=== PATIENT | female | born 1970 | race Caucasian/White ===

== ENCOUNTER → 2016-11-07 | Outpatient (CLI) | payer BC ==
--- NOTE | 2016-11-07 08:39 | US ---
EXAMINATION TYPE: US abdomen limited DATE OF EXAM: 11/07/2016 7:48 AM COMPARISON: Chest CT in PACS February 05, 2014 CLINICAL HISTORY: Abn LFT's, pt has history of Sarcoidosis EXAM MEASUREMENTS: Liver Length: 17.3 cm Gallbladder Wall: 0.2 cm CBD: 0.6 cm Right Kidney: 11.2 x 4.8 x 5.5 cm RUQ ABDOMINAL ULTRASOUND ANATOMY: Pancreas: Slightly heterogeneously hyperechoic, tail gassed out Liver: Heterogeneous hyperechoic, lobulated contour without abnormal intrahepatic ductal dilatation evaluation for focal masses is limited due to the heterogeneity. Gallbladder: wnl Evidence for sonographic Willis's sign: No CBD: Upper limits of normal Right Kidney: wnl TECHNOLOGIST IMPRESSION: As Above IMPRESSION: Heterogeneity of liver correlates with old CT where there is heterogeneous appearance to liver and spleen and scattered subcentimeter hypodense areas, sarcoid involvement is suspected in bot h. Imaging guided random biopsy for tissue analysis can be performed if desired.
[2016-11-07 08:49] LABS: Bilirubin, Delta 0.6 mg/dL (0.0-0.2); Total Bilirubin 0.8 mg/dL (0.2-1.3); Total Protein 8.1 g/dL (6.3-8.2)
== END | disposition home or self-care (01) ==
LOC: RADUSWWP 07:27
PROVIDERS: ATTEND Internal Medicine
DX: R79.89 Other specified abnormal findings of blood chemistry (principal)
CPT/HCPCS: 36415; 76705; 80076

== ENCOUNTER 2016-11-13 08:40 | Day surgery (SDC) | payer BC ==
[2016-11-13] MEDS ORDERED: HYDROmorphone 1 MG/ML 1 ML SYRINGE IVP PRN (09:17)
[2016-11-13] MEDS ORDERED: ALPRAZolam 0.5 MG TAB PO ONE (09:17)
[2016-11-13 09:38] LABS: INR 1.1 (<1.1); Prothrombin Time 10.7 sec (9.0-12.0)
[2016-11-13 09:43] VITALS: TEMP 97.4
[2016-11-13 09:44] LABS: Mean Platelet Volume 6.8
[2016-11-13] MEDS ORDERED: HYDROmorphone 1 MG/ML 1 ML SYRINGE IVP STA (10:20)
[2016-11-13 11:04] VITALS: RESP 16
--- NOTE | 2016-11-13 12:56 | US ---
EXAMINATION TYPE: US biopsy liver DATE OF EXAM: 11/13/2016 10:29 AM HISTORY: Sarcoidosis, D86.9 PROCEDURE: Maximal barrier technique was utilized. After informed consent, the skin overlying a suit able path to the left lobe of liver was localized using ultrasound, the skin was prepped and draped. Ultrasound was utilized with sterile technique. Lidocaine was used for local anesthesia. A skin ananth k made with a scalpel. Under direct ultrasound guidance, an 18-gauge needle was advanced into the le ft lobe of the liver and core biopsy obtained. Hemostasis was achieved. There was no immediate comp lication and patient remained in stable condition. Specimen submitted in formalin to Pathology. IMPRESSION: STATUS POST ULTRASOUND GUIDED CORE BIOPSY OF THE LEFT LOBE OF THE LIVER, PATHOLOGY CHASTITY Rainey PERFORMED BY THE UNDERSIGNED.
[2016-11-13 13:26] VITALS: BP 139/77; PULSE 68
== END 2016-11-13 14:35 | disposition home or self-care (01) ==
LOC: RADPROMAIN 08:40
PROVIDERS: ATTEND Internal Medicine
DX: K75.3 Granulomatous hepatitis, not elsewhere classified (principal)
CPT/HCPCS: 85049; 85610; 88312; 88313; 88307; 96374; 36415; 47000; 76942; J1170

== ENCOUNTER → 2017-02-08 | Outpatient (CLI) | payer OTHER ==
[2017-02-08 12:54] LABS: Anisocytosis Slight; Basophils % (A) 0 %; CH 28.5; CHCM 31.6; Eosinophils # (A) 0.1 k/uL (0-0.7); Eosinophils % (A) 1 %; HCT 42.6 % (34.0-46.0); HDW 2.27; HGB 13.7 gm/dL (11.4-16.0); Luc # (Auto) 0.29; Luc % (Auto) 3; Lymphocytes # (A) 0.9 k/uL (1.0-4.8); Lymphocytes % (A) 11 %; MCH 29.1 pg (25.0-35.0); MCHC 32.1 g/dL (31.0-37.0); MCV 90.7 fL (80.0-100.0); Mean Platelet Volume 6.7; Monocytes # (A) 0.6 k/uL (0-1.0); Monocytes % (A) 6 %; Neutrophils # (A) 6.7 k/uL (1.3-7.7); Neutrophils % (A) 78 %; RDW 16.7 % (11.5-15.5); WBC 8.6 k/uL (3.8-10.6); WBC (Perox) 9.04
[2017-02-08 13:02] LABS: ALT 49 U/L (9-52); AST 41 U/L (14-36); Alkaline Phosphatase 226 U/L (38-126); Anion Gap 11 mmol/L; Blood Urea Nitrogen 21 mg/dL (7-17); Carbon Dioxide 25 mmol/L (22-30); Chloride 104 mmol/L (98-107); Glucose 90 mg/dL (74-99); Non-African American GFR(MDRD) 53 (>60 ml/min/1.73 sqM); Potassium 4.5 mmol/L (3.5-5.1); Sodium 140 mmol/L (137-145); Total Bilirubin 0.6 mg/dL (0.2-1.3); Total Protein 7.3 g/dL (6.3-8.2)
== END | disposition home or self-care (01) ==
LOC: LABWHC1 12:01
PROVIDERS: ATTEND Internal Medicine
DX: D86.89 Sarcoidosis of other sites (principal)
CPT/HCPCS: 36415; 80053; 82164; 85025

== ENCOUNTER 2017-04-02 11:51 | Observation (INO) | payer OTHER ==
--- NOTE | 2017-04-02 12:31 | ED ---
General Adult HPI - General Chief complaint: Syncope Stated complaint: syncope Time Seen by Provider: 04/02/17 12:00 Source: patient, RN notes reviewed Mode of arrival: wheelchair Limitations: no limitations - History of Present Illness Initial comments: This is a 47-year-old female with past medical history significant for sarcoidosis and depression. Patient states today she was about to open a door at home and then she passed out onto the floor she did not hurt herself when she went down. Patient states she got up eventually with the help of some friends. Patient states she then took a shower while in the shower she lightheaded and passed out again. Patient states eventually woke up, the shower and began to get dressed. Patient states while dressing she was sitting on the edge of the bed she reached for her deodorant and again passed out. Patient states she passed out one more time while lying in the stretcher. [facility] but was not yet hooked to monitor. There was no post ictal state according to friends. Patient denies any headache patient denies numbness weakness. Patient denies any recent fever chills or cough. Patient denies any chest pain palpitations difficulty breathing or shortness of breath. Patient denies any abdominal pain patient denies nausea vomiting or diarrhea. - Related Data Home Medications Medication Instructions Recorded Confirmed Albuterol Nebulized (Conc) 2.5 mg INHALATION RT-TID 11/08/16 04/02/17 [Ventolin Nebulized (Conc)] Budesonide-Formot 160-4.5 Mcg 2 puff INHALATION RT-BID 11/08/16 04/02/17 [Symbicort 160-4.5 Mcg Inhaler] Levothyroxine Sodium [Synthroid] 175 mcg PO DAILY 11/08/16 04/02/17 Olmesartan Medoxomil [Benicar] 20 mg PO DAILY 11/08/16 04/02/17 busPIRone HCL 15 mg PO BID 11/08/16 04/02/17 DULoxetine HCL [Cymbalta] 120 mg PO DAILY 11/10/16 04/02/17 Cholecalciferol [Vitamin D3] 1,000 unit PO DAILY 04/02/17 04/02/17 predniSONE [Deltasone] 20 mg PO Q48H 04/02/17 04/02/17 Allergies Allergy/AdvReac Type Severity Reaction Status Date / Time No Known Allergies Allergy Verified 04/02/17 14:02 Review of Systems ROS Statement: Those systems with pertinent positive or pertinent negative responses have been documented in the HPI. ROS Other: All systems not noted in ROS Statement are negative. Past Medical History Past Medical History: Hypertension, Liver Disease, Sleep Apnea/CPAP/BIPAP, Thyroid Disorder Additional Past Medical History / Comment(s): sacoidosis, C-Pap History of Any Multi-Drug Resistant Organisms: None Reported Additional Past Surgical History / Comment(s): D&C Past Anesthesia/Blood Transfusion Reactions: No Reported Reaction Past Psychological History: Anxiety, Depression Smoking Status: Never smoker Past Alcohol Use History: None Reported Past Drug Use History: None Reported - Past Family History Brother(s) Family Medical History: Cancer Additional Family Medical History / Comment(s): oral cancer General Exam - General Exam Comments Initial Comments: GENERAL: Patient is well-developed and well-nourished. Patient is nontoxic and well- hydrated and is in mild distress. Patient is currently diaphoretic ENT: Neck is soft and supple. No significant lymphadenopathy is noted. Oropharynx is clear. Moist mucous membranes. Neck has full range of motion without eliciting any pain. EYES: The sclera were anicteric and conjunctiva were pink and moist. Extraocular movements were intact and pupils were equal round and reactive to light. Eyelids were unremarkable. PULMONARY: Unlabored respirations. Good breath sounds bilaterally. No audible rales rhonchi or wheezing was noted. CARDIOVASCULAR: There is a regular rate and rhythm without any murmurs gallops or rubs. ABDOMEN: Soft and nontender with normal bowel sounds. No palpable organomegaly was noted. There is no palpable pulsatile mass. SKIN: Skin is clear with no lesions or rashes and otherwise unremarkable. NEUROLOGIC: Patient is alert and oriented x3. Cranial nerves II through XII are grossly intact. Motor and sensory are also intact. Normal speech, volume and content. Symmetrical smile. MUSCULOSKELETAL: Normal extremities with adequate strength and full range of motion. No lower extremity swelling or edema. No calf tenderness. LYMPHATICS: No significant lymphadenopathy is noted PSYCHIATRIC: Normal psychiatric evaluation. Normal interpersonal interactions appears functionally intact in deals appropriately with others. No signs of depression. No signs of anxiety. Limitations: no limitations Course Vital Signs 04/02/17 04/02/17 04/02/17 12:00 12:34 13:19 Temperature 98.2 F Pulse Rate 78 70 Pulse Rate [ 76 Sitting] Pulse Rate [ 83 Standing] Pulse Rate [ 68 Supine] Respiratory 18 Rate Blood Pressure 159/87 164/94 Blood Pressure 155/96 [Sitting] Blood Pressure 161/101 [Standing] Blood Pressure 163/94 [Supine] O2 Sat by Pulse 98 97 Oximetry 04/02/17 04/02/17 14:19 15:19 Temperature Pulse Rate 76 76 Pulse Rate [ Sitting] Pulse Rate [ Standing] Pulse Rate [ Supine] Respiratory 18 Rate Blood Pressure 157/75 173/83 Blood Pressure [Sitting] Blood Pressure [Standing] Blood Pressure [Supine] O2 Sat by Pulse 98 98 Oximetry Medical Decision Making - Medical Decision Making EKG shows normal sinus rhythm at 64 bpm WI interval is 176 QRS is 126 QT interval 444 QTC is 458. Patient's EKG shows no ST segment elevation or depression or T wave abnormalities are noted. Patient has a right bundle branch block. No old EKG is unremarkable Chest x-ray shows no acute abnormality. Computed tomography scan of the chest shows no acute abnormality. Patient for syncopal episodes to standing was sitting and 1 lying down so admitted the patient. I spoke with Dr. Arellano and he agreed to admit the patient I wrote admitting orders and consult cardiology. - Lab Data Result diagrams: 04/02/17 12:20 04/02/17 12:20 Lab Results 04/02/17 04/02/17 04/02/17 Range/Units 12:20 12:20 12:20 WBC 11.9 H (3.8-10.6) k/uL RBC 4.95 (3.80-5.40) m/uL Hgb 14.8 (11.4-16.0) gm/dL Hct 45.1 (34.0-46.0) % MCV 91.0 (80.0-100.0) fL MCH 29.9 (25.0-35.0) pg MCHC 32.8 (31.0-37.0) g/dL RDW 14.6 (11.5-15.5) % Plt Count 280 (150-450) k/uL Neutrophils % 80 % Lymphocytes % 10 % Monocytes % 6 % Eosinophils % 2 % Basophils % 0 % Neutrophils # 9.6 H (1.3-7.7) k/uL Lymphocytes # 1.1 (1.0-4.8) k/uL Monocytes # 0.7 (0-1.0) k/uL Eosinophils # 0.2 (0-0.7) k/uL Basophils # 0.0 (0-0.2) k/uL PT (9.0-12.0) sec INR (<1.1) APTT (22.0-30.0) sec D-Dimer (<0.60) mg/L FEU Sodium 138 (137-145) mmol/L Potassium 4.5 (3.5-5.1) mmol/L Chloride 105 (98-107) mmol/L Carbon Dioxide 24 (22-30) mmol/L Anion Gap 9 mmol/L BUN 19 H (7-17) mg/dL Creatinine 0.90 (0.52-1.04) mg/dL Est GFR (MDRD) Af Amer >60 (>60 ml/min/1.73 sqM) Est GFR (MDRD) Non-Af >60 (>60 ml/min/1.73 sqM) Glucose 126 H (74-99) mg/dL POC Glucose (mg/dL) (75-99) mg/dL POC Glu Animal Assistant ID Calcium 9.4 (8.4-10.2) mg/dL Magnesium 2.0 (1.6-2.3) mg/dL Total Bilirubin 0.8 (0.2-1.3) mg/dL AST 56 H (14-36) U/L ALT 83 H (9-52) U/L Alkaline Phosphatase 236 H (38-126) U/L Total Creatine Kinase 27 L (30-135) U/L CK-MB (CK-2) 1.3 (0.0-2.4) ng/mL CK-MB (CK-2) Rel Index 4.8 Troponin I <0.012 (0.000-0.034) ng/mL Total Protein 7.6 (6.3-8.2) g/dL Albumin 3.9 (3.5-5.0) g/dL 04/02/17 04/02/17 Range/Units 12:20 12:30 WBC (3.8-10.6) k/uL RBC (3.80-5.40) m/uL Hgb (11.4-16.0) gm/dL Hct (34.0-46.0) % MCV (80.0-100.0) fL MCH (25.0-35.0) pg MCHC (31.0-37.0) g/dL RDW (11.5-15.5) % Plt Count (150-450) k/uL Neutrophils % % Lymphocytes % % Monocytes % % Eosinophils % % Basophils % % Neutrophils # (1.3-7.7) k/uL Lymphocytes # (1.0-4.8) k/uL Monocytes # (0-1.0) k/uL Eosinophils # (0-0.7) k/uL Basophils # (0-0.2) k/uL PT 9.6 (9.0-12.0) sec INR 0.9 (<1.1) APTT 20.7 L (22.0-30.0) sec D-Dimer 1.87 H (<0.60) mg/L FEU Sodium (137-145) mmol/L Potassium (3.5-5.1) mmol/L Chloride (98-107) mmol/L Carbon Dioxide (22-30) mmol/L Anion Gap mmol/L BUN (7-17) mg/dL Creatinine (0.52-1.04) mg/dL Est GFR (MDRD) Af Amer (>60 ml/min/1.73 sqM) Est GFR (MDRD) Non-Af (>60 ml/min/1.73 sqM) Glucose (74-99) mg/dL POC Glucose (mg/dL) 119 H (75-99) mg/dL POC Glu Animal Assistant ID Justus Rowe Calcium (8.4-10.2) mg/dL Magnesium (1.6-2.3) mg/dL Total Bilirubin (0.2-1.3) mg/dL AST (14-36) U/L ALT (9-52) U/L Alkaline Phosphatase (38-126) U/L Total Creatine Kinase (30-135) U/L CK-MB (CK-2) (0.0-2.4) ng/mL CK-MB (CK-2) Rel Index Troponin I (0.000-0.034) ng/mL Total Protein (6.3-8.2) g/dL Albumin (3.5-5.0) g/dL Disposition Clinical Impression: Syncope and collapse Disposition: ADMITTED IP TO THIS HOSP Referrals: Juice Pappas MD [Primary Care Provider] - 1-2 days Time of Disposition: 16:02
[2017-04-02 12:40] LABS: Glucose,Whole Blood 119 mg/dL (75-99)
[2017-04-02 12:44] LABS: Basophils % (A) 0 %; CHCM 33.1; Eosinophils # (A) 0.2 k/uL (0-0.7); Eosinophils % (A) 2 %; HCT 45.1 % (34.0-46.0); HDW 2.31; HGB 14.8 gm/dL (11.4-16.0); Luc # (Auto) 0.31; Luc % (Auto) 3; Lymphocytes # (A) 1.1 k/uL (1.0-4.8); Lymphocytes % (A) 10 %; MCH 29.9 pg (25.0-35.0); MCHC 32.8 g/dL (31.0-37.0); Mean Platelet Volume 6.7; Monocytes # (A) 0.7 k/uL (0-1.0); Monocytes % (A) 6 %; Neutrophils # (A) 9.6 k/uL (1.3-7.7); Neutrophils % (A) 80 %; RBC 4.95 m/uL (3.80-5.40); RDW 14.6 % (11.5-15.5); WBC 11.9 k/uL (3.8-10.6); WBC (Perox) 12.36
[2017-04-02 12:50] LABS: ALT 83 U/L (9-52); AST 56 U/L (14-36); Alkaline Phosphatase 236 U/L (38-126); Anion Gap 9 mmol/L; Blood Urea Nitrogen 19 mg/dL (7-17); Calcium 9.4 mg/dL (8.4-10.2); Carbon Dioxide 24 mmol/L (22-30); Chloride 105 mmol/L (98-107); Glucose 126 mg/dL (74-99); Non-African American GFR(MDRD) >60 (>60 ml/min/1.73 sqM); Potassium 4.5 mmol/L (3.5-5.1); Sodium 138 mmol/L (137-145); Total Bilirubin 0.8 mg/dL (0.2-1.3); Total Protein 7.6 g/dL (6.3-8.2)
[2017-04-02 13:00] LABS: Creatine Kinase 27 U/L (30-135)
[2017-04-02 13:10] LABS: INR 0.9 (<1.1); Partial Thromboplastin Time 20.7 sec (22.0-30.0); Prothrombin Time 9.6 sec (9.0-12.0)
--- NOTE | 2017-04-02 13:10 | XR ---
EXAMINATION TYPE: XR chest 2V DATE OF EXAM: 04/02/2017 HISTORY: Chest Pain. REFERENCE: Previous study dated 02/13/2014. FINDINGS: Heart size is upper limits of normal. There is mild vascular congestion and interstitial ch laura. Pleural spaces are clear. IMPRESSION: FINDINGS MOST CONSISTENT WITH MILD HEART FAILURE.
[2017-04-02 13:13] LABS: Creatine Kinase MB 1.3 ng/mL (0.0-2.4); Troponin I <0.012 ng/mL (0.000-0.034)
[2017-04-02] MEDS ORDERED: HEPARIN SODIUM,PORCINE 10,000 UNIT/ML 1 ML VIAL IV ONE (13:44)
[2017-04-02] MEDS ORDERED: RX INFO: IV CONTRAST WAS GIVEN 1 EACH MISC MISCELLANE PRN (13:44)
--- NOTE | 2017-04-02 15:53 | CT ---
EXAMINATION TYPE: CT chest angio for PE DATE OF EXAM: 04/02/2017 COMPARISON: NONE HISTORY: Syncopal episodes today. Right rib pain after fall. CT DLP: 861.50 mGycm Automated exposure control for dose reduction was used. CONTRAST: CT Chest for pulmonary embolism performed with with IV Contrast, patient injected with 81 mL of Omnip aque 350. FINDINGS: LUNGS: Nodular densities are present bilaterally within the lungs. MEDIASTINUM: There is satisfactory enhancement of the pulmonary artery and its branches, there is no CT evidence for pulmonary embolism. Borderline enlarged node in the aorticopulmonary window level and superior mediastinum. There are some small and borderline enlarged prevascular nodes, shotty nodes w ithin the mediastinum. Calcified mediastinal, hilar nodes also present. No pericardial effusion is se en. AORTA: No additional significant abnormality is seen. OTHER: Liver shows intranodular contour which may be due to underlying cirrhosis. Spleen is borderli ne enlarged, liver may be enlarged. IMPRESSION: No evident pulmonary embolism. Correlate for cirrhosis. Suspect hepatosplenomegaly. Granulomatous dis ease compatible with patient's history of sarcoid.
[2017-04-02] MEDS ORDERED: NITROGLYCERIN SL TABS 0.4 MG TAB SUBLINGUAL PRN (16:03)
[2017-04-02 17:16] VITALS: BMI 49.9
[2017-04-02] MEDS ORDERED: traMADol 50 MG TAB PO PRN (18:14)
[2017-04-02] MEDS: ALBUTEROL NEBULIZED 2.5 MG/3 ML INHALATION SCH (19:47)
[2017-04-02] MEDS: SYMBICORT 160-4.5 MCG INHALER INHALATION SCH (19:47)
[2017-04-02 20:05] LABS: Creatine Kinase 22 U/L (30-135)
[2017-04-02 20:16] LABS: Creatine Kinase MB 1.2 ng/mL (0.0-2.4); Troponin I <0.012 ng/mL (0.000-0.034)
[2017-04-02] MEDS: busPIRone HCl 5 MG TAB PO SCH (21:32)
[2017-04-03 00:19] LABS: Creatine Kinase 20 U/L (30-135)
[2017-04-03 00:32] LABS: Troponin I <0.012 ng/mL (0.000-0.034)
[2017-04-03] MEDS: HYDROcodone/APAP 5-325MG 1 EACH TAB PO PRN (04:04)
[2017-04-03] MEDS: LEVOTHYROXINE 100 MCG TAB PO SCH (06:28)
[2017-04-03] MEDS: LEVOTHYROXINE 75 MCG TAB PO SCH (06:29)
[2017-04-03 07:01] LABS: Basophils # (A) 0.1 k/uL (0-0.2); Basophils % (A) 1 %; CH 29.9; CHCM 32.4; Eosinophils # (A) 0.2 k/uL (0-0.7); Eosinophils % (A) 2 %; HCT 44.8 % (34.0-46.0); HDW 2.27; HGB 14.4 gm/dL (11.4-16.0); Luc # (Auto) 0.23; Luc % (Auto) 3; Lymphocytes # (A) 0.9 k/uL (1.0-4.8); Lymphocytes % (A) 10 %; MCH 29.9 pg (25.0-35.0); MCHC 32.1 g/dL (31.0-37.0); Mean Platelet Volume 6.5; Monocytes # (A) 0.4 k/uL (0-1.0); Monocytes % (A) 5 %; Neutrophils # (A) 6.7 k/uL (1.3-7.7); Neutrophils % (A) 80 %; RBC 4.82 m/uL (3.80-5.40); RDW 14.8 % (11.5-15.5); WBC 8.5 k/uL (3.8-10.6); WBC (Perox) 8.85
[2017-04-03 07:10] LABS: Anion Gap 10 mmol/L; Blood Urea Nitrogen 19 mg/dL (7-17); Calcium 9.4 mg/dL (8.4-10.2); Carbon Dioxide 23 mmol/L (22-30); Chloride 105 mmol/L (98-107); Cholesterol 235 mg/dL (<200); Glucose 129 mg/dL (74-99); HDL Cholesterol 74 mg/dL (40-60); Non-African American GFR(MDRD) 59 (>60 ml/min/1.73 sqM); Potassium 4.7 mmol/L (3.5-5.1); Sodium 138 mmol/L (137-145); Triglycerides 185 mg/dL (<150)
[2017-04-03] MEDS: SYMBICORT 160-4.5 MCG INHALER INHALATION SCH ×2 (07:59→20:23)
[2017-04-03] MEDS: ALBUTEROL NEBULIZED 2.5 MG/3 ML INHALATION SCH ×3 (07:59→20:23)
[2017-04-03 08:00] LABS: ALT 72 U/L (9-52); AST 47 U/L (14-36)
[2017-04-03] MEDS ORDERED: predniSONE 20 MG TAB PO SCH (09:00)
[2017-04-03] MEDS: CHOLECALCIFEROL 1,000 UNIT TAB PO SCH (09:30)
[2017-04-03] MEDS: DULoxetine HCL 60 MG CAPSULE.DR PO SCH (09:30)
[2017-04-03] MEDS: LOSARTAN 50 MG TAB PO SCH (09:30)
[2017-04-03] MEDS: busPIRone HCl 5 MG TAB PO SCH ×2 (09:30→21:05)
[2017-04-03] MEDS: ASPIRIN 325 MG TAB PO SCH (09:30)
--- NOTE | 2017-04-03 09:46 | CONS ---
DATE OF CONSULTATION: CHIEF COMPLAINT: Syncope. Quyen is a 47-year-old lady with history of COPD, hypothyroidism, and hypertension who presented to hospital having had an episode of syncope. Patient states that she was taking shower, was standing and then suddenly passed out. She fell down and hit her right rib. She woke up on her own. She thinks that she probably passed out for about 10 minutes of so, did not have any focal neurological deficits. Did not have bladder or bowel incontinence and there is no prior history of syncope or TIA. She had a CTA that is negative for pulmonary embolism. At the time of my evaluation this morning, she is comfortable at rest. Hemodynamically stable and in no apparent distress. Three sets of cardiac enzymes are negative. An EKG shows sinus rhythm with right bundle branch block. Past medical history is significant for COPD and hypertension. Medications include Symbicort, albuterol, Benicar, Synthroid and Cymbalta. Allergic to TRAMADOL. Family history is negative for premature coronary artery disease. Social history is negative for current smoking, EtOH abuse, or drug abuse. REVIEW OF SYSTEMS: HEENT is unremarkable. CARDIAC: As described above. RESPIRATORY: Negative. GI: Negative. GENITOURINARY: Negative. ALLERGY/IMMUNOLOGY: Negative. SKIN: Negative. MUSCULOSKELETAL: Negative. DERMATOLOGY: Negative. CONSTITUTIONAL: negative. ONCOLOGICAL: Negative. The rest of the system review is not relevant. On exam, comfortable at rest. Vital signs are stable. There is no jugular venous distention. Carotid upstroke is normal. There is no bruit. Chest is clear to auscultation and percussion. Heart exam reveals first and second heart sounds. No gallop. No murmur, no rub. Abdomen is soft, nontender. Exam of the extremities did not reveal edema. Peripheral pulses are felt. Labs show a hemoglobin of 14.4, platelet count is 243. D-dimer is elevated, but the CT chest is negative. Potassium is 4.7. Creatinine is 1. Liver enzymes are slightly elevated, 3 sets of tropes are negative. Cholesterol is 235 with an HDL of 74, LDL of 134. ASSESSMENT: 1. Syncope; rule out cardiac causes. 2. Hypertension. 3. Chronic obstructive pulmonary disease. PLAN: So far the cardiac work-up is negative. There is no documented tachy- or bradyarrhythmia. Patient did not have myocardial infarction. CT chest is negative. I will obtain a carotid duplex study and an echocardiogram. If these are negative and patient is feeling well, we can ambulate and discharge her home and consider an outpatient stress test. Thank you for allowing us to participate in the care of this pleasant.
--- NOTE | 2017-04-03 10:44 | US ---
EXAMINATION TYPE: US carotid duplex BILAT DATE OF EXAM: 04/03/2017 COMPARISON: NONE CLINICAL HISTORY: syncope, exam extremely difficult due to large thick neck, pulsatile vessels, study somewhat limited. EXAM MEASUREMENTS: RIGHT: Peak Systolic Velocity (PSV) cm/sec ----- Right CCA: 95.3 ----- Right ICA: 73.7 ----- Right ECA: 128.6 ICA/CCA ratio: 0.8 RIGHT: End Diastole cm/sec ----- Right CCA: 18.9 ----- Right ICA: 18.0 ----- Right ECA: 16.5 LEFT: Peak Systolic Velocity (PSV) cm/sec ----- Left CCA: 87.5 ----- Left ICA: 115.6 ----- Left ECA: 108.2 ICA/CCA ratio: 1.3 LEFT: End Diastole cm/sec ----- Left CCA: 15.8 ----- Left ICA: 23.2 ----- Left ECA: 14.3 VERTEBRALS (direction of flow): Right Vertebral: Antegrade Left Vertebral: Antegrade Unable to visualize distal ICA on left due to depth of vessels. No significant velocity elevations. Grayscale, color Doppler, spectral Doppler imaging performed of the carotid arteries IMPRESSION: No hemodynamic significant stenosis of the proximal internal carotid arteries bilaterall y by Doppler criteria, and indirect measurement of carotid stenosis, there are some limitations to ev aluation of the distal internal carotid artery on the left.
--- NOTE | 2017-04-03 12:27 | P.CNPUL ---
History of Present Illness Consult date: 04/03/17 Chief complaint: sarcoidosis, syncope History of present illness: A 46-year-old female patient with history of pulmonary and liver sarcoidosis who was hospitalized yesterday because of recurrent episodes of syncope. The patient was at her friend's house where she unexpectedly passed out and she lost consciousness and these episodes were very brief and the patient would wake within seconds without having any altered mentation or any residual neurologic deficits. These episodes were not associated with any chest pain, palpitations, seizures, or any focal neurological deficits. She denies having any headache. No dizziness. No orthostasis. No head trauma. The patient came into the hospital for this reason. An echocardiogram was done and the results are still pending for now. Meanwhile, the patient has normal blood work and normal electrolytes and no significant abnormalities have been noted. 3 sets of cardiac enzymes have been obtained including a troponin and all of them were within normal limits. The EKG showed a right bundle branch block pattern and a left axis deviation. The cardiac rhythm was sinus. The CT angios the chest showed no evidence of any pulmonary embolism. There is hepatosplenomegaly and granulomatous disease consistent with pulmonary and hepatic sarcoidosis. Note that the patient was confirmed to have hepatic sarcoidosis with a fine-needle aspirate of the liver. The patient has been on systemic steroids and she is being regularly followed up by Dr. Pickens. She remains on a 30 mg of prednisone every other day for her pulmonary and hepatic disease. She is on no Plaquenil for the time being. No cough. No sputum production. No shortness of breath. No vision changes. There is some mild baseline abnormalities in her liver function tests. No altered mentation at this point. No no seizure activity. No history of any neurosarcoidosis or cardiac sarcoidosis. She is obese and she has obstructive sleep apnea pH is compliant to her CPAP therapy and the patient denies having any sleep attacks. Review of Systems All systems: negative Constitutional: Denies chills, Denies fever Eyes: denies blurred vision, denies pain Ears, nose, mouth and throat: Denies headache, Denies sore throat Cardiovascular: Denies chest pain, Denies shortness of breath Respiratory: Denies cough Gastrointestinal: Denies abdominal pain, Denies diarrhea, Denies nausea, Denies vomiting Genitourinary: Denies dysuria, Denies hematuria Musculoskeletal: Denies myalgias Integumentary: Denies pruritus, Denies rash Neurological: Reports syncope, Reports weakness Psychiatric: Denies anxiety, Denies depression Endocrine: Denies fatigue, Denies weight change Past Medical History Past Medical History: Hypertension, Liver Disease, Sleep Apnea/CPAP/BIPAP, Thyroid Disorder Additional Past Medical History / Comment(s): Sarcoidosis with pulmonary and liver involvement, 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, obstructive sleep apnea maintained on CPAP therapy, morbid obesity, GE reflux, hypertension History of Any Multi-Drug Resistant Organisms: None Reported Additional Past Surgical History / Comment(s): D&C, liver biopsy Past Anesthesia/Blood Transfusion Reactions: No Reported Reaction Past Psychological History: Anxiety, Depression Smoking Status: Never smoker Past Alcohol Use History: None Reported Past Drug Use History: None Reported - Past Family History Brother(s) Family Medical History: Cancer Additional Family Medical History / Comment(s): oral cancer Medications and Allergies Home Medications Medication Instructions Recorded Confirmed Type Albuterol Nebulized (Conc) 2.5 mg INHALATION RT-TID 11/08/16 04/02/17 History [Ventolin Nebulized (Conc)] Budesonide-Formot 160-4.5 Mcg 2 puff INHALATION RT-BID 11/08/16 04/02/17 History [Symbicort 160-4.5 Mcg Inhaler] Levothyroxine Sodium [Synthroid] 175 mcg PO DAILY 11/08/16 04/02/17 History Olmesartan Medoxomil [Benicar] 20 mg PO DAILY 11/08/16 04/02/17 History busPIRone HCL 15 mg PO BID 11/08/16 04/02/17 History DULoxetine HCL [Cymbalta] 120 mg PO DAILY 11/10/16 04/02/17 History Cholecalciferol [Vitamin D3] 1,000 unit PO DAILY 04/02/17 04/02/17 History predniSONE [Deltasone] 20 mg PO Q48H 04/02/17 04/02/17 History Allergies Allergy/AdvReac Type Severity Reaction Status Date / Time tramadol [From Ultram] AdvReac Unknown Verified 04/03/17 07:38 Physical Exam Vitals: Vital Signs Temp Pulse Pulse Pulse Pulse Resp BP 04/03/17 11:30 80 16 04/03/17 09:25 97 F L 93 104 H 93 16 04/03/17 08:14 82 04/03/17 08:02 78 04/03/17 04:00 97.2 F L 86 16 04/03/17 00:00 97.4 F L 82 17 04/02/17 20:00 97.3 F L 86 18 04/02/17 19:51 80 04/02/17 19:41 80 04/02/17 17:33 16 04/02/17 17:05 97.1 F L 72 89 77 16 04/02/17 16:25 98.1 F 74 18 166/65 04/02/17 15:19 76 18 173/83 04/02/17 14:19 76 157/75 04/02/17 13:19 70 164/94 04/02/17 12:34 76 83 68 BP BP BP Pulse Ox 04/03/17 11:30 147/87 95 04/03/17 09:25 141/76 140/94 144/90 94 L 04/03/17 08:14 04/03/17 08:02 95 04/03/17 04:00 131/68 97 04/03/17 00:00 04/02/17 20:00 115/77 94 L 04/02/17 19:51 04/02/17 19:41 04/02/17 17:33 04/02/17 17:05 160/87 164/92 142/83 97 04/02/17 16:25 100 04/02/17 15:19 98 04/02/17 14:19 98 04/02/17 13:19 97 04/02/17 12:34 155/96 161/101 163/94 Intake and Output 04/02/17 04/03/17 04/03/17 22:59 06:59 14:59 Intake Total 180 300 Balance 180 300 Intake: Oral 180 300 Other: # Voids 1 Weight 136.078 kg 133.5 kg Obese, comfortable, no acute distress.Head exam was generally normal. There was no scleral icterus or corneal arcus. Mucous membranes were moist. Neck is short and supple and the patient has significant crowding of the posterior oropharynx. There is no goiter or neck masses. Lungs sounds are diminished bilaterally otherwise clear. No wheezes or rhonchi any crackles.Cardiac exam revealed the PMI to be normally situated and sized. The rhythm was regular and no extrasystoles were noted during several minutes of auscultation. The first and second heart sounds were normal and physiologic splitting of the second heart sound was noted. There were no murmurs, rubs, clicks, or gallops.Abdominal exam revealed normal bowel sounds. The abdomen was soft, non- tender, and without masses, organomegaly, or appreciable enlargement of the abdominal aorta. Organs cannot be accurately palpated as the patient is morbidly obese.Examination of the extremities revealed easily palpable radial, femoral and pedal pulses. There was no cyanosis, clubbing or edema. Neurologically the patient is intact and the exam is nonfocal. Results - Laboratory Findings CBC and BMP: 04/03/17 06:12 04/03/17 06:12 PT/INR, D-dimer PT 9.6 sec (9.0-12.0) 04/02/17 12:20 INR 0.9 (<1.1) 04/02/17 12:20 D-Dimer 1.87 mg/L FEU (<0.60) H 04/02/17 12:20 Abnormal lab findings: Abnormal Labs 04/02/17 04/02/17 04/02/17 12:20 12:20 12:20 WBC 11.9 H Neutrophils # 9.6 H Lymphocytes # APTT D-Dimer BUN 19 H Glucose 126 H POC Glucose (mg/dL) AST 56 H ALT 83 H Alkaline Phosphatase 236 H Total Creatine Kinase 27 L Triglycerides Cholesterol LDL Cholesterol, Calc HDL Cholesterol 04/02/17 04/02/17 04/02/17 12:20 12:30 18:50 WBC Neutrophils # Lymphocytes # APTT 20.7 L D-Dimer 1.87 H BUN Glucose POC Glucose (mg/dL) 119 H AST ALT Alkaline Phosphatase Total Creatine Kinase 22 L Triglycerides Cholesterol LDL Cholesterol, Calc HDL Cholesterol 04/02/17 04/03/17 04/03/17 23:41 06:12 06:12 WBC Neutrophils # Lymphocytes # 0.9 L APTT D-Dimer BUN 19 H Glucose 129 H POC Glucose (mg/dL) AST ALT Alkaline Phosphatase Total Creatine Kinase 20 L Triglycerides 185 H Cholesterol 235 H LDL Cholesterol, Calc 124 H HDL Cholesterol 74 H 04/03/17 06:12 WBC Neutrophils # Lymphocytes # APTT D-Dimer BUN Glucose POC Glucose (mg/dL) AST 47 H ALT 72 H Alkaline Phosphatase Total Creatine Kinase Triglycerides Cholesterol LDL Cholesterol, Calc HDL Cholesterol - Diagnostic Findings CT scan - chest: image reviewed Assessment and Plan Plan: Assessment 1 syncope, unexplained. Rule out cardiac arrhythmia contributing to these episodes of syncope. Rule out cardiac sarcoidosis. Neurologically the patient is intact however she would need a further evaluation. Neurosarcoidosis is felt to be less likely. Carotid Dopplers are negative. 2 sarcoidosis with pulmonary and hepatic involvement maintenance prednisone 3 morbid obesity 4 obstructive sleep apnea maintained on CPAP 5 hypertension 6 abnormal LFTs secondary to above. Plan Keep the patient a residential monitor. Echocardiogram. Look for any significant cardiac arrhythmia. Obtain MRI of the brain to see if there is any evidence of neurosarcoidosis contributing to his syncope. Continue prednisone 20 mg every other day. Outpatient medication been ordered resume. Blood work was noted. We'll continue to follow.
--- NOTE | 2017-04-03 23:29 | MR ---
EXAMINATION TYPE: MR brain wo/w con DATE OF EXAM: 04/03/2017 COMPARISON: NONE HISTORY: Dizziness, fall CONTRAST: Standard multiplanar, multisequence MRI departmental protocol utilizing 20 mL intravenous MultiHance gadolinium contrast. FINDINGS: The ventricles appear normal. There is no mass effect nor midline shift. There is no sign o f intracranial hemorrhage. There is an 8 mm focus of increased signal at the packer-white matter juncti on left parietal lobe. There are other scattered foci of less than 5 mm increased signal at the packer- white matter junction of both anterior parietal lobes. Total number is 5. There is no midline shift. There is no sign of intracranial hemorrhage. Brainstem appears normal. Cor pus callosum appears normal. There is no pathologic enhancement. IMPRESSION: There are scattered white matter high signal foci of uncertain significance. I would consider minimal chronic small vessel ischemia and minimal demyelinating disease.
[2017-04-04] MEDS: HYDROcodone/APAP 5-325MG 1 EACH TAB PO PRN (05:16)
[2017-04-04 05:25] VITALS: RESP 16
[2017-04-04] MEDS: LEVOTHYROXINE 100 MCG TAB PO SCH (06:28)
[2017-04-04] MEDS: LEVOTHYROXINE 75 MCG TAB PO SCH (06:28)
[2017-04-04 06:38] LABS: Basophils % (A) 0 %; CH 29.9; CHCM 31.9; Eosinophils # (A) 0.1 k/uL (0-0.7); Eosinophils % (A) 1 %; HDW 2.21; HGB 14.9 gm/dL (11.4-16.0); Luc # (Auto) 0.32; Luc % (Auto) 3; Lymphocytes # (A) 1.1 k/uL (1.0-4.8); Lymphocytes % (A) 10 %; MCH 29.9 pg (25.0-35.0); MCHC 31.7 g/dL (31.0-37.0); MCV 94.3 fL (80.0-100.0); Mean Platelet Volume 6.2; Monocytes # (A) 0.7 k/uL (0-1.0); Monocytes % (A) 6 %; Neutrophils # (A) 8.8 k/uL (1.3-7.7); Neutrophils % (A) 80 %; RBC 4.99 m/uL (3.80-5.40); RDW 14.6 % (11.5-15.5); WBC 11.1 k/uL (3.8-10.6)
[2017-04-04 06:47] LABS: ALT 71 U/L (9-52); AST 44 U/L (14-36); Alkaline Phosphatase 218 U/L (38-126); Anion Gap 10 mmol/L; Blood Urea Nitrogen 21 mg/dL (7-17); Calcium 9.6 mg/dL (8.4-10.2); Carbon Dioxide 24 mmol/L (22-30); Chloride 106 mmol/L (98-107); Glucose 124 mg/dL (74-99); Non-African American GFR(MDRD) 59 (>60 ml/min/1.73 sqM); Potassium 4.7 mmol/L (3.5-5.1); Sodium 140 mmol/L (137-145); Total Bilirubin 0.7 mg/dL (0.2-1.3); Total Protein 7.3 g/dL (6.3-8.2)
--- NOTE | 2017-04-04 08:15 | HP ---
DATE OF ADMISSION: REASON FOR ADMISSION: Syncope. 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 Patient states that she lost consciousness during the 3 episodes. Denies having any alarm symptoms prior, lasted about 30 seconds. Did not lose her control of her bowel or bladder. Patient stated that; however, thereafter she came into the emergency room. An EKG was done and did not reveal any abnormalities. Orthostatics were negative. No seizure-like activity was described. However, patient stated that her friend described that she watched the patient where she tensed up in the emergency room and had her eyes rolling back. Denies having any focal motor or sensory deficits at this time. A CT angiogram was done, did not reveal any pulmonary embolism. There is diffuse granulomatosis disease. Denies having any headaches, blurry vision, nausea, vomiting, diarrhea. Does not state to have any reproducibility of the symptoms with change in position. Past medical history includes sarcoidosis, sleep apnea, obesity, thyroid disorder, hypertension. Surgical history includes liver biopsy, D&C. SOCIAL HISTORY: Lifelong nonsmoker. No alcohol or drug use reported. FAMILY HISTORY: Oral cancer in brother. Medications include: 1. Albuterol. 2. Symbicort. 3. Synthroid. 4. Benicar. 5. BuSpar. 6. Duloxetine. 7. Vitamin D3. 8. Prednisone. ALLERGIES: Allergic to TRAMADOL. Those were reviewed and appropriately reconciled. PHYSICAL EXAM: VITALS: Temperature is 97 Fahrenheit, heart rate 80 beats per minute, respiratory rate 16, saturating 98% on room air. Blood pressure 140/94. GENERALLY: Patient appears to be alert, oriented x3. HEENT: The pupils are equal and reactive to light and accommodation. HEART: S1, S2 present. No murmur appreciated. LUNGS: Good air entry. No wheezing or rhonchi noted. ABDOMINAL EXAM: Soft, nontender, no organomegaly appreciated. GENITOURINARY: No Nation in place. EXTREMITIES: Pulses can be palpated distally. Denies any tenderness on gross palpation. SKIN: On a gross skin exam does not appear to have any purpura or any skin rashes that were noted. NEUROLOGICALLY: Grossly cranial nerves 2-12 intact. No motor or sensory deficits noted. LABORATORY DATA: Hemoglobin 14.4, hematocrit 44.8, white count 8.5, platelets of 244. Sodium 138, potassium 4.7, chloride 105, bicarb 20. BUN 19, creatinine 1. ASSESSMENT AND PLAN: 1. Syncope, rule out cardiogenic causes. Continue with telemetry monitoring. One needs to consider a neurosarcoidosis as well. 2. Morbid obesity. 3. Obstructive sleep apnea. 4. Hypertension. 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 PLAN: Echocardiogram of the heart will be obtained. Continue with telemetry monitoring. A carotid study was ordered by Cardiology. Patient is to continue prednisone. MRI of the brain will be done if there is any granulomatous lesion without the current focal deficits seen on the physical exam we would need to consider seizure activity as well. DVT prophylaxis. Will follow.
[2017-04-04 08:27] VITALS: TEMP 97.6
[2017-04-04] MEDS: ALBUTEROL NEBULIZED 2.5 MG/3 ML INHALATION SCH ×2 (08:27→12:53)
[2017-04-04] MEDS: DULoxetine HCL 60 MG CAPSULE.DR PO SCH (08:27)
[2017-04-04] MEDS: SYMBICORT 160-4.5 MCG INHALER INHALATION SCH (08:27)
[2017-04-04] MEDS: ASPIRIN 325 MG TAB PO SCH (08:27)
[2017-04-04] MEDS: busPIRone HCl 5 MG TAB PO SCH (08:28)
[2017-04-04] MEDS: LOSARTAN 50 MG TAB PO SCH (08:28)
[2017-04-04] MEDS: CHOLECALCIFEROL 1,000 UNIT TAB PO SCH (08:28)
--- NOTE | 2017-04-04 10:29 | P.PN ---
Subjective Principal diagnosis: Syncope This is a 47-year-old female with history of COPD, hypothyroidism, hypertension , who presented to the hospital following an episode of syncope. She has had no arrhythmias noted on the monitor here, blood pressure has been stable. She did have a CTA negative for pulmonary embolism. Echocardiogram with Doppler study was performed and remains pending. Objective - Vital Signs Vital signs: Vital Signs Temp 97.6 F 04/04/17 08:00 Pulse 88 04/04/17 08:44 Resp 16 04/04/17 08:00 BP 141/100 04/04/17 08:00 Pulse Ox 95 04/04/17 08:00 Intake & Output 04/03/17 04/04/17 04/04/17 18:59 06:59 18:59 Intake Total 716 480 Output Total 550 Balance 716 -70 Weight 133.2 kg Intake: Oral 716 480 Output: Urine 550 Other: Voiding Method Toilet Toilet # Voids 1 1 # Bowel Movements 1 - Exam PHYSICAL EXAMINATION: HEENT: Head is atraumatic, normocephalic. Pupils equal, round. Neck is supple. There is no elevated jugular venous pressure. HEART EXAMINATION: Heart S1, S2 normal. No murmur or gallop heard. CHEST EXAMINATION: Lungs are clear to auscultation and precussion. No chest wall tenderness is noted on palpation or with deep breathing. ABDOMEN: Soft, obese, nontender. Bowel sounds are heard. No organomegaly noted. EXTREMITIES: 2+ peripheral pulses with no evidence of peripheral edema and no calf tenderness noted. NEUROLOGIC patient is awake, alert and oriented -3. . - Labs CBC & Chem 7: 04/04/17 06:19 04/04/17 06:19 Labs: Abnormal Lab Results - Last 24 Hours (Table) 04/04/17 04/04/17 Range/Units 06:19 06:19 WBC 11.1 H (3.8-10.6) k/uL Hct 47.0 H (34.0-46.0) % Neutrophils # 8.8 H (1.3-7.7) k/uL BUN 21 H (7-17) mg/dL Glucose 124 H (74-99) mg/dL AST 44 H (14-36) U/L ALT 71 H (9-52) U/L Alkaline Phosphatase 218 H (38-126) U/L Assessment and Plan (1) Morbid obesity Status: Acute (2) Sleep apnea Status: Acute (3) HTN (hypertension) Status: Acute (4) Sarcoid Status: Acute (5) Syncope and collapse Status: Acute Plan: From cardiology's perspective, we will review the patient's echocardiogram with Doppler study, if normal she may be able to be discharged home once cleared by primary. We will make her a follow-up appointment with Dr. Calvin in the office. An outpatient stress test will also be ordered. DNP note has been reviewed, I agree with a documented findings and plan of care. Patient was seen and examined.
--- NOTE | 2017-04-04 11:16 | ECHOF ---
Referral Reason:syncope MEASUREMENTS -------- HEIGHT: 165.1 cm WEIGHT: 133.4 kg BP: IVSd: 1.4 cm (0.6 - 1.1) LVIDd: 4.1 cm (3.9 - 5.3) LVPWd: 1.6 cm (0.6 - 1.1) IVSs: 1.7 cm LVIDs: 3.7 cm LVPWs: 1.2 cm Ao Diam: 3.4 cm (2.0 - 3.7) AV Cusp: 2.4 cm (1.5 - 2.6) LA Diam: 3.6 cm (2.7 - 3.8) MV E Adalberto: 0.46 m/s MV DecT: 254 ms MV A Adalberto: 0.72 m/s MV E/A Ratio: 0.63 FINDINGS -------- Sinus rhythm. Morbid Obesity This was a techncally difficult study with suboptimal views, , Definity utilized for enhancement of images. There is moderate concentric left ventricular hypertrophy. Overall left ventricular systolic function is low-normal with, an EF between 50 - 55 %. The right ventricle is normal in size. The left atrial size is normal. The right atrial size is normal. 1.5MG OF DEFINITY UTLIZED: 2 OR MORE WALL SEGMENTS NOT VISUALIZED. The aortic valve was not well visualized. Mild mitral regurgitation is present. Mild tricuspid regurgitation present. Right ventricular systolic pressure is normal at < 35 mmHg. There is no evidence of pulmonary hypertension. The pulmonic valve was not well visualized. The aortic root size is normal. Echo free space may represent effusion or a pericardial fat pad. CONCLUSIONS -------- 1. Morbid Obesity 2. There is no evidence of pulmonary hypertension. 3. The pulmonic valve was not well visualized. 4. The aortic root size is normal. 5. Echo free space may represent effusion or a pericardial fat pad. 6. This was a techncally difficult study with suboptimal views, , Definity utilized for enhancement of images. 7. There is moderate concentric left ventricular hypertrophy. 8. Overall left ventricular systolic function is low-normal with, an EF between 50 - 55 %. 9. 1.5MG OF DEFINITY UTLIZED: 2 OR MORE WALL SEGMENTS NOT VISUALIZED. 10. The aortic valve was not well visualized. 11. Mild mitral regurgitation is present. 12. Mild tricuspid regurgitation present. 13. Right ventricular systolic pressure is normal at < 35 mmHg. MANAGER DRUG: Chloé Mccarthy RDCS
[2017-04-04 11:20] VITALS: BP 123/66
[2017-04-04 12:56] VITALS: PULSE 84
--- NOTE | 2017-04-04 13:24 | P.PN ---
Subjective A 46-year-old female patient with history of pulmonary and liver sarcoidosis who was hospitalized yesterday because of recurrent episodes of syncope. The patient was at her friend's house where she unexpectedly passed out and she lost consciousness and these episodes were very brief and the patient would wake within seconds without having any altered mentation or any residual neurologic deficits. These episodes were not associated with any chest pain, palpitations, seizures, or any focal neurological deficits. She denies having any headache. No dizziness. No orthostasis. No head trauma. The patient came into the hospital for this reason. An echocardiogram was done and the results are still pending for now. Meanwhile, the patient has normal blood work and normal electrolytes and no significant abnormalities have been noted. 3 sets of cardiac enzymes have been obtained including a troponin and all of them were within normal limits. The EKG showed a right bundle branch block pattern and a left axis deviation. The cardiac rhythm was sinus. The CT angios the chest showed no evidence of any pulmonary embolism. There is hepatosplenomegaly and granulomatous disease consistent with pulmonary and hepatic sarcoidosis. Note that the patient was confirmed to have hepatic sarcoidosis with a fine-needle aspirate of the liver. The patient has been on systemic steroids and she is being regularly followed up by Dr. Pickens. She remains on a 30 mg of prednisone every other day for her pulmonary and hepatic disease. She is on no Plaquenil for the time being. No cough. No sputum production. No shortness of breath. No vision changes. There is some mild baseline abnormalities in her liver function tests. No altered mentation at this point. No no seizure activity. No history of any neurosarcoidosis or cardiac sarcoidosis. She is obese and she has obstructive sleep apnea and is compliant to her CPAP therapy and the patient denies having any sleep attacks. On 04/04/2017 the patient is being seen in follow-up. The patient is doing well. No further episodes of syncope. No cardiac arrhythmias have been noted on the monitor. MRI of the brain was done and showed some scattered white matter high signal foci of unknown significance. There was no meningeal enhancement. There is no lesions to suggest [employer] sarcoidosis. The possibilities were raised by the radiologist was chronic small vessel ischemia versus minimal demyelinating disease. Meanwhile, the patient had an echocardiogram and the patient had no evidence of any pulmonary hypertension, there was moderate concentric Hypertrophy with an Ejection Fraction of 50-55%, No Segmental Wall Motion Abnormalities, No Valvular Insufficiency. Objective - Vital Signs Vital signs: Vital Signs Temp 97.6 F 04/04/17 08:00 Pulse 84 04/04/17 13:07 Resp 16 04/04/17 11:19 BP 123/66 04/04/17 11:19 Pulse Ox 96 04/04/17 11:19 Intake & Output 04/03/17 04/04/17 04/04/17 18:59 06:59 18:59 Intake Total 716 480 540 Output Total 550 Balance 716 -70 540 Weight 133.2 kg Intake: Oral 716 480 540 Output: Urine 550 Other: Voiding Method Toilet Toilet # Voids 1 1 1 # Bowel Movements 1 0 - Exam Obese, comfortable, no acute distress.Head exam was generally normal. There was no scleral icterus or corneal arcus. Mucous membranes were moist. Neck is short and supple and the patient has significant crowding of the posterior oropharynx. There is no goiter or neck masses. Lungs sounds are diminished bilaterally otherwise clear. No wheezes or rhonchi any crackles.Cardiac exam revealed the PMI to be normally situated and sized. The rhythm was regular and no extrasystoles were noted during several minutes of auscultation. The first and second heart sounds were normal and physiologic splitting of the second heart sound was noted. There were no murmurs, rubs, clicks, or gallops.Abdominal exam revealed normal bowel sounds. The abdomen was soft, non- tender, and without masses, organomegaly, or appreciable enlargement of the abdominal aorta. Organs cannot be accurately palpated as the patient is morbidly obese.Examination of the extremities revealed easily palpable radial, femoral and pedal pulses. There was no cyanosis, clubbing or edema. Neurologically the patient is intact and the exam is nonfocal. - Labs CBC & Chem 7: 04/04/17 06:19 04/04/17 06:19 Labs: Abnormal Lab Results - Last 24 Hours (Table) 04/04/17 04/04/17 Range/Units 06:19 06:19 WBC 11.1 H (3.8-10.6) k/uL Hct 47.0 H (34.0-46.0) % Neutrophils # 8.8 H (1.3-7.7) k/uL BUN 21 H (7-17) mg/dL Glucose 124 H (74-99) mg/dL AST 44 H (14-36) U/L ALT 71 H (9-52) U/L Alkaline Phosphatase 218 H (38-126) U/L Assessment and Plan Plan: Assessment 1 syncope, unexplained. Rule out cardiac arrhythmia contributing to these episodes of syncope. Rule out cardiac sarcoidosis. Neurologically the patient is intact however she would need a further evaluation. Neurosarcoidosis is felt to be less likely. The MRI of the brain was noted and there is no evidence of any neurosarcoidosis. There may be some chronic white matter ischemic changes versus some early demyelination. The patient's had Carotid Dopplers are negative. Echocardiac Mack was also negative. There was some hypertensive heart disease with concentric left ventricular hypertrophy. No pulmonary hypertension. No valvular changes. No segmental wall motion abnormalities. 2 sarcoidosis with pulmonary and hepatic involvement maintenance prednisone 3 morbid obesity 4 obstructive sleep apnea maintained on CPAP 5 hypertension 6 abnormal LFTs secondary to above. Plan Pulmonary status is stable. Sarcoidosis improving on 20 mg of prednisone every other day. The patient has pulmonary and hepatic involvement. There is no evidence of any cardiac or urinary involvement with sarcoidosis. MRI of the brain was reviewed. Echocardiac Mack was reviewed. Cardiac rhythm is stable. Follow-up with cardiology on outpatient basis. May consider a prolonged Holter monitor and a stress test at the later stage. Follow-up with Dr. Pappas.
--- NOTE | 2017-04-04 19:09 | P.DS ---
Providers Date of admission: 04/02/17 16:03 Attending physician: Thee Arellano MD Consults: 04/02/17 16:03 Consult Physician Urgent Consulting Provider: Lizeth Franco Consult Reason/Comments: Syncope Do you want consulting provider notified?: Yes Consult Physician Urgent Consulting Provider: [facility] Consult Reason/Comments: Syncopal episodes Do you want consulting provider notified?: Yes Primary care physician: [facility] Course: DATE OF ADMISSION: REASON FOR ADMISSION: Syncope. 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 Patient states that she lost consciousness during the 3 episodes. Denies having any alarm symptoms prior, lasted about 30 seconds. Did not lose her control of her bowel or bladder. Patient stated that; however, thereafter she came into the emergency room. An EKG was done and did not reveal any abnormalities. Orthostatics were negative. No seizure-like activity was described. However, patient stated that her friend described that she watched the patient where she tensed up in the emergency room and had her eyes rolling back. Denies having any focal motor or sensory deficits at this time. A CT angiogram was done, did not reveal any pulmonary embolism. There is diffuse granulomatosis disease. day of discharge Denies having any headaches, blurry vision, nausea, vomiting, diarrhea. Does not state to have any reproducibility of the symptoms with change in position. PHYSICAL EXAM: VITALS: Temperature is 97 Fahrenheit, heart rate 80 beats per minute, respiratory rate 16, saturating 98% on room air. Blood pressure 140/94. GENERALLY: Patient appears to be alert, oriented x3. HEENT: The pupils are equal and reactive to light and accommodation. HEART: S1, S2 present. No murmur appreciated. LUNGS: Good air entry. No wheezing or rhonchi noted. ABDOMINAL EXAM: Soft, nontender, no organomegaly appreciated. GENITOURINARY: No Nation in place. EXTREMITIES: Pulses can be palpated distally. Denies any tenderness on gross palpation. SKIN: On a gross skin exam does not appear to have any purpura or any skin rashes that were noted. NEUROLOGICALLY: Grossly cranial nerves 2-12 intact. No motor or sensory deficits noted. ASSESSMENT AND PLAN: 1. Syncope, rule out cardiogenic causes. Continue with telemetry monitoring. One needs to consider a neurosarcoidosis as well. 2. Morbid obesity. 3. Obstructive sleep apnea. 4. Hypertension. 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 MRi shows small vessel disease recommend to be off work for 10 days No driving if pt has recurrent symptoms then pt needs HOlter eval echo was done, wnl, no carotid abnormalities Plan - Discharge Summary New Discharge Prescriptions: Continue RX: Budesonide-Formot 160-4.5 Mcg [Symbicort 160-4.5 Mcg Inhaler] 2 puff INHALATION RT-BID RX: busPIRone HCL 15 mg PO BID RX: Albuterol Nebulized (Conc) [Ventolin Nebulized (Conc)] 2.5 mg INHALATION RT-TID RX: Olmesartan Medoxomil [Benicar] 20 mg PO DAILY RX: Levothyroxine Sodium [Synthroid] 175 mcg PO DAILY RX: DULoxetine HCL [Cymbalta] 120 mg PO DAILY RX: Cholecalciferol [Vitamin D3] 1,000 unit PO DAILY RX: predniSONE [Deltasone] 20 mg PO Q48H Discharge Medication List RX: Albuterol Nebulized (Conc) [Ventolin Nebulized (Conc)] 2.5 mg INHALATION RT- TID 11/08/16 [History] RX: Budesonide-Formot 160-4.5 Mcg [Symbicort 160-4.5 Mcg Inhaler] 2 puff INHALATION RT-BID 11/08/16 [History] RX: Levothyroxine Sodium [Synthroid] 175 mcg PO DAILY 11/08/16 [History] RX: Olmesartan Medoxomil [Benicar] 20 mg PO DAILY 11/08/16 [History] RX: busPIRone HCL 15 mg PO BID 11/08/16 [History] RX: DULoxetine HCL [Cymbalta] 120 mg PO DAILY 11/10/16 [History] RX: Cholecalciferol [Vitamin D3] 1,000 unit PO DAILY 04/02/17 [History] RX: predniSONE [Deltasone] 20 mg PO Q48H 04/02/17 [History] Follow up Appointment(s)/Referral(s): Juice Pappas MD [Primary Care Provider] - 04/06/17 2:00 pm Niranjan Calvin MD [STAFF PHYSICIAN] - 04/20/17 1:00 pm Patient Instructions/Handouts: Syncope (DC) Activity/Diet/Wound Care/Special Instructions: Return to work on 04/14/17 without any restrictions Discharge Disposition: HOME SELF-CARE
== END 2017-04-04 17:10 | disposition home or self-care (01) ==
LOC: EC 11:51 → 6SEL 16:03 → INTOOBSV 16:03
PROVIDERS: ADMIT Internal Medicine; ATTEND Internal Medicine
DX: R55 Syncope and collapse (principal); E66.01 Morbid (severe) obesity due to excess calories; G47.33 Obstructive sleep apnea (adult) (pediatric); I11.9 Hypertensive heart disease without heart failure; K73.8 Other chronic hepatitis, not elsewhere classified; D86.0 Sarcoidosis of lung; D86.89 Sarcoidosis of other sites; F32.9 Major depressive disorder, single episode, unspecified; Z68.42 Body mass index [BMI] 45.0-49.9, adult; F41.9 Anxiety disorder, unspecified; I45.10 Unspecified right bundle-branch block; J44.9 Chronic obstructive pulmonary disease, unspecified; E03.9 Hypothyroidism, unspecified; K21.9 Gastro-esophageal reflux disease without esophagitis; I73.9 Peripheral vascular disease, unspecified; Z88.8 Allergy status to other drugs, medicaments and biological substances; Z79.51 Long term (current) use of inhaled steroids; Z79.899 Other long term (current) drug therapy
CPT/HCPCS: 96374; 99285; 36415; 94640 ×6; 94760; 93005; 93306; 85379; 80061; 80053 ×2; 80048; 82550; 82553; 83735; 84450; 84460; 84484; 85025 ×3; 85610; 85730; 71020; 93880; 71275; 70553; G0378 ×3; J1644; Q9967; Q9957; A9577; J7512

== ENCOUNTER 2017-04-11 12:27 | Inpatient (IN) | payer OTHER ==
--- NOTE | 2017-04-11 14:23 | ED ---
Syncope HPI - General Chief Complaint: Syncope Stated Complaint: Passing Out Time Seen by Provider: 04/11/17 13:13 Source: patient, RN notes reviewed Mode of arrival: wheelchair Limitations: no limitations - History of Present Illness Initial Comments: This is a 47-year-old female who was just recently admitted and worked up for syncope which included echocardiogram carotid Doppler studies and MRI of the brain who had 2 episodes today of syncope. She states the first was at home she was reaching for some dog food in an overhead covered and passed out for about a minute. His second episode at her director of digital technology's office where she was being evaluated. She was sent over here for further evaluation right now she feels asymptomatic she states she has no idea at all that this is going to occur except for at the doctor's office today she felt somewhat diaphoretic and lightheaded prior to the episode. She denies any chest pain fevers chills nausea vomiting sweats focal weakness or upper or lower extremities no headaches or vision loss. Patient did state that she has been recently having some exertional dyspnea which seems to be new. MD Complaint: loss of consciousness, collapsed - Related Data Home Medications Medication Instructions Recorded Confirmed Albuterol Nebulized (Conc) 2.5 mg INHALATION RT-TID 11/08/16 04/11/17 [Ventolin Nebulized (Conc)] Budesonide-Formot 160-4.5 Mcg 2 puff INHALATION RT-BID 11/08/16 04/11/17 [Symbicort 160-4.5 Mcg Inhaler] Levothyroxine Sodium [Synthroid] 175 mcg PO DAILY 11/08/16 04/11/17 Olmesartan Medoxomil [Benicar] 20 mg PO DAILY 11/08/16 04/11/17 busPIRone HCL 15 mg PO BID 11/08/16 04/11/17 DULoxetine HCL [Cymbalta] 120 mg PO DAILY 11/10/16 04/11/17 Cholecalciferol [Vitamin D3] 1,000 unit PO DAILY 04/02/17 04/11/17 predniSONE [Deltasone] 20 mg PO Q48H 04/02/17 04/11/17 Ping Back And Body 1 tab PO QID PRN 04/11/17 04/11/17 Allergies Allergy/AdvReac Type Severity Reaction Status Date / Time tramadol [From Ultram] AdvReac Rash/Hives Verified 04/11/17 14:27 Review of Systems ROS Statement: Those systems with pertinent positive or pertinent negative responses have been documented in the HPI. ROS Other: All systems not noted in ROS Statement are negative. Past Medical History Past Medical History: Hypertension, Liver Disease, Sleep Apnea/CPAP/BIPAP, Thyroid Disorder Additional Past Medical History / Comment(s): Sarcoidosis with pulmonary and liver involvement, 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, obstructive sleep apnea maintained on CPAP therapy, morbid obesity, GE reflux, hypertension History of Any Multi-Drug Resistant Organisms: None Reported Additional Past Surgical History / Comment(s): D&C, liver biopsy Past Anesthesia/Blood Transfusion Reactions: No Reported Reaction Past Psychological History: Anxiety, Depression Smoking Status: Never smoker Past Alcohol Use History: None Reported Past Drug Use History: None Reported - Past Family History Brother(s) Family Medical History: Cancer Additional Family Medical History / Comment(s): oral cancer General Exam - General Exam Comments Initial Comments: Is a well-developed well-nourished awake alert female Limitations: no limitations General appearance: alert, in no apparent distress Head exam: Present: atraumatic, normocephalic, normal inspection Eye exam: Present: normal appearance, PERRL, EOMI. Absent: scleral icterus, conjunctival injection, periorbital swelling ENT exam: Present: normal exam, mucous membranes moist Neck exam: Present: normal inspection. Absent: tenderness, meningismus, lymphadenopathy Respiratory exam: Present: normal lung sounds bilaterally. Absent: respiratory distress, wheezes, rales, rhonchi, stridor Cardiovascular Exam: Present: regular rate, normal rhythm, normal heart sounds. Absent: systolic murmur, diastolic murmur, rubs, gallop, clicks GI/Abdominal exam: Present: soft, normal bowel sounds. Absent: distended, tenderness, guarding, rebound, rigid Extremities exam: Present: normal inspection, full ROM, normal capillary refill. Absent: tenderness, pedal edema, joint swelling, calf tenderness Back exam: Present: normal inspection Neurological exam: Present: alert, oriented X3, CN II-XII intact Psychiatric exam: Present: normal affect, normal mood Skin exam: Present: warm, dry, intact, normal color. Absent: rash Course Vital Signs 04/11/17 04/11/17 04/11/17 12:59 13:56 15:03 Temperature 97.1 F L Pulse Rate 67 61 61 Respiratory 18 22 14 Rate Blood Pressure 182/94 157/80 173/84 O2 Sat by Pulse 94 L 99 97 Oximetry 04/11/17 16:00 Temperature Pulse Rate 66 Respiratory 18 Rate Blood Pressure 157/83 O2 Sat by Pulse 96 Oximetry EKG Findings - EKG Results: EKG: interpreted by ERMD (Sinus rhythm with exodeviation right bundle-branch block rate was 70 [place] interval 146 QRS duration 134 daily since QTC of 460/505. ST-T wave changes) Medical Decision Making - Medical Decision Making I did discuss findings with patient family members as well as with the hospitalist patient will be readmitted for evaluation for recurrent syncopal episodes - Lab Data Result diagrams: 04/11/17 13:45 04/11/17 13:45 Lab Results 04/11/17 04/11/17 04/11/17 Range/Units 13:45 13:45 13:45 WBC 9.4 (3.8-10.6) k/uL RBC 4.54 (3.80-5.40) m/uL Hgb 13.8 (11.4-16.0) gm/dL Hct 43.6 (34.0-46.0) % MCV 96.0 (80.0-100.0) fL MCH 30.4 (25.0-35.0) pg MCHC 31.6 (31.0-37.0) g/dL RDW 14.6 (11.5-15.5) % Plt Count 276 (150-450) k/uL Neutrophils % 82 % Lymphocytes % 9 % Monocytes % 5 % Eosinophils % 1 % Basophils % 1 % Neutrophils # 7.7 (1.3-7.7) k/uL Lymphocytes # 0.9 L (1.0-4.8) k/uL Monocytes # 0.5 (0-1.0) k/uL Eosinophils # 0.1 (0-0.7) k/uL Basophils # 0.1 (0-0.2) k/uL PT (9.0-12.0) sec INR (<1.1) APTT (22.0-30.0) sec D-Dimer (<0.60) mg/L FEU Sodium 140 (137-145) mmol/L Potassium 4.6 (3.5-5.1) mmol/L Chloride 105 (98-107) mmol/L Carbon Dioxide 24 (22-30) mmol/L Anion Gap 11 mmol/L BUN 21 H (7-17) mg/dL Creatinine 0.99 (0.52-1.04) mg/dL Est GFR (MDRD) Af Amer >60 (>60 ml/min/1.73 sqM) Est GFR (MDRD) Non-Af 60 (>60 ml/min/1.73 sqM) Glucose 102 H (74-99) mg/dL Calcium 9.4 (8.4-10.2) mg/dL Magnesium 2.0 (1.6-2.3) mg/dL Total Bilirubin 0.8 (0.2-1.3) mg/dL AST 58 H (14-36) U/L ALT 68 H (9-52) U/L Alkaline Phosphatase 230 H (38-126) U/L Total Creatine Kinase 41 (30-135) U/L CK-MB (CK-2) 1.4 (0.0-2.4) ng/mL CK-MB (CK-2) Rel Index 3.4 Troponin I <0.012 (0.000-0.034) ng/mL Total Protein 7.5 (6.3-8.2) g/dL Albumin 4.0 (3.5-5.0) g/dL Urine Color Urine Appearance (Clear) Urine pH (5.0-8.0) Ur Specific [place] (1.001-1.035) Urine Protein (Negative) Urine Glucose (UA) (Negative) Urine Ketones (Negative) Urine Blood (Negative) Urine Nitrite (Negative) Urine Bilirubin (Negative) Urine Urobilinogen (<2.0) mg/dL Ur Leukocyte Esterase (Negative) Urine RBC (0-5) /hpf Urine WBC (0-5) /hpf Ur Squamous Epith Cells (0-4) /hpf Urine Bacteria (None) /hpf Urine Mucus (None) /hpf 04/11/17 04/11/17 Range/Units 13:45 16:00 WBC (3.8-10.6) k/uL RBC (3.80-5.40) m/uL Hgb (11.4-16.0) gm/dL Hct (34.0-46.0) % MCV (80.0-100.0) fL MCH (25.0-35.0) pg MCHC (31.0-37.0) g/dL RDW (11.5-15.5) % Plt Count (150-450) k/uL Neutrophils % % Lymphocytes % % Monocytes % % Eosinophils % % Basophils % % Neutrophils # (1.3-7.7) k/uL Lymphocytes # (1.0-4.8) k/uL Monocytes # (0-1.0) k/uL Eosinophils # (0-0.7) k/uL Basophils # (0-0.2) k/uL PT 9.8 (9.0-12.0) sec INR 1.0 (<1.1) APTT 18.1 L (22.0-30.0) sec D-Dimer 0.81 H (<0.60) mg/L FEU Sodium (137-145) mmol/L Potassium (3.5-5.1) mmol/L Chloride (98-107) mmol/L Carbon Dioxide (22-30) mmol/L Anion Gap mmol/L BUN (7-17) mg/dL Creatinine (0.52-1.04) mg/dL Est GFR (MDRD) Af Amer (>60 ml/min/1.73 sqM) Est GFR (MDRD) Non-Af (>60 ml/min/1.73 sqM) Glucose (74-99) mg/dL Calcium (8.4-10.2) mg/dL Magnesium (1.6-2.3) mg/dL Total Bilirubin (0.2-1.3) mg/dL AST (14-36) U/L ALT (9-52) U/L Alkaline Phosphatase (38-126) U/L Total Creatine Kinase (30-135) U/L CK-MB (CK-2) (0.0-2.4) ng/mL CK-MB (CK-2) Rel Index Troponin I (0.000-0.034) ng/mL Total Protein (6.3-8.2) g/dL Albumin (3.5-5.0) g/dL Urine Color Yellow Urine Appearance Cloudy H (Clear) Urine pH 5.5 (5.0-8.0) Ur Specific [place] 1.012 (1.001-1.035) Urine Protein Negative (Negative) Urine Glucose (UA) Negative (Negative) Urine Ketones Negative (Negative) Urine Blood Negative (Negative) Urine Nitrite Negative (Negative) Urine Bilirubin Negative (Negative) Urine Urobilinogen <2.0 (<2.0) mg/dL Ur Leukocyte Esterase Trace H (Negative) Urine RBC <1 (0-5) /hpf Urine WBC 1 (0-5) /hpf Ur Squamous Epith Cells 1 (0-4) /hpf Urine Bacteria Few H (None) /hpf Urine Mucus Rare H (None) /hpf - Radiology Data Radiology results: report reviewed (Review the imaging shows no acute findings.) , image reviewed Disposition Clinical Impression: Syncope Disposition: ADMITTED IP TO THIS [facility] Condition: Stable Referrals: Juice Pappas MD [Primary Care Provider] - 1-2 days
[2017-04-11] MEDS ORDERED: SODIUM CHLORIDE 0.9% 1,000 ML IV STA (14:49)
[2017-04-11 14:59] LABS: Basophils # (A) 0.1 k/uL (0-0.2); Basophils % (A) 1 %; CH 30.1; CHCM 31.6; Eosinophils # (A) 0.1 k/uL (0-0.7); Eosinophils % (A) 1 %; HCT 43.6 % (34.0-46.0); HDW 2.23; HGB 13.8 gm/dL (11.4-16.0); Luc # (Auto) 0.13; Luc % (Auto) 1; Lymphocytes # (A) 0.9 k/uL (1.0-4.8); Lymphocytes % (A) 9 %; MCH 30.4 pg (25.0-35.0); MCHC 31.6 g/dL (31.0-37.0); Mean Platelet Volume 7.3; Monocytes # (A) 0.5 k/uL (0-1.0); Monocytes % (A) 5 %; Neutrophils # (A) 7.7 k/uL (1.3-7.7); Neutrophils % (A) 82 %; RBC 4.54 m/uL (3.80-5.40); RDW 14.6 % (11.5-15.5); WBC 9.4 k/uL (3.8-10.6); WBC (Perox) 8.85
[2017-04-11 15:09] LABS: ALT 68 U/L (9-52); AST 58 U/L (14-36); Alkaline Phosphatase 230 U/L (38-126); Anion Gap 11 mmol/L; Blood Urea Nitrogen 21 mg/dL (7-17); Calcium 9.4 mg/dL (8.4-10.2); Carbon Dioxide 24 mmol/L (22-30); Chloride 105 mmol/L (98-107); Glucose 102 mg/dL (74-99); Non-African American GFR(MDRD) 60 (>60 ml/min/1.73 sqM); Potassium 4.6 mmol/L (3.5-5.1); Sodium 140 mmol/L (137-145); Total Bilirubin 0.8 mg/dL (0.2-1.3); Total Protein 7.5 g/dL (6.3-8.2)
--- NOTE | 2017-04-11 15:09 | XR ---
EXAMINATION TYPE: XR chest 2V DATE OF EXAM: 04/11/2017 COMPARISON: Chest x-ray April 02, 2017. HISTORY: Hypertension and syncope TECHNIQUE: Frontal and lateral views of the chest are obtained. FINDINGS: Exam is suboptimal secondary to patient's large body habitus. Low lung volumes are present. The cardiac silhouette size is mildly enlarged with mild central vascular congestion felt present. F inding slightly more prominent than prior study. No large pleural effusion or pneumothorax is seen bi laterally. The osseous structures are intact. IMPRESSION: Consider CHF exacerbation as there is cardiomegaly with central vascular congestion felt present.
[2017-04-11 15:12] LABS: Prothrombin Time 9.8 sec (9.0-12.0)
[2017-04-11 15:21] LABS: Creatine Kinase 41 U/L (30-135)
[2017-04-11 15:34] LABS: Creatine Kinase MB 1.4 ng/mL (0.0-2.4); Partial Thromboplastin Time 18.1 sec (22.0-30.0); Troponin I <0.012 ng/mL (0.000-0.034)
[2017-04-11 16:13] LABS: Appearance,Urine Cloudy (Clear); Bacteria,Urine Few /hpf; Bilirubin,Urine Negative (Negative); Glucose,Urine (UA) Negative (Negative); Ketones,Urine Negative (Negative); Leukocyte Esterase,Urine Trace (Negative); Mucus,Urine Rare /hpf; Nitrite,Urine Negative (Negative); PH, Urine 5.5 (5.0-8.0); Particle Count 4139; Protein,Urine Negative (Negative); RBC,Urine <1 /hpf (0-5); Specific Gravity,Urine 1.012 (1.001-1.035); Squamous Epithelial Cell,Urine 1 /hpf (0-4); UA Billing (MACRO vs. MICRO) MICRO; Urobilinogen,Urine <2.0 mg/dL (<2.0); WBC,Urine 1 /hpf (0-5)
[2017-04-11] MEDS ORDERED: NALOXONE 0.4 MG/ML 1 ML VIAL IV PRN (16:30)
[2017-04-11] MEDS: SYMBICORT 160-4.5 MCG INHALER INHALATION SCH (20:39)
[2017-04-11] MEDS: ALBUTEROL NEBULIZED 2.5 MG/3 ML INHALATION SCH (20:39)
[2017-04-11] MEDS: busPIRone HCl 5 MG TAB PO SCH (22:03)
[2017-04-11] MEDS: SODIUM CHLORIDE 0.9% 1,000 ML IV SCH (22:03)
[2017-04-12] MEDS: SODIUM CHLORIDE 0.9% 1,000 ML IV SCH ×2 (06:28→15:31)
[2017-04-12] MEDS: LEVOTHYROXINE 88 MCG TAB PO SCH (06:28)
[2017-04-12 06:39] LABS: Glucose,Whole Blood 112 mg/dL (75-99)
[2017-04-12] MEDS: SYMBICORT 160-4.5 MCG INHALER INHALATION SCH ×2 (08:18→21:42)
[2017-04-12] MEDS: ALBUTEROL NEBULIZED 2.5 MG/3 ML INHALATION SCH ×4 (08:18→21:45)
[2017-04-12] MEDS: DULoxetine HCL 60 MG CAPSULE.DR PO SCH (08:43)
[2017-04-12] MEDS: predniSONE 20 MG TAB PO SCH (08:44)
[2017-04-12] MEDS: busPIRone HCl 5 MG TAB PO SCH ×2 (08:44→20:58)
[2017-04-12] MEDS ORDERED: predniSONE 20 MG TAB PO SCH (09:00)
--- NOTE | 2017-04-12 09:50 | P.CRDCN ---
History of Present Illness Consult date: 04/12/17 Requesting physician: Thee Arellano Consult reason: sycope Chief complaint: Syncope History of present illness: This is a pleasant 47-year-old female with history of sarcoidosis, hypothyroidism, hypertension, COPD, who was recently in the hospital approximately one week ago following a syncopal episode. A CTA of the chest was performed at that time which was negative for pulmonary embolism. She was seen in consultation by Dr. Calvin at that time and recommended to have a follow- up appointment with him in the office as well as an outpatient stress test. Yesterday, patient states she was reaching up into one of her cubbards and again had another syncopal episode. She called the heart doctors office to see if she could come in earlier, apparently while in the waiting room at the office , patient was filling out a form, she states she became very warm and again passed out. She was seen by Dr. Calvin in the office and recommended to come to the hospital for admission. Patient was told she would likely have a stress test. EKG performed on admission here showed a normal sinus rhythm with a right bundle branch block pattern subsequent EKG showed a normal sinus rhythm with a right bundle branch block pattern. Patient states she was up in the bathroom earlier this morning, very webbing seamer pound net the next thing she recalls is waking up with 2 nurses at her side. She had another syncopal episode. On the monitor patient was in a normal sinus rhythm, 4 second pause was noted as well as episodes of what appear to be complete heart block. At the time of my examination this morning she is in a sinus bradycardia . Chest x-ray shows possible heart failure and cardiomegaly with central vascular congestion. CBC normal, d-dimer 0.81. Potassium 4.6, BUN 21, creatinine 0.9. Magnesium level 2.0, AST 58, ALT 68, alk phos 230, patient has chronically elevated liver enzymes secondary to sarcoid. Troponin less than 0.012. Blood pressure 140/90 heart rate in the 40s this morning. 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 LIVES WITH A FRIEND. PETS: 2 DOGS. NO HOMECARE SERVICES RECEIVED. HAS A CPAP AND NEBULIZER. Smoking Status: Never smoker Past Alcohol Use History: None Reported Past Drug Use History: None Reported - Past Family History Brother(s) Family Medical History: Cancer, Myocardial Infarction ([place]) Additional Family Medical History / Comment(s): oral cancer, CADIAC STENTS Father Family Medical History: No Reported History Mother Family Medical History: Coronary Artery Disease (CAD) Additional Family Medical History / Comment(s): CARDAIC STENTS Medications and Allergies Home Medications Medication Instructions Recorded Confirmed Type Albuterol Nebulized (Conc) 2.5 mg INHALATION RT-TID 11/08/16 04/11/17 History [Ventolin Nebulized (Conc)] Budesonide-Formot 160-4.5 Mcg 2 puff INHALATION RT-BID 11/08/16 04/11/17 History [Symbicort 160-4.5 Mcg Inhaler] Levothyroxine Sodium [Synthroid] 175 mcg PO DAILY 11/08/16 04/11/17 History Olmesartan Medoxomil [Benicar] 20 mg PO DAILY 11/08/16 04/11/17 History busPIRone HCL 15 mg PO BID 11/08/16 04/11/17 History DULoxetine HCL [Cymbalta] 120 mg PO DAILY 11/10/16 04/11/17 History Cholecalciferol [Vitamin D3] 1,000 unit PO DAILY 04/02/17 04/11/17 History predniSONE [Deltasone] 20 mg PO Q48H 04/02/17 04/11/17 History Ping Back And Body 1 tab PO QID PRN 04/11/17 04/11/17 History Allergies Allergy/AdvReac Type Severity Reaction Status Date / Time tramadol [From Ultram] AdvReac Rash/Hives Verified 04/11/17 14:27 Physical Exam Vitals: Vital Signs Temp Pulse Pulse Resp BP BP Pulse Ox 04/12/17 08:34 45 L 06/15/17 08:18 45 L 04/12/17 04:00 97.2 F L 67 14 142/93 94 L 04/12/17 00:00 72 04/11/17 23:33 72 16 151/85 96 04/11/17 20:54 66 04/11/17 20:39 64 04/11/17 19:55 61 16 04/11/17 19:42 96.3 F L 61 16 136/65 98 04/11/17 18:55 98.0 F 68 20 169/87 95 04/11/17 17:56 98.8 F 72 18 176/80 97 04/11/17 16:00 66 18 157/83 96 04/11/17 15:03 61 14 173/84 97 04/11/17 13:56 61 22 157/80 99 04/11/17 12:59 97.1 F L 67 18 182/94 94 L Intake and Output 04/11/17 04/12/17 04/12/17 22:59 06:59 14:59 Intake Total 800 Balance 800 Intake: Intake, IV Titration 800 Amount Sodium Chloride 0.9% 1, 800 000 ml @ 80 mls/hr IV . [id number] [facility] Rx#:[id number] Other: # Voids 1 Weight 136.5 kg PHYSICAL EXAMINATION: HEENT: Head is atraumatic, normocephalic. Pupils equal, round. Neck is supple. There is no elevated jugular venous pressure. HEART EXAMINATION: Heart S1, S2 normal. No murmur or gallop heard. CHEST EXAMINATION: Lungs are clear to auscultation and precussion. No chest wall tenderness is noted on palpation or with deep breathing. ABDOMEN: Soft, nontender. Bowel sounds are heard. No organomegaly noted. EXTREMITIES: 2+ peripheral pulses with no evidence of peripheral edema and no calf tenderness noted. NEUROLOGIC patient is awake, alert and oriented -3. . Results 04/11/17 13:45 04/11/17 13:45 Cardiac Enzymes 04/11/17 04/11/17 Range/Units 13:45 13:45 AST 58 H (14-36) U/L CK-MB (CK-2) 1.4 (0.0-2.4) ng/mL Troponin I <0.012 (0.000-0.034) ng/mL Coagulation 04/11/17 Range/Units 13:45 PT 9.8 (9.0-12.0) sec APTT 18.1 L (22.0-30.0) sec CBC 04/11/17 Range/Units 13:45 WBC 9.4 (3.8-10.6) k/uL RBC 4.54 (3.80-5.40) m/uL Hgb 13.8 (11.4-16.0) gm/dL Hct 43.6 (34.0-46.0) % Plt Count 276 (150-450) k/uL Comprehensive Metabolic Panel 04/11/17 Range/Units 13:45 Sodium 140 (137-145) mmol/L Potassium 4.6 (3.5-5.1) mmol/L Chloride 105 (98-107) mmol/L Carbon Dioxide 24 (22-30) mmol/L BUN 21 H (7-17) mg/dL Creatinine 0.99 (0.52-1.04) mg/dL Glucose 102 H (74-99) mg/dL Calcium 9.4 (8.4-10.2) mg/dL AST 58 H (14-36) U/L ALT 68 H (9-52) U/L Alkaline Phosphatase 230 H (38-126) U/L Total Protein 7.5 (6.3-8.2) g/dL Albumin 4.0 (3.5-5.0) g/dL Current Medications Generic Name Dose Route Start Last Admin Trade Name Freq PRN Reason Stop Dose Admin Albuterol Sulfate 2.5 mg 04/11/17 20:00 04/12/17 08:18 Ventolin Nebulized INHALATION 2.5 mg RT-TID NI Administration Budesonide/Formoterol Fumarate 2 puff 04/11/17 20:00 04/12/17 08:18 Symbicort 160-4.5 Mcg Inhaler INHALATION 2 puff RT-BID NI Administration Buspirone HCl 15 mg 04/11/17 21:00 04/12/17 08:44 Buspar PO 15 mg BID NI Administration Cholecalciferol 1,000 unit 04/12/17 12:00 Vitamin D3 PO 1200 NI Duloxetine HCl 120 mg 04/12/17 09:00 04/12/17 08:43 Cymbalta PO 120 mg DAILY NI Administration Sodium Chloride 1,000 mls @ 80 mls/hr 04/11/17 16:30 04/12/17 06:28 Saline 0.9% IV Not Given .[id number] NI Levothyroxine Sodium 176 mcg 04/12/17 06:30 04/12/17 06:28 Synthroid PO 176 mcg 0630 NI Administration Losartan Potassium 100 mg 04/12/17 09:00 Cozaar PO DAILY NI Naloxone HCl 0.2 mg 04/11/17 16:30 Narcan IV Q2M PRN Opioid Reversal Prednisone 20 mg 04/12/17 09:00 04/12/17 08:44 PO 20 mg DAILY NI Administration Intake and Output 04/11/17 04/12/17 04/12/17 22:59 06:59 14:59 Intake Total 800 Balance 800 Intake: Intake, IV Titration 800 Amount Sodium Chloride 0.9% 1, 800 000 ml @ 80 mls/hr IV . [id number] [facility] Rx#:[id number] Other: # Voids 1 Weight 136.5 kg 04/11/17 13:45 04/11/17 13:45 EKG Interpretations (text) EKG shows a normal sinus rhythm with a right bundle branch block pattern Assessment and Plan Plan: Assessment and plan #1 syncope, evidence of blocked APCs and a possible complete heart block. #2 recent hospitalization with syncope #3 sarcoidosis affecting the lung and liver #4 hypertension #5 hypothyroidism #6 COPD Plan We have put the external pacemaker at the bedside. We will check a free T4 and TSH level. Patient may require implantation of a permanent pacemaker. Further recommendations to follow. DNP note has been reviewed, I agree with a documented findings and plan of care. Patient was seen and examined.
[2017-04-12] MEDS ORDERED: ceFAZolin 2 GM in SODIUM CHLORIDE 0.9% 100 ML IVPB ONE ×2 (10:20→14:45)
[2017-04-12] MEDS ORDERED: ceFAZolin 1,000 MG in SODIUM CHLORIDE 0.9% IRRIGATIO 250 ML IRRIGATION ONE (10:20)
[2017-04-12] MEDS ORDERED: SODIUM CHLORIDE 0.9% 1,000 ML IV SCH (10:30)
--- NOTE | 2017-04-12 11:05 | P.PN ---
Progress Note - Text This is an addendum to the dictated cardiology consultation. The patient presents with recurrent episodes of pauses and on her telemetry she was found to have complete heart block associated with her symptoms. She had a preserved systolic function by echocardiography recently. She has a history of sarcoidosis with liver involvement. She has been feeling episodes of hot feeling all over her body and at times has full syncope as well. Based on those findings I have recommended to proceed with a permanent pacemaker implantation, the risks and the complication were discussed with her and her family. The procedure will be done today by Dr. Vickers. Thank you for this consult we will follow with you.
--- NOTE | 2017-04-12 11:50 | P.CNPUL ---
History of Present Illness Consult date: 04/12/17 Requesting physician: Thee Arellano Reason for consult: dyspnea, abnormal CXR/CT Chief complaint: Syncope History of present illness: This is a very pleasant 47-year-old female patient who follows with Dr. Pappas as her primary care physician. 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 Also a history of morbid obesity, obstructive sleep apnea utilizing CPAP in the outpatient setting, hypertension, hypothyroidism. She also had a recent episode of syncope 3 and was hospitalized on April 02 for the same. Echocardiogram was within normal limits ejection fraction 50-55%, carotid Doppler showed no significant stenosis. MRI of the brain revealed small vessel ischemia with minimal demyelinating disease. There is some scattered white matter high signal foci of uncertain significance. There is no clear evidence of sarcoidosis. She was to be worked up further by cardiology in the outpatient setting. Yesterday however she had recurrence of syncopal episode at home and went with her family member to their appointment with Dr. Calvin. She was hoping to see him as well. She had another syncopal episode while waiting in the waiting area and was seen by Dr. Calvin. She was referred here for admission and further workup. She is seen today in consultation on the selective care unit. Presently she is awake and alert in no acute distress. She denies any shortness of breath, cough or congestion. No dizziness or lightheadedness. She did have a brief syncopal episode while in the restroom and nearly fell to the floor but was caught by staff. She did have bradycardia into the 30s. She was not having a bowel movement at that time. There was documented complete heart block. Based on these findings a permanent pacemaker has been recommended and may be inserted today. Review of Systems 14 point review of system was conducted. All negative other than as mentioned in the HPI. 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 LIVES WITH A FRIEND. PETS: 2 DOGS. NO HOMECARE SERVICES RECEIVED. HAS A CPAP AND NEBULIZER. Smoking Status: Never smoker Past Alcohol Use History: None Reported Past Drug Use History: None Reported - Past Family History Brother(s) Family Medical History: Cancer, Myocardial Infarction ([place]) Additional Family Medical History / Comment(s): oral cancer, CADIAC STENTS Father Family Medical History: No Reported History Mother Family Medical History: Coronary Artery Disease (CAD) Additional Family Medical History / Comment(s): CARDAIC STENTS Medications and Allergies Home Medications Medication Instructions Recorded Confirmed Type Albuterol Nebulized (Conc) 2.5 mg INHALATION RT-TID 11/08/16 04/11/17 History [Ventolin Nebulized (Conc)] Budesonide-Formot 160-4.5 Mcg 2 puff INHALATION RT-BID 11/08/16 04/11/17 History [Symbicort 160-4.5 Mcg Inhaler] Levothyroxine Sodium [Synthroid] 175 mcg PO DAILY 11/08/16 04/11/17 History Olmesartan Medoxomil [Benicar] 20 mg PO DAILY 11/08/16 04/11/17 History busPIRone HCL 15 mg PO BID 11/08/16 04/11/17 History DULoxetine HCL [Cymbalta] 120 mg PO DAILY 11/10/16 04/11/17 History Cholecalciferol [Vitamin D3] 1,000 unit PO DAILY 04/02/17 04/11/17 History predniSONE [Deltasone] 20 mg PO Q48H 04/02/17 04/11/17 History Ping Back And Body 1 tab PO QID PRN 04/11/17 04/11/17 History Allergies Allergy/AdvReac Type Severity Reaction Status Date / Time tramadol [From Ultram] AdvReac Rash/Hives Verified 04/11/17 14:27 Physical Exam Vitals: Vital Signs Temp Pulse Pulse Resp BP BP Pulse Ox 04/12/17 08:34 45 L 04/12/17 08:18 45 L 04/12/17 08:00 97.5 F L 43 L 18 142/64 95 04/12/17 04:00 97.2 F L 67 14 142/93 94 L 04/12/17 00:00 72 04/11/17 23:33 72 16 151/85 96 04/11/17 20:54 66 04/11/17 20:39 64 04/11/17 19:55 61 16 04/11/17 19:42 96.3 F L 61 16 136/65 98 04/11/17 18:55 98.0 F 68 20 169/87 95 04/11/17 17:56 98.8 F 72 18 176/80 97 04/11/17 16:00 66 18 157/83 96 04/11/17 15:03 61 14 173/84 97 04/11/17 13:56 61 22 157/80 99 04/11/17 12:59 97.1 F L 67 18 182/94 94 L Intake and Output 04/11/17 04/12/17 04/12/17 22:59 06:59 14:59 Intake Total 800 Balance 800 Intake: Intake, IV Titration 800 Amount Sodium Chloride 0.9% 1, 800 000 ml @ 80 mls/hr IV . [id number] [facility] Rx#:[id number] Other: # Voids 1 Weight 136.5 kg GENERAL EXAM: Morbidly obese. Alert, comfortable in no apparent distress. HEAD: Normocephalic. EYES: Normal reaction of pupils, equal size. NOSE: Clear with pink turbinates. THROAT: Crowding of the posterior pharynx. No erythema or exudates. NECK: Short. No masses, no JVD. CHEST: No chest wall deformity. LUNGS: Equal air entry with no crackles, wheeze, rhonchi or dullness. CVS: S1 and S2 normal with no audible murmurs, regular rhythm. ABDOMEN: Obese, normal bowel sounds, no guarding or rigidity. SPINE: No scoliosis or deformity SKIN: No rashes CENTRAL NERVOUS SYSTEM: No focal deficits, tone is normal in all 4 extremities. Extremities: There is trace peripheral edema. No clubbing, no cyanosis. Peripheral pulses are intact. Results - Laboratory Findings CBC and BMP: 04/11/17 13:45 04/11/17 13:45 PT/INR, D-dimer PT 9.8 sec (9.0-12.0) 04/11/17 13:45 INR 1.0 (<1.1) 04/11/17 13:45 D-Dimer 0.81 mg/L FEU (<0.60) H 04/11/17 13:45 Abnormal lab findings: Abnormal Labs 04/11/17 04/11/17 04/11/17 13:45 13:45 13:45 Lymphocytes # 0.9 L APTT 18.1 L D-Dimer 0.81 H BUN 21 H Glucose 102 H POC Glucose (mg/dL) AST 58 H ALT 68 H Alkaline Phosphatase 230 H Urine Appearance Ur Leukocyte Esterase Urine Bacteria Urine Mucus 04/11/17 04/12/17 16:00 06:37 Lymphocytes # APTT D-Dimer BUN Glucose POC Glucose (mg/dL) 112 H AST ALT Alkaline Phosphatase Urine Appearance Cloudy H Ur Leukocyte Esterase Trace H Urine Bacteria Few H Urine Mucus Rare H - Diagnostic Findings Chest x-ray: image reviewed Assessment and Plan Plan: Impression: #1 Syncope secondary to complete heart block and bradycardia. 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 #3 Morbid obesity. #4 Obstructive sleep apnea, maintained on CPAP in the outpatient setting. #5 Hypertension. #6 Hypothyroidism. #7 Gastroesophageal reflux disease. Plan: The patient was seen and evaluated by Dr. Pappas. Her chest x-ray was reviewed. Her sarcoidosis is currently inactive and stable. She remains on prednisone 20 mg daily. We'll continue with her pulmonary medications including Symbicort and albuterol. The plan is for permanent pacemaker implantation today by Dr. Vickers. We will continue to follow and make further recommendations based on her clinical status. Time with Patient: Greater than 30
[2017-04-12] MEDS ORDERED: ceFAZolin 1,000 MG in DEXTROSE/WATER 1 50ML.BAG IVPB STA (12:49)
[2017-04-12] MEDS ORDERED: SODIUM CHLORIDE 0.9% 1,000 ML IV ONE (12:58)
[2017-04-12] MEDS ORDERED: MIDAZOLAM 2 MG/2 ML VIAL IVP ONE (12:58)
[2017-04-12] MEDS ORDERED: LIDOCAINE 2% INJ 20 MG/ML SQ ONE (13:00)
[2017-04-12] MEDS ORDERED: fentaNYL (PF) 50 MCG/ML 2 ML AMP IVP ONE (13:03)
[2017-04-12] MEDS ORDERED: ceFAZolin 1,000 MG/50 ML BAG (PMX) IVPB ONE (13:08)
[2017-04-12 14:37] LABS: Glucose,Whole Blood 148 mg/dL (75-99)
[2017-04-12] MEDS: LOSARTAN 50 MG TAB PO SCH (16:44)
[2017-04-12] MEDS: CHOLECALCIFEROL 1,000 UNIT TAB PO SCH (16:44)
--- NOTE | 2017-04-12 18:00 | HP ---
DATE OF ADMISSION: This patient is a 47-year-old who came in after a syncopal episode. Patient had another syncopal episode in the hospital and at that time patient is found to be in third-degree heart block. Patient was recently admitted to the hospital, was evaluated by Cardiology, and patient was asked to follow up as an outpatient with possible stress test and Holter monitor placement, but in the meantime patient was found to be in third-degree heart block when she had a syncopal episode in the bathroom. Patient is going for transvenous pacemaker placement with monitoring overnight, and depending on the rhythm, patient may end receiving permanent pacemaker or an AICD with a pacemaker. Patient denied any fever or chills. Patient denied any nausea, vomiting, abdominal pain. Patient does have history of sarcoidosis involving the lung and liver. Patient denied any chest pain. REVIEW OF SYSTEMS: CONSTITUTIONAL: No fever, no malaise, no fatigue. HEENT: No recent visual problems or hearing problems. Denied any sore throat. CARDIOVASCULAR: As described in HPI. PULMONARY: No shortness of breath, no cough, no hemoptysis. GASTROINTESTINAL: No diarrhea, no nausea, no vomiting, no abdominal pain. Normoactive bowel sounds. NEUROLOGICAL: No headaches, no weakness, no numbness. HEMATOLOGICAL: Denies any bleeding or petechiae. GENITOURINARY: Denies any burning micturition, frequency, or urgency. MUSCULOSKELETAL/RHEUMATOLOGICAL: Denies any joint pain, swelling, or any muscle pain. ENDOCRINE: Denies any polyuria or polydipsia. The rest of the 14 point review of systems is negative. PAST MEDICAL HISTORY: 1. Hypertension. 2. Liver disease secondary to sarcoidosis. 3. Sleep apnea. Patient does use CPAP machine at home. 4. Hypothyroidism. 5. Tonsillectomy. SOCIAL HISTORY: Denied any smoking, alcohol abuse or any drug abuse. FAMILY HISTORY: Brother had myocardial infarction and cancer. Father with no reported history. Mother had coronary artery disease. Home medications include: 1. Albuterol. 2. Budesonide/formoterol. 3. Levothyroxine. 4. Olmesartan. 5. Buspirone. 6. Duloxetine. 7. Cholecalciferol. 8. Prednisone. 9. Aspirin. ALLERGIES: TRAMADOL. PHYSICAL EXAMINATION: VITAL SIGNS: Temperature 98.3, pulse of 45, respiratory rate of 18. Blood pressure is 140/79. Saturating at 94% on room air. GENERAL: Morbidly obese. Alert and oriented x3. HEENT: Pupils are round and equally reacting to light. EOMI. No scleral icterus. No conjunctival pallor. Normocephalic, atraumatic. No pharyngeal erythema. No thyromegaly. CARDIOVASCULAR: S1 and S2 present. No murmurs, rubs, or gallops. PULMONARY: Chest is clear to auscultation, no wheezing or crackles. ABDOMEN: Soft, nontender, nondistended, normoactive bowel sounds. No palpable organomegaly. MUSCULOSKELETAL: No joint swelling or deformity. EXTREMITIES: No cyanosis, clubbing, or pedal edema. NEUROLOGICAL: Gross neurological examination did not reveal any focal deficits. SKIN: No rashes. LABORATORY DATA: CBC, CMP: No significant abnormality was appreciated except for mildly elevated D-dimer, which is insignificant elevation. No further intervention is necessary. Mildly elevated AST and ALT. ASSESSMENT AND PLAN: 1. Syncopal episode secondary to complete heart block. Patient has temporary transvenous pacemaker, as mentioned above. 2. Sarcoidosis, chronic. 3. Hypertension. 4. Hypothyroidism. 5. Chronic obstructive pulmonary disease. For above-mentioned chronic medical problems, we will go ahead and continue her home medications. Patient does not have any COPD exacerbation. 6. Morbid obesity. Counseling was provided regarding that. We will also obtain PT and TSH and free T4 levels. Patient does have hypothyroidism. Continue with levothyroxine.
[2017-04-13] MEDS: ACETAMINOPHEN TAB 325 MG TAB PO PRN ×2 (01:26→19:37)
[2017-04-13] MEDS: LACTATED RINGERS 1,000 ML IV SCH ×2 (01:27→11:03)
[2017-04-13 04:54] LABS: Basophils % (A) 1 %; CHCM 31.4; Eosinophils # (A) 0.1 k/uL (0-0.7); Eosinophils % (A) 1 %; HCT 41.8 % (34.0-46.0); HDW 2.17; HGB 13.5 gm/dL (11.4-16.0); Luc # (Auto) 0.11; Luc % (Auto) 1; Lymphocytes # (A) 0.7 k/uL (1.0-4.8); Lymphocytes % (A) 8 %; MCHC 32.3 g/dL (31.0-37.0); MCV 96.1 fL (80.0-100.0); Monocytes # (A) 0.6 k/uL (0-1.0); Monocytes % (A) 6 %; Neutrophils # (A) 7.2 k/uL (1.3-7.7); Neutrophils % (A) 82 %; RBC 4.35 m/uL (3.80-5.40); RDW 14.8 % (11.5-15.5); WBC 8.7 k/uL (3.8-10.6); WBC (Perox) 8.95
[2017-04-13 05:09] LABS: Prothrombin Time 10.1 sec (9.0-12.0)
[2017-04-13 05:14] LABS: ALT 60 U/L (9-52); AST 39 U/L (14-36); Alkaline Phosphatase 208 U/L (38-126); Anion Gap 9 mmol/L; Blood Urea Nitrogen 17 mg/dL (7-17); Calcium 9.2 mg/dL (8.4-10.2); Carbon Dioxide 23 mmol/L (22-30); Chloride 108 mmol/L (98-107); Glucose 125 mg/dL (74-99); Magnesium 2.2 mg/dL (1.6-2.3); Non-African American GFR(MDRD) 59 (>60 ml/min/1.73 sqM); Phosphorous 3.4 mg/dL (2.5-4.5); Potassium 4.5 mmol/L (3.5-5.1); Sodium 140 mmol/L (137-145); Total Bilirubin 0.5 mg/dL (0.2-1.3); Total Protein 6.5 g/dL (6.3-8.2)
[2017-04-13 05:39] LABS: Partial Thromboplastin Time 21.7 sec (22.0-30.0)
[2017-04-13] MEDS: LEVOTHYROXINE 88 MCG TAB PO SCH (06:30)
[2017-04-13] MEDS: ALBUTEROL NEBULIZED 2.5 MG/3 ML INHALATION SCH ×3 (08:49→20:55)
[2017-04-13] MEDS: SYMBICORT 160-4.5 MCG INHALER INHALATION SCH ×2 (08:50→20:55)
[2017-04-13] MEDS ORDERED: IODIXANOL 270 MG/ML 50 ML ML IV ONE (09:25)
[2017-04-13] MEDS ORDERED: MIDAZOLAM 2 MG/2 ML VIAL ONE (09:29)
[2017-04-13] MEDS ORDERED: fentaNYL (PF) 50 MCG/ML 2 ML AMP ONE (09:29)
[2017-04-13] MEDS ORDERED: MIDAZOLAM 2 MG/2 ML VIAL IVP ONE (09:32)
[2017-04-13] MEDS ORDERED: fentaNYL (PF) 50 MCG/ML 2 ML AMP IVP ONE (09:32)
[2017-04-13] MEDS: ceFAZolin 2 GM in SODIUM CHLORIDE 0.9% 100 ML IVPB ONE ×2 (09:33→09:55)
[2017-04-13] MEDS ORDERED: LIDOCAINE 2% INJ 20 MG/ML SQ ONE (09:40)
[2017-04-13] MEDS ORDERED: ceFAZolin 1,000 MG in SODIUM CHLORIDE 0.9% IRRIGATIO 250 ML IRRIGATION ONE ×2 (10:00→10:55)
[2017-04-13] MEDS: SODIUM CHLORIDE 0.9% 1,000 ML IV SCH (11:56)
[2017-04-13] MEDS: busPIRone HCl 5 MG TAB PO SCH ×2 (12:36→20:17)
[2017-04-13] MEDS: DULoxetine HCL 60 MG CAPSULE.DR PO SCH (12:36)
[2017-04-13] MEDS: CHOLECALCIFEROL 1,000 UNIT TAB PO SCH (12:36)
[2017-04-13] MEDS: predniSONE 20 MG TAB PO SCH (12:37)
--- NOTE | 2017-04-13 12:57 | P.PN ---
Subjective Principal diagnosis: Third-degree AV block and syncope. This is a very pleasant 47-year-old female patient who follows with Dr. Pappas as her primary care physician. 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 Also a history of morbid obesity, obstructive sleep apnea utilizing CPAP in the outpatient setting, hypertension, hypothyroidism. She also had a recent episode of syncope 3 and was hospitalized on April 02 for the same. Echocardiogram was within normal limits ejection fraction 50-55%, carotid Doppler showed no significant stenosis. MRI of the brain revealed small vessel ischemia with minimal demyelinating disease. There is some scattered white matter high signal foci of uncertain significance. There is no clear evidence of sarcoidosis. She was to be worked up further by cardiology in the outpatient setting. Yesterday however she had recurrence of syncopal episode at home and went with her family member to their appointment with Dr. Calvin. She was hoping to see him as well. She had another syncopal episode while waiting in the waiting area and was seen by Dr. Calvin. She was referred here for admission and further workup. She is seen today in consultation on the selective care unit. Presently she is awake and alert in no acute distress. She denies any shortness of breath, cough or congestion. No dizziness or lightheadedness. She did have a brief syncopal episode while in the restroom and nearly fell to the floor but was caught by staff. She did have bradycardia into the 30s. She was not having a bowel movement at that time. There was documented complete heart block. Based on these findings a permanent pacemaker has been recommended and may be inserted today. Patient was reevaluated today on 04/13/2017, she underwent permanent pacemaker implantation by cardiology today. Patient is doing well postoperatively, relatively asymptomatic, no headaches no blurred vision no dizziness no cough no wheezing no shortness of breath no chest pain. Labs were reviewed and they seem to be unremarkable. Electrolytes are normal renal profile is normal CBC is normal. Objective - Vital Signs Vital signs: Vital Signs Temp 98.4 F 04/13/17 12:10 Pulse 66 04/13/17 12:10 Resp 18 04/13/17 12:10 BP 136/88 04/13/17 12:10 Pulse Ox 92 L 04/13/17 12:10 Intake & Output 04/12/17 04/13/17 04/13/17 18:59 06:59 18:59 Intake Total 620 1020 800 Output Total 1270 1510 309 Balance -676 -504 471 Weight 136.5 kg 139 kg 139 kg Intake: IV 420 680 700 Sodium Chloride 0.9% 1, 600 000 ml @ 100 mls/hr IV . Q10H [facility] Rx#:[id number] Sodium Chloride 0.9% 1, 320 80 000 ml @ 80 mls/hr IV . [id number] [facility] Rx#:[id number] Intake, IV Titration 80 220 100 Amount Lactated Ringers 1,000 ml 100 60 @ 20 mls/hr IV .Q24H [facility] Rx#:[id number] Sodium Chloride 0.9% 1, 80 120 40 000 ml @ 20 mls/hr IV . Q24H [facility] Rx#:[id number] Oral 120 120 Output: Urine 1270 1510 309 Other: Voiding Method Indwelling Catheter Indwelling Catheter # Voids 1 - Exam GENERAL EXAM: Morbidly obese. Alert, comfortable in no apparent distress. HEAD: Normocephalic. EYES: Normal reaction of pupils, equal size. NOSE: Clear with pink turbinates. THROAT: Crowding of the posterior pharynx. No erythema or exudates. NECK: Short. No masses, no JVD. CHEST: No chest wall deformity. LUNGS: Equal air entry with no crackles, wheeze, rhonchi or dullness. CVS: S1 and S2 normal with no audible murmurs, regular rhythm. ABDOMEN: Obese, normal bowel sounds, no guarding or rigidity. SPINE: No scoliosis or deformity SKIN: No rashes CENTRAL NERVOUS SYSTEM: No focal deficits, tone is normal in all 4 extremities. Extremities: There is trace peripheral edema. No clubbing, no cyanosis. Peripheral pulses are intact. - Labs CBC & Chem 7: 04/13/17 04:19 04/13/17 04:19 Labs: Abnormal Lab Results - Last 24 Hours (Table) 04/12/17 04/13/17 04/13/17 Range/Units 14:35 04:19 04:19 Lymphocytes # 0.7 L (1.0-4.8) k/uL APTT 21.7 L (22.0-30.0) sec Chloride (98-107) mmol/L Glucose (74-99) mg/dL POC Glucose (mg/dL) 148 H (75-99) mg/dL AST (14-36) U/L ALT (9-52) U/L Alkaline Phosphatase (38-126) U/L 04/13/17 Range/Units 04:19 Lymphocytes # (1.0-4.8) k/uL APTT (22.0-30.0) sec Chloride 108 H (98-107) mmol/L Glucose 125 H (74-99) mg/dL POC Glucose (mg/dL) (75-99) mg/dL AST 39 H (14-36) U/L ALT 60 H (9-52) U/L Alkaline Phosphatase 208 H (38-126) U/L Assessment and Plan Plan: #1 Syncope secondary to complete heart block and bradycardia. 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 #3 Morbid obesity. #4 Obstructive sleep apnea, maintained on CPAP in the outpatient setting. #5 Hypertension. #6 Hypothyroidism. #7 Gastroesophageal reflux disease. #8 status post permanent pacemaker implantation postoperative day #0 Recommendation: Continue present treatment plan continue prednisone at 20 mg daily, continue bronchodilators, consider discharge planning in the next 24 hours. Time with Patient: Less than 30
[2017-04-13] MEDS: ceFAZolin 2 GM in SODIUM CHLORIDE 0.9% 100 ML IVPB SCH ×2 (17:35→21:40)
[2017-04-13] MEDS: LOSARTAN 50 MG TAB PO SCH (17:35)
--- NOTE | 2017-04-13 18:19 | PN ---
Mrs. Gomez is a 47-year-old female with a history of sarcoidosis involving her liver and her lungs who presented with symptoms of syncope. She had evidence of recurrent complete AV block with no escape rhythm. She underwent temporary pacemaker placement yesterday and permanent pacemaker implantation today by Dr. Vickers. She is doing well. She denies any chest pain. Her breathing is stable. She denies any further syncopal episode. She continues to be on losartan 100 mg daily in addition to the prednisone. PHYSICAL EXAMINATION: Blood pressure 136/80 with a heart rate in the 70s. LUNGS: Clear. HEART: Regular rate, rhythm. S1, S2. No S3. No rub. ABDOMEN: Soft, nontender, obese. EXTREMITIES: No significant edema. Lab data revealed BUN and creatinine of 17 and 1.0, potassium 4.5. ALT is 60. AST is 39. IMPRESSION: 1. Syncope following complete heart block and no escape rhythm, status post permanent pacemaker implantation. 2. History of sarcoidosis. 3. Hypertension. 4. Abnormal liver function tests related to the sarcoidosis involvement. RECOMMENDATIONS: From the cardiac standpoint, will continue present therapy, increase her level of activity. If she remains stable, I would expect she should be able to be discharged over the next 24 to 48 hours.
--- NOTE | 2017-04-13 20:16 | PN ---
47-year-old admitted secondary to syncopal episode, which is again secondary to third degree heart block. The patient received a permanent pacemaker. Patient probably will be discharged tomorrow. REVIEW OF SYSTEMS: CARDIOVASCULAR: No chest pain, no orthopnea, no PND, no palpitations. PULMONARY: Denied any shortness of breath. No cough or hemoptysis. GASTROINTESTINAL: No diarrhea, nausea or vomiting. No abdominal pain. Normoactive bowel sounds. NEUROLOGIC: No headaches, no weakness, no numbness. PHYSICAL EXAMINATION: VITAL SIGNS: Temperature 98.4, pulse of 71, respiratory rate of 18, blood pressure is 185/73, saturating at 93% on liters of O2 by nasal cannula. GENERAL: Morbidly obese. Alert and oriented times three. HEENT: Pupils are round and equally reacting to light. EOMI. No scleral icterus. No conjunctival pallor. Normocephalic, atraumatic. No pharyngeal erythema. No thyromegaly. CARDIOVASCULAR: S1 and S2 present. No murmurs, rubs, or gallops. PULMONARY: Chest is clear to auscultation, no wheezing or crackles. ABDOMEN: Soft, nontender, nondistended, normoactive bowel sounds. No palpable organomegaly. MUSCULOSKELETAL: No joint swelling or deformity. EXTREMITIES: No cyanosis, clubbing, or pedal edema. NEUROLOGICAL: Gross neurological examination did not reveal any focal deficits. SKIN: No rashes. LABORATORY DATA: No significant abnormality was appreciated and CBC and comprehensive metabolic profile. ASSESSMENT AND PLAN: 1. A syncopal episode secondary to complete heart block. Patient received a permanent pacemaker. 2. Sarcoidosis, chronic without any sarcoid flare. 3. Hypertension. 4. Hypothyroidism. 5. Chronic obstructive pulmonary disease. 6. Morbid obesity with sleep apnea, uses CPAP machine at home. PLAN: Continue monitoring overnight and patient probably can be discharged home tomorrow.
[2017-04-14] MEDS: ceFAZolin 2 GM in SODIUM CHLORIDE 0.9% 100 ML IVPB SCH ×2 (05:15→09:58)
[2017-04-14] MEDS: LEVOTHYROXINE 88 MCG TAB PO SCH (06:21)
[2017-04-14] MEDS: LOSARTAN 50 MG TAB PO SCH (07:53)
[2017-04-14] MEDS: busPIRone HCl 5 MG TAB PO SCH (07:53)
[2017-04-14] MEDS: predniSONE 20 MG TAB PO SCH (07:53)
[2017-04-14] MEDS: DULoxetine HCL 60 MG CAPSULE.DR PO SCH (07:53)
[2017-04-14 08:01] VITALS: BP 138/81; RESP 18; TEMP 98.7
--- NOTE | 2017-04-14 08:18 | XR ---
EXAMINATION TYPE: XR chest 2V DATE OF EXAM: 04/14/2017 COMPARISON: 04/11/2017 TECHNIQUE: PA and lateral views submitted. HISTORY: Post pacemaker FINDINGS: The lungs are clear and there is no pneumothorax, pleural effusion, or focal pneumonia. Double lead left-sided pacemaker seen with no sizable pneumothorax. Hypertrophic change of the spine. IMPRESSION: 1. No pneumothorax post pacemaker placement..
[2017-04-14] MEDS: ALBUTEROL NEBULIZED 2.5 MG/3 ML INHALATION SCH (08:26)
[2017-04-14] MEDS: SYMBICORT 160-4.5 MCG INHALER INHALATION SCH (08:26)
[2017-04-14 08:40] VITALS: PULSE 80
--- NOTE | 2017-04-14 10:23 | P.PN ---
Subjective Principal diagnosis: Third-degree AV block and syncope. This is a very pleasant 47-year-old female patient who follows with Dr. Pappas as her primary care physician. 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 Also a history of morbid obesity, obstructive sleep apnea utilizing CPAP in the outpatient setting, hypertension, hypothyroidism. She also had a recent episode of syncope 3 and was hospitalized on April 02 for the same. Echocardiogram was within normal limits ejection fraction 50-55%, carotid Doppler showed no significant stenosis. MRI of the brain revealed small vessel ischemia with minimal demyelinating disease. There is some scattered white matter high signal foci of uncertain significance. There is no clear evidence of sarcoidosis. She was to be worked up further by cardiology in the outpatient setting. Yesterday however she had recurrence of syncopal episode at home and went with her family member to their appointment with Dr. Calvin. She was hoping to see him as well. She had another syncopal episode while waiting in the waiting area and was seen by Dr. Calvin. She was referred here for admission and further workup. She is seen today in consultation on the selective care unit. Presently she is awake and alert in no acute distress. She denies any shortness of breath, cough or congestion. No dizziness or lightheadedness. She did have a brief syncopal episode while in the restroom and nearly fell to the floor but was caught by staff. She did have bradycardia into the 30s. She was not having a bowel movement at that time. There was documented complete heart block. Based on these findings a permanent pacemaker has been recommended and may be inserted today. Patient was reevaluated today on 04/13/2017, she underwent permanent pacemaker implantation by cardiology today. Patient is doing well postoperatively, relatively asymptomatic, no headaches no blurred vision no dizziness no cough no wheezing no shortness of breath no chest pain. Labs were reviewed and they seem to be unremarkable. Electrolytes are normal renal profile is normal CBC is normal. Patient is doing well today on 04/14/2017, asymptomatic, no further episodes of syncope, no palpitations, no lightheadedness. Patient will likely be discharged home today if cleared by cardiology for discharge today. Objective - Vital Signs Vital signs: Vital Signs Temp 98.7 F 04/14/17 08:00 Pulse 80 04/14/17 08:39 Resp 18 04/14/17 08:00 BP 138/81 04/14/17 08:00 Pulse Ox 93 L 04/14/17 08:29 Intake & Output 04/13/17 04/14/17 04/14/17 18:59 06:59 18:59 Intake Total 960 260 120 Output Total 619 1100 Balance 341 -840 120 Weight 139 kg 135.3 kg Intake: IV 700 140 Sodium Chloride 0.9% 1, 40 000 ml @ 20 mls/hr IV . Q24H NI Rx#:[id number] ceFAZolin 2 gm In Sodium 100 Chloride 0.9% 100 ml @ 100 mls/hr IVPB Q6H NI Rx#:[id number] Intake, IV Titration 260 Amount Lactated Ringers 1,000 ml 120 @ 20 mls/hr IV .Q24H NI Rx#:[id number] Sodium Chloride 0.9% 1, 40 000 ml @ 20 mls/hr IV . Q24H NI Rx#:[id number] ceFAZolin 2 gm In Sodium 100 Chloride 0.9% 100 ml @ 100 mls/hr IVPB Q6H NI Rx#:[id number] Oral 120 120 Output: Urine 619 1100 Other: Voiding Method Indwelling Catheter Toilet Toilet # Voids 1 0 - Exam GENERAL EXAM: Morbidly obese. Alert, comfortable in no apparent distress. HEAD: Normocephalic. EYES: Normal reaction of pupils, equal size. NOSE: Clear with pink turbinates. THROAT: Crowding of the posterior pharynx. No erythema or exudates. NECK: Short. No masses, no JVD. CHEST: No chest wall deformity. LUNGS: Equal air entry with no crackles, wheeze, rhonchi or dullness. CVS: S1 and S2 normal with no audible murmurs, regular rhythm. ABDOMEN: Obese, normal bowel sounds, no guarding or rigidity. SPINE: No scoliosis or deformity SKIN: No rashes CENTRAL NERVOUS SYSTEM: No focal deficits, tone is normal in all 4 extremities. Extremities: There is trace peripheral edema. No clubbing, no cyanosis. Peripheral pulses are intact. - Labs CBC & Chem 7: 04/13/17 04:19 04/13/17 04:19 Assessment and Plan Plan: #1 Syncope secondary to complete heart block and bradycardia. 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 #3 Morbid obesity. #4 Obstructive sleep apnea, maintained on CPAP in the outpatient setting. #5 Hypertension. #6 Hypothyroidism. #7 Gastroesophageal reflux disease. #8 status post permanent pacemaker implantation postoperative day #0 Recommendation: Continue present treatment plan continue prednisone at 20 mg daily, continue bronchodilators, discharge planning today. Follow-up with me on outpatient basis in the next few days. Time with Patient: Less than 30
[2017-04-14] MEDS: LACTATED RINGERS 1,000 ML IV SCH (11:01)
[2017-04-14] MEDS: SODIUM CHLORIDE 0.9% 1,000 ML IV SCH (11:01)
[2017-04-14] MEDS: CHOLECALCIFEROL 1,000 UNIT TAB PO SCH (11:51)
--- NOTE | 2017-04-15 13:06 | DS ---
DATE OF ADMISSION: 04/12/2017 DATE OF DISCHARGE: 04/14/2017 47-year-old came in with recurrent syncopal episode and patient was found to be in third-degree heart block. Patient received a permanent pacemaker and patient is being discharged today in stable medical condition to home. Patient was seen and examined on the day of discharge. Vitals are stable. PHYSICAL EXAMINATION: GENERAL: The patient is alert and oriented x3, not in any acute distress. Well developed, well nourished. HEENT: Pupils are round and equally reacting to light. EOMI. No scleral icterus. No conjunctival pallor. Normocephalic, atraumatic. No pharyngeal erythema. No thyromegaly. CARDIOVASCULAR: S1 and S2 present. No murmurs, rubs, or gallops. PULMONARY: Chest is clear to auscultation, no wheezing or crackles. ABDOMEN: Soft, nontender, nondistended, normoactive bowel sounds. No palpable organomegaly. MUSCULOSKELETAL: No joint swelling or deformity. EXTREMITIES: No cyanosis, clubbing, or pedal edema. NEUROLOGICAL: Gross neurological examination did not reveal any focal deficits. SKIN: No rashes. FINAL DIAGNOSES: 1. Syncopal episode secondary to third degree heart block. 2. Sarcoidosis chronic without any sarcoid flare at this point of time. 3. Hypertension. 4. Hypothyroidism. 5. Chronic obstructive pulmonary disease. 6. Morbid obesity. 7. Sleep apnea. Please refer to my depart summary for details of discharge medication. Patient will follow with Dr. Juice Pappas in [address] Niranjan Calvin in one week. Activity as tolerated. Cardiac diet. Low-calorie diet. I spent greater than 35 minutes in total discharge process.
--- NOTE | 2017-04-16 07:51 | P.PCN ---
Date of Procedure: 04/16/17 Preoperative Diagnosis: Recurrent syncope and high degree AV block. Patient also has a history of sarcoidosis Postoperative Diagnosis: This same Procedure(s) Performed: ( Permanent pacemaker implantation with AICD lead in the ventricle. " Implants: Indications for Procedure: Operative Findings: Description of Procedure: HISTORY: This 47-year-old female with history of sarcoidosis is admitted to the hospital with recurrent syncopes and evidence of intermittent high degree AV block with occasional complete AV dissociation. Her LV function is preserved. However because of her history of sarcoidosis with possible cardiac involvement , it was decided to proceed with permanent pacemaker implantation with a AICD lead in the ventricle. The decision to insert AICD lead in the ventricle is based on the possibility that patient may develop cardiomyopathy based on sarcoidosis. Patient and family were explained the rationale, risks and benefits of the procedure. CONSENT:I have discussed the risks, benefits and alternative therapies for the above-mentioned procedure and for both sedation/analgesia as well as necessary blood product administration, if indicated, as they pertain to this patient. The patient has indicated understanding and acceptance of the risks and procedures discussed. PROCEDURE: Patient was brought to the lab in a fasting state. Patient was prepped and draped in the usual fashion. Patient was given IV sedation with fentanyl and Versed. The skin below the left clavicle was infiltrated with lidocaine. An incision was made parallel to deltopectoral groove was deepened until the pectoral fascia was exposed. A pocket was created by blunt dissection and cautery. Axillary venography was performed to delineate the course of the axillary vein. 2 sticks were performed into extrathoracic portion of the axillary vein and 2 sheaths were advanced over the guidewires and left in subclavian vein. LEADS: ATRIAL: This is manufactured by [employer]. Model number is 7741 and the serial number is [id number] VENTRICULAR: This is manufactured by [employer] Model number is 0181 and the serial number is [id number] THE DEVICE: This is manufactured by [employer]. Model number is L101 and the serial number is [id number] The ventricular lead is maneuvered l with help of a straight and curved stylets into the left ventricle apical region. Satisfactory position was obtained and threshold measurements were made. The atrial lead was then maneuvered into the right atrial appendage. And thresholds were obtained. THRESHOLDS: ATRIUM: The minimum patient threshold is 0.5 at pulse width of 0.5 ms. Impedance is 6 and 67 ohms . P-wave:3.1 mV VENTRICLE Paolo minimal patient threshold was 0.6 V at pulse width of 0.5 ms. Impedance is 583 ohms. R-wave: Mostly paced. Seems to be about 11 mV The leads and pulse generator remained in the pocket after it was washed with antibiotics. Pocket was closed in the usual fashion. The fascia was closed with 2-0 Prolene ,the subcutaneous tissue was closed with 3-0 Prolene and the skin was closed with 4-0 Prolene. PROGRAMMING: MODE: DDD RATE: 60-120 OUTPUT: [facility] : The 3.5 at 0.5 ms ventricle: 3.5 V at 0.5 ms FINAL IMPRESSION: #1. Axillary venography #2. Dual-chamber permanent pacemaker implantation #3. Implantation of AICD lead in the ventricle for possible future upgrade to AICD. COMPLICATIONS: Nil PLAN: Continue prophylactic antibiotics. Possible discharge within next 24 hours.
--- NOTE | 2017-04-16 07:58 | P.PN ---
Progress Note - Text This 47 female was admitted to the hospital with recurrent syncopes. Patient has history of sarcoidosis. In view of sarcoidosis and possible cardiac involvement. Patient is advised to have AICD lead implantation in case she needs upgrading in the future. Patient had a dual-chamber permanent pacemaker implantation yesterday. Patient has remained stable. Her pacemaker is functioning normally. The site looked intact. From cardiac standpoint, patient could be discharged home. Follow-up in the doctor's [place] in one week. Physical examination revealed 47-year-old female who is alert. Doesn't appear to be in acute distress. Vital signs are stable. Lungs are clear. Heart is regular. Pacemaker site did not show any hematoma. Final impression #1. Status post permanent pacemaker implantation #2. Sarcoidosis #3. COPD Plan. Patient will follow usual post pacemaker insertion protocol. She will keep the area dry. She will not use the left upper any lifting, pushing or pulling. Follow-up with Dr. Calvin.
== END 2017-04-14 12:13 | disposition home or self-care (01) | DRG 244 ==
LOC: EC 12:27 → 6SEL 16:33 → OBSVTOIN 04-12 11:46 → 6ICU 04-12 13:51 → 6SEL 04-13 18:18
PROVIDERS: ADMIT Internal Medicine; ATTEND Internal Medicine
PROC: 5A1223Z Performance of Cardiac Pacing, Continuous (ICD-10-PCS; 2017-04-12)
PROC: 02H73JZ Insertion of Pacemaker Lead into Left Atrium, Percutaneous Approach (ICD-10-PCS; 2017-04-13)
PROC: 02HL3KZ Insertion of Defibrillator Lead into Left Ventricle, Percutaneous Approach (ICD-10-PCS; 2017-04-13)
PROC: 0JH606Z Insertion of Pacemaker, Dual Chamber into Chest Subcutaneous Tissue and Fascia, Open Approach (ICD-10-PCS; principal; 2017-04-13 09:30)
DX: I44.2 Atrioventricular block, complete (principal); E66.01 Morbid (severe) obesity due to excess calories; I10 Essential (primary) hypertension; D86.0 Sarcoidosis of lung; E03.9 Hypothyroidism, unspecified; G47.33 Obstructive sleep apnea (adult) (pediatric); J44.9 Chronic obstructive pulmonary disease, unspecified; K21.9 Gastro-esophageal reflux disease without esophagitis; F32.9 Major depressive disorder, single episode, unspecified; F41.9 Anxiety disorder, unspecified; R00.1 Bradycardia, unspecified; D86.89 Sarcoidosis of other sites; Z79.52 Long term (current) use of systemic steroids; Z79.899 Other long term (current) drug therapy; Z79.82 Long term (current) use of aspirin; Z88.5 Allergy status to narcotic agent; Z82.49 Family history of ischemic heart disease and other diseases of the circulatory system
CPT/HCPCS: 33208; 33210; 36415; 71020; 80053; 81001; 81025; 82550; 82553; 83735; 84100; 84484; 85025; 85379; 85610; 85730; 93005; 94640; 94760; 96360; 96361; 99285

== ENCOUNTER → 2017-06-21 | Outpatient (CLI) | payer OTHER ==
[2017-06-21 13:22] LABS: Basophils # (A) 0.1 k/uL (0-0.2); Basophils % (A) 1 %; CH 29.9; CHCM 31.8; Eosinophils # (A) 0.2 k/uL (0-0.7); Eosinophils % (A) 3 %; HCT 47.6 % (34.0-46.0); HDW 2.43; HGB 14.5 gm/dL (11.4-16.0); Luc # (Auto) 0.22; Luc % (Auto) 3; Lymphocytes # (A) 0.8 k/uL (1.0-4.8); Lymphocytes % (A) 12 %; MCH 28.7 pg (25.0-35.0); MCHC 30.4 g/dL (31.0-37.0); MCV 94.4 fL (80.0-100.0); Mean Platelet Volume 7.2; Monocytes # (A) 0.5 k/uL (0-1.0); Monocytes % (A) 7 %; Neutrophils % (A) 74 %; RBC 5.04 m/uL (3.80-5.40); RDW 14.9 % (11.5-15.5); WBC 6.7 k/uL (3.8-10.6); WBC (Perox) 6.75
[2017-06-21 13:24] LABS: ALT 61 U/L (9-52); AST 56 U/L (14-36); Alkaline Phosphatase 235 U/L (38-126); Anion Gap 10 mmol/L; Blood Urea Nitrogen 15 mg/dL (7-17); Calcium 9.3 mg/dL (8.4-10.2); Carbon Dioxide 23 mmol/L (22-30); Chloride 105 mmol/L (98-107); Glucose 110 mg/dL (74-99); Non-African American GFR(MDRD) >60 (>60 ml/min/1.73 sqM); Potassium 4.4 mmol/L (3.5-5.1); Sodium 138 mmol/L (137-145); Total Bilirubin 0.9 mg/dL (0.2-1.3); Total Protein 7.6 g/dL (6.3-8.2)
== END | disposition home or self-care (01) ==
LOC: LABWHC1 12:27
PROVIDERS: ATTEND Internal Medicine
DX: D86.0 Sarcoidosis of lung (principal); D86.89 Sarcoidosis of other sites
CPT/HCPCS: 36415; 80053; 82164; 85025

== ENCOUNTER → 2017-08-01 | Outpatient (CLI) | payer OTHER ==
[2017-08-01 13:16] LABS: ALT 100 U/L (9-52); AST 69 U/L (14-36); Alkaline Phosphatase 225 U/L (38-126); Anion Gap 10 mmol/L; Blood Urea Nitrogen 20 mg/dL (7-17); Calcium 9.5 mg/dL (8.4-10.2); Carbon Dioxide 24 mmol/L (22-30); Chloride 103 mmol/L (98-107); Glucose 112 mg/dL (74-99); Non-African American GFR(MDRD) >60 (>60 ml/min/1.73 sqM); Sodium 137 mmol/L (137-145); Total Bilirubin 0.8 mg/dL (0.2-1.3); Total Protein 7.4 g/dL (6.3-8.2)
[2017-08-01 13:29] LABS: Potassium 4.5 mmol/L (3.5-5.1)
== END | disposition home or self-care (01) ==
LOC: LABWHC1 12:05
PROVIDERS: ATTEND Internal Medicine
DX: D86.9 Sarcoidosis, unspecified (principal)
CPT/HCPCS: 36415; 80053; 82164

== ENCOUNTER → 2017-09-27 | Outpatient (CLI) | payer OTHER ==
[2017-09-27 12:35] LABS: ALT 83 U/L (9-52); AST 59 U/L (14-36); Alkaline Phosphatase 227 U/L (38-126); Anion Gap 6 mmol/L; Blood Urea Nitrogen 20 mg/dL (7-17); Calcium 9.3 mg/dL (8.4-10.2); Carbon Dioxide 27 mmol/L (22-30); Chloride 107 mmol/L (98-107); Glucose 143 mg/dL (74-99); Non-African American GFR(MDRD) >60 (>60 ml/min/1.73 sqM); Potassium 4.6 mmol/L (3.5-5.1); Sodium 140 mmol/L (137-145); Total Bilirubin 0.3 mg/dL (0.2-1.3); Total Protein 6.7 g/dL (6.3-8.2)
== END | disposition home or self-care (01) ==
LOC: LABWHC1 11:58
PROVIDERS: ATTEND Internal Medicine
DX: D86.9 Sarcoidosis, unspecified (principal)
CPT/HCPCS: 36415; 80053

== ENCOUNTER 2017-11-06 11:27 | Inpatient (IN) | payer OTHER ==
[2017-11-06] MEDS ORDERED: ALBUTEROL NEBULIZED 2.5 MG/3 ML INHALATION STA (12:54)
[2017-11-06] MEDS ORDERED: methylPREDNISolone SOD SUCCI 125 MG/2 ML VIAL IV STA (12:54)
--- NOTE | 2017-11-06 13:01 | ED ---
General Adult HPI - General Chief complaint: Upper Respiratory Infection Stated complaint: Congestion Time Seen by Provider: 11/06/17 11:30 Source: patient, RN notes reviewed Mode of arrival: ambulatory Limitations: no limitations - History of Present Illness Initial comments: This is a 47-year-old female with past medical history significant for surgery doses. Patient states on Sunday she started having difficulty breathing so she went to her primary medical care doctor but since then her breathing is gotten worse. Patient states it did not improve so on Sunday she went back and saw the primary medical care doctor he thought was a viral syndrome and he put her on steroids at that time and she states today she is not getting any better in fact feels worse. Patient states she's also vomited 4 times since Sunday and had one episode of diarrhea. Patient denies any palpitations or chest pain. Patient denies any abdominal pain. Patient denies any back pain. Patient denies any fever or chills. Patient denies headache patient denies numbness weakness. - Related Data Home Medications Medication Instructions Recorded Confirmed Budesonide-Formot 160-4.5 Mcg 2 puff INHALATION RT-BID 11/08/16 11/06/17 [Symbicort 160-4.5 Mcg Inhaler] Levothyroxine Sodium [Synthroid] 175 mcg PO DAILY 11/08/16 11/06/17 Olmesartan Medoxomil [Benicar] 40 mg PO DAILY 11/08/16 11/06/17 busPIRone HCL 15 mg PO BID 11/08/16 11/06/17 DULoxetine HCL [Cymbalta] 120 mg PO DAILY 11/10/16 11/06/17 Cholecalciferol [Vitamin D3] 1,000 unit PO DAILY 04/02/17 11/06/17 predniSONE [Deltasone] 20 mg PO Q48H 04/02/17 11/06/17 Albuterol Nebulized [Ventolin 2.5 mg INHALATION RT-BID 11/06/17 11/06/17 Nebulized] Albuterol Sulfate [Proair Hfa] 1 - 2 puff INHALATION RT-QID PRN 11/06/17 Umeclidinium Brm/Vilanterol Tr 1 puff INHALATION RT-DAILY 11/06/17 11/06/17 [Anoro Ellipta 62.5-25 Mcg INH] Allergies Allergy/AdvReac Type Severity Reaction Status Date / Time tramadol [From Ultram] AdvReac Rash/Hives Verified 11/06/17 13:09 Review of Systems ROS Statement: Those systems with pertinent positive or pertinent negative responses have been documented in the HPI. ROS Other: All systems not noted in ROS Statement are negative. 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, obstructive sleep apnea maintained on CPAP therapy, morbid obesity, hypertension History of Any Multi-Drug Resistant Organisms: None Reported Past Surgical History: Tonsillectomy Additional Past Surgical History / Comment(s): D&C, liver biopsy, LASER EYE SX Past Anesthesia/Blood Transfusion Reactions: No Reported Reaction Past Psychological History: Anxiety, Depression Smoking Status: Never smoker Past Alcohol Use History: None Reported Past Drug Use History: None Reported - Past Family History Brother(s) Family Medical History: Cancer, Myocardial Infarction (NH) Additional Family Medical History / Comment(s): oral cancer, CADIAC STENTS Father Family Medical History: No Reported History Mother Family Medical History: Coronary Artery Disease (CAD) Additional Family Medical History / Comment(s): CARDAIC STENTS General Exam - General Exam Comments Initial Comments: GENERAL: Patient is well-developed and well-nourished. Patient is nontoxic and well- hydrated and is in mild distress. ENT: Neck is soft and supple. No significant lymphadenopathy is noted. Oropharynx is clear. Moist mucous membranes. Neck has full range of motion without eliciting any pain. EYES: The sclera were anicteric and conjunctiva were pink and moist. Extraocular movements were intact and pupils were equal round and reactive to light. Eyelids were unremarkable. PULMONARY: Unlabored respirations. Good breath sounds bilaterally. No audible rales rhonchi or wheezing was noted. CARDIOVASCULAR: There is a regular rate and rhythm without any murmurs gallops or rubs. ABDOMEN: Soft and nontender with normal bowel sounds. No palpable organomegaly was noted. There is no palpable pulsatile mass. SKIN: Skin is clear with no lesions or rashes and otherwise unremarkable. NEUROLOGIC: Patient is alert and oriented x3. Cranial nerves II through XII are grossly intact. Motor and sensory are also intact. Normal speech, volume and content. Symmetrical smile. MUSCULOSKELETAL: Normal extremities with adequate strength and full range of motion. LYMPHATICS: No significant lymphadenopathy is noted PSYCHIATRIC: Normal psychiatric evaluation. Normal interpersonal interactions appears functionally intact in deals appropriately with others. No signs of depression. No signs of anxiety. Limitations: no limitations Course Vital Signs 11/06/17 11/06/17 11/06/17 11:31 13:41 14:07 Temperature 97.0 F L Pulse Rate 89 88 92 Respiratory 18 Rate Blood Pressure 164/84 O2 Sat by Pulse 97 Oximetry 11/06/17 15:19 Temperature 99.7 F H Pulse Rate 82 Respiratory 16 Rate Blood Pressure 134/68 O2 Sat by Pulse 96 Oximetry Medical Decision Making - Medical Decision Making Patient did not do well at home with steroids and breathing treatments. I gave the patient 3 breathing treatments here and steroids she is feeling better but she continues to have a very wheezing. Patient's EKG showed paced rhythm at 84 bpm DC interval is 162 QRS is 148 QT interval 444 QTC is 524. Patient didn't feel comfortable home because she's already seen her doctor twice and it has not helped and she continues to get worse. Patient does states she is coughing up some sputum Ongoing to admit the patient and write admitting orders. I will consult pulmonary - Lab Data Result diagrams: 11/06/17 13:12 11/06/17 13:12 Lab Results 11/06/17 11/06/17 11/06/17 Range/Units 13:12 13:12 13:12 WBC 6.3 (3.8-10.6) k/uL RBC 4.99 (3.80-5.40) m/uL Hgb 14.3 (11.4-16.0) gm/dL Hct 46.7 H (34.0-46.0) % MCV 93.7 (80.0-100.0) fL MCH 28.7 (25.0-35.0) pg MCHC 30.6 L (31.0-37.0) g/dL RDW 15.0 (11.5-15.5) % Plt Count 234 (150-450) k/uL Neutrophils % 80 % Lymphocytes % 8 % Monocytes % 7 % Eosinophils % 1 % Basophils % 1 % Neutrophils # 5.0 (1.3-7.7) k/uL Lymphocytes # 0.5 L (1.0-4.8) k/uL Monocytes # 0.5 (0-1.0) k/uL Eosinophils # 0.1 (0-0.7) k/uL Basophils # 0.1 (0-0.2) k/uL PT (9.0-12.0) sec INR (<1.2) APTT (22.0-30.0) sec Sodium 140 (137-145) mmol/L Potassium 4.3 (3.5-5.1) mmol/L Chloride 103 (98-107) mmol/L Carbon Dioxide 26 (22-30) mmol/L Anion Gap 11 mmol/L BUN 10 (7-17) mg/dL Creatinine 0.88 (0.52-1.04) mg/dL Est GFR (MDRD) Af Amer >60 (>60 ml/min/1.73 sqM) Est GFR (MDRD) Non-Af >60 (>60 ml/min/1.73 sqM) Glucose 130 H (74-99) mg/dL Calcium 9.1 (8.4-10.2) mg/dL Magnesium 1.8 (1.6-2.3) mg/dL Total Bilirubin 0.5 (0.2-1.3) mg/dL AST 44 H (14-36) U/L ALT 71 H (9-52) U/L Alkaline Phosphatase 231 H (38-126) U/L Total Creatine Kinase 40 (30-135) U/L CK-MB (CK-2) 1.8 (0.0-2.4) ng/mL CK-MB (CK-2) Rel Index 4.5 Troponin I <0.012 (0.000-0.034) ng/mL Total Protein 6.4 (6.3-8.2) g/dL Albumin 3.5 (3.5-5.0) g/dL 11/06/17 Range/Units 13:12 WBC (3.8-10.6) k/uL RBC (3.80-5.40) m/uL Hgb (11.4-16.0) gm/dL Hct (34.0-46.0) % MCV (80.0-100.0) fL MCH (25.0-35.0) pg MCHC (31.0-37.0) g/dL RDW (11.5-15.5) % Plt Count (150-450) k/uL Neutrophils % % Lymphocytes % % Monocytes % % Eosinophils % % Basophils % % Neutrophils # (1.3-7.7) k/uL Lymphocytes # (1.0-4.8) k/uL Monocytes # (0-1.0) k/uL Eosinophils # (0-0.7) k/uL Basophils # (0-0.2) k/uL PT 9.8 (9.0-12.0) sec INR 1.0 (<1.2) APTT 21.3 L (22.0-30.0) sec Sodium (137-145) mmol/L Potassium (3.5-5.1) mmol/L Chloride (98-107) mmol/L Carbon Dioxide (22-30) mmol/L Anion Gap mmol/L BUN (7-17) mg/dL Creatinine (0.52-1.04) mg/dL Est GFR (MDRD) Af Amer (>60 ml/min/1.73 sqM) Est GFR (MDRD) Non-Af (>60 ml/min/1.73 sqM) Glucose (74-99) mg/dL Calcium (8.4-10.2) mg/dL Magnesium (1.6-2.3) mg/dL Total Bilirubin (0.2-1.3) mg/dL AST (14-36) U/L ALT (9-52) U/L Alkaline Phosphatase (38-126) U/L Total Creatine Kinase (30-135) U/L CK-MB (CK-2) (0.0-2.4) ng/mL CK-MB (CK-2) Rel Index Troponin I (0.000-0.034) ng/mL Total Protein (6.3-8.2) g/dL Albumin (3.5-5.0) g/dL Disposition Clinical Impression: Sarcoidosis of lung, Acute bronchospasm Disposition: ADMITTED IP TO THIS [facility] Time of Disposition: 14:43
[2017-11-06 13:36] LABS: Basophils # (A) 0.1 k/uL (0-0.2); Basophils % (A) 1 %; Eosinophils # (A) 0.1 k/uL (0-0.7); Eosinophils % (A) 1 %; HCT 46.7 % (34.0-46.0); HGB 14.3 gm/dL (11.4-16.0); Lymphocytes # (A) 0.5 k/uL (1.0-4.8); Lymphocytes % (A) 8 %; MCH 28.7 pg (25.0-35.0); MCHC 30.6 g/dL (31.0-37.0); MCV 93.7 fL (80.0-100.0); Mean Platelet Volume 7.3; Monocytes # (A) 0.5 k/uL (0-1.0); Monocytes % (A) 7 %; Neutrophils % (A) 80 %; Platelet Count 234 k/uL (150-450); RBC 4.99 m/uL (3.80-5.40); WBC 6.3 k/uL (3.8-10.6)
[2017-11-06 13:46] LABS: ALT 71 U/L (9-52); AST 44 U/L (14-36); Albumin 3.5 g/dL (3.5-5.0); Alkaline Phosphatase 231 U/L (38-126); Anion Gap 11 mmol/L; Blood Urea Nitrogen 10 mg/dL (7-17); Calcium 9.1 mg/dL (8.4-10.2); Carbon Dioxide 26 mmol/L (22-30); Chloride 103 mmol/L (98-107); Glucose 130 mg/dL (74-99); Magnesium 1.8 mg/dL (1.6-2.3); Potassium 4.3 mmol/L (3.5-5.1); Sodium 140 mmol/L (137-145); Total Bilirubin 0.5 mg/dL (0.2-1.3); Total Protein 6.4 g/dL (6.3-8.2)
--- NOTE | 2017-11-06 13:50 | XR ---
EXAMINATION TYPE: XR chest 2V DATE OF EXAM: 11/06/2017 COMPARISON: 06/19/2017 TECHNIQUE: PA and lateral views submitted. HISTORY: Shortness of breath FINDINGS: The lungs are clear and there is no pneumothorax, pleural effusion, or focal pneumonia. Cardiac dev ice noted. Central prominent interstitial pattern. Motion artifact noted on the lateral view with deg enerative changes. IMPRESSION: 1. Central interstitial pattern may be chronic correlate for bronchitis. Interstitial pneumonitis als o the differential diagnosis.
[2017-11-06 13:53] LABS: Creatine Kinase 40 U/L (30-135)
[2017-11-06 14:06] LABS: Creatine Kinase MB 1.8 ng/mL (0.0-2.4); Troponin I <0.012 ng/mL (0.000-0.034)
[2017-11-06 14:09] LABS: Prothrombin Time 9.8 sec (9.0-12.0)
[2017-11-06 14:12] LABS: Partial Thromboplastin Time 21.3 sec (22.0-30.0)
[2017-11-06] MEDS ORDERED: IPRATROPIUM-ALBUTEROL 3 ML NEB INHALATION PRN (14:44)
[2017-11-06] MEDS ORDERED: cefTRIAXone IN SWFI 1,000 MG/10 ML SYRINGE IVP STA (14:50)
--- NOTE | 2017-11-06 16:57 | P.HPIM ---
History of Present Illness This is a 47-year-old female with past medical history significant for surgery doses. Patient states on Sunday she started having difficulty breathing so she went to her primary medical care doctor but since then her breathing is gotten worse. Patient states it did not improve so on Sunday she went back and saw the primary medical care doctor he thought was a viral syndrome and he put her on steroids at that time and she states today she is not getting any better in fact feels worse. Patient states she's also vomited 4 times since Sunday and had one episode of diarrhea. Patient denies any palpitations or chest pain. Patient denies any abdominal pain. Patient denies any back pain. Patient denies any fever or chills. Patient denies headache patient denies numbness weakness. Patient is found to have significant interstitial prominence does have history of sarcoidosis. Patient was started on systemic steroids and is being admitted patient follows up with Dr. Pappas as an outpatient. Patient was also complaining of cough with white to yellowish sputum production Review of Systems REVIEW OF SYSTEMS: CONSTITUTIONAL: No fever, no malaise, no fatigue. HEENT: No recent visual problems or hearing problems. Denied any sore throat. CARDIOVASCULAR: No chest pain, orthopnea, PND, no palpitations, no syncope. PULMONARY: As mentioned in HPI GASTROINTESTINAL: No diarrhea, no nausea, no vomiting, no abdominal pain. Normoactive bowel sounds. NEUROLOGICAL: No headaches, no weakness, no numbness. HEMATOLOGICAL: Denies any bleeding or petechiae. GENITOURINARY: Denies any burning micturition, frequency, or urgency. MUSCULOSKELETAL/RHEUMATOLOGICAL: Denies any joint pain, swelling, or any muscle pain. ENDOCRINE: Denies any polyuria or polydipsia. The rest of the 14-point review of systems is negative. 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, obstructive sleep apnea maintained on CPAP therapy, morbid obesity, hypertension History of Any Multi-Drug Resistant Organisms: None Reported Past Surgical History: Tonsillectomy Additional Past Surgical History / Comment(s): D&C, liver biopsy, LASER EYE SX Past Anesthesia/Blood Transfusion Reactions: No Reported Reaction Additional Past Anesthesia/Blood Transfusion Reaction / Comment(s): no past blood transfusion Type of Cardiac Device: Permanent Pacemaker Device Placement Date:: 04-16-17 Past Psychological History: Anxiety, Depression Smoking Status: Never smoker Past Alcohol Use History: None Reported Past Drug Use History: None Reported - Past Family History Brother(s) Family Medical History: Cancer, Myocardial Infarction ([place]) Additional Family Medical History / Comment(s): oral cancer, CADIAC STENTS Father Family Medical History: No Reported History Mother Family Medical History: Coronary Artery Disease (CAD) Additional Family Medical History / Comment(s): CARDAIC STENTS Medications and Allergies Home Medications Medication Instructions Recorded Confirmed Type Budesonide-Formot 160-4.5 Mcg 2 puff INHALATION RT-BID 11/08/16 11/06/17 History [Symbicort 160-4.5 Mcg Inhaler] Levothyroxine Sodium [Synthroid] 175 mcg PO DAILY 11/08/16 11/06/17 History Olmesartan Medoxomil [Benicar] 40 mg PO DAILY 11/08/16 11/06/17 History busPIRone HCL 15 mg PO BID 11/08/16 11/06/17 History DULoxetine HCL [Cymbalta] 120 mg PO DAILY 11/10/16 11/06/17 History Cholecalciferol [Vitamin D3] 1,000 unit PO DAILY 04/02/17 11/06/17 History predniSONE [Deltasone] 20 mg PO Q48H 04/02/17 11/06/17 History Albuterol Nebulized [Ventolin 2.5 mg INHALATION RT-BID 11/06/17 11/06/17 History Nebulized] Albuterol Sulfate [Proair Hfa] 1 - 2 puff INHALATION RT-QID PRN 11/06/17 History Umeclidinium Brm/Vilanterol Tr 1 puff INHALATION RT-DAILY 11/06/17 11/06/17 History [Anoro Ellipta 62.5-25 Mcg INH] Allergies Allergy/AdvReac Type Severity Reaction Status Date / Time tramadol [From Ultram] AdvReac Rash/Hives Verified 11/06/17 13:09 Physical Exam Vitals: Vital Signs Temp Pulse Resp BP Pulse Ox 11/06/17 15:19 99.7 F H 82 16 134/68 96 11/06/17 14:07 92 11/06/17 13:41 88 11/06/17 11:31 97.0 F L 89 18 164/84 97 Intake and Output 11/06/17 11/06/17 11/06/17 06:59 14:59 22:59 Other: Weight 142.882 kg Patient Weight 11/07/17 06:59 Weight 142.882 kg PHYSICAL EXAMINATION: GENERAL: The patient is alert and oriented x3, not in any acute distress. Well developed, well nourished. Morbidly Obese HEENT: Pupils are round and equally reacting to light. EOMI. No scleral icterus. No conjunctival pallor. Normocephalic, atraumatic. No pharyngeal erythema. No thyromegaly. CARDIOVASCULAR: S1 and S2 present. No murmurs, rubs, or gallops. PULMONARY: Chest is clear to auscultation, minimal expiratory wheezing was appreciated ABDOMEN: Soft, nontender, nondistended, normoactive bowel sounds. No palpable organomegaly. MUSCULOSKELETAL: No joint swelling or deformity. EXTREMITIES: No cyanosis, clubbing, or pedal edema. NEUROLOGICAL: Gross neurological examination did not reveal any focal deficits. SKIN: No rashes. Results CBC & Chem 7: 11/06/17 13:12 11/06/17 13:12 Labs: Abnormal Lab Results - Last 24 Hours (Table) 11/06/17 11/06/17 11/06/17 Range/Units 13:12 13:12 13:12 Hct 46.7 H (34.0-46.0) % MCHC 30.6 L (31.0-37.0) g/dL Lymphocytes # 0.5 L (1.0-4.8) k/uL APTT 21.3 L (22.0-30.0) sec Glucose 130 H (74-99) mg/dL AST 44 H (14-36) U/L ALT 71 H (9-52) U/L Alkaline Phosphatase 231 H (38-126) U/L Assessment and Plan Plan: -Shortness of breath: Secondary to his sarcoid flare up for COPD exacerbation patient was started on systemic steroids inhalational treatments with neurology was consulted. -COPD history with acute exacerbation -Morbid obesity -Sleep apnea -History of third-degree heart block for which patient is a pacemaker -History of sarcoidosis with possible acute flareup
[2017-11-06] MEDS: methylPREDNISolone SOD SUCCI 125 MG/2 ML VIAL IV SCH (18:54)
[2017-11-06] MEDS: DULoxetine HCL 60 MG CAPSULE.DR PO SCH (19:44)
[2017-11-06] MEDS: LOSARTAN 50 MG TAB PO SCH (19:44)
[2017-11-06] MEDS: BUDESONIDE 1 MG/2 ML NEBU INHALATION SCH (19:51)
[2017-11-07] MEDS: busPIRone HCl 5 MG TAB PO SCH ×3 (00:59→21:18)
[2017-11-07] MEDS: methylPREDNISolone SOD SUCCI 125 MG/2 ML VIAL IV SCH ×4 (00:59→17:24)
[2017-11-07] MEDS: LEVOTHYROXINE 100 MCG TAB PO SCH (06:03)
[2017-11-07] MEDS: LEVOTHYROXINE 75 MCG TAB PO SCH (06:03)
[2017-11-07 07:19] LABS: Glucose,Whole Blood 219 mg/dL (75-99)
[2017-11-07] MEDS: LOSARTAN 50 MG TAB PO SCH (08:29)
[2017-11-07] MEDS: DULoxetine HCL 60 MG CAPSULE.DR PO SCH (08:29)
[2017-11-07] MEDS: INSULIN ASPART 100 UNIT/ML 1 ML 10 ML VIAL SQ SCH ×4 (08:30→21:19)
[2017-11-07] MEDS: cefTRIAXone IN SWFI 1,000 MG/10 ML SYRINGE IVP SCH (09:11)
[2017-11-07] MEDS: IPRATROPIUM-ALBUTEROL 3 ML NEB INHALATION SCH ×4 (09:40→19:42)
[2017-11-07] MEDS: BUDESONIDE 1 MG/2 ML NEBU INHALATION SCH ×2 (09:41→19:42)
[2017-11-07] MEDS: ANORO ELLIPTA INHALATION SCH (10:02)
[2017-11-07] MEDS: guaiFENesin 600 MG TABLET.ER PO SCH ×2 (11:37→21:19)
[2017-11-07 12:37] LABS: Glucose,Whole Blood 256 mg/dL (75-99)
[2017-11-07 15:24] VITALS: BMI 52.4
--- NOTE | 2017-11-07 16:11 | P.CNPUL ---
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 Her symptoms started on Sunday, and Sunday she went to see her PCP , Dr. Mills, was told it could be of viral syndrome, and was given Anoro inhaler , patient was already on oral steroids for her history of sarcoidosis. However she did not improve, and started feeling increasingly worse, developed vomiting , diarrhea. At that time patient decided to present to the emergency room for further evaluation and treatment. She denies any chest pain, no back pain, palpitations. She denies any hemoptysis, her cough was productive of white sputum. At home she is on nebulized albuterol treatments, Symbicort, Pro-Air, and maintenance dose of prednisone of 20 mg every 48 hours. Her lab work was negative for any evidence of leukocytosis, no electrolyte abnormality, AST of 44 , LT of 71, alkaline phosphatase of 231 could be consistent with her liver disease, cardiac enzymes and troponins were negative 1. Influenza screen was negative. Patient was started on IV Solu-Medrol, DuoNeb nebulized treatments, empiric antibiotics in the form of Rocephin, Pulmicort and was admitted for further treatment. Review of Systems All systems: negative Constitutional: Denies chills, Denies fever Eyes: denies blurred vision, denies pain Ears, nose, mouth and throat: Denies headache, Denies sore throat Cardiovascular: Denies chest pain, Denies shortness of breath Respiratory: Denies cough Gastrointestinal: Denies abdominal pain, Denies diarrhea, Denies nausea, Denies vomiting Genitourinary: Denies dysuria, Denies hematuria Musculoskeletal: Denies myalgias Integumentary: Denies pruritus, Denies rash Neurological: Denies numbness, Denies weakness Psychiatric: Denies anxiety, Denies depression Endocrine: Denies fatigue, Denies weight change 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, obstructive sleep apnea maintained on CPAP therapy, morbid obesity, hypertension History of Any Multi-Drug Resistant Organisms: None Reported Past Surgical History: Tonsillectomy Additional Past Surgical History / Comment(s): D&C, liver biopsy, LASER EYE SX Past Anesthesia/Blood Transfusion Reactions: No Reported Reaction Additional Past Anesthesia/Blood Transfusion Reaction / Comment(s): no past blood transfusion Type of Cardiac Device: Permanent Pacemaker Device Placement Date:: 04-16-17 Past Psychological History: Anxiety, Depression Smoking Status: Never smoker Past Alcohol Use History: None Reported Past Drug Use History: None Reported - Past Family History Brother(s) Family Medical History: Cancer, Myocardial Infarction ([place]) Additional Family Medical History / Comment(s): oral cancer, CADIAC STENTS Father Family Medical History: No Reported History Mother Family Medical History: Coronary Artery Disease (CAD) Additional Family Medical History / Comment(s): CARDAIC STENTS Medications and Allergies Home Medications Medication Instructions Recorded Confirmed Type Budesonide-Formot 160-4.5 Mcg 2 puff INHALATION RT-BID 11/08/16 11/06/17 History [Symbicort 160-4.5 Mcg Inhaler] Levothyroxine Sodium [Synthroid] 175 mcg PO DAILY 11/08/16 11/06/17 History Olmesartan Medoxomil [Benicar] 40 mg PO DAILY 11/08/16 11/06/17 History busPIRone HCL 15 mg PO BID 11/08/16 11/06/17 History DULoxetine HCL [Cymbalta] 120 mg PO DAILY 11/10/16 11/06/17 History Cholecalciferol [Vitamin D3] 1,000 unit PO DAILY 04/02/17 11/06/17 History predniSONE [Deltasone] 20 mg PO Q48H 04/02/17 11/06/17 History Albuterol Nebulized [Ventolin 2.5 mg INHALATION RT-BID 11/06/17 11/06/17 History Nebulized] Albuterol Sulfate [Proair Hfa] 1 - 2 puff INHALATION RT-QID PRN 11/06/17 History Umeclidinium Brm/Vilanterol Tr 1 puff INHALATION RT-DAILY 11/06/17 11/06/17 History [Anoro Ellipta 62.5-25 Mcg INH] Allergies Allergy/AdvReac Type Severity Reaction Status Date / Time tramadol [From Ultram] AdvReac Rash/Hives Verified 11/06/17 13:09 Physical Exam Vitals: Vital Signs Temp Pulse Pulse Resp BP BP Pulse Ox 11/07/17 15:00 96.9 F L 87 16 147/94 92 L 11/07/17 13:01 96 11/07/17 12:50 92 11/07/17 10:04 92 11/07/17 09:48 88 11/07/17 08:00 18 11/07/17 07:00 97.7 F 66 18 144/67 94 L 11/06/17 23:00 97.8 F 68 16 154/74 94 L 11/06/17 20:00 92 11/06/17 19:52 90 11/06/17 19:25 98.2 F 80 16 134/81 94 L 11/06/17 19:12 96.9 F L 72 16 161/72 98 11/06/17 18:57 98.5 F 86 16 172/103 92 L 11/06/17 17:19 81 16 172/78 94 L Intake and Output 11/07/17 11/07/17 11/07/17 06:59 14:59 22:59 Intake Total 500 Balance 500 Intake: Oral 500 Other: Voiding Method Toilet # Voids 2 2 Weight 142.882 kg Patient Weight 11/08/17 06:59 Weight 142.882 kg GENERAL EXAM: Alert, pleasant, 47-year-old white female patient, obese, comfortable in no apparent distress. HEAD: Normocephalic/atraumatic. EYES: Normal reaction of pupils, equal size. Conjunctiva pink, sclera white. NOSE: Clear with pink turbinates. THROAT: No erythema or exudates. NECK: No masses, no JVD, no thyroid enlargement, no adenopathy. CHEST: No chest wall deformity. Symmetrical expansion. LUNGS: Equal air entry, lung sounds are generally diminished with a few faint wheezes bilaterally CVS: Regular rate and rhythm, normal S1 and S2, no gallops, no murmurs, no rubs ABDOMEN: Soft, nontender. No hepatosplenomegaly, normal bowel sounds, no guarding or rigidity. EXTREMITIES: No clubbing, no edema, no cyanosis, 2+ pulses and upper and lower extremities. MUSCULOSKELETAL: Muscle strength and tone normal. SPINE: No scoliosis or deformity SKIN: No rashes CENTRAL NERVOUS SYSTEM: Alert and oriented -3. No focal deficits, tone is normal in all 4 extremities. PSYCHIATRIC: Alert and oriented -3. Appropriate affect. Intact judgment and insight. Results - Laboratory Findings CBC and BMP: 11/06/17 13:12 11/06/17 13:12 PT/INR, D-dimer PT 9.8 sec (9.0-12.0) 11/06/17 13:12 INR 1.0 (<1.2) 11/06/17 13:12 Abnormal lab findings: Abnormal Labs 11/06/17 11/06/17 11/06/17 13:12 13:12 13:12 Hct 46.7 H MCHC 30.6 L Lymphocytes # 0.5 L APTT 21.3 L Glucose 130 H POC Glucose (mg/dL) AST 44 H ALT 71 H Alkaline Phosphatase 231 H 11/07/17 11/07/17 07:16 12:32 Hct MCHC Lymphocytes # APTT Glucose POC Glucose (mg/dL) 219 H 256 H AST ALT Alkaline Phosphatase - Diagnostic Findings Chest x-ray: report reviewed Assessment and Plan Plan: Assessment: #1. Acute dyspnea due to acute COPD exacerbation #2. Severe sarcoidosis involving lungs and liver, hepatic granulomas #3. Obstructive sleep apnea syndrome, on CPAP therapy #4. Hypertension #5. Morbid obesity #6. Permanent cardiac pacemaker, for history of complete atrioventricular block #7. History of COPD #8. Gastroesophageal reflux disease #9. Hypothyroidism #10. Anxiety/depression Plan: Continue patient on IV Solu-Medrol, agree with empiric antibiotics in the form of Rocephin. Continue DuoNeb continue Pulmicort nebulized treatments. Chest x- ray was reviewed, shows interstitial central pattern, which is consistent with her underlying history of sarcoidosis. Patient is reporting improvement in her level of dyspnea. If she continues to improve, she may be discharged home tomorrow I performed a history & physical examination of the patient and discussed their management with my nurse practitioner, Ibis Giron. I reviewed the nurse practitioner's note and agree with the documented findings and plan of care. Lung sounds are diminished, with a few wheezes. The findings and the impression was discussed with the patient. I attest to the documentation by the nurse practitioner. Time with Patient: Greater than 30
[2017-11-07 17:15] LABS: Glucose,Whole Blood 238 mg/dL (75-99)
--- NOTE | 2017-11-07 17:33 | P.PN ---
Subjective Patient was admitted for presumed exacerbation and sarcoidosis with acute flareup. Patient has significant improvement competitors today and pulmonology is according 1 more day of hospital physician monitoring. Constitutional: Denied any fatigue denied any fever. Cardio vascular: denied any chest pain, palpitations Gastrointestinal denied any nausea vomiting Pulmonary: Denied any shortness of breath cough Neurologic denied any new focal deficits Objective - Vital Signs Vital signs: Vital Signs Temp 96.9 F L 11/07/17 15:00 Pulse 88 11/07/17 16:30 Resp 16 11/07/17 16:00 BP 147/94 11/07/17 15:00 Pulse Ox 97 11/07/17 16:17 Intake & Output 11/06/17 11/07/17 11/07/17 18:59 06:59 18:59 Intake Total 500 Balance 500 Weight 142.882 kg 142.882 kg Intake: Oral 500 Other: Voiding Method Toilet # Voids 2 2 - Exam PHYSICAL EXAMINATION: GENERAL: The patient is alert and oriented x3, not in any acute distress. Well developed, well nourished. HEENT: Pupils are round and equally reacting to light. EOMI. No scleral icterus. No conjunctival pallor. Normocephalic, atraumatic. No pharyngeal erythema. No thyromegaly. CARDIOVASCULAR: S1 and S2 present. No murmurs, rubs, or gallops. PULMONARY: Chest is clear to auscultation, no wheezing or crackles. ABDOMEN: Soft, nontender, nondistended, normoactive bowel sounds. No palpable organomegaly. MUSCULOSKELETAL: No joint swelling or deformity. EXTREMITIES: No cyanosis, clubbing, or pedal edema. NEUROLOGICAL: Gross neurological examination did not reveal any focal deficits. SKIN: No rashes. - Labs CBC & Chem 7: 11/06/17 13:12 11/06/17 13:12 Labs: Abnormal Lab Results - Last 24 Hours (Table) 11/07/17 11/07/17 11/07/17 Range/Units 07:16 12:32 17:04 POC Glucose (mg/dL) 219 H 256 H 238 H (75-99) mg/dL Microbiology - Last 24 Hours (Table) 11/06/17 13:12 Blood Culture - Preliminary Blood No Growth after 24 hours Assessment and Plan Plan: -Shortness of breath: Secondary to his sarcoid flare up for COPD exacerbation patient was started on systemic steroids inhalational treatments with pulmonology was consulted. -COPD history with acute exacerbation -Morbid obesity -Sleep apnea -History of third-degree heart block for which patient is a pacemaker -History of sarcoidosis with possible acute flareup Plans to continue present medication possibly of discharge tomorrow on oral steroids
[2017-11-07 20:49] LABS: Glucose,Whole Blood 494 mg/dL (75-99)
[2017-11-07 20:49] LABS: Glucose,Whole Blood 406 mg/dL (75-99)
[2017-11-07 20:53] LABS: Glucose,Whole Blood 408 mg/dL (75-99)
[2017-11-08] MEDS: methylPREDNISolone SOD SUCCI 125 MG/2 ML VIAL IV SCH ×3 (00:06→12:27)
[2017-11-08] MEDS: LEVOTHYROXINE 100 MCG TAB PO SCH (06:00)
[2017-11-08] MEDS: LEVOTHYROXINE 75 MCG TAB PO SCH (06:00)
[2017-11-08 07:38] LABS: Glucose,Whole Blood 203 mg/dL (75-99)
[2017-11-08 08:12] VITALS: BP 143/96; RESP 18; TEMP 97.1
[2017-11-08] MEDS: cefTRIAXone IN SWFI 1,000 MG/10 ML SYRINGE IVP SCH (08:25)
[2017-11-08] MEDS: guaiFENesin 600 MG TABLET.ER PO SCH (08:26)
[2017-11-08] MEDS: LOSARTAN 50 MG TAB PO SCH (08:27)
[2017-11-08] MEDS: busPIRone HCl 5 MG TAB PO SCH (08:27)
[2017-11-08] MEDS: DULoxetine HCL 60 MG CAPSULE.DR PO SCH (08:27)
[2017-11-08] MEDS: INSULIN ASPART 100 UNIT/ML 1 ML 10 ML VIAL SQ SCH ×2 (08:28→12:27)
[2017-11-08] MEDS: BUDESONIDE 1 MG/2 ML NEBU INHALATION SCH (08:43)
[2017-11-08] MEDS: IPRATROPIUM-ALBUTEROL 3 ML NEB INHALATION SCH ×2 (08:45→13:54)
[2017-11-08 09:01] VITALS: PULSE 94
[2017-11-08] MEDS: ANORO ELLIPTA INHALATION SCH (09:04)
--- NOTE | 2017-11-08 10:15 | P.PN ---
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 Her symptoms started on Sunday, and Sunday she went to see her PCP , Dr. Mills, was told it could be of viral syndrome, and was given Anoro inhaler , patient was already on oral steroids for her history of sarcoidosis. However she did not improve, and started feeling increasingly worse, developed vomiting , diarrhea. At that time patient decided to present to the emergency room for further evaluation and treatment. She denies any chest pain, no back pain, palpitations. She denies any hemoptysis, her cough was productive of white sputum. At home she is on nebulized albuterol treatments, Symbicort, Pro-Air, and maintenance dose of prednisone of 20 mg every 48 hours. Her lab work was negative for any evidence of leukocytosis, no electrolyte abnormality, AST of 44 , LT of 71, alkaline phosphatase of 231 could be consistent with her liver disease, cardiac enzymes and troponins were negative 1. Influenza screen was negative. Patient was started on IV Solu-Medrol, DuoNeb nebulized treatments, empiric antibiotics in the form of Rocephin, Pulmicort and was admitted for further treatment. On 11/08/2017 patient seen in follow-up. Reports feeling much better, lung sounds are generally diminished, with a few faint wheezes over anterior upper lobes. He is on room air with O2 sat at 96%. He febrile, hemodynamically stable. No significant chest congestion or sputum production. Blood cultures show no growth. Influenza screen was negative. Her primary standpoint patient is stable for discharge home today on outpatient course of Ceftin and prednisone taper and her maintenance inhalers and nebulizers. Objective - Vital Signs Vital signs: Vital Signs Temp 97.1 F L 11/08/17 07:00 Pulse 94 11/08/17 09:00 Resp 18 11/08/17 08:33 BP 143/96 11/08/17 07:00 Pulse Ox 96 01/11/18 08:45 Intake & Output 11/07/17 11/08/17 11/08/17 18:59 06:59 18:59 Intake Total 500 250 Balance 500 250 Weight 142.882 kg 142.882 kg Intake: Oral 500 250 Other: Voiding Method Toilet Toilet Toilet # Voids 2 2 - Exam GENERAL EXAM: Alert, pleasant, 47-year-old white female patient, obese, comfortable in no apparent distress. HEAD: Normocephalic/atraumatic. EYES: Normal reaction of pupils, equal size. Conjunctiva pink, sclera white. NOSE: Clear with pink turbinates. THROAT: No erythema or exudates. NECK: No masses, no JVD, no thyroid enlargement, no adenopathy. CHEST: No chest wall deformity. Symmetrical expansion. LUNGS: Equal air entry, lung sounds are generally diminished with a few faint wheezes bilaterally CVS: Regular rate and rhythm, normal S1 and S2, no gallops, no murmurs, no rubs ABDOMEN: Soft, nontender. No hepatosplenomegaly, normal bowel sounds, no guarding or rigidity. EXTREMITIES: No clubbing, no edema, no cyanosis, 2+ pulses and upper and lower extremities. MUSCULOSKELETAL: Muscle strength and tone normal. SPINE: No scoliosis or deformity SKIN: No rashes CENTRAL NERVOUS SYSTEM: Alert and oriented -3. No focal deficits, tone is normal in all 4 extremities. PSYCHIATRIC: Alert and oriented -3. Appropriate affect. Intact judgment and insight. - Labs CBC & Chem 7: 11/06/17 13:12 11/06/17 13:12 Labs: Abnormal Lab Results - Last 24 Hours (Table) 11/07/17 11/07/17 11/07/17 Range/Units 12:32 17:04 20:46 POC Glucose (mg/dL) 256 H 238 H 494 H (75-99) mg/dL 11/07/17 11/07/17 11/08/17 Range/Units 20:47 20:51 07:34 POC Glucose (mg/dL) 406 H 408 H 203 H (75-99) mg/dL Microbiology - Last 24 Hours (Table) 11/06/17 13:12 Blood Culture - Preliminary Blood No Growth after 24 hours Assessment and Plan Plan: Assessment: #1. Acute dyspnea due to acute COPD exacerbation #2. Severe sarcoidosis involving lungs and liver, hepatic granulomas #3. Obstructive sleep apnea syndrome, on CPAP therapy #4. Hypertension #5. Morbid obesity #6. Permanent cardiac pacemaker, for history of complete atrioventricular block #7. History of COPD #8. Gastroesophageal reflux disease #9. Hypothyroidism #10. Anxiety/depression Plan: Patient is doing well, reports improvement in terms of dyspnea and coughing. Has been ambulating in the room, tolerating activity well. On room air, vital signs are stable. Lung sounds are diminished with a few faint wheezes over anterior upper lobes. But no signs of respiratory distress. Patient is clear for discharge home today from pulmonary standpoint, and outpatient course of Ceftin, prednisone taper, her maintenance nebulizers and inhalers. Follow up with Dr. Pappas in the office in one week. I performed a history & physical examination of the patient and discussed their management with my nurse practitioner, Ibis Giron. I reviewed the nurse practitioner's note and agree with the documented findings and plan of care. Lung sounds are diminished, with a few wheezes. The findings and the impression was discussed with the patient. I attest to the documentation by the nurse practitioner. Time with Patient: Less than 30
[2017-11-08 12:22] LABS: Glucose,Whole Blood 341 mg/dL (75-99)
--- NOTE | 2017-11-09 17:24 | P.DS ---
Providers Date of admission: 11/06/17 14:45 Expected date of discharge: 11/08/17 Attending physician: Debra Herrera Consults: 11/06/17 14:44 Consult Physician Routine Consulting Provider: Juice Pappas Consult Reason/Comments: Bronchospasms Do you want consulting provider notified?: Yes Primary care physician: Juice Pappas Hospital Course: Final Diagnoses: Shortness of breath: Secondary to his sarcoid flare up for COPD exacerbation -COPD history with acute exacerbation -Morbid obesity -Sleep apnea -History of third-degree heart block for which patient is a pacemaker -History of sarcoidosis with possible acute flareup Hospital course: This a 47-year-old female Admitted with acute COPD exacerbation. Evaluated by pulmonary. Treated with nebulized bronchodilators, IV steroids, empiric antibiotics of Rocephin. Blood cultures reporting no growth. Influenza screen negative. Significant clinical improvement. Patient has been cleared by pulmonary for discharge. Patient is being discharged home in a stable condition with guarded prognosis. Physical exam:VSS, cardiovascular regular S1-S2, no edema, pulmonary, diminished throughout with occasional fine expiratory wheeze scattered, abdomen soft nontender positive bowel sounds, psychiatric alert and oriented 3 and affect normal, no focal deficits. The impression and plan of care has been dictated as directed. : I performed a history and examination of this patient, discussed the same with the dictator. I agree with the dictator's note ,documented as a scribe. Any additional findings or plans will be noted. Patient Condition at Discharge: Stable Plan - Discharge Summary Discharge Rx Participant: No New Discharge Prescriptions: New Cefuroxime Axetil [Ceftin] 500 mg PO BID 7 Days #14 tab predniSONE 10 mg PO DAILY 12 Days #36 tab Continue Budesonide-Formot 160-4.5 Mcg [Symbicort 160-4.5 Mcg Inhaler] 2 puff INHALATION RT-BID busPIRone HCL 15 mg PO BID Olmesartan Medoxomil [Benicar] 40 mg PO DAILY Levothyroxine Sodium [Synthroid] 175 mcg PO DAILY DULoxetine HCL [Cymbalta] 120 mg PO DAILY Cholecalciferol [Vitamin D3] 1,000 unit PO DAILY predniSONE [Deltasone] 20 mg PO Q48H Umeclidinium Brm/Vilanterol Tr [Anoro Ellipta 62.5-25 Mcg INH] 1 puff INHALATION RT-DAILY Albuterol Nebulized [Ventolin Nebulized] 2.5 mg INHALATION RT-BID Albuterol Sulfate [Proair Hfa] 1 - 2 puff INHALATION RT-QID PRN PRN Reason: Shortness Of Breath Discharge Medication List Budesonide-Formot 160-4.5 Mcg [Symbicort 160-4.5 Mcg Inhaler] 2 puff INHALATION RT-BID 11/08/16 [History] Levothyroxine Sodium [Synthroid] 175 mcg PO DAILY 11/08/16 [History] Olmesartan Medoxomil [Benicar] 40 mg PO DAILY 11/08/16 [History] busPIRone HCL 15 mg PO BID 11/08/16 [History] DULoxetine HCL [Cymbalta] 120 mg PO DAILY 11/10/16 [History] Cholecalciferol [Vitamin D3] 1,000 unit PO DAILY 04/02/17 [History] predniSONE [Deltasone] 20 mg PO Q48H 04/02/17 [History] Albuterol Nebulized [Ventolin Nebulized] 2.5 mg INHALATION RT-BID 11/06/17 [ History] Albuterol Sulfate [Proair Hfa] 1 - 2 puff INHALATION RT-QID PRN 11/06/17 [ History] Umeclidinium Brm/Vilanterol Tr [Anoro Ellipta 62.5-25 Mcg INH] 1 puff INHALATION RT-DAILY 11/06/17 [History] Cefuroxime Axetil [Ceftin] 500 mg PO BID 7 Days #14 tab 11/08/17 [Rx] predniSONE 10 mg PO DAILY 12 Days #36 tab 11/08/17 [Rx] Follow up Appointment(s)/Referral(s): Juice Pappas MD [Primary Care Provider] - 1 Week Avinash Alex MD [STAFF PHYSICIAN] - 3 Days Patient Instructions/Handouts: Acute Bronchitis (GEN) Activity/Diet/Wound Care/Special Instructions: Regular cardiac diet. Activity as tolerated.
== END 2017-11-08 15:21 | disposition home or self-care (01) | DRG 191 ==
LOC: EC 11:27 → 4MS4W 14:45
PROVIDERS: ADMIT Internal Medicine; ATTEND Internal Medicine
DX: J44.1 Chronic obstructive pulmonary disease with (acute) exacerbation (principal); I44.2 Atrioventricular block, complete; Z68.43 Body mass index [BMI] 50.0-59.9, adult; E66.01 Morbid (severe) obesity due to excess calories; D86.0 Sarcoidosis of lung; F41.9 Anxiety disorder, unspecified; F32.9 Major depressive disorder, single episode, unspecified; I10 Essential (primary) hypertension; G47.33 Obstructive sleep apnea (adult) (pediatric); D86.89 Sarcoidosis of other sites; K21.9 Gastro-esophageal reflux disease without esophagitis; E03.9 Hypothyroidism, unspecified; Z95.0 Presence of cardiac pacemaker; Z82.49 Family history of ischemic heart disease and other diseases of the circulatory system; Z88.6 Allergy status to analgesic agent; Z79.51 Long term (current) use of inhaled steroids; Z79.899 Other long term (current) drug therapy; Z80.8 Family history of malignant neoplasm of other organs or systems; Z90.89 Acquired absence of other organs
CPT/HCPCS: 36415; 71046; 80053; 82550; 82553; 83735; 84484; 85025; 85610; 85730; 87040; 87502; 93005; 94640; 94760; 96374; 96375; 96376; 99284

== ENCOUNTER → 2017-11-14 | Outpatient (CLI) | payer OTHER ==
[2017-11-14 13:26] LABS: ALT 182 U/L (9-52); AST 91 U/L (14-36); Albumin 3.9 g/dL (3.5-5.0); Alkaline Phosphatase 287 U/L (38-126); Anion Gap 10 mmol/L; Blood Urea Nitrogen 20 mg/dL (7-17); Calcium 9.8 mg/dL (8.4-10.2); Carbon Dioxide 33 mmol/L (22-30); Chloride 98 mmol/L (98-107); Glucose 151 mg/dL (74-99); Potassium 4.1 mmol/L (3.5-5.1); Sodium 141 mmol/L (137-145); Total Bilirubin 0.8 mg/dL (0.2-1.3)
== END | disposition home or self-care (01) ==
LOC: LABWHC1 12:47
PROVIDERS: ATTEND Internal Medicine
DX: D86.0 Sarcoidosis of lung (principal); D86.89 Sarcoidosis of other sites
CPT/HCPCS: 36415; 80053

== ENCOUNTER 2017-12-07 14:35 | Inpatient (IN) | payer OTHER ==
[2017-12-07] MEDS ORDERED: ACETAMINOPHEN TAB 500 MG TAB PO STA (14:57)
[2017-12-07] MEDS ORDERED: SODIUM CHLORIDE 0.9% 1,000 ML IV STA ×2 (14:57)
[2017-12-07] MEDS ORDERED: IPRATROPIUM-ALBUTEROL 3 ML NEB INHALATION STA (15:12)
--- NOTE | 2017-12-07 15:13 | ED ---
General Adult HPI - General Chief complaint: Shortness of Breath Stated complaint: Cough Time Seen by Provider: 12/07/17 14:52 Source: patient, RN notes reviewed Mode of arrival: ambulatory Limitations: no limitations - History of Present Illness Initial comments: Patient's a 47-year-old female with a significant past history for sarcoidosis, who presents emergency room today with a chief complaint of increased cough congestion and body aches. She does admit that symptoms seemed to increase the past 2 days. She does admit that she was recently admitted and diagnosed with pneumonia approximately 1 month ago. She states she has felt the family doctor recently this past week. States she had a chest x-ray that was clear. Patient does admit that symptoms include increased the last few days and she feeling more shortness breath. Patient does not that she is breathing treatments at home she's had some relief this. She denies any other complaints or symptoms currently. Patient denies any recent chest pain, back pain, abdominal pain, nausea or vomiting, numbness or tingling, dysuria or hematuria, constipation or diarrhea, headaches or visual changes, or any other complaints. - Related Data Home Medications Medication Instructions Recorded Confirmed Budesonide-Formot 160-4.5 Mcg 2 puff INHALATION RT-BID 11/08/16 12/07/17 [Symbicort 160-4.5 Mcg Inhaler] Levothyroxine Sodium [Synthroid] 175 mcg PO DAILY 11/08/16 12/07/17 busPIRone HCL 15 mg PO BID 11/08/16 12/07/17 DULoxetine HCL [Cymbalta] 120 mg PO DAILY 11/10/16 12/07/17 Cholecalciferol [Vitamin D3] 2,000 unit PO DAILY 04/02/17 12/07/17 Albuterol Sulfate [Proair Hfa] 1 - 2 puff INHALATION RT-QID PRN 11/06/17 Furosemide [Lasix] 20 mg PO DAILY 12/07/17 12/07/17 Olmesartan/Hydrochlorothiazide 0.5 tab PO DAILY 12/07/17 12/07/17 [Olmesartan-Hctz 40-25 mg Tab] predniSONE 30 mg PO DAILY 12/07/17 12/07/17 Allergies Allergy/AdvReac Type Severity Reaction Status Date / Time tramadol [From Ultram] AdvReac Rash/Hives Verified 12/07/17 15:39 Review of Systems ROS Statement: Those systems with pertinent positive or pertinent negative responses have been documented in the HPI. ROS Other: All systems not noted in ROS Statement are negative. 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, obstructive sleep apnea maintained on CPAP therapy, morbid obesity, hypertension History of Any Multi-Drug Resistant Organisms: None Reported Past Surgical History: Tonsillectomy Additional Past Surgical History / Comment(s): D&C, liver biopsy, LASER EYE SX Past Anesthesia/Blood Transfusion Reactions: No Reported Reaction Additional Past Anesthesia/Blood Transfusion Reaction / Comment(s): no past blood transfusion Type of Cardiac Device: Permanent Pacemaker Device Placement Date:: 04-16-17 Past Psychological History: Anxiety, Depression Smoking Status: Never smoker Past Alcohol Use History: None Reported Past Drug Use History: None Reported - Past Family History Brother(s) Family Medical History: Cancer, Myocardial Infarction ([place]) Additional Family Medical History / Comment(s): oral cancer, CADIAC STENTS Father Family Medical History: No Reported History Mother Family Medical History: Coronary Artery Disease (CAD) Additional Family Medical History / Comment(s): CARDAIC STENTS General Exam - General Exam Comments Initial Comments: General: The patient is awake and alert, in no distress, and does not appear acutely ill. Eye: Pupils are equal, round and reactive to light, extra-ocular movements are intact. No nystagmus. There is normal conjunctiva bilaterally. No signs of icterus. Ears, nose, mouth and throat: There are moist mucous membranes and no oral lesions. Neck: The neck is supple, there is no tenderness or JVD. Cardiovascular: There is a regular rate and rhythm. No murmur, rub or gallop is appreciated. Respiratory: Decreased lung sounds bilaterally with mild wheeze. respirations are non-labored, breath sounds are equal. No stridor, rales, or rhonchi. Musculoskeletal: Normal ROM, no tenderness. Strength 5/5. Sensation intact. Pulses equal bilaterally 2+. Neurological: A&O x 3. CN II-XII intact, There are no obvious motor or sensory deficits. Coordination appears grossly intact. Speech is normal. Skin: Skin is warm and dry and no rashes or lesions are noted. Psychiatric: Cooperative, appropriate mood & affect, normal judgment. Limitations: no limitations Course Vital Signs 12/07/17 12/07/17 12/07/17 14:43 15:14 15:15 Temperature 101.2 F H Pulse Rate 112 H Pulse Rate [ 108 H Loan Administrator ] Respiratory 28 H 25 H 24 Rate Blood Pressure 121/55 Blood Pressure 114/74 [Sitting] O2 Sat by Pulse 95 93 L Oximetry 12/07/17 12/07/17 12/07/17 15:34 15:44 15:45 Temperature Pulse Rate 103 H 104 H Pulse Rate [ 105 H Loan Administrator ] Respiratory 24 Rate Blood Pressure Blood Pressure 123/54 [Sitting] O2 Sat by Pulse 96 Oximetry 12/07/17 16:11 Temperature 99.0 F Pulse Rate Pulse Rate [ 100 Loan Administrator ] Respiratory 26 H Rate Blood Pressure Blood Pressure 108/55 [Sitting] O2 Sat by Pulse 91 L Oximetry EKG Findings - EKG Comments: EKG Findings:: EKG performed at 1458: Shows an electronically paced rhythm at 60 beats per minute. QRS 148. QT/QTc is 454/[address] changes. Compared to previous EKG on 11/06/2017. Medical Decision Making - Medical Decision Making Patient's chest x-rays negative. She is reexamined at this time shows no signs of distress. She is influenza A positive. Patient's labs been reviewed and negative cardiac enzyme at this time. Patient does show hypoxemia 91% on room air. Patient has been on 2 L. Feels more comfortable. Patient be admitted to the hospital for breathing treatments, started on Tamiflu - Lab Data Result diagrams: 12/07/17 15:13 12/07/17 15:13 Lab Results 12/07/17 12/07/17 12/07/17 Range/Units 15:13 15:13 15:13 WBC 7.8 (3.8-10.6) k/uL RBC 4.92 (3.80-5.40) m/uL Hgb 14.4 (11.4-16.0) gm/dL Hct 45.7 (34.0-46.0) % MCV 92.9 (80.0-100.0) fL MCH 29.3 (25.0-35.0) pg MCHC 31.6 (31.0-37.0) g/dL RDW 14.4 (11.5-15.5) % Plt Count 184 (150-450) k/uL Neutrophils % 83 % Lymphocytes % 7 % Monocytes % 6 % Eosinophils % 1 % Basophils % 1 % Neutrophils # 6.5 (1.3-7.7) k/uL Lymphocytes # 0.6 L (1.0-4.8) k/uL Monocytes # 0.5 (0-1.0) k/uL Eosinophils # 0.0 (0-0.7) k/uL Basophils # 0.1 (0-0.2) k/uL PT (9.0-12.0) sec INR (<1.2) APTT (22.0-30.0) sec Sodium 137 (137-145) mmol/L Potassium 4.4 (3.5-5.1) mmol/L Chloride 100 (98-107) mmol/L Carbon Dioxide 28 (22-30) mmol/L Anion Gap 9 mmol/L BUN 20 H (7-17) mg/dL Creatinine 1.00 (0.52-1.04) mg/dL Est GFR (MDRD) Af Amer >60 (>60 ml/min/1.73 sqM) Est GFR (MDRD) Non-Af 59 (>60 ml/min/1.73 sqM) Glucose 180 H (74-99) mg/dL Plasma Lactic Acid Alejandro 2.8 H* (0.7-2.0) mmol/L Calcium 9.4 (8.4-10.2) mg/dL Total Bilirubin 0.6 (0.2-1.3) mg/dL AST 94 H (14-36) U/L ALT 125 H (9-52) U/L Alkaline Phosphatase 245 H (38-126) U/L Total Creatine Kinase (30-135) U/L CK-MB (CK-2) (0.0-2.4) ng/mL CK-MB (CK-2) Rel Index Troponin I (0.000-0.034) ng/mL Total Protein 6.3 (6.3-8.2) g/dL Albumin 3.5 (3.5-5.0) g/dL Influenza Type A RNA (Not Detectd) Influenza Type B (PCR) (Not Detectd) 12/07/17 12/07/17 12/07/17 Range/Units 15:13 15:13 15:15 WBC (3.8-10.6) k/uL RBC (3.80-5.40) m/uL Hgb (11.4-16.0) gm/dL Hct (34.0-46.0) % MCV (80.0-100.0) fL MCH (25.0-35.0) pg MCHC (31.0-37.0) g/dL RDW (11.5-15.5) % Plt Count (150-450) k/uL Neutrophils % % Lymphocytes % % Monocytes % % Eosinophils % % Basophils % % Neutrophils # (1.3-7.7) k/uL Lymphocytes # (1.0-4.8) k/uL Monocytes # (0-1.0) k/uL Eosinophils # (0-0.7) k/uL Basophils # (0-0.2) k/uL PT 9.4 (9.0-12.0) sec INR 0.9 (<1.2) APTT 19.6 L (22.0-30.0) sec Sodium (137-145) mmol/L Potassium (3.5-5.1) mmol/L Chloride (98-107) mmol/L Carbon Dioxide (22-30) mmol/L Anion Gap mmol/L BUN (7-17) mg/dL Creatinine (0.52-1.04) mg/dL Est GFR (MDRD) Af Amer (>60 ml/min/1.73 sqM) Est GFR (MDRD) Non-Af (>60 ml/min/1.73 sqM) Glucose (74-99) mg/dL Plasma Lactic Acid Alejandro (0.7-2.0) mmol/L Calcium (8.4-10.2) mg/dL Total Bilirubin (0.2-1.3) mg/dL AST (14-36) U/L ALT (9-52) U/L Alkaline Phosphatase (38-126) U/L Total Creatine Kinase 69 (30-135) U/L CK-MB (CK-2) 1.3 (0.0-2.4) ng/mL CK-MB (CK-2) Rel Index 1.9 Troponin I 0.031 (0.000-0.034) ng/mL Total Protein (6.3-8.2) g/dL Albumin (3.5-5.0) g/dL Influenza Type A RNA Detected H (Not Detectd) Influenza Type B (PCR) Not Detected (Not Detectd) Disposition Clinical Impression: Influenza A, Sarcoidosis of lung, Hypoxia Disposition: ADMITTED IP TO THIS HOSP Condition: Stable Referrals: Juice Pappas MD [Primary Care Provider] - 1-2 days Time of Disposition: 16:15
[2017-12-07 15:37] LABS: ALT 125 U/L (9-52); AST 94 U/L (14-36); Albumin 3.5 g/dL (3.5-5.0); Alkaline Phosphatase 245 U/L (38-126); Anion Gap 9 mmol/L; Blood Urea Nitrogen 20 mg/dL (7-17); Calcium 9.4 mg/dL (8.4-10.2); Carbon Dioxide 28 mmol/L (22-30); Chloride 100 mmol/L (98-107); Glucose 180 mg/dL (74-99); Potassium 4.4 mmol/L (3.5-5.1); Sodium 137 mmol/L (137-145); Total Bilirubin 0.6 mg/dL (0.2-1.3); Total Protein 6.3 g/dL (6.3-8.2)
[2017-12-07 15:39] LABS: INR 0.9 (<1.2); Prothrombin Time 9.4 sec (9.0-12.0)
[2017-12-07 15:42] LABS: Basophils # (A) 0.1 k/uL (0-0.2); Basophils % (A) 1 %; Eosinophils % (A) 1 %; HCT 45.7 % (34.0-46.0); HGB 14.4 gm/dL (11.4-16.0); Lymphocytes # (A) 0.6 k/uL (1.0-4.8); Lymphocytes % (A) 7 %; MCH 29.3 pg (25.0-35.0); MCHC 31.6 g/dL (31.0-37.0); MCV 92.9 fL (80.0-100.0); Mean Platelet Volume 6.8; Monocytes # (A) 0.5 k/uL (0-1.0); Monocytes % (A) 6 %; Neutrophils # (A) 6.5 k/uL (1.3-7.7); Neutrophils % (A) 83 %; Platelet Count 184 k/uL (150-450); RBC 4.92 m/uL (3.80-5.40); RDW 14.4 % (11.5-15.5); WBC 7.8 k/uL (3.8-10.6)
--- NOTE | 2017-12-07 16:00 | XR ---
EXAMINATION TYPE: XR chest 2V DATE OF EXAM: 12/07/2017 COMPARISON: 11/06/2017, 12/03/2017 INDICATION: Cough, positive flu type a, history of sarcoidosis TECHNIQUE: Frontal and lateral views of the chest are obtained. FINDINGS: The heart size is normal. The pulmonary vasculature is normal. The lungs are clear. Pacemaker overlies left chest. IMPRESSION: 1. No acute pulmonary process.
[2017-12-07 16:02] LABS: Creatine Kinase MB 1.3 ng/mL (0.0-2.4); Troponin I 0.031 ng/mL (0.000-0.034)
[2017-12-07 16:12] LABS: Partial Thromboplastin Time 19.6 sec (22.0-30.0)
[2017-12-07] MEDS ORDERED: IBUPROFEN 400 MG TAB PO PRN (16:23)
[2017-12-07] MEDS ORDERED: ACETAMINOPHEN TAB 325 MG TAB PO PRN (16:23)
[2017-12-07] MEDS ORDERED: NALOXONE 0.4 MG/ML 1 ML VIAL IV PRN (16:23)
[2017-12-07] MEDS ORDERED: ONDANSETRON 4 MG/2 ML VIAL IVP PRN (16:23)
[2017-12-07] MEDS ORDERED: SODIUM CHLORIDE 0.9% 1,000 ML IV ONE (16:23)
[2017-12-07] MEDS ORDERED: ALBUTEROL NEBULIZED 2.5 MG/3 ML INHALATION PRN (16:28)
[2017-12-07] MEDS ORDERED: OSELTAMIVIR 75 MG CAP PO STA (16:29)
[2017-12-07 17:34] LABS: Amorphous Sediment,Urine Rare /hpf; Appearance,Urine Cloudy (Clear); Bacteria,Urine Occasional /hpf; Bilirubin,Urine Negative (Negative); Blood,Urine Negative (Negative); Calcium Oxalate Crystals,Urine Many /hpf; Color,Urine Yellow; Glucose,Urine (UA) 2+ (Negative); Hyaline Casts,Urine 8 /lpf (0-2); Ketones,Urine Trace (Negative); Leukocyte Esterase,Urine Small (Negative); Mucus,Urine Moderate /hpf; Nitrite,Urine Negative (Negative); PH, Urine 5.5 (5.0-8.0); Protein,Urine 1+ (Negative); RBC,Urine 2 /hpf (0-5); Specific Gravity,Urine 1.027 (1.001-1.035); Squamous Epithelial Cell,Urine 10 /hpf (0-4); WBC,Urine 7 /hpf (0-5)
[2017-12-07] MEDS: methylPREDNISolone SOD SUCCI 125 MG/2 ML VIAL IV SCH ×2 (17:57→23:45)
[2017-12-07 18:13] VITALS: BMI 52.9
[2017-12-07] MEDS: OSELTAMIVIR 75 MG CAP PO SCH (20:35)
[2017-12-07] MEDS: busPIRone HCl 5 MG TAB PO SCH (20:35)
[2017-12-07] MEDS: SYMBICORT 160-4.5 MCG INHALER INHALATION SCH (20:41)
[2017-12-07] MEDS: IPRATROPIUM-ALBUTEROL 3 ML NEB INHALATION PRN (20:42)
[2017-12-07 20:48] LABS: Glucose,Whole Blood 292 mg/dL (75-99)
[2017-12-07] MEDS: INSULIN ASPART 100 UNIT/ML 1 ML 10 ML VIAL SQ SCH (21:05)
[2017-12-07] MEDS: SODIUM CHLORIDE 0.9% 1,000 ML IV SCH (23:45)
[2017-12-08] MEDS: LEVOTHYROXINE 100 MCG TAB PO SCH (06:22)
[2017-12-08] MEDS: LEVOTHYROXINE 75 MCG TAB PO SCH (06:22)
[2017-12-08] MEDS: methylPREDNISolone SOD SUCCI 125 MG/2 ML VIAL IV SCH ×4 (06:22→23:12)
[2017-12-08] MEDS: OSELTAMIVIR 75 MG CAP PO SCH ×2 (07:35→20:14)
[2017-12-08] MEDS: DULoxetine HCL 60 MG CAPSULE.DR PO SCH (07:35)
[2017-12-08] MEDS: busPIRone HCl 5 MG TAB PO SCH ×2 (07:35→20:14)
[2017-12-08] MEDS: CHOLECALCIFEROL 1,000 UNIT TAB PO SCH (07:35)
[2017-12-08] MEDS: FUROSEMIDE 20 MG TAB PO SCH (07:35)
[2017-12-08 08:00] LABS: Glucose,Whole Blood 241 mg/dL (75-99)
[2017-12-08] MEDS: INSULIN ASPART 100 UNIT/ML 1 ML 10 ML VIAL SQ SCH ×5 (08:04→21:30)
[2017-12-08] MEDS: SYMBICORT 160-4.5 MCG INHALER INHALATION SCH ×2 (08:49→20:40)
[2017-12-08] MEDS: IPRATROPIUM-ALBUTEROL 3 ML NEB INHALATION PRN ×2 (08:49→13:55)
[2017-12-08 08:51] LABS: Basophils % (A) 0 %; Eosinophils % (A) 0 %; HCT 44.6 % (34.0-46.0); HGB 13.9 gm/dL (11.4-16.0); Lymphocytes # (A) 0.5 k/uL (1.0-4.8); Lymphocytes % (A) 6 %; MCH 29.4 pg (25.0-35.0); MCHC 31.1 g/dL (31.0-37.0); MCV 94.4 fL (80.0-100.0); Monocytes # (A) 0.2 k/uL (0-1.0); Monocytes % (A) 2 %; Neutrophils # (A) 8.3 k/uL (1.3-7.7); Neutrophils % (A) 91 %; Platelet Count 174 k/uL (150-450); RBC 4.72 m/uL (3.80-5.40); WBC 9.1 k/uL (3.8-10.6)
[2017-12-08 09:03] LABS: ALT 130 U/L (9-52); AST 78 U/L (14-36); Albumin 3.6 g/dL (3.5-5.0); Alkaline Phosphatase 266 U/L (38-126); Anion Gap 13 mmol/L; Blood Urea Nitrogen 16 mg/dL (7-17); Calcium 9.2 mg/dL (8.4-10.2); Carbon Dioxide 24 mmol/L (22-30); Chloride 102 mmol/L (98-107); Glucose 330 mg/dL (74-99); Potassium 4.6 mmol/L (3.5-5.1); Sodium 139 mmol/L (137-145); Total Bilirubin 0.5 mg/dL (0.2-1.3); Total Protein 6.3 g/dL (6.3-8.2)
[2017-12-08] MEDS ORDERED: LEVOFLOXACIN 500MG-D5W PMX 500 MG in DEXTROSE/WATER 1 100ML.BAG IVPB SCH (11:00)
[2017-12-08 12:25] LABS: Glucose,Whole Blood 326 mg/dL (75-99)
[2017-12-08] MEDS: SODIUM CHLORIDE 0.9% 1,000 ML IV SCH ×3 (12:53→20:14)
--- NOTE | 2017-12-08 14:40 | P.CNPUL ---
History of Present Illness Consult date: 12/08/17 Reason for consult: dyspnea, cough, other Chief complaint: Influenza, shortness of breath History of present illness: Consult dated 12/08/2017 This is a 47-year-old female sees my partner as her primary doctor as well as her lung doctor. The patient apparently has a history of hypothyroidism vitamin D deficiency and also has a history of sarcoidosis which is apparently active at this time. The patient's on prednisone 30 mg a day. She apparently presented to the emergency department with complaints of increasing cough congestion and body aches. She apparently called the office and was told to come to the emergency room. Her symptoms have been present for 2 or 3 days prior to admission. She was started on Tamiflu for the influenza. She denies any chest pain or chest pressure. Denies any nausea vomiting or diarrhea. Feels a little winded and short of breath. A bit wheezy. Coughing. Not producing any phlegm. No urinary complaints. No GI complaints. Apparently also has a history of hypertension for which she takes a angiotensin receptor charis/diuretic combination. The patient looks rather well. Probably could be discharged home on home Tamiflu. We'll allow the primary doctor to make that determination. She sitting at the bed. Not requiring any supplemental oxygen. Has no respiratory distress or difficulty. Review of Systems A 12 point review of system is positive for shortness of breath cough mild chest congestion and body aches and joint aches. 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, obstructive sleep apnea maintained on CPAP therapy, morbid obesity, hypertension History of Any Multi-Drug Resistant Organisms: None Reported Past Surgical History: Tonsillectomy Additional Past Surgical History / Comment(s): D&C, liver biopsy, LASER EYE SX Past Anesthesia/Blood Transfusion Reactions: No Reported Reaction Additional Past Anesthesia/Blood Transfusion Reaction / Comment(s): no past blood transfusion Type of Cardiac Device: Permanent Pacemaker Device Placement Date:: 04-16-17 Past Psychological History: Anxiety, Depression Additional Psychological History / Comment(s): PT LIVES IN A SINGLE LEVEL HOME THAT HAS 4 FRONT STEPS. LIVES WITH A FRIEND. PETS: 2 DOGS. NO HOMECARE SERVICES RECEIVED. HAS A CPAP AND NEBULIZER. Smoking Status: Never smoker Past Alcohol Use History: None Reported Past Drug Use History: None Reported - Past Family History Brother(s) Family Medical History: Cancer, Myocardial Infarction ([place]) Additional Family Medical History / Comment(s): oral cancer, CADIAC STENTS Father Family Medical History: No Reported History Mother Family Medical History: Coronary Artery Disease (CAD) Additional Family Medical History / Comment(s): CARDAIC STENTS Medications and Allergies Home Medications Medication Instructions Recorded Confirmed Type Budesonide-Formot 160-4.5 Mcg 2 puff INHALATION RT-BID 11/08/16 12/07/17 History [Symbicort 160-4.5 Mcg Inhaler] Levothyroxine Sodium [Synthroid] 175 mcg PO DAILY 11/08/16 12/07/17 History busPIRone HCL 15 mg PO BID 11/08/16 12/07/17 History DULoxetine HCL [Cymbalta] 120 mg PO DAILY 11/10/16 12/07/17 History Cholecalciferol [Vitamin D3] 2,000 unit PO DAILY 04/02/17 12/07/17 History Albuterol Sulfate [Proair Hfa] 1 - 2 puff INHALATION RT-QID PRN 11/06/17 History Furosemide [Lasix] 20 mg PO DAILY 12/07/17 12/07/17 History Olmesartan/Hydrochlorothiazide 0.5 tab PO DAILY 12/07/17 12/07/17 History [Olmesartan-Hctz 40-25 mg Tab] predniSONE 30 mg PO DAILY 12/07/17 12/07/17 History Allergies Allergy/AdvReac Type Severity Reaction Status Date / Time tramadol [From Ultram] AdvReac Rash/Hives Verified 12/07/17 15:39 Physical Exam Osteopathic Statement: *. No significant issues noted on an osteopathic structural exam other than those noted in the History and Physical/Consult. Vitals: Vital Signs Temp Pulse Pulse Pulse Resp BP BP 12/08/17 14:07 72 12/08/17 13:57 72 12/08/17 09:00 78 12/08/17 08:51 78 12/08/17 07:00 98.1 F 73 16 148/99 12/07/17 23:00 99.1 F 89 20 160/92 12/07/17 20:56 100 12/07/17 20:47 12/07/17 20:46 100 12/07/17 16:45 99.0 F 100 24 12/07/17 16:40 98.8 F 93 18 12/07/17 16:11 99.0 F 100 26 H 12/07/17 15:45 105 H 24 12/07/17 15:44 104 H 12/07/17 15:34 103 H 12/07/17 15:15 108 H 24 12/07/17 15:14 25 H 12/07/17 14:43 101.2 F H 112 H 28 H 121/55 BP Pulse Ox 12/08/17 14:07 12/08/17 13:57 12/08/17 09:00 12/08/17 08:51 12/08/17 07:00 92 L 12/07/17 23:00 93 L 12/07/17 20:56 12/07/17 20:47 97 12/07/17 20:46 12/07/17 16:45 114/72 95 12/07/17 16:40 130/87 93 L 12/07/17 16:11 108/55 91 L 12/07/17 15:45 123/54 96 12/07/17 15:44 12/07/17 15:34 12/07/17 15:15 114/74 93 L 12/07/17 15:14 12/07/17 14:43 95 Intake and Output 12/07/17 12/08/17 12/08/17 22:59 06:59 14:59 Intake Total 700 100 Balance 700 100 Intake: Oral 700 100 Other: Voiding Method Toilet # Voids 3 2 3 Weight 144.4 kg No acute distress, oriented 3. The patient does not require any supplemental oxygen. HEENT examination is grossly unremarkable. Mucous membranes are moist. No oral lesions. Neck supple. Full range of motion. No adenopathy thyromegaly or neck vein distention. Cardiovascular examination reveals regular rhythm rate. S1-S2 normal. No S3 or S4. No discernible murmur noted. Lungs reveal mild expiratory wheezes. A few scattered rhonchi. Breath sounds are diminished. There are equal bilaterally. Abdomen soft bowel sounds are heard. No masses or tenderness. Extremities are intact. No cyanosis clubbing or edema. Skin is without rash or lesion. Neurologic examination is brief but nonfocal. Results - Laboratory Findings CBC and BMP: 12/08/17 08:23 12/08/17 08:23 PT/INR, D-dimer PT 9.4 sec (9.0-12.0) 12/07/17 15:13 INR 0.9 (<1.2) 12/07/17 15:13 Abnormal lab findings: Abnormal Labs 12/07/17 12/07/17 12/07/17 15:13 15:13 15:13 Neutrophils # Lymphocytes # 0.6 L APTT BUN 20 H Glucose 180 H POC Glucose (mg/dL) Plasma Lactic Acid Alejandro 2.8 H* AST 94 H ALT 125 H Alkaline Phosphatase 245 H Urine Appearance Urine Protein Urine Glucose (UA) Urine Ketones Ur Leukocyte Esterase Urine WBC Ur Squamous Epith Cells Calcium Oxalate Crystal Amorphous Sediment Urine Bacteria Hyaline Casts Urine Mucus Influenza Type A RNA 12/07/17 12/07/17 12/07/17 15:13 15:15 17:16 Neutrophils # Lymphocytes # APTT 19.6 L BUN Glucose POC Glucose (mg/dL) Plasma Lactic Acid Alejandro AST ALT Alkaline Phosphatase Urine Appearance Cloudy H Urine Protein 1+ H Urine Glucose (UA) 2+ H Urine Ketones Trace H Ur Leukocyte Esterase Small H Urine WBC 7 H Ur Squamous Epith Cells 10 H Calcium Oxalate Crystal Many H Amorphous Sediment Rare H Urine Bacteria Occasional H Hyaline Casts 8 H Urine Mucus Moderate H Influenza Type A RNA Detected H 12/07/17 12/07/17 12/08/17 19:15 20:39 07:57 Neutrophils # Lymphocytes # APTT BUN Glucose POC Glucose (mg/dL) 292 H 241 H Plasma Lactic Acid Alejandro 2.7 H* AST ALT Alkaline Phosphatase Urine Appearance Urine Protein Urine Glucose (UA) Urine Ketones Ur Leukocyte Esterase Urine WBC Ur Squamous Epith Cells Calcium Oxalate Crystal Amorphous Sediment Urine Bacteria Hyaline Casts Urine Mucus Influenza Type A RNA 12/08/17 12/08/17 12/08/17 08:23 08:23 09:59 Neutrophils # 8.3 H Lymphocytes # 0.5 L APTT BUN Glucose 330 H POC Glucose (mg/dL) Plasma Lactic Acid Alejandro 4.9 H* AST 78 H ALT 130 H Alkaline Phosphatase 266 H Urine Appearance Urine Protein Urine Glucose (UA) Urine Ketones Ur Leukocyte Esterase Urine WBC Ur Squamous Epith Cells Calcium Oxalate Crystal Amorphous Sediment Urine Bacteria Hyaline Casts Urine Mucus Influenza Type A RNA 12/08/17 12:23 Neutrophils # Lymphocytes # APTT BUN Glucose POC Glucose (mg/dL) 326 H Plasma Lactic Acid Alejandro AST ALT Alkaline Phosphatase Urine Appearance Urine Protein Urine Glucose (UA) Urine Ketones Ur Leukocyte Esterase Urine WBC Ur Squamous Epith Cells Calcium Oxalate Crystal Amorphous Sediment Urine Bacteria Hyaline Casts Urine Mucus Influenza Type A RNA - Diagnostic Findings Chest x-ray: image reviewed (The patient's interviewed and examined. Labs x- rays a medications are reviewed.) Assessment and Plan Assessment: Assessment Influenza A Reactive bronchospasm and bronchial inflammation Active sarcoidosis, currently on prednisone 30 mg a day. Hypertension History of pneumonia Obesity Sleep apnea syndrome Hypothyroidism Vitamin D deficiency Plan: Plan dated 10/07/2018 The patient is doing reasonably well. The patient's currently on prednisone. I will continue the Tamiflu, 75 mg twice a day for 5 days. The patient could be discharged home. We'll pass along to the primary service. Alternatively, they may wish to keep her one more day. Personally I do not think the patient needs to be in the hospital this time. Time with Patient: Greater than 30
[2017-12-08] MEDS ORDERED: SODIUM CHLORIDE 0.9% 1,000 ML IV ONE (15:00)
[2017-12-08 16:59] LABS: Glucose,Whole Blood 252 mg/dL (75-99)
[2017-12-08] MEDS ORDERED: INSULIN ASPART 100 UNIT/ML 1 ML 10 ML VIAL SQ SCH (17:30)
[2017-12-08 21:58] LABS: Glucose,Whole Blood 290 mg/dL (75-99)
--- NOTE | 2017-12-08 23:16 | P.HPIM ---
History of Present Illness H&P Date: 12/08/17 Chief Complaint: Shortness of breath with cough and congestion Patient is a 47-year-old female with a known history of hypertension, sarcoidosis with pulmonary and liver involvement, obstructive sleep apnea on CPAP at home, hypothyroidism and vitamin D deficiency came to ER with complaints of cough congestion and generalized body aches for the past 2 days. Otherwise patient denied any chest pain. No nausea vomiting no diarrhea. Patient does have cough with nonproductive sputum. Patient was found to have influenza A positive. Currently was started on Tamiflu. Patient was tachycardic, tachypneic and febrile on admission. Lactic acidosis with level 4.9.. Chest x-ray showed no acute cardiopulmonary process EKG sinus tachycardia Review of Systems Constitutional: Patient does have fever and chills along with generalized weakness and aches. Abdomen: Patient denied nausea vomiting and diarrhea and abdominal pain. Cardiovascular: Patient denies any chest pain or short of breath no palpitations. Respiratory: Does have cough and congestion. No sputum production. Does have shortness of breath Neurologic: Patient denied any numbness or tingling headache. Musculoskeletal: Patient denies any complaints of joint swelling or deformity. Skin: Negative Psychiatric: Negative Endocrine: No heat or cold intolerance. No recent weight gain. Genitourinary: No dysuria or hematuria. 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, obstructive sleep apnea maintained on CPAP therapy, morbid obesity, hypertension History of Any Multi-Drug Resistant Organisms: None Reported Past Surgical History: Tonsillectomy Additional Past Surgical History / Comment(s): D&C, liver biopsy, LASER EYE SX Past Anesthesia/Blood Transfusion Reactions: No Reported Reaction Additional Past Anesthesia/Blood Transfusion Reaction / Comment(s): no past blood transfusion Type of Cardiac Device: Permanent Pacemaker Device Placement Date:: 04-16-17 Past Psychological History: Anxiety, Depression Additional Psychological History / Comment(s): PT LIVES IN A SINGLE LEVEL HOME THAT HAS 4 FRONT STEPS. LIVES WITH A FRIEND. PETS: 2 DOGS. NO HOMECARE SERVICES RECEIVED. HAS A CPAP AND NEBULIZER. Smoking Status: Never smoker Past Alcohol Use History: None Reported Past Drug Use History: None Reported - Past Family History Brother(s) Family Medical History: Cancer, Myocardial Infarction (NM) Additional Family Medical History / Comment(s): oral cancer, CADIAC STENTS Father Family Medical History: No Reported History Mother Family Medical History: Coronary Artery Disease (CAD) Additional Family Medical History / Comment(s): CARDAIC STENTS Medications and Allergies Home Medications Medication Instructions Recorded Confirmed Type Budesonide-Formot 160-4.5 Mcg 2 puff INHALATION RT-BID 11/08/16 12/07/17 History [Symbicort 160-4.5 Mcg Inhaler] Levothyroxine Sodium [Synthroid] 175 mcg PO DAILY 11/08/16 12/07/17 History busPIRone HCL 15 mg PO BID 11/08/16 12/07/17 History DULoxetine HCL [Cymbalta] 120 mg PO DAILY 11/10/16 12/07/17 History Cholecalciferol [Vitamin D3] 2,000 unit PO DAILY 04/02/17 12/07/17 History Albuterol Sulfate [Proair Hfa] 1 - 2 puff INHALATION RT-QID PRN 11/06/17 History Furosemide [Lasix] 20 mg PO DAILY 12/07/17 12/07/17 History Olmesartan/Hydrochlorothiazide 0.5 tab PO DAILY 12/07/17 12/07/17 History [Olmesartan-Hctz 40-25 mg Tab] predniSONE 30 mg PO DAILY 12/07/17 12/07/17 History Allergies Allergy/AdvReac Type Severity Reaction Status Date / Time tramadol [From Ultram] AdvReac Rash/Hives Verified 12/07/17 15:39 Physical Exam Vitals: Vital Signs Temp Pulse Pulse Pulse Resp BP BP 12/08/17 14:07 72 12/08/17 13:57 72 12/08/17 09:00 78 12/08/17 08:51 78 12/08/17 07:00 98.1 F 73 16 148/99 12/07/17 23:00 99.1 F 89 20 160/92 12/07/17 20:56 100 12/07/17 20:47 12/07/17 20:46 100 12/07/17 16:45 99.0 F 100 24 114/72 12/07/17 16:40 98.8 F 93 18 130/87 12/07/17 16:11 99.0 F 100 26 H 108/55 12/07/17 15:45 105 H 24 123/54 12/07/17 15:44 104 H 12/07/17 15:34 103 H 12/07/17 15:15 108 H 24 114/74 12/07/17 15:14 25 H Pulse Ox 12/08/17 14:07 12/08/17 13:57 12/08/17 09:00 12/08/17 08:51 12/08/17 07:00 92 L 12/07/17 23:00 93 L 12/07/17 20:56 12/07/17 20:47 97 12/07/17 20:46 12/07/17 16:45 95 12/07/17 16:40 93 L 12/07/17 16:11 91 L 12/07/17 15:45 96 12/07/17 15:44 12/07/17 15:34 12/07/17 15:15 93 L 12/07/17 15:14 Intake and Output 12/07/17 12/08/17 12/08/17 22:59 06:59 14:59 Intake Total 700 100 Balance 700 100 Intake: Oral 700 100 Other: Voiding Method Toilet # Voids 3 2 3 Weight 144.4 kg PHYSICAL EXAMINATION: Patient is lying in the bed comfortably, mild distress, awake alert and oriented.. HEENT: Normocephalic. Neck is supple. Pupils reactive. Nostrils clear. Oral cavity is moist. Ears reveal no drainage. Neck reveals no JVD, carotid bruits, or thyromegaly. CHEST EXAMINATION: Trachea is central. Symmetrical expansion. Bilateral expiratory wheezing. No crackles CARDIAC: Normal S1, S2 with no gallops. No murmurs ABDOMEN: Soft. Bowel sounds normal. No organomegaly. No abdominal bruits. Extremities: reveal no edema. No clubbing or cyanosis Neurologically awake, alert, oriented x3 with well-coordinated movements. No focal deficits noted Skin: No rash or skin lesions. Psychiatric: [id number]. Nonsuicidal Musculoskeletal: No joint swelling or deformity. Normal range of motion. Results CBC & Chem 7: 12/08/17 08:23 02/10/18 08:23 Labs: Abnormal Lab Results - Last 24 Hours (Table) 12/07/17 12/07/17 12/07/17 Range/Units 15:13 15:13 15:13 Neutrophils # (1.3-7.7) k/uL Lymphocytes # 0.6 L (1.0-4.8) k/uL APTT (22.0-30.0) sec BUN 20 H (7-17) mg/dL Glucose 180 H (74-99) mg/dL POC Glucose (mg/dL) (75-99) mg/dL Plasma Lactic Acid Alejandro 2.8 H* (0.7-2.0) mmol/L AST 94 H (14-36) U/L ALT 125 H (9-52) U/L Alkaline Phosphatase 245 H (38-126) U/L Urine Appearance (Clear) Urine Protein (Negative) Urine Glucose (UA) (Negative) Urine Ketones (Negative) Ur Leukocyte Esterase (Negative) Urine WBC (0-5) /hpf Ur Squamous Epith Cells (0-4) /hpf Calcium Oxalate Crystal (None) /hpf Amorphous Sediment (None) /hpf Urine Bacteria (None) /hpf Hyaline Casts (0-2) /lpf Urine Mucus (None) /hpf Influenza Type A RNA (Not Detectd) 12/07/17 12/07/17 12/07/17 Range/Units 15:13 15:15 17:16 Neutrophils # (1.3-7.7) k/uL Lymphocytes # (1.0-4.8) k/uL APTT 19.6 L (22.0-30.0) sec BUN (7-17) mg/dL Glucose (74-99) mg/dL POC Glucose (mg/dL) (75-99) mg/dL Plasma Lactic Acid Alejandro (0.7-2.0) mmol/L AST (14-36) U/L ALT (9-52) U/L Alkaline Phosphatase (38-126) U/L Urine Appearance Cloudy H (Clear) Urine Protein 1+ H (Negative) Urine Glucose (UA) 2+ H (Negative) Urine Ketones Trace H (Negative) Ur Leukocyte Esterase Small H (Negative) Urine WBC 7 H (0-5) /hpf Ur Squamous Epith Cells 10 H (0-4) /hpf Calcium Oxalate Crystal Many H (None) /hpf Amorphous Sediment Rare H (None) /hpf Urine Bacteria Occasional H (None) /hpf Hyaline Casts 8 H (0-2) /lpf Urine Mucus Moderate H (None) /hpf Influenza Type A RNA Detected H (Not Detectd) 12/07/17 12/07/17 12/08/17 Range/Units 19:15 20:39 07:57 Neutrophils # (1.3-7.7) k/uL Lymphocytes # (1.0-4.8) k/uL APTT (22.0-30.0) sec BUN (7-17) mg/dL Glucose (74-99) mg/dL POC Glucose (mg/dL) 292 H 241 H (75-99) mg/dL Plasma Lactic Acid Alejandro 2.7 H* (0.7-2.0) mmol/L AST (14-36) U/L ALT (9-52) U/L Alkaline Phosphatase (38-126) U/L Urine Appearance (Clear) Urine Protein (Negative) Urine Glucose (UA) (Negative) Urine Ketones (Negative) Ur Leukocyte Esterase (Negative) Urine WBC (0-5) /hpf Ur Squamous Epith Cells (0-4) /hpf Calcium Oxalate Crystal (None) /hpf Amorphous Sediment (None) /hpf Urine Bacteria (None) /hpf Hyaline Casts (0-2) /lpf Urine Mucus (None) /hpf Influenza Type A RNA (Not Detectd) 12/08/17 12/08/17 12/08/17 Range/Units 08:23 08:23 09:59 Neutrophils # 8.3 H (1.3-7.7) k/uL Lymphocytes # 0.5 L (1.0-4.8) k/uL APTT (22.0-30.0) sec BUN (7-17) mg/dL Glucose 330 H (74-99) mg/dL POC Glucose (mg/dL) (75-99) mg/dL Plasma Lactic Acid Alejandro 4.9 H* (0.7-2.0) mmol/L AST 78 H (14-36) U/L ALT 130 H (9-52) U/L Alkaline Phosphatase 266 H (38-126) U/L Urine Appearance (Clear) Urine Protein (Negative) Urine Glucose (UA) (Negative) Urine Ketones (Negative) Ur Leukocyte Esterase (Negative) Urine WBC (0-5) /hpf Ur Squamous Epith Cells (0-4) /hpf Calcium Oxalate Crystal (None) /hpf Amorphous Sediment (None) /hpf Urine Bacteria (None) /hpf Hyaline Casts (0-2) /lpf Urine Mucus (None) /hpf Influenza Type A RNA (Not Detectd) 12/08/17 Range/Units 12:23 Neutrophils # (1.3-7.7) k/uL Lymphocytes # (1.0-4.8) k/uL APTT (22.0-30.0) sec BUN (7-17) mg/dL Glucose (74-99) mg/dL POC Glucose (mg/dL) 326 H (75-99) mg/dL Plasma Lactic Acid Alejandro (0.7-2.0) mmol/L AST (14-36) U/L ALT (9-52) U/L Alkaline Phosphatase (38-126) U/L Urine Appearance (Clear) Urine Protein (Negative) Urine Glucose (UA) (Negative) Urine Ketones (Negative) Ur Leukocyte Esterase (Negative) Urine WBC (0-5) /hpf Ur Squamous Epith Cells (0-4) /hpf Calcium Oxalate Crystal (None) /hpf Amorphous Sediment (None) /hpf Urine Bacteria (None) /hpf Hyaline Casts (0-2) /lpf Urine Mucus (None) /hpf Influenza Type A RNA (Not Detectd) Microbiology - Last 24 Hours (Table) 12/07/17 17:16 Urine Culture - Preliminary Urine,Voided Thrombosis Risk Factor Assmnt - DVT/VTE Prophylaxis DVT/VTE Prophylaxis: Pharmacologic Prophylaxis ordered - Choose All That Apply Any of the Below Risk Factors Present?: Yes Each Factor Represents 1 point: Age 41-60 years, Obesity (BMI >25) Thrombosis Risk Factor Assessment Total Risk Factor Score: 2 Thrombosis Risk Factor Assessment Level: Low Risk Assessment and Plan Assessment: Acute Influenza A infection Sepsis/sepsis due to acute influenza infection Severe lactic acidosis 4.9 Elevated liver injections. Hepatitis A IgM antibody ordered Reactive bronchospasm due to infection Active sarcoidosis, currently on prednisone 30 mg a day. Hypertension Morbid Obesity with BMI 53.0 obstructive sleep apnea on CPAP at home Hypothyroidism Vitamin D deficiency DVT prophylaxis Plan: Patient will be continued on aggressive hydration. Continue with Tamiflu. Patient will be continued on Solu-Medrol and follow closely. We'll repeat lactic acid level. Follow up liver enzymes. Continue to follow culture reports. Further recommendations based on the clinical course. Pulmonary is on board. Time with Patient: Greater than 30
[2017-12-09 01:56] LABS: Basophils % (A) 0 %; Eosinophils # (A) 0.1 k/uL (0-0.7); Eosinophils % (A) 1 %; HCT 44.4 % (34.0-46.0); HGB 13.1 gm/dL (11.4-16.0); Hypochromasia Slight; Lymphocytes # (A) 0.4 k/uL (1.0-4.8); Lymphocytes % (A) 4 %; MCH 28.6 pg (25.0-35.0); MCHC 29.5 g/dL (31.0-37.0); MCV 97.1 fL (80.0-100.0); Mean Platelet Volume 6.8; Monocytes # (A) 0.4 k/uL (0-1.0); Monocytes % (A) 4 %; Neutrophils # (A) 9.7 k/uL (1.3-7.7); Neutrophils % (A) 91 %; Platelet Count 190 k/uL (150-450); RBC 4.57 m/uL (3.80-5.40); RDW 14.1 % (11.5-15.5); WBC 10.8 k/uL (3.8-10.6)
[2017-12-09 02:00] LABS: ALT 115 U/L (9-52); AST 66 U/L (14-36); Albumin 3.5 g/dL (3.5-5.0); Alkaline Phosphatase 239 U/L (38-126); Anion Gap 11 mmol/L; Blood Urea Nitrogen 16 mg/dL (7-17); Calcium 9.5 mg/dL (8.4-10.2); Carbon Dioxide 24 mmol/L (22-30); Chloride 106 mmol/L (98-107); Glucose 236 mg/dL (74-99); Potassium 4.3 mmol/L (3.5-5.1); Sodium 141 mmol/L (137-145); Total Bilirubin 0.2 mg/dL (0.2-1.3); Total Protein 6.2 g/dL (6.3-8.2)
[2017-12-09] MEDS ORDERED: SODIUM CHLORIDE 0.9% 1,000 ML IV ONE (03:00)
[2017-12-09] MEDS: SODIUM CHLORIDE 0.9% 1,000 ML IV SCH ×2 (03:12→08:13)
[2017-12-09] MEDS: LEVOTHYROXINE 100 MCG TAB PO SCH (06:25)
[2017-12-09] MEDS: methylPREDNISolone SOD SUCCI 125 MG/2 ML VIAL IV SCH (06:25)
[2017-12-09] MEDS: LEVOTHYROXINE 75 MCG TAB PO SCH (06:25)
[2017-12-09 07:01] LABS: Glucose,Whole Blood 209 mg/dL (75-99)
[2017-12-09 07:21] VITALS: BP 153/90; RESP 18; TEMP 97
[2017-12-09] MEDS: IPRATROPIUM-ALBUTEROL 3 ML NEB INHALATION PRN ×2 (07:42→13:54)
[2017-12-09] MEDS: SYMBICORT 160-4.5 MCG INHALER INHALATION SCH (07:42)
[2017-12-09 07:54] VITALS: PULSE 88
[2017-12-09] MEDS: FUROSEMIDE 20 MG TAB PO SCH (08:09)
[2017-12-09] MEDS: INSULIN ASPART 100 UNIT/ML 1 ML 10 ML VIAL SQ SCH ×2 (08:09→12:46)
[2017-12-09] MEDS: busPIRone HCl 5 MG TAB PO SCH (08:09)
[2017-12-09] MEDS: CHOLECALCIFEROL 1,000 UNIT TAB PO SCH (08:09)
[2017-12-09] MEDS: DULoxetine HCL 60 MG CAPSULE.DR PO SCH (08:09)
[2017-12-09] MEDS: OSELTAMIVIR 75 MG CAP PO SCH (08:10)
--- NOTE | 2017-12-09 10:53 | P.PN ---
Subjective Progress Note Date: 12/09/17 Principal diagnosis: Influenza, sarcoid Progress note dated 12/09/2017 This is a patient that's 47 years of age. She sees my partner for her sarcoidosis. She was active sarcoid currently being treated with prednisone, 30 mg a day. She was admitted with a diagnosis of influenza A infection complicated by reactive bronchospasm and bronchial inflammation. The patient's chest x-ray was normal. She's feeling better. Would like to be discharged home. I told her that she would have to take the Tamiflu 75 mg twice a day for total of 5 days. In addition, she has a history of hypertension history of pneumonia obesity sleep apnea syndrome hypothyroidism and vitamin D deficiency. Overall, the patient is improved. Again but like to possibly be discharged home. That will be left up to the primary service. Objective - Vital Signs Vital signs: Vital Signs Temp 97.0 F L 12/09/17 07:00 Pulse 88 12/09/17 07:54 Resp 18 12/09/17 07:00 BP 153/90 12/09/17 07:00 Pulse Ox 96 12/09/17 07:00 Intake & Output 12/08/17 12/09/17 12/09/17 18:59 06:59 18:59 Intake Total 600 Balance 600 Intake: Oral 600 Other: Voiding Method Toilet # Voids 3 1 # Bowel Movements 1 - Exam No acute distress, oriented 3. HEENT examination is grossly unremarkable. Mucous membranes are moist. No oral lesions. Neck supple. Full range of motion. No adenopathy thyromegaly or neck vein distention. Cardiovascular examination reveals regular rhythm rate. S1-S2 normal. No S3 or S4. No discernible murmur noted. Lungs reveal scattered bilateral expiratory wheezes. Breath sounds are improved. Slight prolongation on forced maneuver. No crackles. Breath sounds are better today than they were yesterday.. Abdomen soft bowel sounds are heard. No masses or tenderness. Extremities are intact. No cyanosis clubbing or edema. Skin is without rash or lesion. Neurologic examination is brief but nonfocal. - Labs CBC & Chem 7: 12/09/17 01:35 12/09/17 01:35 Labs: Abnormal Lab Results - Last 24 Hours (Table) 12/08/17 12/08/17 12/08/17 Range/Units 12:23 14:54 16:45 WBC (3.8-10.6) k/uL MCHC (31.0-37.0) g/dL Neutrophils # (1.3-7.7) k/uL Lymphocytes # (1.0-4.8) k/uL Glucose (74-99) mg/dL POC Glucose (mg/dL) 326 H 252 H (75-99) mg/dL Plasma Lactic Acid Alejandro 4.0 H* (0.7-2.0) mmol/L AST (14-36) U/L ALT (9-52) U/L Alkaline Phosphatase (38-126) U/L Total Protein (6.3-8.2) g/dL 12/08/17 12/08/17 12/09/17 Range/Units 21:21 21:25 01:35 WBC 10.8 H (3.8-10.6) k/uL MCHC 29.5 L (31.0-37.0) g/dL Neutrophils # 9.7 H (1.3-7.7) k/uL Lymphocytes # 0.4 L (1.0-4.8) k/uL Glucose (74-99) mg/dL POC Glucose (mg/dL) 290 H (75-99) mg/dL Plasma Lactic Acid Alejandro 2.9 H* (0.7-2.0) mmol/L AST (14-36) U/L ALT (9-52) U/L Alkaline Phosphatase (38-126) U/L Total Protein (6.3-8.2) g/dL 12/09/17 12/09/17 12/09/17 Range/Units 01:35 01:37 06:51 WBC (3.8-10.6) k/uL MCHC (31.0-37.0) g/dL Neutrophils # (1.3-7.7) k/uL Lymphocytes # (1.0-4.8) k/uL Glucose 236 H (74-99) mg/dL POC Glucose (mg/dL) 209 H (75-99) mg/dL Plasma Lactic Acid Alejandro 3.2 H* (0.7-2.0) mmol/L AST 66 H (14-36) U/L ALT 115 H (9-52) U/L Alkaline Phosphatase 239 H (38-126) U/L Total Protein 6.2 L (6.3-8.2) g/dL 12/09/17 Range/Units 08:05 WBC (3.8-10.6) k/uL MCHC (31.0-37.0) g/dL Neutrophils # (1.3-7.7) k/uL Lymphocytes # (1.0-4.8) k/uL Glucose (74-99) mg/dL POC Glucose (mg/dL) (75-99) mg/dL Plasma Lactic Acid Alejandro 2.4 H* (0.7-2.0) mmol/L AST (14-36) U/L ALT (9-52) U/L Alkaline Phosphatase (38-126) U/L Total Protein (6.3-8.2) g/dL Microbiology - Last 24 Hours (Table) 12/07/17 17:16 Urine Culture - Final Urine,Voided 12/07/17 15:13 Blood Culture - Preliminary Blood No Growth after 24 hours Assessment and Plan Assessment: Assessment Influenza A Reactive bronchospasm and bronchial inflammation Active sarcoidosis, currently on prednisone 30 mg a day. Hypertension History of pneumonia Obesity Sleep apnea syndrome Hypothyroidism Vitamin D deficiency Plan: Plan dated 12/08/2017 The patient is doing reasonably well. The patient's currently on prednisone. I will continue the Tamiflu, 75 mg twice a day for 5 days. The patient could be discharged home. We'll pass along to the primary service. Alternatively, they may wish to keep her one more day. Personally I do not think the patient needs to be in the hospital this time. Plan dated 12/09/2017 The patient is doing reasonably well. She is maintained on Tamiflu and her usual dose of prednisone. I told her to take to Tamiflu 75 mg twice a day for a total of 5 days. She should follow-up with Dr. Pappas and a few days or week or so. She otherwise is doing well. She has all the appropriate medications including updrafts albuterol Symbicort and so forth at home. We'll continue to follow. Time with Patient: Less than 30
[2017-12-09 12:40] LABS: Glucose,Whole Blood 337 mg/dL (75-99)
[2017-12-09] MEDS ORDERED: LEVOFLOXACIN 500 MG TAB PO SCH (13:00)
[2017-12-09 23:52] LABS: Hemoglobin A1C 10.1 % (4.0-6.0)
[2017-12-10] MEDS ORDERED: predniSONE 10 MG TAB PO SCH (09:00)
--- NOTE | 2017-12-28 21:34 | P.DS ---
Providers Date of admission: 12/07/17 16:15 Expected date of discharge: 12/09/17 Attending physician: Davin Frye Consults: 12/07/17 16:23 Consult Physician Stat Consulting Provider: Juice Pappas Consult Reason/Comments: Hypoxia, sarcoidosis Do you want consulting provider notified?: Yes Primary care physician: Juice Pappas Hospital Course: Discharge diagnosis Acute Influenza A infection Sepsis/sepsis due to acute influenza infection Severe lactic acidosis 4.9. Improved Elevated liver injections. Hepatitis A IgM antibody ordered Reactive bronchospasm due to infection Active sarcoidosis, currently on prednisone 30 mg a day. Hypertension Diabetes type 2 his B A1c 10.4. Recommended outpatient follow-up. Morbid Obesity with BMI 53.0 obstructive sleep apnea on CPAP at home Hypothyroidism Vitamin D deficiency DVT prophylaxis Hospital course Patient is a 47-year-old female with a known history of hypertension, sarcoidosis with pulmonary and liver involvement, obstructive sleep apnea on CPAP at home, hypothyroidism and vitamin D deficiency came to ER with complaints of cough congestion and generalized body aches for the past 2 days. Otherwise patient denied any chest pain. No nausea vomiting no diarrhea. Patient does have cough with nonproductive sputum. Patient was found to have influenza A positive. Currently was started on Tamiflu. Patient was tachycardic, tachypneic and febrile on admission. Lactic acidosis with level 4.9.. Chest x-ray showed no acute cardiopulmonary process EKG sinus tachycardia Patient was continued on aggressive hydration. Continue with Tamiflu. Patient was also continued on Solu-Medrol and followed closely. Improved lactic acid level. Follow up liver enzymes trending down.. Cultures are negative so far. Pulmonary has seen the patient. Otherwise patient did improve clinically with above management and is stable to be discharged.. PHYSICAL EXAMINATION: Patient is lying in the bed comfortably, no acute distress, awake alert and oriented.. HEENT: Normocephalic. Neck is supple. Pupils reactive. Nostrils clear. Oral cavity is moist. Ears reveal no drainage. Neck reveals no JVD, carotid bruits, or thyromegaly. CHEST EXAMINATION: Trachea is central. Symmetrical expansion. Lung vergara clear to auscultation and percussion. CARDIAC: Normal S1, S2 with no gallops. No murmurs ABDOMEN: Soft. Bowel sounds normal. No organomegaly. No abdominal bruits. Extremities: reveal no edema. No clubbing or cyanosis Neurologically awake, alert, oriented x3 with well-coordinated movements. No focal deficits noted Skin: No rash or skin lesions. Psychiatric: Coperative. Nonsuicidal Musculoskeletal: No joint swelling or deformity. Normal range of motion. Patient Condition at Discharge: Stable Plan - Discharge Summary New Discharge Prescriptions: New metFORMIN HCL [Glucophage] 500 mg PO BID #60 tab Oseltamivir [Tamiflu] 75 mg PO Q12HR 3 Days #6 cap Continue Budesonide-Formot 160-4.5 Mcg [Symbicort 160-4.5 Mcg Inhaler] 2 puff INHALATION RT-BID busPIRone HCL 15 mg PO BID Levothyroxine Sodium [Synthroid] 175 mcg PO DAILY DULoxetine HCL [Cymbalta] 120 mg PO DAILY Cholecalciferol [Vitamin D3] 2,000 unit PO DAILY Albuterol Sulfate [Proair Hfa] 1 - 2 puff INHALATION RT-QID PRN PRN Reason: Shortness Of Breath predniSONE 30 mg PO DAILY Olmesartan/Hydrochlorothiazide [Olmesartan-Hctz 40-25 mg Tab] 0.5 tab PO DAILY Discontinued Furosemide [Lasix] 20 mg PO DAILY Discharge Medication List Budesonide-Formot 160-4.5 Mcg [Symbicort 160-4.5 Mcg Inhaler] 2 puff INHALATION RT-BID 11/08/16 [History] Levothyroxine Sodium [Synthroid] 175 mcg PO DAILY 11/08/16 [History] busPIRone HCL 15 mg PO BID 11/08/16 [History] DULoxetine HCL [Cymbalta] 120 mg PO DAILY 11/10/16 [History] Cholecalciferol [Vitamin D3] 2,000 unit PO DAILY 04/02/17 [History] Albuterol Sulfate [Proair Hfa] 1 - 2 puff INHALATION RT-QID PRN 11/06/17 [ History] Olmesartan/Hydrochlorothiazide [Olmesartan-Hctz 40-25 mg Tab] 0.5 tab PO DAILY 12/07/17 [History] predniSONE 30 mg PO DAILY 12/07/17 [History] Oseltamivir [Tamiflu] 75 mg PO Q12HR 3 Days #6 cap 12/09/17 [Rx] metFORMIN HCL [Glucophage] 500 mg PO BID #60 tab 02/11/18 [Rx] Follow up Appointment(s)/Referral(s): Juice Pappas MD [Primary Care Provider] - 1-2 days Patient Instructions/Handouts: Influenza (DC) Discharge Disposition: HOME SELF-CARE
== END 2017-12-09 15:47 | disposition home or self-care (01) | DRG 872 ==
LOC: EC 14:35 → 4MS4W 16:15
PROVIDERS: ADMIT Internal Medicine; ATTEND Internal Medicine
DX: A41.89 Other specified sepsis (principal); E66.01 Morbid (severe) obesity due to excess calories; Z68.43 Body mass index [BMI] 50.0-59.9, adult; J10.1 Influenza due to other identified influenza virus with other respiratory manifestations; D86.0 Sarcoidosis of lung; E03.9 Hypothyroidism, unspecified; E55.9 Vitamin D deficiency, unspecified; E11.9 Type 2 diabetes mellitus without complications; F32.9 Major depressive disorder, single episode, unspecified; F41.9 Anxiety disorder, unspecified; G47.33 Obstructive sleep apnea (adult) (pediatric); I10 Essential (primary) hypertension; J98.01 Acute bronchospasm; R09.02 Hypoxemia; Z79.51 Long term (current) use of inhaled steroids; Z79.52 Long term (current) use of systemic steroids; Z79.899 Other long term (current) drug therapy; Z88.5 Allergy status to narcotic agent; Z82.49 Family history of ischemic heart disease and other diseases of the circulatory system; Z87.01 Personal history of pneumonia (recurrent)
CPT/HCPCS: 36415; 71046; 80053; 81001; 82550; 82553; 83036; 83605; 84484; 85025; 85610; 85730; 86709; 87040; 87086; 87502; 93005; 94640; 94760; 96360; 96361; 99285

== ENCOUNTER → 2018-01-21 | Outpatient (CLI) | payer OTHER ==
[2018-01-21 12:43] LABS: Basophils # (A) 0.1 k/uL (0-0.2); Basophils % (A) 0 %; Eosinophils # (A) 0.1 k/uL (0-0.7); Eosinophils % (A) 1 %; HCT 47.5 % (34.0-46.0); HGB 14.9 gm/dL (11.4-16.0); Lymphocytes # (A) 1.7 k/uL (1.0-4.8); Lymphocytes % (A) 12 %; MCH 28.6 pg (25.0-35.0); MCHC 31.3 g/dL (31.0-37.0); Mean Platelet Volume 7.1; Monocytes # (A) 0.7 k/uL (0-1.0); Monocytes % (A) 5 %; Neutrophils # (A) 10.9 k/uL (1.3-7.7); Neutrophils % (A) 80 %; Platelet Count 281 k/uL (150-450); RDW 14.7 % (11.5-15.5); WBC 13.7 k/uL (3.8-10.6)
[2018-01-21 12:47] LABS: Calcium 9.8 mg/dL (8.4-10.2); Potassium 4.2 mmol/L (3.5-5.1); Total Bilirubin 0.7 mg/dL (0.2-1.3); Total Protein 6.8 g/dL (6.3-8.2)
[2018-01-21 12:48] LABS: MCV 91.4 fL (80.0-100.0)
[2018-01-21 12:59] LABS: T4, Free (Free Thyroxine) 0.93 ng/dL (0.78-2.19)
== END | disposition home or self-care (01) ==
LOC: LABWHC1 12:04
PROVIDERS: ATTEND Internal Medicine
DX: D86.89 Sarcoidosis of other sites (principal); E11.9 Type 2 diabetes mellitus without complications
CPT/HCPCS: 36415; 80053; 80061; 82164; 83036; 84439; 84443; 85025

== ENCOUNTER → 2018-02-13 | Outpatient (CLI) | payer OTHER ==
[2018-02-13 19:26] LABS: ACTH 10.5 pg/mL (0.00-45.99)
== END | disposition home or self-care (01) ==
LOC: LABWHC1 09:49
PROVIDERS: ATTEND Internal Medicine Endocrinology, Diabetes & Metabolism
DX: D86.9 Sarcoidosis, unspecified (principal)
CPT/HCPCS: 36415; 82024; 82533; 83001; 83002; 84146

== ENCOUNTER → 2018-04-08 | Outpatient (CLI) | payer OTHER ==
[2018-04-08 11:38] LABS: Basophils # (A) 0.1 k/uL (0-0.2); Basophils % (A) 1 %; Eosinophils # (A) 0.1 k/uL (0-0.7); Eosinophils % (A) 1 %; HCT 45.3 % (34.0-46.0); HGB 14.8 gm/dL (11.4-16.0); Lymphocytes # (A) 0.9 k/uL (1.0-4.8); Lymphocytes % (A) 10 %; MCH 31.2 pg (25.0-35.0); MCHC 32.6 g/dL (31.0-37.0); MCV 95.8 fL (80.0-100.0); Mean Platelet Volume 6.6; Monocytes # (A) 0.5 k/uL (0-1.0); Monocytes % (A) 6 %; Neutrophils # (A) 6.6 k/uL (1.3-7.7); Neutrophils % (A) 80 %; Platelet Count 209 k/uL (150-450); RBC 4.73 m/uL (3.80-5.40); RDW 14.2 % (11.5-15.5); WBC 8.2 k/uL (3.8-10.6)
[2018-04-08 11:46] LABS: Albumin 3.8 g/dL (3.5-5.0); Calcium 9.3 mg/dL (8.4-10.2); Potassium 4.2 mmol/L (3.5-5.1); Total Bilirubin 0.6 mg/dL (0.2-1.3); Total Protein 6.1 g/dL (6.3-8.2)
[2018-04-08 20:01] LABS: Hemoglobin A1C 7.5 % (4.0-6.0)
== END | disposition home or self-care (01) ==
LOC: LABWHC1 10:52
PROVIDERS: ATTEND Internal Medicine Endocrinology, Diabetes & Metabolism
DX: E11.65 Type 2 diabetes mellitus with hyperglycemia (principal); D86.9 Sarcoidosis, unspecified
CPT/HCPCS: 36415; 80053; 80061; 82043; 82164; 82570; 83036; 85025

== ENCOUNTER → 2018-11-13 | Outpatient (CLI) | payer OTHER ==
[2018-11-13 13:25] LABS: Basophils # (A) 0.1 k/uL (0-0.2); Basophils % (A) 1 %; Eosinophils # (A) 0.2 k/uL (0-0.7); Eosinophils % (A) 3 %; HCT 47.8 % (34.0-46.0); HGB 15.1 gm/dL (11.4-16.0); Lymphocytes # (A) 0.9 k/uL (1.0-4.8); Lymphocytes % (A) 11 %; MCH 29.7 pg (25.0-35.0); MCHC 31.5 g/dL (31.0-37.0); MCV 94.1 fL (80.0-100.0); Mean Platelet Volume 6.6; Monocytes # (A) 0.5 k/uL (0-1.0); Monocytes % (A) 6 %; Neutrophils # (A) 6.3 k/uL (1.3-7.7); Neutrophils % (A) 76 %; Platelet Count 234 k/uL (150-450); RBC 5.08 m/uL (3.80-5.40); WBC 8.2 k/uL (3.8-10.6)
[2018-11-13 20:40] LABS: T4, Free (Free Thyroxine) 1.2 ng/dL (0.80-1.80)
[2018-11-13 21:41] LABS: Albumin 4.3 g/dL (3.80-4.90); Albumin/Globulin Ratio 2.15 (1.20-2.10); Anion Gap 11.7 mmol/L (4.00-12.00); Calcium 9.8 mg/dL (8.7-10.3); Carbon Dioxide 24.3 mmol/L (21.6-31.8); Potassium 4.3 mmol/L (3.5-5.5); Total Bilirubin 0.4 mg/dL (0.3-1.2); Total Protein 6.3 g/dL (6.2-8.2)
[2018-11-14 01:30] LABS: Hemoglobin A1C 7.9 % (4.0-6.0)
== END | disposition home or self-care (01) ==
LOC: LABWHC1 12:21
PROVIDERS: ATTEND Internal Medicine
DX: D86.9 Sarcoidosis, unspecified (principal)
CPT/HCPCS: 36415; 80053; 82164; 83036; 84439; 84443; 85025

== ENCOUNTER → 2019-01-27 | Outpatient (CLI) | payer OTHER ==
[2019-01-27 19:53] LABS: Albumin 4.1 g/dL (3.80-4.90); Albumin/Globulin Ratio 1.95 (1.60-3.17); Anion Gap 10.9 mmol/L (4.00-12.00); Calcium 9.1 mg/dL (8.7-10.3); Carbon Dioxide 26.1 mmol/L (21.6-31.8); Globulin 2.1 g/dL (1.6-3.3); Potassium 4.1 mmol/L (3.5-5.5); Total Bilirubin 0.5 mg/dL (0.2-1.2); Total Protein 6.2 g/dL (6.2-8.2)
== END | disposition home or self-care (01) ==
LOC: LABWHC1 11:51
PROVIDERS: ATTEND Internal Medicine
DX: I10 Essential (primary) hypertension (principal); E78.5 Hyperlipidemia, unspecified; D86.9 Sarcoidosis, unspecified
CPT/HCPCS: 36415; 80053; 82164; 84443

== ENCOUNTER → 2019-04-16 | Outpatient (CLI) | payer OTHER ==
--- NOTE | 2019-04-21 14:21 | MM ---
Reason for exam: screening (asymptomatic). Last mammogram was performed 9 years and 8 months ago. History: Patient is postmenopausal and is nulliparous. Physical Findings: A clinical breast exam by your physician is recommended on an annual basis and results should be correlated with mammographic findings. MG Screening Mammo w CAD Bilateral CC and MLO view(s) were taken. Prior study comparison: August 03, 2009, bilateral digital screening mammogram. There are scattered fibroglandular densities. Pacemaker generator on the left. No significant changes when compared with prior studies. ASSESSMENT: Negative, BI-RAD 1 RECOMMENDATION: Routine screening mammogram of both breasts in 1 year.
== END | disposition home or self-care (01) ==
LOC: RADMAMWWP 15:00
PROVIDERS: ATTEND Internal Medicine
DX: Z12.31 Encounter for screening mammogram for malignant neoplasm of breast (principal)
CPT/HCPCS: 77067

== ENCOUNTER → 2019-11-21 | Outpatient (CLI) | payer OTHER ==
--- NOTE | 2019-11-21 14:41 | US ---
EXAMINATION TYPE: US venous doppler duplex LE RT DATE OF EXAM: 11/21/2019 2:34 PM COMPARISON: NONE CLINICAL HISTORY: RLE pain in right lower limb M79.661. SIDE PERFORMED: Right TECHNIQUE: The lower extremity deep venous system is examined utilizing real time linear array sonog emi with graded compression, doppler sonography and color-flow sonography. VESSELS IMAGED: External Iliac Vein (EIV) Common Femoral Vein Deep Femoral Vein Greater Saphenous Vein * Femoral Vein Popliteal Vein Small Saphenous Vein * Proximal Calf Veins (* superficial vessels) Right Leg: Negative for DVT Preliminary results given to Dr. Alex. Grayscale, color doppler, spectral doppler imaging performed of the deep veins of the right lower ext remity. There is normal flow, compressibility, vascular waveforms. IMPRESSION: No ultrasound evidence for acute DVT in the right lower extremity.
== END | disposition home or self-care (01) ==
LOC: RADUSWWP 13:56
PROVIDERS: ATTEND Internal Medicine
DX: M79.661 Pain in right lower leg (principal)

== ENCOUNTER → 2019-11-24 | Outpatient (CLI) | payer OTHER ==
--- NOTE | 2019-11-24 13:22 | XR ---
Right knee HISTORY: Pain 3 views the right knee Soft tissue calcifications are somewhat diffuse, correlate for venous stasis disease. Joint space los s present tricompartmentally. There is marginal spurring tricompartmentally. There may be small joint effusion. Alignment and bone mineralization are maintained. IMPRESSION: Osteoarthritis. Correlate for venous insufficiency.
== END | disposition home or self-care (01) ==
LOC: RADXRMAIN 11:04
PROVIDERS: ATTEND Internal Medicine
DX: M17.11 Unilateral primary osteoarthritis, right knee (principal)

== ENCOUNTER 2020-01-02 06:42 | Day surgery (SDC) | payer OTHER ==
[2020-01-01 09:28] VITALS: BMI 51.0
[~2020-01-02 06:42] MED LIST: LACTATED RINGERS 1,000 ML IV SCH; LIDOCAINE 1% (10MG/ML) FOR IV START INTRADERMA PRN
[2020-01-02 07:25] VITALS: TEMP 96.6
[2020-01-02] MEDS ORDERED: MIDAZOLAM 2 MG/2 ML VIAL ONE (07:30)
[2020-01-02] MEDS ORDERED: KETAMINE 10 MG/ML 20 ML VIAL ONE (07:30)
[2020-01-02] MEDS ORDERED: PROPOFOL 10 MG/ML 20 ML VIAL IV ONE (07:30)
[2020-01-02] MEDS ORDERED: LIDOCAINE 1% INJ 10MG/ML (20 ML MDV) ONE (07:30)
[2020-01-02] MEDS ORDERED: fentaNYL (PF) 50 MCG/ML 2 ML AMP ONE (07:30)
--- NOTE | 2020-01-02 07:41 | P.GSHP ---
History of Present Illness H&P Date: 01/02/20 Chief Complaint: Colon cancer screening Patient here today for colonoscopy. She has not had one previously. No bowel related complaints. No family history of colon cancer. 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, obstructive sleep apnea maintained on CPAP therapy, History of Any Multi-Drug Resistant Organisms: None Reported Past Surgical History: Pacemaker, Tonsillectomy Additional Past Surgical History / Comment(s): D&C, liver biopsy, LASER EYE SX Past Anesthesia/Blood Transfusion Reactions: No Reported Reaction Additional Past Anesthesia/Blood Transfusion Reaction / Comment(s): no past blood transfusion Type of Cardiac Device: Permanent Pacemaker Device Placement Date:: 03/2017 Smoking Status: Never smoker - Past Family History Brother(s) Family Medical History: Cancer, Myocardial Infarction ([place]) Additional Family Medical History / Comment(s): oral cancer, CADIAC STENTS Father Family Medical History: No Reported History Mother Family Medical History: Coronary Artery Disease (CAD) Additional Family Medical History / Comment(s): CARDAIC STENTS Medications and Allergies Home Medications Medication Instructions Recorded Confirmed Type Budesonide-Formot 160-4.5 Mcg 2 puff INHALATION RT-BID 11/08/16 01/02/20 History [Symbicort 160-4.5 Mcg Inhaler] Levothyroxine Sodium [Synthroid] 175 mcg PO DAILY 11/08/16 01/02/20 History busPIRone HCL 15 mg PO BID 11/08/16 01/02/20 History DULoxetine HCL [Cymbalta] 60 mg PO BID 11/10/16 01/02/20 History Cholecalciferol [Vitamin D3 (25 2,000 unit PO DAILY 04/02/17 01/02/20 History Mcg = 1000 Iu)] Albuterol Sulfate [Proair Hfa] 1 - 2 puff INHALATION RT-QID PRN 11/06/17 01/01/20 History Albuterol Nebulized [Ventolin 2.5 mg INHALATION BID 01/01/20 01/02/20 History Nebulized] Allopurinol [Zyloprim] 100 mg PO DAILY 01/01/20 01/02/20 History Furosemide [Lasix] 40 mg PO DAILY 01/01/20 01/02/20 History Hydroxychloroquine Sulfate 200 mg PO DAILY 01/01/20 01/02/20 History [Plaquenil] Potassium Citrate [Potassium 10 meq PO DAILY 01/01/20 01/02/20 History Citrate ER] glipiZIDE [Glucotrol] 5 mg PO DAILY 01/01/20 01/02/20 History metFORMIN HCL 1,000 mg PO BID 01/01/20 01/02/20 History predniSONE 5 mg PO MOWEFR 01/01/20 01/02/20 History Allergies Allergy/AdvReac Type Severity Reaction Status Date / Time tramadol [From Ultram] Allergy Rash/Hives Verified 01/01/20 09:20 Surgical - Exam Vital Signs Temp Pulse Resp BP Pulse Ox 96.6 F L 79 18 163/101 93 L 01/02/20 07:24 01/02/20 07:24 01/02/20 07:24 01/02/20 07:24 01/02/20 07:24 Physical exam: General: Well-developed, well-nourished HEENT: Normocephalic, sclerae nonicteric Abdomen: Nontender, nondistended Extremities: No edema Neuro: Alert and oriented Assessment and Plan (1) Colon cancer screening Narrative/Plan: Will proceed with colonoscopy at this time. Current Visit: Yes Status: Acute Code(s): Z12.11 - ENCOUNTER FOR SCREENING FOR MALIGNANT NEOPLASM OF COLON SNOMED Code(s): 078207296
[2020-01-02 07:56] LABS: Glucose,Whole Blood 131 mg/dL (75-99)
--- NOTE | 2020-01-02 08:04 | P.PCN ---
Date of Procedure: 01/02/20 Procedure(s) Performed: PREOPERATIVE DIAGNOSIS: Colon cancer screening POSTOPERATIVE DIAGNOSIS: Transverse and descending colon polyps PROCEDURE: Colonoscopy with snare polypectomy ANESTHESIA: MAC SURGEON: Preston Lopez M.D. SPECIMENS: Polyps ENDOSCOPIC PROCEDURE: The patient was placed on the endoscopy table in the left decubitus position. The Olympus colonoscope was inserted into the anus and passed under direct visualization to the base of the cecum. The appendiceal orifice was visualized. From that point the scope was slowly withdrawn inspecting all surfaces carefully. There were no neoplastic inflammatory or polypoid lesions throughout the cecum or ascending colon. In the transverse col on there was a small polyp that was removed using the snare with cautery technique. The remainder of the transverse colon appeared normal. In the distal descending colon another small polyp was identified and removed in a similar fashion. The sigmoid and rectum appeared normal. There was no visible diverticulosis. Digital rectal examination was normal. The patient was taken to the recovery room in stable condition per anesthesia guidelines. RECOMMENDATIONS: Await biopsy results
[2020-01-02 08:07] VITALS: RESP 16
[2020-01-02 08:20] VITALS: BP 185/83; PULSE 75
== END 2020-01-02 08:32 | disposition home or self-care (01) ==
LOC: ORWHC2ENDO 06:42
PROVIDERS: ATTEND Surgery
DX: Z12.11 Encounter for screening for malignant neoplasm of colon (principal); D12.3 Benign neoplasm of transverse colon; D12.4 Benign neoplasm of descending colon; K57.30 Diverticulosis of large intestine without perforation or abscess without bleeding; E11.9 Type 2 diabetes mellitus without complications; I10 Essential (primary) hypertension; E07.9 Disorder of thyroid, unspecified; K76.9 Liver disease, unspecified; D86.89 Sarcoidosis of other sites; R31.9 Hematuria, unspecified; Z87.01 Personal history of pneumonia (recurrent); G47.33 Obstructive sleep apnea (adult) (pediatric); Z99.89 Dependence on other enabling machines and devices; Z95.0 Presence of cardiac pacemaker; Z98.890 Other specified postprocedural states; Z82.49 Family history of ischemic heart disease and other diseases of the circulatory system; Z80.8 Family history of malignant neoplasm of other organs or systems; Z79.84 Long term (current) use of oral hypoglycemic drugs; Z79.890 Hormone replacement therapy; Z79.51 Long term (current) use of inhaled steroids; Z79.52 Long term (current) use of systemic steroids; Z79.899 Other long term (current) drug therapy; Z88.5 Allergy status to narcotic agent
CPT/HCPCS: 81025; 88305; 45385; J2250; J2001; J3010; J2704

== ENCOUNTER → 2020-01-06 | Outpatient (CLI) | payer OTHER ==
--- NOTE | 2020-01-07 10:44 | CT ---
EXAMINATION TYPE: CT urogram wo/w con DATE OF EXAM: 01/06/2020 HISTORY: Gross hematuria. Pt says it lasted for several days, but has no current issues CT DLP: 3583mGycm Automated Exposure Control for Dose Reduction was Utilized. CONTRAST: CT scan of the abdomen and pelvis is performed with IV Contrast, patient injected with 100 mL of Isov ue 300. COMPARISON: None FINDINGS: LUNG BASES: Subsegmental changes most typical of atelectasis.. Cardiac leads are noted. Calcified lym ph nodes are seen in the hilum. Calcified lymph nodes in the mediastinum. Coronary artery calcificati on noted. Small hiatal hernia. LIVER/GB: Slight lobulation of the hepatic contour. PANCREAS: No significant abnormality is seen. SPLEEN: No significant abnormality is seen. ADRENALS: No significant abnormality is seen. KIDNEYS: No hydronephrosis or nephrolithiasis. No solid or cystic renal mass. No filling defects with in the renal pelvis. Ureters are segmentally demonstrated to be of normal course and caliber. Tiny 2 mm density on axial image 39 involving the anterior lateral renal cortex is too small to characterize . BOWEL: No significant abnormality is seen. UTERUS/ADNEXA: No gross abnormality seen. LYMPH NODES: No greater than 1cm abdominal or pelvic lymph nodes are appreciated. OSSEOUS STRUCTURES: Hypertrophic and degenerative changes of the spine.. OTHER: Aorta of normal caliber. No free fluid. There are soft tissue nodules the bilateral adnexa cassy suring 2.3 cm likely related to normal ovaries. Small fat-containing periumbilical hernia noted. IMPRESSION: 1. No hydronephrosis or nephrolithiasis. No sizable mass. There is a tiny 2 mm density along the ante rior lateral margin of the right kidney on axial image 39. Difficult to determine if this is an exoph ytic tiny renal lesion or extrinsic to the kidney. Measures only 2 mm. Too small to characterize. Six -month follow-up CT scan could be obtained for further assessment. 2 lobulated hepatic contour can sometimes be associated with hepatocellular disease correlate with li moo function studies.
== END | disposition home or self-care (01) ==
LOC: RADCTMAIN 15:38
PROVIDERS: ATTEND Urology
DX: R31.0 Gross hematuria (principal)
CPT/HCPCS: 82565; 84520; 74178; 36415; 74400; Q9967

== ENCOUNTER → 2020-04-21 | Outpatient (CLI) | payer OTHER ==
[2020-04-21 12:35] LABS: Basophils # (A) 0.1 k/uL (0-0.2); Basophils % (A) 1 %; Eosinophils # (A) 0.4 k/uL (0-0.7); Eosinophils % (A) 7 %; HCT 46.1 % (34.0-46.0); HGB 14.2 gm/dL (11.4-16.0); Lymphocytes # (A) 0.7 k/uL (1.0-4.8); Lymphocytes % (A) 12 %; MCH 28.1 pg (25.0-35.0); MCHC 30.8 g/dL (31.0-37.0); MCV 91.2 fL (80.0-100.0); Mean Platelet Volume 7.2; Monocytes # (A) 0.5 k/uL (0-1.0); Monocytes % (A) 8 %; Neutrophils # (A) 3.8 k/uL (1.3-7.7); Neutrophils % (A) 69 %; Platelet Count 280 k/uL (150-450); RBC 5.05 m/uL (3.80-5.40); RDW 13.3 % (11.5-15.5); WBC 5.6 k/uL (3.8-10.6)
[2020-04-21 21:03] LABS: African American GFR (CKD) 85.8 (60.0-200.0); Albumin/Globulin Ratio 1.67 (1.60-3.17); BUN/Creat Ratio 12.22 Ratio (12.00-20.00); Calcium 9.7 mg/dL (8.7-10.3); Chol/HDL Ratio 3.94; Globulin 2.4 g/dL (1.6-3.3); LDL Cholesterol,Calculated 102.2 mg/dL (0.0-131.0); Potassium 4.1 mmol/L (3.5-5.5); Total Bilirubin 0.7 mg/dL (0.2-1.2); Total Protein 6.4 g/dL (6.2-8.2); VLDL Calculation 38.8 mg/dL (5.00-40.00)
[2020-04-21 21:53] LABS: Hemoglobin A1C 7.3 % (4.0-6.0)
== END | disposition home or self-care (01) ==
LOC: LABWHC1 11:08
PROVIDERS: ATTEND Internal Medicine
DX: E78.5 Hyperlipidemia, unspecified (principal); E11.9 Type 2 diabetes mellitus without complications; M10.9 Gout, unspecified; D86.89 Sarcoidosis of other sites
CPT/HCPCS: 36415; 80053; 80061; 82164; 83036; 84443; 84550; 85025

== ENCOUNTER → 2020-06-22 | Outpatient (CLI) | payer OTHER ==
--- NOTE | 2020-06-24 09:26 | MM ---
Reason for exam: screening (asymptomatic). Last mammogram was performed 1 year and 2 months ago. History: Patient is postmenopausal and is nulliparous. Physical Findings: A clinical breast exam by your physician is recommended on an annual basis and results should be correlated with mammographic findings. MG Screening Mammo w CAD Bilateral CC, MLO, and XCCL view(s) were taken. Prior study comparison: April 16, 2019, bilateral MG screening mammo w CAD. August 03, 2009, bilateral digital screening mammogram. There are scattered fibroglandular densities. No significant changes when compared with prior studies. ASSESSMENT: Benign, BI-RAD 2 RECOMMENDATION: Routine screening mammogram of both breasts in 1 year.
== END | disposition home or self-care (01) ==
LOC: RADMAMWWP 14:49
PROVIDERS: ATTEND Internal Medicine
DX: Z12.31 Encounter for screening mammogram for malignant neoplasm of breast (principal)
CPT/HCPCS: 77067

== ENCOUNTER → 2021-03-09 | Outpatient (CLI) | payer OTHER ==
--- NOTE | 2021-03-09 13:18 | XR ---
EXAMINATION TYPE: XR chest 2V DATE OF EXAM: 03/09/2021 COMPARISON: 12/07/2017 TECHNIQUE: PA and lateral views submitted. HISTORY: Shortness of breath FINDINGS: Diffuse interstitial pattern. Heart size normal. Cardiac device seen. No pleural effusion or pneumoth orax. Hypertrophic and degenerative change of the spine. IMPRESSION: 1. Correlate for interstitial pneumonia. Otherwise consider venous congestion.
== END | disposition home or self-care (01) ==
LOC: RADXRMAIN 12:33
PROVIDERS: ATTEND Internal Medicine
DX: R06.02 Shortness of breath (principal)
CPT/HCPCS: 71046

== ENCOUNTER → 2021-03-16 | Outpatient (CLI) | payer OTHER ==
--- NOTE | 2021-03-17 12:39 | BD ---
EXAMINATION TYPE: Axial Bone Density DATE OF EXAM: 03/16/2021 COMPARISON: NONE CLINICAL HISTORY: Height: 63 IN Weight: 319 LBS FRAX RISK QUESTIONS: Glucocorticoids (More than 3mos): 5 MG MON WEDS SUN FOR 7 YEARS (Ex: prednisone, prednisolone, methylprednisolone, dexamethasone, and hydrocortisone). RISK FACTORS HISTORY OF: Family History of Osteoporosis: YES AUNT Active: LIMITED Diet low in dairy products/other sources of calcium: YES MEDICATIONS: Prednisone or other steroids: 5 MG MON WEDS FRI FOR 7 YEARS Thyroid Medications: YES Which medication: Levothyroxine How Lon+ YEARS Additional Medications: VIT D, LEVOTHYROXINE, 5 MG PREDNISONE MON WEDS SUN,METFORMIN, DULOXETINE, BUS PIRONE, FUROSEMIDE, PIOGLITAZONE, POTASSIUM, HYDROXYCHLOROQUINE, ALLOPURINOL, ALBUTEROL, SYMBICORT, M UPIROCIN, PRAVASTATIN EXAM MEASUREMENTS: Bone mineral densitometry was performed using the [employer] System. Bone mineral density as measured about the Lumbar spine is: ----- L1-L4(G/cm2): 1.178 T Score Values are as follows: ----- L2: -0.4 ----- L3: 0.7 ----- L4: -0.2 ----- L1-L4: 0.0 Bone mineral density BASELINE Bone mineral density about the R hip (g/cm2): 0.924 Bone mineral density about the L hip (g/cm2): 0.808 T Score values are as follows: -----R Neck: -0.8 -----L Neck: -1.7 -----R Total: -0.2 -----L Total: -0.7 Bone mineral density BASELINE IMPRESSION: Osteopenia (T Score between -2.5 and -1) at femoral neck level in the left hip. There is slightly increased risk of fracture and the patient may be considered for treatment. Re-Screen 2-5 years. NOTE: T-SCORE=SD OF THE YOUNG ADULT MEAN.
== END | disposition home or self-care (01) ==
LOC: RADBDWWP 11:09
PROVIDERS: ATTEND Internal Medicine
DX: Z13.820 Encounter for screening for osteoporosis (principal); M85.852 Other specified disorders of bone density and structure, left thigh
CPT/HCPCS: 77080

== ENCOUNTER 2021-04-02 18:05 | Emergency (ER) | payer OTHER ==
[2021-04-02] MEDS ORDERED: SODIUM CHLORIDE 0.9% 1,000 ML IV STA (18:41)
[2021-04-02] MEDS ORDERED: ACETAMINOPHEN TAB 325 MG TAB PO STA (19:04)
[2021-04-02] MEDS ORDERED: SODIUM CHLORIDE 0.9% 500 ML 500 ML IV ONE (19:04)
--- NOTE | 2021-04-02 19:07 | ED ---
General Adult HPI - General Chief complaint: Abdominal Pain Stated complaint: Chest pain/abd pain/vomiting/dizzy Time Seen by Provider: 04/02/21 18:39 Source: patient, EMS, RN notes reviewed Mode of arrival: EMS Limitations: no limitations - History of Present Illness Initial comments: 51-year-old white female presents to the emergency room with complaints of dizziness, nausea and weakness after being outside today for couple hours in the sun. Patient states that she did not eat anything since early this morning and was starting to feel sick to her stomach. She decided to leave walked over to her car, she felt overheated so she sat in the car for a little while with the air conditioning on and felt a little better. Patient states that she got home and started to have some nausea and dry heaves, along with a left-sided headache. EMS started an IV. Patient states that IV fluid bolus improved her headache and the nausea is resolving. Patient denies any chest pain or shortness of breath. Dizziness has resolved. Patient does have a history of hypertension, liver disease and sarcoidosis. Temperature is 101.6 blood pressures 163/109, heart rate of 79 and saturation 98%. Patient is currently alert and oriented 4, denies any chest pain or shortness of breath. Reports mild nausea at this time and headache is resolving. -: hour(s) (1630) Radiation: non-radiation Severity scale (1-10): 0 Improves with: rest Associated Symptoms: headaches, nausea/vomiting, weakness Treatments Prior to Arrival: other (IV fluids) - Related Data Home Medications Medication Instructions Recorded Confirmed Budesonide-Formot 160-4.5 Mcg 2 puff INHALATION RT-BID 11/08/16 01/02/20 [Symbicort 160-4.5 Mcg Inhaler] Levothyroxine Sodium [Synthroid] 175 mcg PO DAILY 11/08/16 01/02/20 busPIRone HCL 15 mg PO BID 11/08/16 01/02/20 DULoxetine HCL [Cymbalta] 60 mg PO BID 11/10/16 01/02/20 Cholecalciferol [Vitamin D3 (25 2,000 unit PO DAILY 04/02/17 01/02/20 Mcg = 1000 Iu)] Albuterol Sulfate [Proair Hfa] 1 - 2 puff INHALATION RT-QID PRN 11/06/17 01/01/20 Albuterol Nebulized [Ventolin 2.5 mg INHALATION BID 01/01/20 01/02/20 Nebulized] Furosemide [Lasix] 40 mg PO DAILY 01/01/20 01/02/20 Hydroxychloroquine Sulfate 200 mg PO DAILY 01/01/20 01/02/20 [Plaquenil] Potassium Citrate [Potassium 10 meq PO DAILY 01/01/20 01/02/20 Citrate ER] allopurinoL [Zyloprim] 100 mg PO DAILY 01/01/20 01/02/20 glipiZIDE [Glucotrol] 5 mg PO DAILY 01/01/20 01/02/20 metFORMIN HCL 1,000 mg PO BID 01/01/20 01/02/20 predniSONE 5 mg PO MOWEFR 01/01/20 01/02/20 Allergies Allergy/AdvReac Type Severity Reaction Status Date / Time tramadol [From Ultram] Allergy Rash/Hives Verified 04/02/21 18:37 Review of Systems ROS Statement: Those systems with pertinent positive or pertinent negative responses have been documented in the HPI. ROS Other: All systems not noted in ROS Statement are negative. 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, obstructive sleep apnea maintained on CPAP therapy, morbid obesity, hypertension History of Any Multi-Drug Resistant Organisms: None Reported Past Surgical History: Tonsillectomy Additional Past Surgical History / Comment(s): D&C, liver biopsy, LASER EYE SX Past Anesthesia/Blood Transfusion Reactions: No Reported Reaction Additional Past Anesthesia/Blood Transfusion Reaction / Comment(s): no past blood transfusion Type of Cardiac Device: Permanent Pacemaker Device Placement Date:: 04-16-17 Past Psychological History: Anxiety, Depression Smoking Status: Never smoker Past Alcohol Use History: None Reported - Past Family History Brother(s) Family Medical History: Cancer, Myocardial Infarction ([place]) Additional Family Medical History / Comment(s): oral cancer, CADIAC STENTS Father Family Medical History: No Reported History Mother Family Medical History: Coronary Artery Disease (CAD) Additional Family Medical History / Comment(s): CARDAIC STENTS General Exam General appearance: alert, in no apparent distress Head exam: Present: atraumatic, normocephalic, normal inspection Eye exam: Present: PERRL, EOMI, other (Right eye subconjunctival hemorrhage). Absent: scleral icterus, conjunctival injection, periorbital swelling Pupils: Present: normal accommodation ENT exam: Present: normal exam, normal oropharynx, mucous membranes moist, TM's normal bilaterally Neck exam: Present: normal inspection, full ROM. Absent: tenderness, meningismus, lymphadenopathy, thyromegaly Respiratory exam: Present: normal lung sounds bilaterally, chest wall tenderness (Pain with palpation to the left anterior chest over pacemaker site), decreased breath sounds. Absent: respiratory distress, wheezes, rales, rhonchi, stridor, accessory muscle use Cardiovascular Exam: Present: regular rate, normal rhythm, normal heart sounds. Absent: systolic murmur, diastolic murmur, rubs, gallop, clicks GI/Abdominal exam: Present: soft, normal bowel sounds. Absent: distended, tenderness, guarding, rebound, rigid, bruit, pulsatile mass Rectal exam: Present: deferred Extremities exam: Present: normal inspection, full ROM, normal capillary refill, pedal edema (Trace). Absent: tenderness, joint swelling, calf tenderness Back exam: Present: normal inspection, full ROM. Absent: tenderness, CVA tenderness (R), CVA tenderness (L), muscle spasm, paraspinal tenderness, vertebral tenderness Neurological exam: Present: alert, oriented X3, CN II-XII intact Psychiatric exam: Present: normal affect, normal mood Skin exam: Present: warm, dry, intact, normal color. Absent: rash Course Vital Signs 04/02/21 04/02/21 04/02/21 18:32 20:24 21:57 Temperature 101.6 F H 98.9 F Pulse Rate 79 74 93 Respiratory 20 18 Rate Blood Pressure 163/109 147/73 O2 Sat by Pulse 98 99 Oximetry 04/02/21 22:03 Temperature Pulse Rate 80 Respiratory Rate Blood Pressure O2 Sat by Pulse Oximetry - Reevaluation(s) Reevaluation #1: 04/02/21 21:46 Patient continues to have nausea states has had [employer] which worked in the past. will try Tigan and reassess. Time: 21:46 EKG Findings - [place], Pacemaker, Normal: Pacemaker: ventricular pacing w/capture (except when refractory) (Ventricular rate of 77, MT interval .146, QRS of 0.158, QTc of 0.520), atrial pacing w/capture (except when refractory) Medical Decision Making - Medical Decision Making Chest x-ray shows no heart failure heart within normal limits, troponin negative at 0.012, glucose of 142, magnesium is 1.7, there is no evidence of anemia or leukocytosis. Alk phos 175 which is chronic for patient. Patient denies hematochezia or hematemesis. No vomiting in the emergency room. Patient feeling better after the Tigan injection tolerating Jell-O and crackers will discharge home and follow-up with primary care doctor. - Lab Data Result diagrams: 04/02/21 20:11 04/02/21 20:11 Lab Results 04/02/21 04/02/21 04/02/21 Range/Units 20:11 20:11 20:11 WBC 7.8 (3.8-10.6) k/uL RBC 4.64 (3.80-5.40) m/uL Hgb 13.9 (11.4-16.0) gm/dL Hct 42.0 (34.0-46.0) % MCV 90.4 (80.0-100.0) fL MCH 29.9 (25.0-35.0) pg MCHC 33.1 (31.0-37.0) g/dL RDW 14.1 (11.5-15.5) % Plt Count 245 (150-450) k/uL MPV 6.8 Neutrophils % 91 % Lymphocytes % 3 % Monocytes % 3 % Eosinophils % 2 % Basophils % 0 % Neutrophils # 7.1 (1.3-7.7) k/uL Lymphocytes # 0.2 L (1.0-4.8) k/uL Monocytes # 0.2 (0-1.0) k/uL Eosinophils # 0.1 (0-0.7) k/uL Basophils # 0.0 (0-0.2) k/uL PT 9.9 (9.0-12.0) sec INR 0.9 (<1.2) APTT 21.5 L (22.0-30.0) sec Sodium 136 L (137-145) mmol/L Potassium 4.6 (3.5-5.1) mmol/L Chloride 104 (98-107) mmol/L Carbon Dioxide 25 (22-30) mmol/L Anion Gap 7 mmol/L BUN 17 (7-17) mg/dL Creatinine 0.79 (0.52-1.04) mg/dL Est GFR (CKD-EPI)AfAm >90 (>60 ml/min/1.73 sqM) Est GFR (CKD-EPI)NonAf 87 (>60 ml/min/1.73 sqM) Glucose 142 H (74-99) mg/dL Calcium 9.1 (8.4-10.2) mg/dL Magnesium 1.7 (1.6-2.3) mg/dL Total Bilirubin 0.6 (0.2-1.3) mg/dL AST 44 H (14-36) U/L ALT 34 (4-34) U/L Alkaline Phosphatase 175 H (38-126) U/L Troponin I (0.000-0.034) ng/mL Total Protein 6.6 (6.3-8.2) g/dL Albumin 3.8 (3.5-5.0) g/dL Amylase 41 (30-110) U/L Lipase 101 (23-300) U/L Urine Color Urine Appearance (Clear) Urine pH (5.0-8.0) Ur Specific [place] (1.001-1.035) Urine Protein (Negative) Urine Glucose (UA) (Negative) Urine Ketones (Negative) Urine Blood (Negative) Urine Nitrite (Negative) Urine Bilirubin (Negative) Urine Urobilinogen (<2.0) mg/dL Ur Leukocyte Esterase (Negative) 04/02/21 04/02/21 Range/Units 20:11 20:21 WBC (3.8-10.6) k/uL RBC (3.80-5.40) m/uL Hgb (11.4-16.0) gm/dL Hct (34.0-46.0) % MCV (80.0-100.0) fL MCH (25.0-35.0) pg MCHC (31.0-37.0) g/dL RDW (11.5-15.5) % Plt Count (150-450) k/uL MPV Neutrophils % % Lymphocytes % % Monocytes % % Eosinophils % % Basophils % % Neutrophils # (1.3-7.7) k/uL Lymphocytes # (1.0-4.8) k/uL Monocytes # (0-1.0) k/uL Eosinophils # (0-0.7) k/uL Basophils # (0-0.2) k/uL PT (9.0-12.0) sec INR (<1.2) APTT (22.0-30.0) sec Sodium (137-145) mmol/L Potassium (3.5-5.1) mmol/L Chloride (98-107) mmol/L Carbon Dioxide (22-30) mmol/L Anion Gap mmol/L BUN (7-17) mg/dL Creatinine (0.52-1.04) mg/dL Est GFR (CKD-EPI)AfAm (>60 ml/min/1.73 sqM) Est GFR (CKD-EPI)NonAf (>60 ml/min/1.73 sqM) Glucose (74-99) mg/dL Calcium (8.4-10.2) mg/dL Magnesium (1.6-2.3) mg/dL Total Bilirubin (0.2-1.3) mg/dL AST (14-36) U/L ALT (4-34) U/L Alkaline Phosphatase (38-126) U/L Troponin I <0.012 (0.000-0.034) ng/mL Total Protein (6.3-8.2) g/dL Albumin (3.5-5.0) g/dL Amylase (30-110) U/L Lipase (23-300) U/L Urine Color Yellow Urine Appearance Clear (Clear) Urine pH 6.5 (5.0-8.0) Ur Specific [place] 1.023 (1.001-1.035) Urine Protein Negative (Negative) Urine Glucose (UA) Negative (Negative) Urine Ketones Negative (Negative) Urine Blood Negative (Negative) Urine Nitrite Negative (Negative) Urine Bilirubin Negative (Negative) Urine Urobilinogen <2.0 (<2.0) mg/dL Ur Leukocyte Esterase Negative (Negative) Disposition Clinical Impression: Abdominal pain, Nausea & vomiting Disposition: HOME SELF-CARE Condition: Good Instructions (If sedation given, give patient instructions): Abdominal Pain (ED) Additional Instructions: Follow-up with the primary care doctor in 1 week Is patient prescribed a controlled substance at d/c from ED?: No Referrals: Avinash Alex MD [Primary Care Provider] - 1-2 days Time of Disposition: 23:23
[2021-04-02] MEDS ORDERED: METOCLOPRAMIDE 5 MG/ML 2 ML VIAL IVP STA (19:56)
[2021-04-02 20:21] LABS: Basophils % (A) 0 %; Eosinophils # (A) 0.1 k/uL (0-0.7); Eosinophils % (A) 2 %; HGB 13.9 gm/dL (11.4-16.0); Lymphocytes # (A) 0.2 k/uL (1.0-4.8); Lymphocytes % (A) 3 %; MCH 29.9 pg (25.0-35.0); MCHC 33.1 g/dL (31.0-37.0); MCV 90.4 fL (80.0-100.0); Mean Platelet Volume 6.8; Monocytes # (A) 0.2 k/uL (0-1.0); Monocytes % (A) 3 %; Neutrophils # (A) 7.1 k/uL (1.3-7.7); Neutrophils % (A) 91 %; Platelet Count 245 k/uL (150-450); RBC 4.64 m/uL (3.80-5.40); RDW 14.1 % (11.5-15.5); WBC 7.8 k/uL (3.8-10.6)
[2021-04-02 20:28] LABS: ALT 34 U/L (4-34); AST 44 U/L (14-36); African American GFR (CKD) >90 (>60 ml/min/1.73 sqM); Albumin 3.8 g/dL (3.5-5.0); Alkaline Phosphatase 175 U/L (38-126); Amylase 41 U/L (30-110); Anion Gap 7 mmol/L; Blood Urea Nitrogen 17 mg/dL (7-17); Calcium 9.1 mg/dL (8.4-10.2); Carbon Dioxide 25 mmol/L (22-30); Chloride 104 mmol/L (98-107); Glucose 142 mg/dL (74-99); Lipase 101 U/L (23-300); Magnesium 1.7 mg/dL (1.6-2.3); Non-African American GFR(CKD) 87 (>60 ml/min/1.73 sqM); Potassium 4.6 mmol/L (3.5-5.1); Sodium 136 mmol/L (137-145); Total Bilirubin 0.6 mg/dL (0.2-1.3); Total Protein 6.6 g/dL (6.3-8.2)
--- NOTE | 2021-04-02 20:28 | XR ---
EXAMINATION TYPE: XR chest 2V DATE OF EXAM: 04/02/2021 COMPARISON: 03/21/2021 HISTORY: Short of breath TECHNIQUE: 2 views FINDINGS: Heart and mediastinum are within normal limits. Exam limited by the patient's size. There i s no pleural effusion. There is no obvious heart failure. There is left axillary pacemaker. IMPRESSION: Inspiration decreased compared to old exam. No obvious heart failure. Limited exam.
[2021-04-02 20:35] LABS: INR 0.9 (<1.2); Prothrombin Time 9.9 sec (9.0-12.0)
[2021-04-02 20:36] LABS: Appearance,Urine Clear (Clear); Bilirubin,Urine Negative (Negative); Blood,Urine Negative (Negative); Color,Urine Yellow; Glucose,Urine (UA) Negative (Negative); Ketones,Urine Negative (Negative); Leukocyte Esterase,Urine Negative (Negative); Nitrite,Urine Negative (Negative); PH, Urine 6.5 (5.0-8.0); Protein,Urine Negative (Negative); Specific Gravity,Urine 1.023 (1.001-1.035); Urobilinogen,Urine <2.0 mg/dL (<2.0)
[2021-04-02 20:40] LABS: Partial Thromboplastin Time 21.5 sec (22.0-30.0)
[2021-04-02] MEDS ORDERED: ALBUTEROL NEBULIZED 2.5 MG/3 ML INHALATION STA (20:54)
[2021-04-02] MEDS ORDERED: TRIMETHOBENZAMIDE 100 MG/ML 2 ML VIAL IM STA (21:44)
[2021-04-02 22:04] VITALS: PULSE 80
[2021-04-03 00:34] VITALS: BP 155/84; RESP 20; TEMP 98.8
== END 2021-04-03 00:34 | disposition home or self-care (01) ==
LOC: EC 18:05
DX: R10.9 Unspecified abdominal pain (principal); R11.2 Nausea with vomiting, unspecified; R42 Dizziness and giddiness; R53.1 Weakness; R51.9 Headache, unspecified; H11.31 Conjunctival hemorrhage, right eye; I10 Essential (primary) hypertension; E66.01 Morbid (severe) obesity due to excess calories; G47.33 Obstructive sleep apnea (adult) (pediatric); F32.9 Major depressive disorder, single episode, unspecified; F41.9 Anxiety disorder, unspecified; Z79.51 Long term (current) use of inhaled steroids; Z79.52 Long term (current) use of systemic steroids; Z79.84 Long term (current) use of oral hypoglycemic drugs; Z79.899 Other long term (current) drug therapy; Z68.43 Body mass index [BMI] 50.0-59.9, adult
CPT/HCPCS: 36415; 94640; 93005; 80053; 82150; 83690; 83735; 84484; 85025; 85610; 85730; 81003; 71046; 99285; 96374; 96361 ×3; 96372; J2765; J3250

== ENCOUNTER → 2022-01-04 | Outpatient (CLI) | payer OTHER ==
--- NOTE | 2022-01-04 14:42 | US ---
EXAMINATION TYPE: US venous doppler duplex LE DATE OF EXAM: 01/04/2022 2:29 PM COMPARISON: NONE CLINICAL HISTORY: M79.662 Pain in left lower limb,. edema bilateral legs, worse on the left SIDE PERFORMED: bilateral TECHNIQUE: The lower extremity deep venous system is examined utilizing real time linear array sonog emi with graded compression, doppler sonography and color-flow sonography. VESSELS IMAGED: Common Femoral Vein Deep Femoral Vein Greater Saphenous Vein * Femoral Vein Popliteal Vein Small Saphenous Vein * Proximal Calf Veins (* superficial vessels) Right Leg: no evidence of DVT Left Leg: no evidence of DVT IMPRESSION: No evidence for DVT at this time.
== END | disposition home or self-care (01) ==
LOC: RADUSWWP 13:59
PROVIDERS: ATTEND Internal Medicine
DX: M79.662 Pain in left lower leg (principal); R60.0 Localized edema
CPT/HCPCS: 93970

== ENCOUNTER 2022-10-07 04:34 | Inpatient (IN) | payer MEDICARE, OTHER ==
--- NOTE | 2022-10-07 05:05 | ED ---
SOB HPI - General Stated Complaint: Difficulty Breathing Time Seen by Provider: 10/07/22 05:04 - History of Present Illness Initial Comments: 52-year-old female with past history of sarcoid presents to the emergency department with shortness of breath. He states that yesterday she began having some shortness of breath in the evening. She had body aches, fevers, nonproductive cough. She has been using her inhaler without any improvement in her symptoms. Did not take any Motrin and Tylenol before coming into the emergency department. She takes prednisone 5 mg daily. Follow[address] with Dr. Pappas. She denies any chest pain. Does have a pacemaker. Denies coronary disease. Has mild lower extremity swelling. No sick contacts with similar symptoms. No other alleviating, Perceptin or modifying factors - Related Data Home Medications Medication Instructions Recorded Confirmed DULoxetine HCL [Cymbalta] 60 mg PO BID 11/10/16 10/13/22 Albuterol Sulfate [Proair Hfa] 2 puff INHALATION RT-QID PRN 11/06/17 10/13/22 Albuterol Nebulized [Ventolin 2.5 mg INHALATION RT-BID 01/01/20 10/13/22 Nebulized] Furosemide [Lasix] 40 mg PO DAILY 01/01/20 10/13/22 Hydroxychloroquine Sulfate 200 mg PO DAILY 01/01/20 10/13/22 [Plaquenil] Potassium Citrate [Potassium 10 meq PO DAILY 01/01/20 10/13/22 Citrate ER] allopurinoL [Zyloprim] 100 mg PO DAILY 01/01/20 10/13/22 metFORMIN HCL [Glucophage] 1,000 mg PO BID 01/01/20 10/13/22 Albuterol Inhaler [Ventolin Hfa 1 puff INHALATION RT-DAILY 10/07/22 10/13/22 Inhaler] Cholecalciferol [Vitamin D3 (125 125 mcg PO DAILY 10/07/22 10/13/22 Mcg = 5000 Iu)] Empagliflozin [Jardiance] 25 mg PO DAILY 10/07/22 10/13/22 Levothyroxine Sodium 200 mcg PO DAILY 10/07/22 10/13/22 Pravastatin Sodium [Pravachol] 20 mg PO DAILY 10/07/22 10/13/22 busPIRone HCl [Buspar] 10 mg PO BID 10/07/22 10/13/22 Cefdinir 300 mg PO Q12H 10/13/22 10/13/22 predniSONE See Taper PO DAILY 10/13/22 10/13/22 Previous Rx's Medication Instructions Recorded Budesonide-Formot 160-4.5 Mcg 2 puff INHALATION RT-BID each 10/10/22 [Symbicort 160-4.5 Mcg Inhaler] Losartan [Cozaar] 25 mg PO DAILY tab 10/10/22 Allergies Allergy/AdvReac Type Severity Reaction Status Date / Time tramadol [From Ultram] Allergy Rash/Hives Verified 10/13/22 12:02 Review of Systems ROS Statement: Those systems with pertinent positive or pertinent negative responses have been documented in the HPI. ROS Other: All systems not noted in ROS Statement are negative. 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, obstructive sleep apnea maintained on CPAP therapy, morbid obesity, hypertension History of Any Multi-Drug Resistant Organisms: None Reported Past Surgical History: Tonsillectomy Additional Past Surgical History / Comment(s): D&C, liver biopsy, LASER EYE SX Past Anesthesia/Blood Transfusion Reactions: No Reported Reaction Additional Past Anesthesia/Blood Transfusion Reaction / Comment(s): no past b lood transfusion Type of Cardiac Device: Permanent Pacemaker Device Placement Date:: 04-16-17 Past Psychological History: Anxiety, Depression Smoking Status: Never smoker Past Alcohol Use History: None Reported - Past Family History Brother(s) Family Medical History: Cancer, Myocardial Infarction ([place]) Additional Family Medical History / Comment(s): oral cancer, CADIAC STENTS Father Family Medical History: No Reported History Mother Family Medical History: Coronary Artery Disease (CAD) Additional Family Medical History / Comment(s): CARDAIC STENTS General Exam General appearance: alert, in no apparent distress Head exam: Present: atraumatic, normocephalic, normal inspection Eye exam: Present: normal appearance, PERRL, EOMI. Absent: scleral icterus, conjunctival injection, periorbital swelling ENT exam: Present: normal exam, mucous membranes moist Neck exam: Present: normal inspection. Absent: tenderness, meningismus, lymphadenopathy Respiratory exam: Present: wheezes, decreased breath sounds, other (tachypnia). Absent: respiratory distress, rales, rhonchi, stridor Cardiovascular Exam: Present: normal rhythm, tachycardia, normal heart sounds. Absent: systolic murmur, diastolic murmur, rubs, gallop, clicks GI/Abdominal exam: Present: soft, normal bowel sounds. Absent: distended, tenderness, guarding, rebound, rigid Extremities exam: Present: normal inspection, full ROM, normal capillary refill. Absent: tenderness, pedal edema, joint swelling, calf tenderness Back exam: Present: normal inspection Neurological exam: Present: alert, oriented X3, CN II-XII intact Psychiatric exam: Present: normal affect, normal mood Skin exam: Present: warm, dry, intact, normal color. Absent: rash Course Vital Signs 10/07/22 10/07/22 10/07/22 05:03 06:00 07:01 Temperature 101 F H 99 F Pulse Rate 80 78 Respiratory 18 18 Rate Blood Pressure 180/90 168/91 O2 Sat by Pulse 94 L 87 L 90 L Oximetry 10/07/22 10/07/22 10/07/22 08:27 08:37 09:23 Temperature Pulse Rate 100 104 H 95 Respiratory 18 Rate Blood Pressure 154/86 O2 Sat by Pulse 97 Oximetry 10/07/22 10/07/22 10/07/22 11:45 11:58 13:24 Temperature Pulse Rate 96 100 81 Respiratory 17 Rate Blood Pressure 123/73 O2 Sat by Pulse 95 Oximetry Medical Decision Making - Medical Decision Making Upon arrival patient was placed into room 2. Thorough history and physical exam was performed. Patient does have oxygen saturation of 87% on room air. She normally does not oxygen. Patient placed on 2 L. IV access established. Laboratory studies were conducted and reviewed. White blood cell count 9.3. Covid and influenza are not protected. Chest x-ray demonstrates mild cardiomegaly with mild pulmonary congestion. As the patient is only saturating 87% I did order breathing treatments, steroids, antibiotics. Recommended admission for pulmonology consult. Spoke with Dr. Alex who was agreeable to admit the patient - Lab Data Result diagrams: 10/10/22 07:45 10/10/22 07:45 Lab Results 10/07/22 10/07/22 10/07/22 Range/Units 05:02 05:02 05:02 WBC 9.3 (3.8-10.6) k/uL RBC 5.04 (3.80-5.40) m/uL Hgb 15.0 (11.4-16.0) gm/dL Hct 46.0 (34.0-46.0) % MCV 91.4 (80.0-100.0) fL MCH 29.7 (25.0-35.0) pg MCHC 32.5 (31.0-37.0) g/dL RDW 14.2 (11.5-15.5) % Plt Count 207 (150-450) k/uL MPV 8.0 Neutrophils % 88 % Lymphocytes % 4 % Monocytes % 5 % Eosinophils % 2 % Basophils % 0 % Neutrophils # 8.2 H (1.3-7.7) k/uL Lymphocytes # 0.4 L (1.0-4.8) k/uL Monocytes # 0.4 (0-1.0) k/uL Eosinophils # 0.1 (0-0.7) k/uL Basophils # 0.0 (0-0.2) k/uL PT 10.4 (9.0-12.0) sec INR 1.0 (<1.2) APTT 23.2 (22.0-30.0) sec Sodium 137 (137-145) mmol/L Potassium 4.3 (3.5-5.1) mmol/L Chloride 106 (98-107) mmol/L Carbon Dioxide 22 (22-30) mmol/L Anion Gap 9 mmol/L BUN 16 (7-17) mg/dL Creatinine 0.87 (0.52-1.04) mg/dL Est GFR (CKD-EPI)AfAm 88 (>60 ml/min/1.73 sqM) Est GFR (CKD-EPI)NonAf 77 (>60 ml/min/1.73 sqM) Glucose 151 H (74-99) mg/dL Plasma Lactic Acid Alejandro (0.7-2.0) mmol/L Calcium 9.0 (8.4-10.2) mg/dL Magnesium 1.8 (1.6-2.3) mg/dL Total Bilirubin 1.0 (0.2-1.3) mg/dL AST 43 H (14-36) U/L ALT 36 H (4-34) U/L Alkaline Phosphatase 218 H (38-126) U/L Troponin I (0.000-0.034) ng/mL NT-Pro-B Natriuret Pep pg/mL Total Protein 7.1 (6.3-8.2) g/dL Albumin 4.2 (3.5-5.0) g/dL Procalcitonin (0.02-0.09) ng/mL Urine Color Urine Appearance (Clear) Urine pH (5.0-8.0) Ur Specific Effort (1.001-1.035) Urine Protein (Negative) Urine Glucose (UA) (Negative) Urine Ketones (Negative) Urine Blood (Negative) Urine Nitrite (Negative) Urine Bilirubin (Negative) Urine Urobilinogen (<2.0) mg/dL Ur Leukocyte Esterase (Negative) Coronavirus (PCR) (Not Detectd) Influenza Type A RNA (Not Detectd) Influenza Type B (PCR) (Not Detectd) 10/07/22 10/07/22 10/07/22 Range/Units 05:02 05:02 05:02 WBC (3.8-10.6) k/uL RBC (3.80-5.40) m/uL Hgb (11.4-16.0) gm/dL Hct (34.0-46.0) % MCV (80.0-100.0) fL MCH (25.0-35.0) pg MCHC (31.0-37.0) g/dL RDW (11.5-15.5) % Plt Count (150-450) k/uL MPV Neutrophils % % Lymphocytes % % Monocytes % % Eosinophils % % Basophils % % Neutrophils # (1.3-7.7) k/uL Lymphocytes # (1.0-4.8) k/uL Monocytes # (0-1.0) k/uL Eosinophils # (0-0.7) k/uL Basophils # (0-0.2) k/uL PT (9.0-12.0) sec INR (<1.2) APTT (22.0-30.0) sec Sodium (137-145) mmol/L Potassium (3.5-5.1) mmol/L Chloride (98-107) mmol/L Carbon Dioxide (22-30) mmol/L Anion Gap mmol/L BUN (7-17) mg/dL Creatinine (0.52-1.04) mg/dL Est GFR (CKD-EPI)AfAm (>60 ml/min/1.73 sqM) Est GFR (CKD-EPI)NonAf (>60 ml/min/1.73 sqM) Glucose (74-99) mg/dL Plasma Lactic Acid Alejandro 1.7 (0.7-2.0) mmol/L Calcium (8.4-10.2) mg/dL Magnesium (1.6-2.3) mg/dL Total Bilirubin (0.2-1.3) mg/dL AST (14-36) U/L ALT (4-34) U/L Alkaline Phosphatase (38-126) U/L Troponin I <0.012 (0.000-0.034) ng/mL NT-Pro-B Natriuret Pep 288 pg/mL Total Protein (6.3-8.2) g/dL Albumin (3.5-5.0) g/dL Procalcitonin (0.02-0.09) ng/mL Urine Color Urine Appearance (Clear) Urine pH (5.0-8.0) Ur Specific Effort (1.001-1.035) Urine Protein (Negative) Urine Glucose (UA) (Negative) Urine Ketones (Negative) Urine Blood (Negative) Urine Nitrite (Negative) Urine Bilirubin (Negative) Urine Urobilinogen (<2.0) mg/dL Ur Leukocyte Esterase (Negative) Coronavirus (PCR) (Not Detectd) Influenza Type A RNA (Not Detectd) Influenza Type B (PCR) (Not Detectd) 10/07/22 10/07/22 10/07/22 Range/Units 05:02 05:02 05:02 WBC (3.8-10.6) k/uL RBC (3.80-5.40) m/uL Hgb (11.4-16.0) gm/dL Hct (34.0-46.0) % MCV (80.0-100.0) fL MCH (25.0-35.0) pg MCHC (31.0-37.0) g/dL RDW (11.5-15.5) % Plt Count (150-450) k/uL MPV Neutrophils % % Lymphocytes % % Monocytes % % Eosinophils % % Basophils % % Neutrophils # (1.3-7.7) k/uL Lymphocytes # (1.0-4.8) k/uL Monocytes # (0-1.0) k/uL Eosinophils # (0-0.7) k/uL Basophils # (0-0.2) k/uL PT (9.0-12.0) sec INR (<1.2) APTT (22.0-30.0) sec Sodium (137-145) mmol/L Potassium (3.5-5.1) mmol/L Chloride (98-107) mmol/L Carbon Dioxide (22-30) mmol/L Anion Gap mmol/L BUN (7-17) mg/dL Creatinine (0.52-1.04) mg/dL Est GFR (CKD-EPI)AfAm (>60 ml/min/1.73 sqM) Est GFR (CKD-EPI)NonAf (>60 ml/min/1.73 sqM) Glucose (74-99) mg/dL Plasma Lactic Acid Alejandro (0.7-2.0) mmol/L Calcium (8.4-10.2) mg/dL Magnesium (1.6-2.3) mg/dL Total Bilirubin (0.2-1.3) mg/dL AST (14-36) U/L ALT (4-34) U/L Alkaline Phosphatase (38-126) U/L Troponin I (0.000-0.034) ng/mL NT-Pro-B Natriuret Pep pg/mL Total Protein (6.3-8.2) g/dL Albumin (3.5-5.0) g/dL Procalcitonin 0.16 H (0.02-0.09) ng/mL Urine Color Urine Appearance (Clear) Urine pH (5.0-8.0) Ur Specific Effort (1.001-1.035) Urine Protein (Negative) Urine Glucose (UA) (Negative) Urine Ketones (Negative) Urine Blood (Negative) Urine Nitrite (Negative) Urine Bilirubin (Negative) Urine Urobilinogen (<2.0) mg/dL Ur Leukocyte Esterase (Negative) Coronavirus (PCR) Not Detected (Not Detectd) Influenza Type A RNA Not Detected (Not Detectd) Influenza Type B (PCR) Not Detected (Not Detectd) 10/07/22 Range/Units 05:10 WBC (3.8-10.6) k/uL RBC (3.80-5.40) m/uL Hgb (11.4-16.0) gm/dL Hct (34.0-46.0) % MCV (80.0-100.0) fL MCH (25.0-35.0) pg MCHC (31.0-37.0) g/dL RDW (11.5-15.5) % Plt Count (150-450) k/uL MPV Neutrophils % % Lymphocytes % % Monocytes % % Eosinophils % % Basophils % % Neutrophils # (1.3-7.7) k/uL Lymphocytes # (1.0-4.8) k/uL Monocytes # (0-1.0) k/uL Eosinophils # (0-0.7) k/uL Basophils # (0-0.2) k/uL PT (9.0-12.0) sec INR (<1.2) APTT (22.0-30.0) sec Sodium (137-145) mmol/L Potassium (3.5-5.1) mmol/L Chloride (98-107) mmol/L Carbon Dioxide (22-30) mmol/L Anion Gap mmol/L BUN (7-17) mg/dL Creatinine (0.52-1.04) mg/dL Est GFR (CKD-EPI)AfAm (>60 ml/min/1.73 sqM) Est GFR (CKD-EPI)NonAf (>60 ml/min/1.73 sqM) Glucose (74-99) mg/dL Plasma Lactic Acid Alejandro (0.7-2.0) mmol/L Calcium (8.4-10.2) mg/dL Magnesium (1.6-2.3) mg/dL Total Bilirubin (0.2-1.3) mg/dL AST (14-36) U/L ALT (4-34) U/L Alkaline Phosphatase (38-126) U/L Troponin I (0.000-0.034) ng/mL NT-Pro-B Natriuret Pep pg/mL Total Protein (6.3-8.2) g/dL Albumin (3.5-5.0) g/dL Procalcitonin (0.02-0.09) ng/mL Urine Color Yellow Urine Appearance Clear (Clear) Urine pH 5.5 (5.0-8.0) Ur Specific Effort 1.033 (1.001-1.035) Urine Protein Negative (Negative) Urine Glucose (UA) 4+ H (Negative) Urine Ketones Negative (Negative) Urine Blood Negative (Negative) Urine Nitrite Negative (Negative) Urine Bilirubin Negative (Negative) Urine Urobilinogen <2.0 (<2.0) mg/dL Ur Leukocyte Esterase Negative (Negative) Coronavirus (PCR) (Not Detectd) Influenza Type A RNA (Not Detectd) Influenza Type B (PCR) (Not Detectd) - EKG Data EKG Comments: EKG demonstrates an electronic ventricular pacemaker which captures appropriately. Rate of 106. ND interval 237. QRS 192. QTC of 493. Negative for sgarbossa criteria. Disposition Clinical Impression: Hypoxia, Sarcoidosis of lung, CAP (community acquired pneumonia) Disposition: ADMITTED IP TO THIS HOSP Condition: Stable Is patient prescribed a controlled substance at d/c from ED?: No Time of Disposition: 07:34 Decision to Admit Reason: Admit from EC Decision Date: 10/07/22 Decision Time: 07:34
--- NOTE | 2022-10-07 05:09 | XR ---
EXAMINATION TYPE: XR chest 2V DATE OF EXAM: 10/07/2022 COMPARISON: NONE HISTORY: Short of breath TECHNIQUE: FINDINGS: Heart is slightly enlarged. There is minimal pulmonary congestion. There is left axillary p acemaker. No pleural effusion. Bony thorax is intact. IMPRESSION: Mild cardiomegaly. Mild pulmonary congestion which is new compared to the old exam. Minim al heart failure is possible.
[2022-10-07 05:27] LABS: Appearance,Urine Clear (Clear); Bilirubin,Urine Negative (Negative); Blood,Urine Negative (Negative); Color,Urine Yellow; Glucose,Urine (UA) 4+ (Negative); Ketones,Urine Negative (Negative); Leukocyte Esterase,Urine Negative (Negative); Nitrite,Urine Negative (Negative); PH, Urine 5.5 (5.0-8.0); Protein,Urine Negative (Negative); Specific Gravity,Urine 1.033 (1.001-1.035); Urobilinogen,Urine <2.0 mg/dL (<2.0)
[2022-10-07 05:38] LABS: Basophils % (A) 0 %; Eosinophils # (A) 0.1 k/uL (0-0.7); Eosinophils % (A) 2 %; Lymphocytes # (A) 0.4 k/uL (1.0-4.8); Lymphocytes % (A) 4 %; MCH 29.7 pg (25.0-35.0); MCHC 32.5 g/dL (31.0-37.0); MCV 91.4 fL (80.0-100.0); Monocytes # (A) 0.4 k/uL (0-1.0); Monocytes % (A) 5 %; Neutrophils # (A) 8.2 k/uL (1.3-7.7); Neutrophils % (A) 88 %; Platelet Count 207 k/uL (150-450); RBC 5.04 m/uL (3.80-5.40); RDW 14.2 % (11.5-15.5); WBC 9.3 k/uL (3.8-10.6)
[2022-10-07 05:42] LABS: Albumin 4.2 g/dL (3.5-5.0); Magnesium 1.8 mg/dL (1.6-2.3); Potassium 4.3 mmol/L (3.5-5.1); Total Protein 7.1 g/dL (6.3-8.2)
[2022-10-07 05:43] LABS: Partial Thromboplastin Time 23.2 sec (22.0-30.0); Prothrombin Time 10.4 sec (9.0-12.0)
[2022-10-07] MEDS ORDERED: IBUPROFEN 600 MG TAB PO STA (05:51)
[2022-10-07] MEDS ORDERED: SODIUM CHLORIDE 0.9% 1,000 ML IV ONE (05:51)
[2022-10-07] MEDS ORDERED: ONDANSETRON 4 MG/2 ML VIAL IVP STA (05:52)
[2022-10-07] MEDS ORDERED: IPRATROPIUM-ALBUTEROL 3 ML NEB INHALATION STA (07:30)
[2022-10-07] MEDS ORDERED: AZITHROMYCIN 500 MG in SODIUM CHLORIDE 0.9% 250 ML IVPB STA (07:31)
[2022-10-07] MEDS ORDERED: PNEUMONIA PROTOCOL UTILIZED 1 EACH MISC PO PRN (07:31)
[2022-10-07] MEDS ORDERED: methylPREDNISolone SOD SUCCI 125 MG/2 ML VIAL IV STA (07:31)
[2022-10-07] MEDS: IPRATROPIUM-ALBUTEROL 3 ML NEB INHALATION SCH ×4 (08:23→20:59)
[2022-10-07] MEDS: SODIUM CHLORIDE 0.9% 1,000 ML IV SCH ×2 (09:09→17:55)
--- NOTE | 2022-10-07 11:47 | P.HPIM ---
History of Present Illness H&P Date: 10/07/22 Quyen Gomez, is a 52-year-old female who presented to [facility] emergency room with a chief complaint of shortness of breath and cough She was evaluated in the emergency room vital examination on presentation revealed a temperature of 101 pulse 80 respiration 18 blood pressure 180/90 pulse ox 94% on room air Laboratory data revealed a white blood count of 9.3 hemoglobin 15.0 platelet count 207 sodium 137 potassium 4.3 chloride 106 CO2 22 BUN 16 creatinine 0.87 AST 43 ALT 36 alkaline phosphatase 218 urine analysis was normal Fernandez virus PCR was negative, influenza A and B PCR were negative urine analysis did not reveal any evidence of urinary tract infection Testing in the emergency room revealed chest x-ray done in the emergency room revealed mild cardiomegaly with mild pulmonary congestion which is new for patient, EKG revealed electronic ventricular pacemaker Patient was admitted to medical floor for further evaluation and treatment 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, obstructive sleep apnea maintained on CPAP therapy, morbid obesity, hypertensi on History of Any Multi-Drug Resistant Organisms: None Reported Past Surgical History: Tonsillectomy Additional Past Surgical History / Comment(s): D&C, liver biopsy, LASER EYE SX Past Anesthesia/Blood Transfusion Reactions: No Reported Reaction Additional Past Anesthesia/Blood Transfusion Reaction / Comment(s): no past blood transfusion Type of Cardiac Device: Permanent Pacemaker Device Placement Date:: 04-16-17 Past Psychological History: Anxiety, Depression Smoking Status: Never smoker Past Alcohol Use History: None Reported - Past Family History Brother(s) Family Medical History: Cancer, Myocardial Infarction ([place]) Additional Family Medical History / Comment(s): oral cancer, CADIAC STENTS Father Family Medical History: No Reported History Mother Family Medical History: Coronary Artery Disease (CAD) Additional Family Medical History / Comment(s): CARDAIC STENTS Medications and Allergies Home Medications Medication Instructions Recorded Confirmed Type Budesonide-Formot 160-4.5 Mcg 2 puff INHALATION RT-BID 11/08/16 01/02/20 History [Symbicort 160-4.5 Mcg Inhaler] Levothyroxine Sodium [Synthroid] 175 mcg PO DAILY 11/08/16 01/02/20 History busPIRone HCL 15 mg PO BID 11/08/16 01/02/20 History DULoxetine HCL [Cymbalta] 60 mg PO BID 11/10/16 01/02/20 History Cholecalciferol [Vitamin D3 (25 2,000 unit PO DAILY 04/02/17 01/02/20 History Mcg = 1000 Iu)] Albuterol Sulfate [Proair Hfa] 1 - 2 puff INHALATION RT-QID PRN 11/06/17 01/01/20 History Albuterol Nebulized [Ventolin 2.5 mg INHALATION BID 01/01/20 01/02/20 History Nebulized] Furosemide [Lasix] 40 mg PO DAILY 01/01/20 01/02/20 History Hydroxychloroquine Sulfate 200 mg PO DAILY 01/01/20 01/02/20 History [Plaquenil] Potassium Citrate [Potassium 10 meq PO DAILY 01/01/20 01/02/20 History Citrate ER] allopurinoL [Zyloprim] 100 mg PO DAILY 01/01/20 01/02/20 History glipiZIDE [Glucotrol] 5 mg PO DAILY 01/01/20 01/02/20 History metFORMIN HCL [Glucophage] 1,000 mg PO BID 01/01/20 01/02/20 History predniSONE 5 mg PO MOWEFR 01/01/20 01/02/20 History Allergies Allergy/AdvReac Type Severity Reaction Status Date / Time tramadol [From Ultram] Allergy Rash/Hives Verified 10/07/22 05:10 Physical Exam Vitals: Vital Signs Temp Pulse Resp BP Pulse Ox 10/07/22 09:23 95 18 154/86 97 10/07/22 08:37 104 H 10/07/22 08:27 100 10/07/22 07:01 99 F 78 18 168/91 90 L 10/07/22 06:00 87 L 10/07/22 05:03 101 F H 80 18 180/90 94 L Intake and Output 10/06/22 10/07/22 10/07/22 22:59 06:59 14:59 Other: Weight 149 kg In general patient is alert and oriented x 3 in no distress HEENT head normocephalic and atraumatic Neck is supple no JVD no goiter no lymphadenopathy no carotid bruit Chest examination reveals a scattered crackles bilaterally with mild wheezing Cardiac exam reveals regular heart sounds S1 and S2 no gallops no murmurs Abdomen is soft nontender no organomegaly with normal bowel sounds Extremity exam reveals no edema no cyanosis or clubbing Neurological examination reveals no gross focal deficits Results CBC & Chem 7: 10/07/22 05:02 10/07/22 05:02 Labs: Abnormal Lab Results - Last 24 Hours (Table) 10/07/22 10/07/22 10/07/22 Range/Units 05:02 05:02 05:10 Neutrophils # 8.2 H (1.3-7.7) k/uL Lymphocytes # 0.4 L (1.0-4.8) k/uL Glucose 151 H (74-99) mg/dL AST 43 H (14-36) U/L ALT 36 H (4-34) U/L Alkaline Phosphatase 218 H (38-126) U/L Urine Glucose (UA) 4+ H (Negative) Assessment and Plan Plan: Acute hypoxic respiratory failure, started on oxygen supplements Chest x-ray revealing pulmonary congestion will check echocardiogram and BNP and consult cardiology Underlying history of sarcoidosis with pulmonary and liver involvement, patient follows with Dr. Pappas as outpatient Underlying history of hypertension Underlying history of obstructive sleep apnea maintained on CPAP Underlying history of cardiac arrhythmia with permanent pacemaker placement Underlying history of depression with anxiety Underlying history of morbid obesity Underlying history of hypothyroidism Underlying history of [id number] diabetes mellitus Underlying history of gout At this time patient will be admitted to telemetry floor Home medications reviewed and reordered She was started on IV steroids in the emergency room She was given 1 dose of IV Rocephin and IV Zithromax in the emergency room, will check pro-calcitonin and assess need for continued IV antibiotics Chest x-ray revealing pulmonary congestion, will check echocardiogram and BNP, cardiology consultation requested
[2022-10-07] MEDS ORDERED: AZITHROMYCIN 500 MG in SODIUM CHLORIDE 0.9% 250 ML IVPB SCH (12:00)
[2022-10-07] MEDS ORDERED: FUROSEMIDE 10 MG/ML 4 ML VIAL IV STA (13:23)
--- NOTE | 2022-10-07 13:23 | P.CNPUL ---
History of Present Illness Consult date: 10/07/22 Requesting physician: Aivnash Alex Reason for consult: dyspnea Chief complaint: Shortness of breath, cough, congestion History of present illness: This is a pleasant 52-year-old female patient with a history of obesity, diabetes mellitus, gout, hyperlipidemia, depression, hypothyroidism, sarcoid osis. She follows with Dr. Pappas in our office. She is actually due to see him next week. She presented here to the emergency room with complaints of increasing shortness of breath, cough and congestion. Chest x-ray reveals some mild cardiomegaly. Mild pulmonary vascular congestion. Suggestive of congestive heart failure. White count 9.3. Hemoglobin 15.0. Sodium 137. Potassium 4.3. BUN 16. Creatinine 0.87. Glucose 151. AST 43. ALT 36. Troponin negative 1. Program BNP 288. Influenza screen negative. Coronavirus screen negative. She is seen today in the emergency department. Currently sitting up on the stretcher. Awake and alert in no acute distress. She is maintaining O2 saturations in the upper 90s on 2 L/m per nasal cannula. She is initiated on Symbicort, DuoNeb inhalations, IV Solu-Medrol. Empiric antibiotics in the form of ceftriaxone and azithromycin. Review of Systems REVIEW OF SYSTEMS: CONSTITUTIONAL: Denies any recent significant weight loss or weight gain. EYES: Denies change in vision. EARS, NOSE, MOUTH, THROAT: Denies headaches, denies sore throat. CARDIOVASCULAR: Denies chest pain, palpitations or syncopal episodes. RESPIRATORY: Positive for shortness of breath, cough, congestion no hemoptysis. GASTROINTESTINAL: Denies change in appetite, denies abdominal pain GENITOURINARY: Denies hematuria, denies infections. MUSKULOSKELETAL: Denies pain, denies swelling. INTEGUMENTARY: Denies rash, denies eczema. NEUROLOGICAL: Denies recent memory loss, no recent seizure activity. PSYCHIATRIC: Denies anxiety, denies depression. HEMATOLOGIC/LYMPHATIC: Denies anemia, denies enlarged lymph nodes. 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, obstructive sleep apnea maintained on CPAP therapy, morbid obesity, hypert ension History of Any Multi-Drug Resistant Organisms: None Reported Past Surgical History: Tonsillectomy Additional Past Surgical History / Comment(s): D&C, liver biopsy, LASER EYE SX Past Anesthesia/Blood Transfusion Reactions: No Reported Reaction Additional Past Anesthesia/Blood Transfusion Reaction / Comment(s): no past blood transfusion Type of Cardiac Device: Permanent Pacemaker Device Placement Date:: 04-16-17 Past Psychological History: Anxiety, Depression Smoking Status: Never smoker Past Alcohol Use History: None Reported - Past Family History Brother(s) Family Medical History: Cancer, Myocardial Infarction ([place]) Additional Family Medical History / Comment(s): oral cancer, CADIAC STENTS Father Family Medical History: No Reported History Mother Family Medical History: Coronary Artery Disease (CAD) Additional Family Medical History / Comment(s): CARDAIC STENTS Medications and Allergies Home Medications Medication Instructions Recorded Confirmed Type DULoxetine HCL [Cymbalta] 60 mg PO BID 11/10/16 10/07/22 History Albuterol Sulfate [Proair Hfa] 2 puff INHALATION RT-QID PRN 11/06/17 10/07/22 History Albuterol Nebulized [Ventolin 2.5 mg INHALATION RT-BID 01/01/20 10/07/22 History Nebulized] Furosemide [Lasix] 40 mg PO DAILY 01/01/20 10/07/22 History Hydroxychloroquine Sulfate 200 mg PO DAILY 01/01/20 10/07/22 History [Plaquenil] Potassium Citrate [Potassium 10 meq PO DAILY 01/01/20 10/07/22 History Citrate ER] allopurinoL [Zyloprim] 100 mg PO DAILY 01/01/20 10/07/22 History metFORMIN HCL [Glucophage] 1,000 mg PO BID 01/01/20 10/07/22 History predniSONE 5 mg PO Q2D 01/01/20 10/07/22 History Albuterol Inhaler [Ventolin Hfa 1 puff INHALATION RT-DAILY 10/07/22 10/07/22 H istory Inhaler] Cholecalciferol [Vitamin D3 (125 125 mcg PO DAILY 10/07/22 10/07/22 History Mcg = 5000 Iu)] Empagliflozin [Jardiance] 25 mg PO DAILY 10/07/22 10/07/22 History Levothyroxine Sodium 200 mcg PO DAILY 10/07/22 10/07/22 History Pravastatin Sodium [Pravachol] 20 mg PO DAILY 10/07/22 10/07/22 History busPIRone HCl [Buspar] 10 mg PO BID 10/07/22 10/07/22 History Allergies Allergy/AdvReac Type Severity Reaction Status Date / Time tramadol [From Ultram] Allergy Rash/Hives Verified 10/07/22 13:12 Physical Exam Vitals: Vital Signs Temp Pulse Resp BP Pulse Ox 10/07/22 11:58 100 10/07/22 11:45 96 10/07/22 09:23 95 18 154/86 97 10/07/22 08:37 104 H 10/07/22 08:27 100 10/07/22 07:01 99 F 78 18 168/91 90 L 10/07/22 06:00 87 L 10/07/22 05:03 101 F H 80 18 180/90 94 L Intake and Output 10/06/22 10/07/22 10/07/22 22:59 06:59 14:59 Other: Weight 149 kg GENERAL EXAM: Alert, obese, pleasant 52-year-old female, on 2 L nasal cannula, comfortable in no apparent distress. HEAD: Normocephalic. EYES: Normal reaction of pupils, equal size. NOSE: Clear with pink turbinates. THROAT: No erythema or exudates. NECK: No masses, no JVD. CHEST: No chest wall deformity. LUNGS: Equal air entry with few bilateral crackles. CVS: S1 and S2 normal with no audible murmur, regular rhythm. ABDOMEN: No hepatosplenomegaly, normal bowel sounds, no guarding or rigidity. SPINE: No scoliosis or deformity SKIN: No rashes CENTRAL NERVOUS SYSTEM: No focal deficits, tone is normal in all 4 extremities. EXTREMITIES: There is trace peripheral edema. No clubbing, no cyanosis. Peripheral pulses are intact. Results - Laboratory Findings CBC and BMP: 10/07/22 05:02 10/07/22 05:02 PT/INR, D-dimer PT 10.4 sec (9.0-12.0) 10/07/22 05:02 INR 1.0 (<1.2) 10/07/22 05:02 Abnormal lab findings: Abnormal Labs 10/07/22 10/07/22 10/07/22 05:02 05:02 05:10 Neutrophils # 8.2 H Lymphocytes # 0.4 L Glucose 151 H AST 43 H ALT 36 H Alkaline Phosphatase 218 H Urine Glucose (UA) 4+ H - Diagnostic Findings Chest x-ray: image reviewed Assessment and Plan Assessment: Acute hypoxemic respiratory failure secondary to suspected diastolic congestive heart failure and possible sarcoidosis History of pulmonary and hepatic sarcoidosis, maintained on Plaquenil and prednisone 5 mg every other day History of sick sinus syndrome with previous pacemaker implantation Hypertension GERD without esophagitis Hypothyroidism History of gout Obesity Diabetes mellitus History of depression Plan: The patient was seen and evaluated Chest x-ray, labs and medications reviewed Lasix 40 mg IVP 1 Continue antibiotics for now Check a pro-calcitonin Continue steroids and bronchodilators We'll continue to follow and make further recommendations based on her clinical status I have personally seen and examined the patient, performed the documentation and the assessment and plan as written. Number of minutes spent on the visit: 20.
[2022-10-07] MEDS: methylPREDNISolone SOD SUCCI 40 MG/ML 1 ML VIAL IV SCH ×2 (14:50→15:56)
[2022-10-07 20:16] LABS: Glucose,Whole Blood 194 mg/dL (70-110)
[2022-10-07] MEDS ORDERED: ACETAMINOPHEN TAB 325 MG TAB PO PRN (20:31)
[2022-10-07] MEDS: SYMBICORT 160-4.5 MCG INHALER INHALATION SCH ×2 (21:04→22:23)
[2022-10-07] MEDS: metFORMIN 500 MG TAB PO SCH (21:26)
[2022-10-07] MEDS: busPIRone HCl 10 MG TAB PO SCH (21:26)
[2022-10-07] MEDS: DULoxetine HCL 60 MG CAPSULE.DR PO SCH (21:27)
[2022-10-07] MEDS: INSULIN ASPART (NovoLOG) 100 UNIT/ML VIAL SQ SCH (21:32)
[2022-10-08] MEDS ORDERED: IPRATROPIUM-ALBUTEROL 3 ML NEB ONE (00:03)
[2022-10-08] MEDS: guaiFENesin SYRUP 100MG/5ML 200 MG/10 ML CUP PO PRN ×4 (00:09→20:46)
[2022-10-08] MEDS: methylPREDNISolone SOD SUCCI 40 MG/ML 1 ML VIAL IV SCH ×4 (00:09→23:55)
[2022-10-08] MEDS: IPRATROPIUM-ALBUTEROL 3 ML NEB INHALATION SCH ×6 (01:01→19:36)
[2022-10-08] MEDS: SODIUM CHLORIDE 0.9% 1,000 ML IV SCH ×3 (04:35→23:55)
[2022-10-08 06:05] LABS: Glucose,Whole Blood 166 mg/dL (70-110)
[2022-10-08] MEDS: LEVOTHYROXINE 100 MCG TAB PO SCH (06:40)
[2022-10-08] MEDS: metFORMIN 500 MG TAB PO SCH ×2 (06:40→17:24)
[2022-10-08] MEDS: INSULIN ASPART (NovoLOG) 100 UNIT/ML VIAL SQ SCH ×4 (06:40→20:45)
[2022-10-08] MEDS: SYMBICORT 160-4.5 MCG INHALER INHALATION SCH ×2 (07:21→19:36)
--- NOTE | 2022-10-08 07:39 | XR ---
EXAMINATION TYPE: XR chest 2V DATE OF EXAM: 10/08/2022 HISTORY: Shortness of breath. COMPARISON: 10/07/2022 TECHNIQUE: Single view of the chest is submitted. FINDINGS: Demonstrated are scattered senescent parenchymal change. There is continued cardiomegaly with pulmonary venous congestion. Borderline interstitial edema. Nathalia elate clinically. Hilar and mediastinal structures are within normal limits. Degenerative changes are seen of the dorsal spine. IMPRESSION: 1. There is continued cardiomegaly with pulmonary venous congestion. Borderline interstitial edema. Correlate clinically.
[2022-10-08] MEDS: ENOXAPARIN 40 MG/0.4 ML SYRINGE SQ SCH (07:54)
--- NOTE | 2022-10-08 07:54 | P.PN ---
Subjective Progress Note Date: 10/08/22 Quyen Gomez, is a 52-year-old female who presented to [facility] emergency room with a chief complaint of shortness of breath and cough She was evaluated in the emergency room vital examination on presentation revealed a temperature of 101 pulse 80 respiration 18 blood pressure 180/90 p ulse ox 94% on room air Laboratory data revealed a white blood count of 9.3 hemoglobin 15.0 platelet count 207 sodium 137 potassium 4.3 chloride 106 CO2 22 BUN 16 creatinine 0.87 AST 43 ALT 36 alkaline phosphatase 218 urine analysis was normal Fernandez virus PCR was negative, influenza A and B PCR were negative urine analysis did not reveal any evidence of urinary tract infection Testing in the emergency room revealed chest x-ray done in the emergency room revealed mild cardiomegaly with mild pulmonary congestion which is new for patient, EKG revealed electronic ventricular pacemaker Patient was admitted to medical floor for further evaluation and treatment On 10/08/2022 patient was seen and examined on the medical floor she is alert and oriented 3 in no apparent distress she is still complaining of shortness of breath cough and wheezing otherwise she denies any complaints is no fever or chills no headache or dizziness no chest pain no nausea or vomiting no abdominal pain no diarrhea no blood in the stools no burning with urination no frequency or urgency and no hematuria. Vital exam this morning reveals a temperature of 98.3 pulse 102 respiration 20 blood pressure 128/77 pulse ox 93% on 3 L nasal cannula labs are still pending. Objective - Vital Signs Vital signs: Vital Signs Temp 98.3 F 10/08/22 01:26 Pulse 80 10/08/22 07:23 Resp 20 10/08/22 01:26 BP 128/77 10/08/22 01:26 Pulse Ox 97 10/08/22 07:23 FiO2 Intake & Output 10/07/22 10/08/22 10/08/22 18:59 06:59 18:59 Intake Total 1080 Balance 1080 Weight 149 kg 154.2 kg Intake: Oral 1080 Other: Voiding Method Toilet # Voids 2 5 - Exam In general patient is alert and oriented x 3 in no distress HEENT head normocephalic and atraumatic Neck is supple no JVD no goiter no lymphadenopathy no carotid bruit Chest examination reveals a scattered crackles bilaterally with mild wheezing Cardiac exam reveals regular heart sounds S1 and S2 no gallops no murmurs Abdomen is soft nontender no organomegaly with normal bowel sounds Extremity exam reveals no edema no cyanosis or clubbing Neurological examination reveals no gross focal deficits - Labs CBC & Chem 7: 10/07/22 05:02 10/07/22 05:02 Labs: Abnormal Lab Results - Last 24 Hours (Table) 10/07/22 10/07/22 10/08/22 Range/Units 05:02 20:13 06:03 POC Glucose (mg/dL) 194 H 166 H (70-110) mg/dL Procalcitonin 0.16 H (0.02-0.09) ng/mL Assessment and Plan Plan: Acute hypoxic respiratory failure, started on oxygen supplements Chest x-ray revealing pulmonary congestion will check echocardiogram and BNP and consult cardiology Underlying history of sarcoidosis with pulmonary and liver involvement, patient follows with Dr. Pappas as outpatient Underlying history of hypertension Underlying history of obstructive sleep apnea maintained on CPAP Underlying history of cardiac arrhythmia with permanent pacemaker placement Underlying history of depression with anxiety Underlying history of morbid obesity Underlying history of hypothyroidism Underlying history of [id number] diabetes mellitus Underlying history of gout At this time patient will be admitted to telemetry floor Home medications reviewed and reordered She was started on IV steroids in the emergency room She was given 1 dose of IV Rocephin and IV Zithromax in the emergency room, will check pro-calcitonin and assess need for continued IV antibiotics Chest x-ray revealing pulmonary congestion, will check echocardiogram and BNP, cardiology consultation requested
[2022-10-08] MEDS: busPIRone HCl 10 MG TAB PO SCH ×2 (07:55→20:45)
[2022-10-08] MEDS: CHOLECALCIFEROL 125 MCG (5000 IU) TABLET PO SCH (07:55)
[2022-10-08] MEDS: HYDROXYCHLOROQUINE SULFATE 200 MG TAB PO SCH (07:55)
[2022-10-08] MEDS: DULoxetine HCL 60 MG CAPSULE.DR PO SCH ×2 (07:55→20:45)
[2022-10-08] MEDS: allopurinoL 100 MG TAB PO SCH (07:56)
[2022-10-08] MEDS: PRAVASTATIN SODIUM 20 MG TAB PO SCH (07:56)
[2022-10-08] MEDS: DAPAGLIFLOZIN PROPANEDIOL 10 MG TABLET PO SCH (07:56)
[2022-10-08] MEDS ORDERED: FUROSEMIDE 40 MG TAB PO SCH (09:00)
[2022-10-08] MEDS: POTASSIUM CITRATE 10 MEQ TABLET.ER PO SCH (09:54)
[2022-10-08] MEDS: AZITHROMYCIN 500 MG in SODIUM CHLORIDE 0.9% 250 ML IVPB SCH (09:59)
--- NOTE | 2022-10-08 10:47 | P.CRDCN ---
History of Present Illness Consult date: 10/08/22 Chief complaint: Shortness of breath History of present illness: The patient is a pleasant 52-year-old female patient with extensive medical hist ory consistent of morbid obesity and sleep apnea as well as history of sarcoidosis with pulmonary and cardiac involvement, as well as history of permanent pacemaker implantation, as well as hypertension and dyslipidemia. We requested to see the patient for further evaluation of shortness of breath. For the last few weeks the patient has been experiencing increasing in the shortness of breath. She does have baseline dyspnea but that has progressed over the last few weeks. No associated symptoms of chest pain or chest discomfort. No orthopnea. No PND. No lower extremity edema. No change in the weight . No symptoms of fever or chills. She has been experiencing cough and productive for any sputum. She has been also experiencing symptoms of wheezing. The patient underwent further investigation including the chest x-ray showed pulmonary vascular congestions. EKG showed sinus rhythm with sinus tachycardia when she presented to the hospital. First set of troponin came in to be unremarkable. We are in process of getting tow more sets of troponin to rule out acute coronary event. NT proBNP came in to be within normal limits. The patient was started on by mouth Lasix but she was given additional dose of Lasix IV yesterday. The patient is morbidly obese and is very difficult to assess for JVD. But she does have mild bilateral lower extremity edema noted on examination and also does have bilateral expiratory wheezing noted on examination as well. The most recent echo from 2017 showed normal biventricular systolic function and the study was technically very difficult. 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, obstructive sleep apnea maintained on CPAP therapy, morbid obesity, hypertension History of Any Multi-Drug Resistant Organisms: None Reported Past Surgical History: Tonsillectomy Additional Past Surgical History / Comment(s): D&C, liver biopsy, LASER EYE SX Past Anesthesia/Blood Transfusion Reactions: No Reported Reaction Additional Past Anesthesia/Blood Transfusion Reaction / Comment(s): no past blo od transfusion Type of Cardiac Device: Permanent Pacemaker Device Placement Date:: 04-16-17 Smoking Status: Never smoker - Past Family History Brother(s) Family Medical History: Cancer, Myocardial Infarction ([place]) Additional Family Medical History / Comment(s): oral cancer, CADIAC STENTS Father Family Medical History: No Reported History Mother Family Medical History: Coronary Artery Disease (CAD) Additional Family Medical History / Comment(s): CARDAIC STENTS Medications and Allergies Home Medications Medication Instructions Recorded Confirmed Type DULoxetine HCL [Cymbalta] 60 mg PO BID 11/10/16 10/07/22 History Albuterol Sulfate [Proair Hfa] 2 puff INHALATION RT-QID PRN 11/06/17 10/07/22 History Albuterol Nebulized [Ventolin 2.5 mg INHALATION RT-BID 01/01/20 10/07/22 History Nebulized] Furosemide [Lasix] 40 mg PO DAILY 01/01/20 10/07/22 History Hydroxychloroquine Sulfate 200 mg PO DAILY 01/01/20 10/07/22 History [Plaquenil] Potassium Citrate [Potassium 10 meq PO DAILY 01/01/20 10/07/22 History Citrate ER] allopurinoL [Zyloprim] 100 mg PO DAILY 01/01/20 10/07/22 History metFORMIN HCL [Glucophage] 1,000 mg PO BID 01/01/20 10/07/22 History predniSONE 5 mg PO Q2D 01/01/20 10/07/22 History Albuterol Inhaler [Ventolin Hfa 1 puff INHALATION RT-DAILY 10/07/22 10/07/22 History Inhaler] Cholecalciferol [Vitamin D3 (125 125 mcg PO DAILY 10/07/22 10/07/22 History Mcg = 5000 Iu)] Empagliflozin [Jardiance] 25 mg PO DAILY 10/07/22 10/07/22 History Levothyroxine Sodium 200 mcg PO DAILY 10/07/22 10/07/22 History Pravastatin Sodium [Pravachol] 20 mg PO DAILY 10/07/22 10/07/22 History busPIRone HCl [Buspar] 10 mg PO BID 10/07/22 10/07/22 History Allergies Allergy/AdvReac Type Severity Reaction Status Date / Time tramadol [From Ultram] Allergy Rash/Hives Verified 10/07/22 13:12 Physical Exam Vitals: Vital Signs Temp Pulse Pulse Resp BP BP Pulse Ox 10/08/22 08:00 98.6 F 62 20 137/68 93 L 10/08/22 07:35 88 10/08/22 07:23 80 97 10/08/22 04:29 104 H 10/08/22 04:19 100 10/08/22 01:26 98.3 F 102 H 20 128/77 93 L 10/08/22 01:13 100 10/08/22 01:01 100 96 10/07/22 21:11 100 10/07/22 21:00 94 94 L 10/07/22 19:45 20 10/07/22 19:44 147/96 10/07/22 16:05 98 10/07/22 15:51 98 10/07/22 14:00 98.4 F 97 20 147/87 93 L 10/07/22 13:24 81 17 123/73 95 10/07/22 11:58 100 10/07/22 11:45 96 Intake and Output 10/07/22 10/08/22 10/08/22 22:59 06:59 14:59 Intake Total 1080 Balance 1080 Intake: Oral 1080 Other: Voiding Method Toilet # Voids 2 5 Weight 154.2 kg - Constitutional General appearance: no acute distress - Respiratory Respiratory: bilateral: wheezing - Cardiovascular Rhythm: regular Heart sounds: normal: S1, S2 Abnormal Heart Sounds: systolic murmur Results 10/07/22 05:02 10/07/22 05:02 Current Medications Generic Name Dose Route Start Last Admin Trade Name Freq PRN Reason Stop Dose Admin Acetaminophen 650 mg 10/07/22 20:31 10/07/22 21:27 Acetaminophen Tab 325 Mg Tab PO 650 mg Q6HR PRN Administration Fever and/ or Pain Albuterol/Ipratropium 3 ml 10/07/22 08:00 10/08/22 07:21 Ipratropium-Albuterol 3 Ml Neb INHALATION 3 ml RT-Q4H NI Administration Allopurinol 100 mg 10/08/22 09:00 10/08/22 07:56 Allopurinol 100 Mg Tab PO 100 mg DAILY NI Administration Budesonide/Formoterol Fumarate 2 puff 10/07/22 20:00 10/08/22 07:21 Symbicort 160-4.5 Mcg Inhaler INHALATION 2 puff RT-BID NI Administration Buspirone HCl 10 mg 10/07/22 21:00 10/08/22 07:55 Buspirone Hcl 10 Mg Tab PO 10 mg BID NI Administration Cholecalciferol 125 mcg 10/08/22 09:00 10/08/22 07:55 Cholecalciferol 125 Mcg (5000 Iu) Tablet PO 125 mcg DAILY NI Administration Dapagliflozin 10 mg 10/08/22 09:00 10/08/22 07:56 Dapagliflozin Propanediol 10 Mg Tablet PO 10 mg DAILY NI Administration Duloxetine HCl 60 mg 10/07/22 21:00 10/08/22 07:55 Duloxetine Hcl 60 Mg Capsule.Dr PO 60 mg BID NI Administration Enoxaparin Sodium 40 mg 10/08/22 09:00 10/08/22 07:54 Enoxaparin 40 Mg/0.4 Ml Syringe SQ 40 mg DAILY NI Administration Furosemide 40 mg 10/08/22 09:00 10/08/22 07:55 Furosemide 40 Mg Tab PO 40 mg DAILY NI Administration Guaifenesin 200 mg 10/07/22 20:53 10/08/22 06:41 Guaifenesin Syrup 100mg/5ml 200 Mg/10 Ml Cup PO 200 mg Q6HR PRN Administration Cough Hydroxychloroquine Sulfate 200 mg 10/08/22 09:00 10/08/22 07:55 Hydroxychloroquine Sulfate 200 Mg Tab PO 200 mg DAILY NI Administration Sodium Chloride 1,000 mls @ 100 mls/hr 10/07/22 07:45 10/08/22 04:35 Saline 0.9% IV Not Given .Q10H NI Ceftriaxone Sodium 1 gm/ 50 mls @ 100 mls/hr 10/07/22 12:00 10/08/22 07:55 Sodium Chloride IVPB 100 mls/hr Q24HR NI Administration Protocol Azithromycin 500 mg/ Sodium 250 mls @ 250 mls/hr 10/08/22 09:00 10/08/22 09:59 Chloride IVPB 10/10/22 09:59 250 mls/hr DAILY NI Administration Protocol Insulin Aspart 0 unit 10/07/22 21:00 10/08/22 06:40 Insulin Aspart (Novolog) 100 Unit/Ml Vial SQ 2 unit ACHS NI Administration Protocol Levothyroxine Sodium 200 mcg 10/08/22 06:30 10/08/22 06:40 Levothyroxine 100 Mcg Tab PO 200 mcg DAILY@0630 NI Administration Metformin HCl 1,000 mg 10/07/22 21:00 10/08/22 06:40 Metformin 500 Mg Tab PO 1,000 mg BID-W/MEALS NI Administration Methylprednisolone Sodium Succinate 40 mg 10/07/22 14:00 10/08/22 07:25 Methylprednisolone Sod Succi 40 Mg/Ml 1 Ml Vial IV 40 mg Q8HR NI Administration Miscellaneous Information 1 each 10/07/22 07:31 Pneumonia Protocol Utilized 1 Each Misc PO ONCE PRN Per Protocol Potassium Citrate 10 meq 10/08/22 09:00 10/08/22 09:54 Potassium Citrate 10 Meq Tablet.Er PO 10 meq DAILY NI Administration Pravastatin Sodium 20 mg 10/08/22 09:00 10/08/22 07:56 Pravastatin Sodium 20 Mg Tab PO 20 mg DAILY NI Administration Intake and Output 10/07/22 10/08/22 10/08/22 22:59 06:59 14:59 Intake Total 1080 Balance 1080 Intake: Oral 1080 Other: Voiding Method Toilet # Voids 2 5 Weight 154.2 kg 10/07/22 05:02 10/07/22 05:02 Assessment and Plan Assessment: Assessment #1 acute hypoxic respiratory failure, etiology is likely to be multi-factorial and related to heart failure as well as morbid obesity as well as sarcoidosis #2 component of heart failure exacerbation likely related to heart failure with preserved ejection fraction #3 morbid obesity #4 history of pulmonary sarcoidosis #5 obstructive sleep apnea #6 permanent pacemaker #7 hypertension #8 multiple comorbid conditions Plan #1 I would suggest challenge the patient was Lasix IV and start her on 20 mg IV twice a day #2 consider proceeding with right heart catheterization if there is no improvement in her symptoms or deterioration in the renal function #3 continue monitor the kidney function and electrolytes #4 follow-up with the patient
[2022-10-08 11:23] LABS: Glucose,Whole Blood 197 mg/dL (70-110)
--- NOTE | 2022-10-08 13:43 | P.PN ---
Subjective Progress Note Date: 10/08/22 Principal diagnosis: Shortness of breath. This is a pleasant 52-year-old female patient with a history of obesity, diabetes mellitus, gout, hyperlipidemia, depression, hypothyroidism, sarcoidosis. She follows with Dr. Pappas in our office. She is actually due to see him next week. She presented here to the emergency room with complaints of increasing shortness of breath, cough and congestion. Chest x-ray reveals some mild cardiomegaly. Mild pulmonary vascular congestion. Suggestive of congestive heart failure. White count 9.3. Hemoglobin 15.0. Sodium 137. Potassium 4.3. BUN 16. Creatinine 0.87. Glucose 151. AST 43. ALT 36. Troponin negative 1. Program BNP 288. Influenza screen negative. Coronavirus screen negative. She is seen today in the emergency department. Currently sitting up on the stretcher. Awake and alert in no acute distress. She is maintaining O2 saturations in the upper 90s on 2 L/m per nasal cannula. She is initiated on Symbicort, DuoNeb inhalations, IV Solu-Medrol. Empiric antibiotics in the form of ceftriaxone and azithromycin. Progress note dated 10/08/2022. This is a patient that we initially saw in the emergency department. She is now seen in room 480. She's currently on 2 L of oxygen. She's getting saline at 20 mL an hour. Our impression was that she had shortness of breath and hypoxemic respiratory failure primarily related to diastolic CHF. She does have a substantial cardiac history, and has had a pacemaker implantation for sick sinus syndrome. She also has a history of sarcoidosis, and is seen by my partner, and is currently on Plaquenil and prednisone. She seemed to be resting comfortably. No acute distress today. No new labs today. X-rays have been reviewed. Objective - Vital Signs Vital signs: Vital Signs Temp 98.6 F 10/08/22 08:00 Pulse 86 10/08/22 11:58 Resp 20 10/08/22 08:00 BP 137/68 10/08/22 08:00 Pulse Ox 93 L 10/08/22 08:00 FiO2 Intake & Output 10/07/22 10/08/22 10/08/22 18:59 06:59 18:59 Intake Total 1080 Balance 1080 Weight 149 kg 154.2 kg Intake: Oral 1080 Other: Voiding Method Toilet # Voids 2 5 - Exam No acute distress, oriented 3. No respiratory distress. No audible wheezing or conversational dyspnea. The patient's currently on 2 L. HEENT examination is grossly unremarkable. Neck supple. Full range of motion. No adenopathy thyromegaly or neck vein distention. Cardiovascular examination reveals regular rhythm rate. S1-S2 normal. No S3 or S4. No discernible murmur noted. Heart rate 86 bpm. Lungs reveal scattered crackles and rhonchi. No wheezes. Breath sounds equal. 2 L saturation is 93%. Abdomen soft bowel sounds are heard. No masses or tenderness. Extremities are intact. No cyanosis or clubbing. Trace edema is appreciated. Skin is without rash or lesion. Neurologic examination is brief but nonfocal. - Labs CBC & Chem 7: 10/07/22 05:02 10/07/22 05:02 Labs: Abnormal Lab Results - Last 24 Hours (Table) 10/07/22 10/07/22 10/08/22 Range/Units 05:02 20:13 06:03 POC Glucose (mg/dL) 194 H 166 H (70-110) mg/dL Procalcitonin 0.16 H (0.02-0.09) ng/mL 10/08/22 Range/Units 11:22 POC Glucose (mg/dL) 197 H (70-110) mg/dL Procalcitonin (0.02-0.09) ng/mL Microbiology - Last 24 Hours (Table) 10/07/22 09:33 Blood Culture - Preliminary Blood No Growth after 24 hours 10/07/22 09:05 Blood Culture - Preliminary Blood No Growth after 24 hours Assessment and Plan Assessment: Acute hypoxemic respiratory failure secondary to suspected diastolic congestive heart failure. History of pulmonary and hepatic sarcoidosis, maintained on Plaquenil and prednisone 5 mg every other day. History of sick sinus syndrome with previous pacemaker implantation. Hypertension. GERD without esophagitis. Hypothyroidism. History of gout. Obesity. Diabetes mellitus. History of depression. Plan: Plan dated 10/08/2022. The patient appears to be doing better today. She is on 2 L. She did receive some Lasix IV push. Pro-calcitonin level is very minimally elevated at 0.16. Labs, x-rays, and medications are reviewed. The patient continues on antibiotics as per the emergency room physician. She is also on Symbicort, updrafts, and Solu-Medrol. Prognosis is guarded. We will continue to follow make recommendations along the way. Time with Patient: Less than 30
--- NOTE | 2022-10-08 15:07 | CA ---
Transthoracic Echo Report Name: Quyen Medina Age: 52 Gender: F : 1970 Exam Date: 10/07/2022 12:56 Exam Location: [facility] Ht (in): 63 Wt (lb): 328 Ordering Physician: Avinash Alex MD Attending/Referring Phys: Client Success Specialist Shabnam Graves, [place] Procedure CPT: Indications: SHORTNESS OF BREATH Cardiac Hx: Technical Quality: Very technically difficult study Contrast 1: Lumason Total Dose (mL): 4 Contrast 2: Total Dose (mL): MEASUREMENTS (Male / Female) Normal Values 2D ECHO LV Diastolic Diameter PLAX 4.2 cm 4.2 - 5.9 / 3.9 - 5.3 cm LV Systolic Diameter PLAX 2.7 cm IVS Diastolic Thickness 1.6 cm 0.6 - 1.0 / 0.6 - 0.9 cm LVPW Diastolic Thickness 1.6 cm 0.6 - 1.0 / 0.6 - 0.9 cm LV Relative Wall Thickness 0.7 LA Volume 48.2 cm??? 18 - 58 / 22 - 52 cm??? DOPPLER AV Peak Velocity 166.4 cm/s AV Peak Gradient 11.1 mmHg AV Mean Velocity 116.9 cm/s AV Mean Gradient 6.1 mmHg AV Velocity Time Integral 28.6 cm MV Area PHT 3.8 cm??? Mitral E Point Velocity 99.6 cm/s Mitral A Point Velocity 120.8 cm/s Mitral E to A Ratio 0.8 MV Deceleration Time 197.7 ms FINDINGS Left Ventricle Moderately increased left ventricular wall thickness. Mildly decreased systolic function, EF estimated at 50% Right Ventricle Right ventricle not well visualized. Right Atrium Right atrium not well visualized. Left Atrium Normal left atrial size. Mitral Valve No mitral stenosis, regurgitation or prolapse. Aortic Valve Aortic valve not well visualized. No aortic valve stenosis or regurgitation. Tricuspid Valve Tricuspid valve not well visualized. Pulmonic Valve Pulmonic valve not well visualized. Pericardium No pericardial effusion. Aorta Aortic root and proximal ascending aorta not well visualized. CONCLUSIONS Low normal left ventricular systolic function was EF of around 50% Previewed by: Dr. Neeraj Olsen MD (Electronically Signed) Final Date: 08 October 2022 15:06
[2022-10-08 16:39] LABS: Glucose,Whole Blood 168 mg/dL (70-110)
[2022-10-08] MEDS ORDERED: IPRATROPIUM-ALBUTEROL 3 ML NEB INHALATION PRN (19:40)
[2022-10-08 20:34] LABS: Glucose,Whole Blood 163 mg/dL (70-110)
[2022-10-08] MEDS: FUROSEMIDE 10 MG/ML 2 ML VIAL IV SCH (20:45)
[2022-10-09 06:30] LABS: Glucose,Whole Blood 169 mg/dL (70-110)
[2022-10-09] MEDS: guaiFENesin SYRUP 100MG/5ML 200 MG/10 ML CUP PO PRN (06:36)
[2022-10-09] MEDS: metFORMIN 500 MG TAB PO SCH ×2 (06:36→16:46)
[2022-10-09] MEDS: INSULIN ASPART (NovoLOG) 100 UNIT/ML VIAL SQ SCH ×4 (06:36→21:24)
[2022-10-09] MEDS: LEVOTHYROXINE 100 MCG TAB PO SCH (06:36)
[2022-10-09] MEDS: SYMBICORT 160-4.5 MCG INHALER INHALATION SCH ×2 (08:23→20:28)
[2022-10-09] MEDS: IPRATROPIUM-ALBUTEROL 3 ML NEB INHALATION SCH ×4 (08:24→20:28)
[2022-10-09] MEDS: DAPAGLIFLOZIN PROPANEDIOL 10 MG TABLET PO SCH (08:42)
[2022-10-09] MEDS: HYDROXYCHLOROQUINE SULFATE 200 MG TAB PO SCH (08:42)
[2022-10-09] MEDS: DULoxetine HCL 60 MG CAPSULE.DR PO SCH ×2 (08:42→21:24)
[2022-10-09] MEDS: PRAVASTATIN SODIUM 20 MG TAB PO SCH (08:42)
[2022-10-09] MEDS: POTASSIUM CITRATE 10 MEQ TABLET.ER PO SCH (08:42)
[2022-10-09] MEDS: allopurinoL 100 MG TAB PO SCH (08:42)
[2022-10-09] MEDS: CHOLECALCIFEROL 125 MCG (5000 IU) TABLET PO SCH (08:42)
[2022-10-09] MEDS: busPIRone HCl 10 MG TAB PO SCH ×2 (08:42→21:23)
[2022-10-09] MEDS: FUROSEMIDE 10 MG/ML 2 ML VIAL IV SCH ×2 (08:42→21:23)
[2022-10-09] MEDS: ENOXAPARIN 40 MG/0.4 ML SYRINGE SQ SCH (08:42)
[2022-10-09] MEDS: AZITHROMYCIN 500 MG in SODIUM CHLORIDE 0.9% 250 ML IVPB SCH (08:43)
[2022-10-09] MEDS: methylPREDNISolone SOD SUCCI 40 MG/ML 1 ML VIAL IV SCH ×3 (08:43→23:49)
[2022-10-09 08:59] LABS: African American GFR (CKD) 70.2 (60.0-200.0); Albumin 4.3 g/dL (3.8-4.9); Albumin/Globulin Ratio 1.65 (1.60-3.17); Anion Gap 14.2 mmol/L (10.00-18.00); BUN/Creat Ratio 22.48 Ratio (12.00-20.00); Blood Urea Nitrogen 23.6 mg/dL (9.0-27.0); Carbon Dioxide 26.6 mmol/L (20.0-27.5); Globulin 2.6 g/dL (1.6-3.3); Non-African American GFR(CKD) 60.6 (60.0-200.0); Potassium 4.6 mmol/L (3.5-5.5); Total Bilirubin 0.3 mg/dL (0.30-1.20); Total Protein 6.9 g/dL (6.2-8.2)
--- NOTE | 2022-10-09 09:05 | P.PN ---
Subjective Progress Note Date: 10/09/22 History of present illness: The patient is a pleasant 52-year-old female patient with extensive medical hi story consistent of morbid obesity and sleep apnea as well as history of sarcoidosis with pulmonary and cardiac involvement, as well as history of permanent pacemaker implantation, as well as hypertension and dyslipidemia. We requested to see the patient for further evaluation of shortness of breath. For the last few weeks the patient has been experiencing increasing in the shortness of breath. She does have baseline dyspnea but that has progressed over the last few weeks. No associated symptoms of chest pain or chest discomfort. No orthopnea. No PND. No lower extremity edema. No change in the weight . No symptoms of fever or chills. She has been experiencing cough and productive for any sputum. She has been also experiencing symptoms of wheezing. The patient underwent further investigation including the chest x-ray showed pulmonary vascular congestions. EKG showed sinus rhythm with sinus tachycardia when she presented to the hospital. First set of troponin came in to be unremarkable. We are in process of getting tow more sets of troponin to rule out acute coronary event. NT proBNP came in to be within normal limits. The patient was started on by mouth Lasix but she was given additional dose of Lasix IV yesterday. The patient is morbidly obese and is very difficult to assess for JVD. But she does have mild bilateral lower extremity edema noted on examination and also does have bilateral expiratory wheezing noted on examination as well. The most recent echo from 2017 showed normal biventricular systolic function and the study was technically very difficult. 10/09 Patient has been seen and examined. She denies having any chest pain at this time. She states her main symptom is cough. She does experience shortness of breath with activity. Patient is no longer on telemetry. Physical examination: Gen: This is a morbidly obese 52-year-old female. She is resting bed and appears to be comfortable. VS: Reviewed HEENT: Head is atraumatic, normocephalic. Sclerae is anicteric. LUNGS: Bilateral wheeze. No intercostal retractions. HEART: Regular rate and rhythm. Systolic murmur. ABDOMEN: Soft. Bowel sounds are present. No masses. No tenderness. EXTREMITIES: Mild bilateral pedal edema. No calf tenderness. NEUROLOGICAL: Patient is awake, alert and oriented x3. Cranial nerves 2 through 12 are grossly intact. Assessment: #1 acute hypoxic respiratory failure, etiology is likely to be multi-factorial and related to heart failure as well as morbid obesity as well as sarcoidosis #2 acute on chronic diastolic heart failure #3 morbid obesity #4 history of pulmonary sarcoidosis #5 obstructive sleep apnea #6 permanent pacemaker #7 hypertension #8 multiple comorbid conditions Plan #1 continue patient on Lasix IV 20 mg twice a day #2 no invasive procedure to be scheduled at this time #3 continue monitor the kidney function and electrolytes #4 follow-up with the patient Nurse practitioner note has been reviewed, I agree with documented findings and plan of care. Patient was seen and examined. Objective - Vital Signs Vital signs: Vital Signs Temp 98.2 F 10/09/22 01:29 Pulse 72 10/09/22 01:29 Resp 18 10/09/22 01:29 BP 153/83 10/09/22 01:29 Pulse Ox 96 10/09/22 01:29 FiO2 Intake & Output 10/08/22 10/09/22 10/09/22 18:59 06:59 18:59 Intake Total 1080 Balance 1080 Weight 153.5 kg Intake: Oral 1080 Other: Voiding Method Toilet # Voids 3 3 - Labs CBC & Chem 7: 10/07/22 05:02 10/09/22 05:16 Labs: Abnormal Lab Results - Last 24 Hours (Table) 10/08/22 10/08/22 10/08/22 Range/Units : 16:37 20:33 POC Glucose (mg/dL) 197 H 168 H 163 H (70-110) mg/dL 10/09/22 Range/Units 06:28 POC Glucose (mg/dL) 169 H (70-110) mg/dL Microbiology - Last 24 Hours (Table) 10/07/22 07:32 Sputum Culture - Preliminary Sputum 10/07/22 09:33 Blood Culture - Preliminary Blood No Growth after 24 hours 10/07/22 09:05 Blood Culture - Preliminary Blood No Growth after 24 hours
[2022-10-09 09:23] LABS: Basophils # (A) 0.02 X 10*3/uL (0.00-0.10); Basophils % (A) 0.1 %; Eosinophils # (A) 0 X 10*3/uL (0.04-0.35); Eosinophils % (A) 0 %; HGB 14.7 g/dL (12.0-15.0); Immature Grans, Automated 0.8 %; Lymphocytes # (A) 0.47 X 10*3/uL (0.90-5.00); Lymphocytes % (A) 3.4 %; MCH 29.5 pg (27.0-32.0); MCHC 31.3 g/dL (32.0-37.0); MCV 94.4 fL (80.0-97.0); Mean Platelet Volume 9.7 fL (9.5-12.2); Monocytes # (A) 0.78 X 10*3/uL (0.20-1.00); Monocytes % (A) 5.6 %; NRBC Per 100 WBC 0 /100 WBCS (0.0-0.0); Neutrophils # (A) 12.63 X 10*3/uL (1.80-7.70); Neutrophils % (A) 90.1 %; Platelet Count 246 X 10*3/uL (140-440); RBC 4.98 X 10*6/uL (4.10-5.20); RDW 15.2 % (11.5-14.5); WBC 14.01 X 10*3/uL (4.50-10.00)
[2022-10-09 11:29] LABS: Glucose,Whole Blood 184 mg/dL (70-110)
[2022-10-09 16:28] LABS: Glucose,Whole Blood 149 mg/dL (70-110)
--- NOTE | 2022-10-09 17:26 | P.PN ---
Subjective Progress Note Date: 10/09/22 Quyen Gomez, is a 52-year-old female who presented to [facility] emergency room with a chief complaint of shortness of breath and cough She was evaluated in the emergency room vital examination on presentation revealed a temperature of 101 pulse 80 respiration 18 blood pressure 180/90 p ulse ox 94% on room air Laboratory data revealed a white blood count of 9.3 hemoglobin 15.0 platelet count 207 sodium 137 potassium 4.3 chloride 106 CO2 22 BUN 16 creatinine 0.87 AST 43 ALT 36 alkaline phosphatase 218 urine analysis was normal Fernandez virus PCR was negative, influenza A and B PCR were negative urine analysis did not reveal any evidence of urinary tract infection Testing in the emergency room revealed chest x-ray done in the emergency room revealed mild cardiomegaly with mild pulmonary congestion which is new for patient, EKG revealed electronic ventricular pacemaker Patient was admitted to medical floor for further evaluation and treatment On 10/08/2022 patient was seen and examined on the medical floor she is alert and oriented 3 in no apparent distress she is still complaining of shortness of breath cough and wheezing otherwise she denies any complaints is no fever or chills no headache or dizziness no chest pain no nausea or vomiting no abdominal pain no diarrhea no blood in the stools no burning with urination no frequency or urgency and no hematuria. Vital exam this morning reveals a temperature of 98.3 pulse 102 respiration 20 blood pressure 128/77 pulse ox 93% on 3 L nasal cannula labs are still pending. On 10/09/2022 patient was seen and examined on the medical floor she is alert and oriented 3 in no apparent distress she is still complaining of shortness of breath cough and wheezing otherwise she denies any complaints is no fever or chills no headache or dizziness no chest pain no nausea or vomiting no abdominal pain no diarrhea no blood in the stools no burning with urination no frequency or urgency and no hematuria. Vital exam reveals a temperature of 98.2 pulse 98 respiration 18 blood pressure 157/92 pulse ox 94% on 3 L nasal cannula white blood count is 14 hemoglobin 14.7 platelet count 246 BUN 23 creatinine 1.1 blood culture 2 no growth so far sputum culture pending with rare gram-positive cocci Objective - Vital Signs Vital signs: Vital Signs Temp 98.2 F 10/09/22 14:00 Pulse 82 12/12/22 16:30 Resp 18 10/09/22 14:00 BP 157/92 10/09/22 14:00 Pulse Ox 94 L 10/09/22 14:00 FiO2 Intake & Output 10/08/22 10/09/22 10/09/22 18:59 06:59 18:59 Intake Total 1080 Balance 1080 Weight 153.5 kg Intake: Oral 1080 Other: Voiding Method Toilet Toilet # Voids 3 3 - Exam In general patient is alert and oriented x 3 in no distress HEENT head normocephalic and atraumatic Neck is supple no JVD no goiter no lymphadenopathy no carotid bruit Chest examination reveals a scattered crackles bilaterally with mild wheezing Cardiac exam reveals regular heart sounds S1 and S2 no gallops no murmurs Abdomen is soft nontender no organomegaly with normal bowel sounds Extremity exam reveals no edema no cyanosis or clubbing Neurological examination reveals no gross focal deficits - Labs CBC & Chem 7: 10/09/22 05:16 10/09/22 05:16 Labs: Abnormal Lab Results - Last 24 Hours (Table) 10/08/22 10/09/22 10/09/22 Range/Units 20:33 05:16 05:16 WBC 14.01 H (4.50-10.00) X 10*3/uL Hct 47.0 H (37.2-46.3) % MCHC 31.3 L (32.0-37.0) g/dL RDW 15.2 H (11.5-14.5) % Immature Gran # 0.11 H (0.00-0.04) X 10*3/uL Neutrophils # 12.63 H (1.80-7.70) X 10*3/uL Lymphocytes # 0.47 L (0.90-5.00) X 10*3/uL Eosinophils # 0 L (0.04-0.35) X 10*3/uL BUN/Creatinine Ratio 22.48 H (12.00-20.00) Ratio Glucose 154 H (70-110) mg/dL POC Glucose (mg/dL) 163 H (70-110) mg/dL AST 64 H (13-35) U/L Alkaline Phosphatase 207 H (41-126) U/L 10/09/22 10/09/22 10/09/22 Range/Units 06:28 11:28 16:26 WBC (4.50-10.00) X 10*3/uL Hct (37.2-46.3) % MCHC (32.0-37.0) g/dL RDW (11.5-14.5) % Immature Gran # (0.00-0.04) X 10*3/uL Neutrophils # (1.80-7.70) X 10*3/uL Lymphocytes # (0.90-5.00) X 10*3/uL Eosinophils # (0.04-0.35) X 10*3/uL BUN/Creatinine Ratio (12.00-20.00) Ratio Glucose (70-110) mg/dL POC Glucose (mg/dL) 169 H 184 H 149 H (70-110) mg/dL AST (13-35) U/L Alkaline Phosphatase (41-126) U/L Microbiology - Last 24 Hours (Table) 10/07/22 09:33 Blood Culture - Preliminary Blood No Growth after 48 hours 10/07/22 09:05 Blood Culture - Preliminary Blood No Growth after 48 hours 10/07/22 07:32 Gram Stain - Preliminary Sputum Sputum Culture - Preliminary Assessment and Plan Plan: Acute hypoxic respiratory failure, started on oxygen supplements Chest x-ray revealing pulmonary congestion will check echocardiogram and BNP and consult cardiology Underlying history of sarcoidosis with pulmonary and liver involvement, patient follows with Dr. Pappas as outpatient Underlying history of hypertension Underlying history of obstructive sleep apnea maintained on CPAP Underlying history of cardiac arrhythmia with permanent pacemaker placement Underlying history of depression with anxiety Underlying history of morbid obesity Underlying history of hypothyroidism Underlying history of [id number] diabetes mellitus Underlying history of gout At this time patient will be admitted to telemetry floor Home medications reviewed and reordered She was started on IV steroids in the emergency room She was given 1 dose of IV Rocephin and IV Zithromax in the emergency room, will check pro-calcitonin and assess need for continued IV antibiotics Chest x-ray revealing pulmonary congestion, will check echocardiogram and BNP, cardiology consultation requested
--- NOTE | 2022-10-09 19:26 | P.PN ---
Subjective Progress Note Date: 10/09/22 This is a pleasant 52-year-old female patient with a history of obesity, diabetes mellitus, gout, hyperlipidemia, depression, hypothyroidism, sarcoidosis. She follows with Dr. Pappas in our office. She is actually due to see him next week. She presented here to the emergency room with complaints of increasing shortness of breath, cough and congestion. Chest x-ray reveals some mild cardiomegaly. Mild pulmonary vascular congestion. Suggestive of congestive heart failure. White count 9.3. Hemoglobin 15.0. Sodium 137. Potassium 4.3. BUN 16. Creatinine 0.87. Glucose 151. AST 43. ALT 36. Troponin negative 1. Program BNP 288. Influenza screen negative. Coronavirus screen negative. She is seen today in the emergency department. Currently sitting up on the stretcher. Awake and alert in no acute distress. She is maintaining O2 saturations in the upper 90s on 2 L/m per nasal cannula. She is initiated on Symbicort, DuoNeb inhalations, IV Solu-Medrol. Empiric antibiotics in the form of ceftriaxone and azithromycin. Progress note dated 10/08/2022. This is a patient that we initially saw in the emergency department. She is now seen in room 480. She's currently on 2 L of oxygen. She's getting saline at 20 mL an hour. Our impression was that she had shortness of breath and hypoxemic respiratory failure primarily related to diastolic CHF. She does have a substantial cardiac history, and has had a pacemaker implantation for sick sinus syndrome. She also has a history of sarcoidosis, and is seen by my partner, and is currently on Plaquenil and prednisone. She seemed to be resting comfortably. No acute distress today. No new labs today. X-rays have been reviewed. On 10/09/2022, the patient has no compaints and she is improving and she is responding to the treatment. She has no chest pain and she is still on Rocephine and Zithromax and she is on Lasix IV q 12 hours and she is loosing weight and she is responding to diuretics. Labs, she'll a count of 14 with a hemoglobin of 14.7, normal electrolytes. Objective - Vital Signs Vital signs: Vital Signs Temp 98.2 F 10/09/22 14:00 Pulse 98 10/09/22 14:00 Resp 18 10/09/22 14:00 BP 157/92 10/09/22 14:00 Pulse Ox 94 L 10/09/22 14:00 FiO2 Intake & Output 10/08/22 10/09/22 10/09/22 18:59 06:59 18:59 Intake Total 1080 Balance 1080 Weight 153.5 kg Intake: Oral 1080 Other: Voiding Method Toilet Toilet # Voids 3 3 - Exam No acute distress, oriented 3. No respiratory distress. No audible wheezing or conversational dyspnea. The patient's currently on 2 L. HEENT examination is grossly unremarkable. Neck supple. Full range of motion. No adenopathy thyromegaly or neck vein distention. Cardiovascular examination reveals regular rhythm rate. S1-S2 normal. No S3 or S4. No discernible murmur noted. Lungs reveal scattered crackles and rhonchi. No wheezes. Breath sounds equal. Abdomen soft bowel sounds are heard. No masses or tenderness. Extremities are intact. No cyanosis or clubbing. Trace edema is appreciated. Skin is without rash or lesion. Neurologic examination is brief but nonfocal. - Labs CBC & Chem 7: 10/09/22 05:16 10/09/22 05:16 Labs: Abnormal Lab Results - Last 24 Hours (Table) 10/08/22 10/08/22 10/09/22 Range/Units 16:37 20:33 05:16 WBC 14.01 H (4.50-10.00) X 10*3/uL Hct 47.0 H (37.2-46.3) % MCHC 31.3 L (32.0-37.0) g/dL RDW 15.2 H (11.5-14.5) % Immature Gran # 0.11 H (0.00-0.04) X 10*3/uL Neutrophils # 12.63 H (1.80-7.70) X 10*3/uL Lymphocytes # 0.47 L (0.90-5.00) X 10*3/uL Eosinophils # 0 L (0.04-0.35) X 10*3/uL BUN/Creatinine Ratio (12.00-20.00) Ratio Glucose (70-110) mg/dL POC Glucose (mg/dL) 168 H 163 H (70-110) mg/dL AST (13-35) U/L Alkaline Phosphatase (41-126) U/L 10/09/22 10/09/22 10/09/22 Range/Units 05:16 06:28 11:28 WBC (4.50-10.00) X 10*3/uL Hct (37.2-46.3) % MCHC (32.0-37.0) g/dL RDW (11.5-14.5) % Immature Gran # (0.00-0.04) X 10*3/uL Neutrophils # (1.80-7.70) X 10*3/uL Lymphocytes # (0.90-5.00) X 10*3/uL Eosinophils # (0.04-0.35) X 10*3/uL BUN/Creatinine Ratio 22.48 H (12.00-20.00) Ratio Glucose 154 H (70-110) mg/dL POC Glucose (mg/dL) 169 H 184 H (70-110) mg/dL AST 64 H (13-35) U/L Alkaline Phosphatase 207 H (41-126) U/L Microbiology - Last 24 Hours (Table) 10/07/22 09:33 Blood Culture - Preliminary Blood No Growth after 48 hours 10/07/22 09:05 Blood Culture - Preliminary Blood No Growth after 48 hours 10/07/22 07:32 Gram Stain - Preliminary Sputum Sputum Culture - Preliminary Assessment and Plan Plan: Acute hypoxemic respiratory failure secondary to suspected diastolic congestive heart failure. History of pulmonary and hepatic sarcoidosis, maintained on Plaquenil and prednisone 5 mg every other day. History of sick sinus syndrome with previous pacemaker implantation. Hypertension. GERD without esophagitis. Hypothyroidism. History of gout. Obesity. Diabetes mellitus. History of depression. VISH and she has CPAP at home Plan: Continue the LAsix Continue the same antibiotics coverage monitor I/O and weight Continue IV Solumedrol and start tapering as of tomorrow will FU
[2022-10-09 19:46] LABS: Glucose,Whole Blood 161 mg/dL (70-110)
[2022-10-09] MEDS: SODIUM CHLORIDE 0.9% 1,000 ML IV SCH ×2 (21:23→23:48)
[2022-10-09] MEDS: guaiFENesin-DM 600/30MG 1 EACH TAB.ER.12H PO SCH (21:24)
[2022-10-10 06:01] LABS: Glucose,Whole Blood 138 mg/dL (70-110)
[2022-10-10] MEDS: SODIUM CHLORIDE 0.9% 1,000 ML IV SCH (06:20)
[2022-10-10] MEDS: INSULIN ASPART (NovoLOG) 100 UNIT/ML VIAL SQ SCH ×2 (06:20→11:49)
[2022-10-10] MEDS: LEVOTHYROXINE 100 MCG TAB PO SCH (06:44)
[2022-10-10] MEDS: metFORMIN 500 MG TAB PO SCH (06:44)
[2022-10-10] MEDS: PRAVASTATIN SODIUM 20 MG TAB PO SCH (07:30)
[2022-10-10] MEDS: DULoxetine HCL 60 MG CAPSULE.DR PO SCH (07:30)
[2022-10-10] MEDS: guaiFENesin-DM 600/30MG 1 EACH TAB.ER.12H PO SCH (07:30)
[2022-10-10] MEDS: allopurinoL 100 MG TAB PO SCH (07:30)
[2022-10-10] MEDS: busPIRone HCl 10 MG TAB PO SCH (07:30)
[2022-10-10] MEDS: ENOXAPARIN 40 MG/0.4 ML SYRINGE SQ SCH (07:30)
[2022-10-10] MEDS: HYDROXYCHLOROQUINE SULFATE 200 MG TAB PO SCH (07:30)
[2022-10-10] MEDS: CHOLECALCIFEROL 125 MCG (5000 IU) TABLET PO SCH (07:31)
[2022-10-10] MEDS: DAPAGLIFLOZIN PROPANEDIOL 10 MG TABLET PO SCH (07:31)
[2022-10-10] MEDS: POTASSIUM CITRATE 10 MEQ TABLET.ER PO SCH (07:31)
[2022-10-10 07:54] VITALS: RESP 20
[2022-10-10] MEDS: SYMBICORT 160-4.5 MCG INHALER INHALATION SCH (08:37)
[2022-10-10] MEDS: IPRATROPIUM-ALBUTEROL 3 ML NEB INHALATION SCH ×2 (08:37→12:08)
[2022-10-10] MEDS ORDERED: AZITHROMYCIN 500 MG TAB PO SCH (09:00)
[2022-10-10 09:07] LABS: Basophils % (A) 0 %; Eosinophils % (A) 0 %; HCT 45.6 % (34.0-46.0); HGB 14.8 gm/dL (11.4-16.0); Hypochromasia Slight; Lymphocytes # (A) 0.4 k/uL (1.0-4.8); Lymphocytes % (A) 4 %; MCH 30.2 pg (25.0-35.0); MCHC 32.4 g/dL (31.0-37.0); MCV 93.3 fL (80.0-100.0); Mean Platelet Volume 8.1; Monocytes # (A) 0.5 k/uL (0-1.0); Monocytes % (A) 4 %; Neutrophils # (A) 10.3 k/uL (1.3-7.7); Neutrophils % (A) 90 %; Platelet Count 222 k/uL (150-450); RBC 4.89 m/uL (3.80-5.40); RDW 14.1 % (11.5-15.5); WBC 11.4 k/uL (3.8-10.6)
[2022-10-10] MEDS: methylPREDNISolone SOD SUCCI 40 MG/ML 1 ML VIAL IV SCH (09:13)
[2022-10-10] MEDS: FUROSEMIDE 10 MG/ML 2 ML VIAL IV SCH (09:13)
[2022-10-10] MEDS ORDERED: LOSARTAN 25 MG TAB PO SCH (09:15)
[2022-10-10 10:49] LABS: African American GFR (CKD) 79.8 (60.0-200.0); Albumin 4.1 g/dL (3.8-4.9); Albumin/Globulin Ratio 1.57 (1.60-3.17); Anion Gap 13.6 mmol/L (10.00-18.00); BUN/Creat Ratio 27.2 Ratio (12.00-20.00); Blood Urea Nitrogen 25.7 mg/dL (9.0-27.0); Calcium 9.8 mg/dL (8.7-10.3); Carbon Dioxide 27.9 mmol/L (20.0-27.5); Globulin 2.6 g/dL (1.6-3.3); Non-African American GFR(CKD) 68.8 (60.0-200.0); Potassium 4.9 mmol/L (3.5-5.5); Total Bilirubin 0.3 mg/dL (0.30-1.20); Total Protein 6.8 g/dL (6.2-8.2)
[2022-10-10 11:27] LABS: Glucose,Whole Blood 150 mg/dL (70-110)
--- NOTE | 2022-10-10 11:53 | P.PN ---
Subjective Progress Note Date: 10/10/22 History of present illness: The patient is a pleasant 52-year-old female patient with extensive medical hi story consistent of morbid obesity and sleep apnea as well as history of sarcoidosis with pulmonary and cardiac involvement, as well as history of permanent pacemaker implantation, as well as hypertension and dyslipidemia. We requested to see the patient for further evaluation of shortness of breath. For the last few weeks the patient has been experiencing increasing in the shortness of breath. She does have baseline dyspnea but that has progressed over the last few weeks. No associated symptoms of chest pain or chest discomfort. No orthopnea. No PND. No lower extremity edema. No change in the weight . No symptoms of fever or chills. She has been experiencing cough and productive for any sputum. She has been also experiencing symptoms of wheezing. The patient underwent further investigation including the chest x-ray showed pulmonary vascular congestions. EKG showed sinus rhythm with sinus tachycardia when she presented to the hospital. First set of troponin came in to be unremarkable. We are in process of getting tow more sets of troponin to rule out acute coronary event. NT proBNP came in to be within normal limits. The patient was started on by mouth Lasix but she was given additional dose of Lasix IV yesterday. The patient is morbidly obese and is very difficult to assess for JVD. But she does have mild bilateral lower extremity edema noted on examination and also does have bilateral expiratory wheezing noted on examination as well. The most recent echo from 2016 showed normal biventricular systolic function and the study was technically very difficult. 10/09 Patient has been seen and examined. She denies having any chest pain at this time. She states her main symptom is cough. She does experience shortness of breath with activity. Patient is no longer on telemetry. 10/10 Patient states that her breathing status is stable today. She has been diuresing well on Lasix 20 mg IV every 12 hours. Blood pressure readings have been consistently elevated and losartan will be added to her medication regime. WBC 11.4, hemoglobin 14.8. CO2 27.9, other electrolytes and renal function within normal limits. Alkaline phosphatase 195. AST 58. Physical examination: Gen: This is a morbidly obese 52-year-old female. She is resting bed and appears to be comfortable. VS: Reviewed HEENT: Head is atraumatic, normocephalic. Sclerae is anicteric. LUNGS: Bilateral expiratory wheeze. No intercostal retractions. HEART: Regular rate and rhythm. Systolic murmur. ABDOMEN: Soft. Bowel sounds are present. No masses. No tenderness. EXTREMITIES: Mild bilateral pedal edema. No calf tenderness. NEUROLOGICAL: Patient is awake, alert and oriented x3. Cranial nerves 2 through 12 are grossly intact. Assessment: #1 acute hypoxic respiratory failure, etiology is likely to be multi-factorial and related to heart failure as well as morbid obesity as well as sarcoidosis #2 acute on chronic diastolic heart failure #3 morbid obesity #4 history of pulmonary sarcoidosis #5 obstructive sleep apnea #6 permanent pacemaker #7 hypertension #8 multiple comorbid conditions Plan #1 continue patient on Lasix but transitioned to oral 20 mg daily #2 and losartan 25 mg daily for blood pressure control #3 continue monitor the kidney function and electrolytes #4 follow-up with the patient Nurse practitioner note has been reviewed, I agree with documented findings and plan of care. Patient was seen and examined. Objective - Vital Signs Vital signs: Vital Signs Temp 98.0 F 10/10/22 07:53 Pulse 100 10/10/22 08:50 Resp 20 10/10/22 07:53 BP 161/91 10/10/22 07:53 Pulse Ox 96 10/10/22 08:38 FiO2 Intake & Output 10/09/22 10/10/22 10/10/22 18:59 06:59 18:59 Intake Total 590 Balance 590 Weight 153.8 kg Intake: Intake, IV Titration 590 Amount Azithromycin 500 mg In 250 Sodium Chloride 0.9% 250 ml @ 250 mls/hr IVPB DAILY NI Rx#:[id number] Sodium Chloride 0.9% 1, 240 000 ml @ 100 mls/hr IV . Q10H NI Rx#:[id number] cefTRIAXone 1 gm In 100 Sodium Chloride 0.9% 50 ml @ 100 mls/hr IVPB Q24HR NI Rx#:[id number] Other: Voiding Method Toilet Toilet # Voids 4 - Labs CBC & Chem 7: 10/10/22 07:45 10/10/22 07:45 Labs: Abnormal Lab Results - Last 24 Hours (Table) 10/09/22 10/09/22 10/09/22 Range/Units 05:16 11:28 16:26 WBC 14.01 H (4.50-10.00) X 10*3/uL Hct 47.0 H (37.2-46.3) % MCHC 31.3 L (32.0-37.0) g/dL RDW 15.2 H (11.5-14.5) % Immature Gran # 0.11 H (0.00-0.04) X 10*3/uL Neutrophils # 12.63 H (1.80-7.70) X 10*3/uL Lymphocytes # 0.47 L (0.90-5.00) X 10*3/uL Eosinophils # 0 L (0.04-0.35) X 10*3/uL POC Glucose (mg/dL) 184 H 149 H (70-110) mg/dL 10/09/22 10/10/22 Range/Units 19:45 06:00 WBC (4.50-10.00) X 10*3/uL Hct (37.2-46.3) % MCHC (32.0-37.0) g/dL RDW (11.5-14.5) % Immature Gran # (0.00-0.04) X 10*3/uL Neutrophils # (1.80-7.70) X 10*3/uL Lymphocytes # (0.90-5.00) X 10*3/uL Eosinophils # (0.04-0.35) X 10*3/uL POC Glucose (mg/dL) 161 H 138 H (70-110) mg/dL Microbiology - Last 24 Hours (Table) 10/07/22 09:33 Blood Culture - Preliminary Blood No Growth after 48 hours 10/07/22 09:05 Blood Culture - Preliminary Blood No Growth after 48 hours 10/07/22 07:32 Gram Stain - Preliminary Sputum Sputum Culture - Preliminary
--- NOTE | 2022-10-10 13:59 | P.PN ---
Subjective Progress Note Date: 10/10/22 This is a pleasant 52-year-old female patient with a history of obesity, diabetes mellitus, gout, hyperlipidemia, depression, hypothyroidism, sarcoidosis. She follows with Dr. Pappas in our office. She is actually due to see him next week. She presented here to the emergency room with complaints of increasing shortness of breath, cough and congestion. Chest x-ray reveals some mild cardiomegaly. Mild pulmonary vascular congestion. Suggestive of congestive heart failure. White count 9.3. Hemoglobin 15.0. Sodium 137. Potassium 4.3. BUN 16. Creatinine 0.87. Glucose 151. AST 43. ALT 36. T roponin negative 1. Program BNP 288. Influenza screen negative. Coronavirus screen negative. She is seen today in the emergency department. Currently sitting up on the stretcher. Awake and alert in no acute distress. She is maintaining O2 saturations in the upper 90s on 2 L/m per nasal cannula. She is initiated on Symbicort, DuoNeb inhalations, IV Solu-Medrol. Empiric antibiotics in the form of ceftriaxone and azithromycin. Progress note dated 10/08/2022. This is a patient that we initially saw in the emergency department. She is now seen in room 480. She's currently on 2 L of oxygen. She's getting saline at 20 mL an hour. Our impression was that she had shortness of breath and hypoxemic respiratory failure primarily related to diastolic CHF. She does have a substantial cardiac history, and has had a pacemaker implantation for sick sinus syndrome. She also has a history of sarcoidosis, and is seen by my partner, and is currently on Plaquenil and prednisone. She seemed to be resting comfortably. No acute distress today. No new labs today. X-rays have been reviewed. On 10/09/2022, the patient has no compaints and she is improving and she is responding to the treatment. She has no chest pain and she is still on Rocephine and Zithromax and she is on Lasix IV q 12 hours and she is loosing weight and she is responding to diuretics. Labs, she'll a count of 14 with a hemoglobin of 14.7, normal electrolytes. The patient is seen today 10/10/2022 in follow-up on the regular medical floor. She is currently sitting up in bed. Awake and alert in no acute distress. No worsening shortness of breath, cough or congestion. She is maintaining O2 saturations in the 90s on room air at rest. She desaturates to 86% with activity. Blood cultures reveal no growth. Sputum culture revealed no growth. White count 11.4. Hemoglobin 14.8. Sodium 141. Potassium 4.9. BUN 25. Creatinine 0.9. Glucose 140. AST 58. ALT 40. She is continued on Symbicort, DuoNeb inhalations, IV Solu-Medrol. Lovenox for DVT prophylaxis. Remains on diuretics. Objective - Vital Signs Vital signs: Vital Signs Temp 98.0 F 10/10/22 07:53 Pulse 108 H 10/10/22 12:18 Resp 20 10/10/22 07:53 BP 161/91 10/10/22 07:53 Pulse Ox 97 10/10/22 12:30 FiO2 Intake & Output 10/09/22 10/10/22 10/10/22 18:59 06:59 18:59 Intake Total 590 Balance 590 Weight 153.8 kg Intake: Intake, IV Titration 590 Amount Azithromycin 500 mg In 250 Sodium Chloride 0.9% 250 ml @ 250 mls/hr IVPB DAILY NI Rx#:[id number] Sodium Chloride 0.9% 1, 240 000 ml @ 100 mls/hr IV . Q10H NI Rx#:[id number] cefTRIAXone 1 gm In 100 Sodium Chloride 0.9% 50 ml @ 100 mls/hr IVPB Q24HR NI Rx#:[id number] Other: Voiding Method Toilet Toilet # Voids 4 - Exam GENERAL EXAM: Alert, pleasant 52-year-old female, on 2 L nasal cannula, comfortable in no apparent distress. HEAD: Normocephalic. EYES: Normal reaction of pupils, equal size. NOSE: Clear with pink turbinates. THROAT: No erythema or exudates. NECK: No masses, no JVD. CHEST: No chest wall deformity. LUNGS: Equal air entry with few scattered rhonchi. CVS: S1 and S2 normal with no audible murmur, regular rhythm. ABDOMEN: No hepatosplenomegaly, normal bowel sounds, no guarding or rigidity. SPINE: No scoliosis or deformity SKIN: No rashes CENTRAL NERVOUS SYSTEM: No focal deficits, tone is normal in all 4 extremities. EXTREMITIES: There is no peripheral edema. No clubbing, no cyanosis. Coleen pheral pulses are intact. - Labs CBC & Chem 7: 10/10/22 07:45 10/10/22 07:45 Labs: Abnormal Lab Results - Last 24 Hours (Table) 10/09/22 10/09/22 10/10/22 Range/Units 16:26 19:45 06:00 WBC (3.8-10.6) k/uL Neutrophils # (1.3-7.7) k/uL Lymphocytes # (1.0-4.8) k/uL Carbon Dioxide (20.0-27.5) mmol/L BUN/Creatinine Ratio (12.00-20.00) Ratio Glucose (70-110) mg/dL POC Glucose (mg/dL) 149 H 161 H 138 H (70-110) mg/dL AST (13-35) U/L Alkaline Phosphatase (41-126) U/L Albumin/Globulin Ratio (1.60-3.17) g/dL 10/10/22 10/10/22 10/10/22 Range/Units 07:45 07:45 11:26 WBC 11.4 H (3.8-10.6) k/uL Neutrophils # 10.3 H (1.3-7.7) k/uL Lymphocytes # 0.4 L (1.0-4.8) k/uL Carbon Dioxide 27.9 H (20.0-27.5) mmol/L BUN/Creatinine Ratio 27.20 H (12.00-20.00) Ratio Glucose 140 H (70-110) mg/dL POC Glucose (mg/dL) 150 H (70-110) mg/dL AST 58 H (13-35) U/L Alkaline Phosphatase 195 H (41-126) U/L Albumin/Globulin Ratio 1.57 L (1.60-3.17) g/dL Microbiology - Last 24 Hours (Table) 10/07/22 07:32 Gram Stain - Final Sputum Sputum Culture - Final 10/07/22 09:05 Blood Culture - Preliminary Blood No Growth after 72 hours 10/07/22 09:33 Blood Culture - Preliminary Blood No Growth after 72 hours Assessment and Plan Assessment: Acute hypoxemic respiratory failure secondary to suspected diastolic congestive heart failure and possible sarcoidosis History of pulmonary and hepatic sarcoidosis, maintained on Plaquenil and prednisone 5 mg every other day History of sick sinus syndrome with previous pacemaker implantation Hypertension GERD without esophagitis Hypothyroidism History of gout Obesity Diabetes mellitus History of depression Plan: The patient was seen and evaluated Labs and medications reviewed Cleared for discharge from the pulmonary standpoint Transitioned to oral prednisone, continue bronchodilators Complete a course of antibiotics Follow up in the office in 1 week I have personally seen and examined the patient, performed the documentation and the assessment and plan as written. Number of minutes spent on the visit: 10. Joint evaluation that was done along with the nurse practitioner. Again the above-mentioned plan. Evaluation was done in more than 10 minutes . The patient is clinically improving. Switch this patient to a prednisone burst taper the patient can be potentially discharged home today.
[2022-10-10 14:33] VITALS: BP 160/97; PULSE 104; TEMP 98.2
[2022-10-10] MEDS ORDERED: FUROSEMIDE 20 MG TAB PO SCH (16:00)
[2022-10-11] MEDS ORDERED: predniSONE 20 MG TAB PO SCH (09:00)
--- NOTE | 2022-10-18 10:42 | P.DS ---
Providers Date of admission: 10/07/22 07:32 Expected date of discharge: 10/10/22 Attending physician: Avinash Alex Consults: 10/07/22 07:31 Consult Physician Stat Consulting Provider: Sunil Wilkerson Consult Reason/Comments: acute hypoxic resp failure, CAP, sarcoid Do you want consulting provider notified?: Yes 10/07/22 11:37 Consult Physician Routine Consulting Provider: Neeraj Olsen Consult Reason/Comments: Shortness of breath Do you want consulting provider notified?: Yes Primary care physician: Avinash Alex [facility] Course: Discharge diagnosis Acute hypoxic respiratory failure, started on oxygen supplements Chest x-ray revealing pulmonary congestion will check echocardiogram and BNP and consult cardiology Underlying history of sarcoidosis with pulmonary and liver involvement, patient follows with Dr. Pappas as outpatient Underlying history of hypertension Underlying history of obstructive sleep apnea maintained on CPAP Underlying history of cardiac arrhythmia with permanent pacemaker placement Underlying history of depression with anxiety Underlying history of morbid obesity Underlying history of hypothyroidism Underlying history of [id number]-[id number] diabetes mellitus Underlying history of gout Hospital course Quyen Gomez, is a 52-year-old female who presented to [facility] emergency room with a chief complaint of shortness of breath and cough She was evaluated in the emergency room vital examination on presentation revealed a temperature of 101 pulse 80 respiration 18 blood pressure 180/90 pulse ox 94% on room air Laboratory data revealed a white blood count of 9.3 hemoglobin 15.0 platelet count 207 sodium 137 potassium 4.3 chloride 106 CO2 22 BUN 16 creatinine 0.87 AST 43 ALT 36 alkaline phosphatase 218 urine analysis was normal Fernandez virus PCR was negative, influenza A and B PCR were negative urine analysis did not reveal any evidence of urinary tract infection Testing in the emergency room revealed chest x-ray done in the emergency room revealed mild cardiomegaly with mild pulmonary congestion which is new for patient, EKG revealed electronic ventricular pacemaker Patient was admitted to medical floor for further evaluation and treatment On 10/08/2022 patient was seen and examined on the medical floor she is alert and oriented 3 in no apparent distress she is still complaining of shortness of breath cough and wheezing otherwise she denies any complaints is no fever or chills no headache or dizziness no chest pain no nausea or vomiting no abdominal pain no diarrhea no blood in the stools no burning with urination no frequency or urgency and no hematuria. Vital exam this morning reveals a temperature of 98.3 pulse 102 respiration 20 blood pressure 128/77 pulse ox 93% on 3 L nasal cannula labs are still pending. On 10/09/2022 patient was seen and examined on the medical floor she is alert and oriented 3 in no apparent distress she is still complaining of shortness of breath cough and wheezing otherwise she denies any complaints is no fever or chills no headache or dizziness no chest pain no nausea or vomiting no abdominal pain no diarrhea no blood in the stools no burning with urination no frequency or urgency and no hematuria. Vital exam reveals a temperature of 98.2 pulse 98 respiration 18 blood pressure 157/92 pulse ox 94% on 3 L nasal cannula white blood count is 14 hemoglobin 14.7 platelet count 246 BUN 23 creatinine 1.1 blood culture 2 no growth so far sputum culture pending with rare gram-positive cocci on 10/10/2022 patient has been cleared by pulmonary services recommend discharge on oral prednisone and bronchodilators. Patient was discharged on oral antibiotics and prednisone taper is to follow-up with PCP and pulmonary services outpatient Patient Condition at Discharge: Stable Plan - Discharge Summary New Discharge Prescriptions: New Losartan [Cozaar] 25 mg PO DAILY tab Budesonide-Formot 160-4.5 Mcg [Symbicort 160-4.5 Mcg Inhaler] 2 puff INHALATION RT-BID each Continue DULoxetine HCL [Cymbalta] 60 mg PO BID Albuterol Sulfate [Proair Hfa] 2 puff INHALATION RT-QID PRN PRN Reason: Shortness Of Breath Furosemide [Lasix] 40 mg PO DAILY metFORMIN HCL [Glucophage] 1,000 mg PO BID Hydroxychloroquine Sulfate [Plaquenil] 200 mg PO DAILY allopurinoL [Zyloprim] 100 mg PO DAILY Potassium Citrate [Potassium Citrate ER] 10 meq PO DAILY Albuterol Nebulized [Ventolin Nebulized] 2.5 mg INHALATION RT-BID Empagliflozin [Jardiance] 25 mg PO DAILY Albuterol Inhaler [Ventolin Hfa Inhaler] 1 puff INHALATION RT-DAILY busPIRone HCl [Buspar] 10 mg PO BID Pravastatin Sodium [Pravachol] 20 mg PO DAILY Levothyroxine Sodium 200 mcg PO DAILY Cholecalciferol [Vitamin D3 (125 Mcg = 5000 Iu)] 125 mcg PO DAILY Discontinued predniSONE 5 mg PO Q2D No Action predniSONE See Taper PO DAILY Cefdinir 300 mg PO Q12H Discharge Medication List DULoxetine HCL [Cymbalta] 60 mg PO BID 11/10/16 [History] Albuterol Sulfate [Proair Hfa] 2 puff INHALATION RT-QID PRN 11/06/17 [History] Albuterol Nebulized [Ventolin Nebulized] 2.5 mg INHALATION RT-BID 01/01/20 [History] Furosemide [Lasix] 40 mg PO DAILY 01/01/20 [History] Hydroxychloroquine Sulfate [Plaquenil] 200 mg PO DAILY 01/01/20 [History] Potassium Citrate [Potassium Citrate ER] 10 meq PO DAILY 01/01/20 [History] allopurinoL [Zyloprim] 100 mg PO DAILY 01/01/20 [History] metFORMIN HCL [Glucophage] 1,000 mg PO BID 01/01/20 [History] Albuterol Inhaler [Ventolin Hfa Inhaler] 1 puff INHALATION RT-DAILY 10/07/22 [History] Cholecalciferol [Vitamin D3 (125 Mcg = 5000 Iu)] 125 mcg PO DAILY 10/07/22 [History] Empagliflozin [Jardiance] 25 mg PO DAILY 10/07/22 [History] Levothyroxine Sodium 200 mcg PO DAILY 10/07/22 [History] Pravastatin Sodium [Pravachol] 20 mg PO DAILY 10/07/22 [History] busPIRone HCl [Buspar] 10 mg PO BID 10/07/22 [History] Budesonide-Formot 160-4.5 Mcg [Symbicort 160-4.5 Mcg Inhaler] 2 puff INHALATION RT-BID each 10/10/22 [Rx] Losartan [Cozaar] 25 mg PO DAILY tab 10/10/22 [Rx] Cefdinir 300 mg PO Q12H 10/13/22 [History] predniSONE See Taper PO DAILY 10/13/22 [History] Follow up Appointment(s)/Referral(s): Juice Pappas MD [STAFF PHYSICIAN] - 10/24/22 9:30 am [facility] [NON-STAFF] - As Needed (oxygen) vAinash Alex MD [Primary Care Provider] - 10/12/22 2:15 pm Patient Instructions/Handouts: Community Acquired Pneumonia (DC)
== END 2022-10-10 15:30 | disposition home or self-care (01) | DRG 291 ==
LOC: EC 04:34 → 4SSUR 07:32
PROVIDERS: ADMIT Internal Medicine; ATTEND Internal Medicine
DX: I11.0 Hypertensive heart disease with heart failure (principal); I50.33 Acute on chronic diastolic (congestive) heart failure; J96.01 Acute respiratory failure with hypoxia; Z68.44 Body mass index [BMI] 60.0-69.9, adult; E11.9 Type 2 diabetes mellitus without complications; E66.01 Morbid (severe) obesity due to excess calories; F32.A Depression, unspecified; E03.9 Hypothyroidism, unspecified; I49.5 Sick sinus syndrome; G47.33 Obstructive sleep apnea (adult) (pediatric); D86.89 Sarcoidosis of other sites; D86.0 Sarcoidosis of lung; E78.5 Hyperlipidemia, unspecified; F41.9 Anxiety disorder, unspecified; M10.9 Gout, unspecified; K21.9 Gastro-esophageal reflux disease without esophagitis; M79.89 Other specified soft tissue disorders; R01.1 Cardiac murmur, unspecified; Z20.822 Contact with and (suspected) exposure to COVID-19; Z28.310 Unvaccinated for COVID-19; Z95.0 Presence of cardiac pacemaker; Z79.899 Other long term (current) drug therapy; Z79.51 Long term (current) use of inhaled steroids; Z79.84 Long term (current) use of oral hypoglycemic drugs; Z79.890 Hormone replacement therapy; Z79.52 Long term (current) use of systemic steroids; Z88.5 Allergy status to narcotic agent; Z87.01 Personal history of pneumonia (recurrent)
CPT/HCPCS: 36415; 71046; 80053; 81003; 83605; 83735; 83880; 84145; 84484; 85025; 85610; 85730; 87040; 87070; 87205; 87502; 87635; 93005; 93306; 94640; 94760; 96361; 96365; 96366; 96367; 96375; 99285

== ENCOUNTER 2022-10-13 10:46 | Inpatient (IN) | payer MEDICARE, OTHER ==
[2022-10-13 11:31] LABS: Basophils % (A) 1 %; Eosinophils % (A) 1 %; HCT 48.8 % (34.0-46.0); Lymphocytes # (A) 0.5 k/uL (1.0-4.8); Lymphocytes % (A) 9 %; MCH 29.9 pg (25.0-35.0); MCHC 32.9 g/dL (31.0-37.0); MCV 90.9 fL (80.0-100.0); Mean Platelet Volume 7.9; Monocytes # (A) 0.2 k/uL (0-1.0); Monocytes % (A) 3 %; Neutrophils # (A) 4.9 k/uL (1.3-7.7); Neutrophils % (A) 85 %; Platelet Count 194 k/uL (150-450); RBC 5.37 m/uL (3.80-5.40); RDW 13.3 % (11.5-15.5); WBC 5.7 k/uL (3.8-10.6)
--- NOTE | 2022-10-13 11:43 | XR ---
EXAMINATION TYPE: XR chest 2V DATE OF EXAM: 10/13/2022 COMPARISON: Chest x-ray 5 days ago HISTORY: Difficulty in breathing. TECHNIQUE: Frontal and lateral views of the chest are obtained. FINDINGS: Persistent cardiomegaly with dual lead pacemaker/defibrillator. [id number] central v ascular congestion and interstitial edema is redemonstrated. Finding slightly more prominent versus prior especially on lateral view. No focal pleural effusion or pneumothorax. The osseous structures a re intact. IMPRESSION: Findings consistent with CHF exacerbation slightly more prominent from most recent study . Correlate clinically.
[2022-10-13 11:50] LABS: ALT 66 U/L (4-34); AST 91 U/L (14-36); African American GFR (CKD) >90 (>60 ml/min/1.73 sqM); Albumin 3.6 g/dL (3.5-5.0); Alkaline Phosphatase 274 U/L (38-126); Anion Gap 7 mmol/L; Blood Urea Nitrogen 16 mg/dL (7-17); Calcium 8.6 mg/dL (8.4-10.2); Carbon Dioxide 32 mmol/L (22-30); Chloride 98 mmol/L (98-107); Glucose 126 mg/dL (74-99); Non-African American GFR(CKD) 88 (>60 ml/min/1.73 sqM); Potassium 4.4 mmol/L (3.5-5.1); Sodium 137 mmol/L (137-145); Total Bilirubin 0.8 mg/dL (0.2-1.3); Total Protein 6.6 g/dL (6.3-8.2)
[2022-10-13 12:00] LABS: INR 0.9 (<1.2); Partial Thromboplastin Time 25.2 sec (22.0-30.0); Prothrombin Time 10.1 sec (9.0-12.0)
[2022-10-13] MEDS ORDERED: IPRATROPIUM-ALBUTEROL 3 ML NEB INHALATION STA (13:30)
--- NOTE | 2022-10-13 13:35 | ED ---
SOB HPI - General Chief Complaint: Shortness of Breath Stated Complaint: FREDDIE Time Seen by Provider: 10/13/22 10:55 Source: EMS Mode of arrival: EMS Limitations: no limitations - History of Present Illness Initial Comments: 52-year-old female with past history of sarcoidosis with pulmonary and liver involvement, hypertension, diabetes who presents to the emergency room with worsening shortness of breath. Patient wears 3 L of oxygen at home. Was recen tly hospitalized from October 07 through the for shortness of breath activated to community acquired pneumonia, sarcoid and congestive heart failure. She was discharged home on antibiotics and steroids. Patient took her last dose of antibiotics this morning. States that since she has been home she has been unable to eat, drink. She has low-grade fevers and a nonproductive cough. She has been using her nebulizer with only minimal improvement in her symptoms. Continues to take the steroid. Has not had possible follow-up yet. Denies diarrhea. No chest pain. Denies any increase in her lower extremity swelling. When she gets up to ambulate her pulse ox has dropped to 88%. She denies vomiting. Admits nausea. No abdominal pain. No diarrhea. No other alleviating, precipitating or modifying factors - Related Data Home Medications Medication Instructions Recorded Confirmed DULoxetine HCL [Cymbalta] 60 mg PO BID 11/10/16 10/13/22 Albuterol Sulfate [Proair Hfa] 2 puff INHALATION RT-QID PRN 11/06/17 10/13/22 Albuterol Nebulized [Ventolin 2.5 mg INHALATION RT-BID 01/01/20 10/13/22 Nebulized] Furosemide [Lasix] 40 mg PO DAILY 01/01/20 10/13/22 Hydroxychloroquine Sulfate 200 mg PO DAILY 01/01/20 10/13/22 [Plaquenil] Potassium Citrate [Potassium 10 meq PO DAILY 01/01/20 10/13/22 Citrate ER] allopurinoL [Zyloprim] 100 mg PO DAILY 01/01/20 10/13/22 metFORMIN HCL [Glucophage] 1,000 mg PO BID 01/01/20 10/13/22 Albuterol Inhaler [Ventolin Hfa 1 puff INHALATION RT-DAILY 10/07/22 10/13/22 Inhaler] Cholecalciferol [Vitamin D3 (125 125 mcg PO DAILY 10/07/22 10/13/22 Mcg = 5000 Iu)] Empagliflozin [Jardiance] 25 mg PO DAILY 10/07/22 10/13/22 Levothyroxine Sodium 200 mcg PO DAILY 10/07/22 10/13/22 Pravastatin Sodium [Pravachol] 20 mg PO DAILY 10/07/22 10/13/22 busPIRone HCl [Buspar] 10 mg PO BID 10/07/22 10/13/22 Cefdinir 300 mg PO Q12H 10/13/22 10/13/22 predniSONE See Taper PO DAILY 10/13/22 10/13/22 Previous Rx's Medication Instructions Recorded Budesonide-Formot 160-4.5 Mcg 2 puff INHALATION RT-BID each 10/10/22 [Symbicort 160-4.5 Mcg Inhaler] Losartan [Cozaar] 25 mg PO DAILY tab 10/10/22 Allergies Allergy/AdvReac Type Severity Reaction Status Date / Time tramadol [From Ultram] Allergy Rash/Hives Verified 10/13/22 12:02 Review of Systems ROS Statement: Those systems with pertinent positive or pertinent negative responses have been documented in the HPI. ROS Other: All systems not noted in ROS Statement are negative. 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, obstructive sleep apnea maintained on CPAP therapy, morbid obesity, hypertension History of Any Multi-Drug Resistant Organisms: None Reported Past Surgical History: Tonsillectomy Additional Past Surgical History / Comment(s): D&C, liver biopsy, LASER EYE SX Past Anesthesia/Blood Transfusion Reactions: No Reported Reaction Additional Past Anesthesia/Blood Transfusion Reaction / Comment(s): no past blood transfusion Type of Cardiac Device: Permanent Pacemaker Device Placement Date:: 04-16-17 Past Psychological History: Anxiety, Depression Smoking Status: Never smoker Past Alcohol Use History: None Reported Past Drug Use History: None Reported - Past Family History Brother(s) Family Medical History: Cancer, Myocardial Infarction ([place]) Additional Family Medical History / Comment(s): oral cancer, CADIAC STENTS Father Family Medical History: No Reported History Mother Family Medical History: Coronary Artery Disease (CAD) Additional Family Medical History / Comment(s): CARDAIC STENTS General Exam Limitations: no limitations General appearance: alert, in no apparent distress Head exam: Present: atraumatic, normocephalic, normal inspection Eye exam: Present: normal appearance, PERRL, EOMI. Absent: scleral icterus, conjunctival injection, periorbital swelling ENT exam: Present: normal exam, mucous membranes moist Neck exam: Present: normal inspection. Absent: tenderness, meningismus, lymphadenopathy Respiratory exam: Present: respiratory distress, wheezes, accessory muscle use, other (tachypnia). Absent: rales, rhonchi, stridor Cardiovascular Exam: Present: normal rhythm, tachycardia, normal heart sounds. Absent: systolic murmur, diastolic murmur, rubs, gallop, clicks GI/Abdominal exam: Present: soft, normal bowel sounds. Absent: distended, tenderness, guarding, rebound, rigid Extremities exam: Present: normal inspection, full ROM, normal capillary refill. Absent: tenderness, pedal edema, joint swelling, calf tenderness Back exam: Present: normal inspection Neurological exam: Present: alert, oriented X3, CN II-XII intact Psychiatric exam: Present: normal affect, normal mood Skin exam: Present: warm, dry, intact, normal color. Absent: rash Course Vital Signs 10/13/22 10/13/22 10/13/22 10:50 11:21 13:57 Temperature 99.3 F Pulse Rate 102 H 94 Respiratory 32 H 36 H Rate Blood Pressure 144/82 O2 Sat by Pulse 94 L Oximetry 10/13/22 10/13/22 10/13/22 14:06 14:55 16:05 Temperature Pulse Rate 90 91 90 Respiratory 20 Rate Blood Pressure 132/92 O2 Sat by Pulse 91 L Oximetry 10/13/22 10/13/22 16:15 16:17 Temperature Pulse Rate 96 91 Respiratory 20 Rate Blood Pressure 126/84 O2 Sat by Pulse 96 Oximetry Medical Decision Making - Medical Decision Making Upon arrival patient was placed into room 8. A thorough history and physical exam was performed. She had been given an albuterol breathing treatment by EMS. IV was established. Laboratory studies are conducted and reviewed. Patient is swabbed for influenza and Covid. Patient is cold with positive at this time. She did receive additional DuoNeb breathing treatments here. We'll admit the patient's with pulmonary consultation. Spoke with Dr. Alex who agreed to admit the patient - Lab Data Result diagrams: 10/17/22 05:25 10/17/22 05:25 Lab Results 10/13/22 10/13/22 10/13/22 Range/Units 11:11 11:11 11:11 WBC 5.7 (3.8-10.6) k/uL RBC 5.37 (3.80-5.40) m/uL Hgb 16.0 (11.4-16.0) gm/dL Hct 48.8 H (34.0-46.0) % MCV 90.9 (80.0-100.0) fL MCH 29.9 (25.0-35.0) pg MCHC 32.9 (31.0-37.0) g/dL RDW 13.3 (11.5-15.5) % Plt Count 194 (150-450) k/uL MPV 7.9 Neutrophils % 85 % Lymphocytes % 9 % Monocytes % 3 % Eosinophils % 1 % Basophils % 1 % Neutrophils # 4.9 (1.3-7.7) k/uL Lymphocytes # 0.5 L (1.0-4.8) k/uL Monocytes # 0.2 (0-1.0) k/uL Eosinophils # 0.0 (0-0.7) k/uL Basophils # 0.0 (0-0.2) k/uL PT 10.1 (9.0-12.0) sec INR 0.9 (<1.2) APTT 25.2 (22.0-30.0) sec Sodium 137 (137-145) mmol/L Potassium 4.4 (3.5-5.1) mmol/L Chloride 98 (98-107) mmol/L Carbon Dioxide 32 H (22-30) mmol/L Anion Gap 7 mmol/L BUN 16 (7-17) mg/dL Creatinine 0.77 (0.52-1.04) mg/dL Est GFR (CKD-EPI)AfAm >90 (>60 ml/min/1.73 sqM) Est GFR (CKD-EPI)NonAf 88 (>60 ml/min/1.73 sqM) Glucose 126 H (74-99) mg/dL Plasma Lactic Acid Alejandro (0.7-2.0) mmol/L Calcium 8.6 (8.4-10.2) mg/dL Total Bilirubin 0.8 (0.2-1.3) mg/dL AST 91 H (14-36) U/L ALT 66 H (4-34) U/L Alkaline Phosphatase 274 H (38-126) U/L Troponin I (0.000-0.034) ng/mL NT-Pro-B Natriuret Pep pg/mL Total Protein 6.6 (6.3-8.2) g/dL Albumin 3.6 (3.5-5.0) g/dL Coronavirus (PCR) (Not Detectd) Influenza Type A RNA (Not Detectd) Influenza Type B (PCR) (Not Detectd) 10/13/22 10/13/22 10/13/22 Range/Units 11:11 11:11 11:20 WBC (3.8-10.6) k/uL RBC (3.80-5.40) m/uL Hgb (11.4-16.0) gm/dL Hct (34.0-46.0) % MCV (80.0-100.0) fL MCH (25.0-35.0) pg MCHC (31.0-37.0) g/dL RDW (11.5-15.5) % Plt Count (150-450) k/uL MPV Neutrophils % % Lymphocytes % % Monocytes % % Eosinophils % % Basophils % % Neutrophils # (1.3-7.7) k/uL Lymphocytes # (1.0-4.8) k/uL Monocytes # (0-1.0) k/uL Eosinophils # (0-0.7) k/uL Basophils # (0-0.2) k/uL PT (9.0-12.0) sec INR (<1.2) APTT (22.0-30.0) sec Sodium (137-145) mmol/L Potassium (3.5-5.1) mmol/L Chloride (98-107) mmol/L Carbon Dioxide (22-30) mmol/L Anion Gap mmol/L BUN (7-17) mg/dL Creatinine (0.52-1.04) mg/dL Est GFR (CKD-EPI)AfAm (>60 ml/min/1.73 sqM) Est GFR (CKD-EPI)NonAf (>60 ml/min/1.73 sqM) Glucose (74-99) mg/dL Plasma Lactic Acid Alejandro (0.7-2.0) mmol/L Calcium (8.4-10.2) mg/dL Total Bilirubin (0.2-1.3) mg/dL AST (14-36) U/L ALT (4-34) U/L Alkaline Phosphatase (38-126) U/L Troponin I 0.016 (0.000-0.034) ng/mL NT-Pro-B Natriuret Pep 568 pg/mL Total Protein (6.3-8.2) g/dL Albumin (3.5-5.0) g/dL Coronavirus (PCR) (Not Detectd) Influenza Type A RNA Detected H (Not Detectd) Influenza Type B (PCR) Not Detected (Not Detectd) 10/13/22 10/13/22 Range/Units 11:59 12:15 WBC (3.8-10.6) k/uL RBC (3.80-5.40) m/uL Hgb (11.4-16.0) gm/dL Hct (34.0-46.0) % MCV (80.0-100.0) fL MCH (25.0-35.0) pg MCHC (31.0-37.0) g/dL RDW (11.5-15.5) % Plt Count (150-450) k/uL MPV Neutrophils % % Lymphocytes % % Monocytes % % Eosinophils % % Basophils % % Neutrophils # (1.3-7.7) k/uL Lymphocytes # (1.0-4.8) k/uL Monocytes # (0-1.0) k/uL Eosinophils # (0-0.7) k/uL Basophils # (0-0.2) k/uL PT (9.0-12.0) sec INR (<1.2) APTT (22.0-30.0) sec Sodium (137-145) mmol/L Potassium (3.5-5.1) mmol/L Chloride (98-107) mmol/L Carbon Dioxide (22-30) mmol/L Anion Gap mmol/L BUN (7-17) mg/dL Creatinine (0.52-1.04) mg/dL Est GFR (CKD-EPI)AfAm (>60 ml/min/1.73 sqM) Est GFR (CKD-EPI)NonAf (>60 ml/min/1.73 sqM) Glucose (74-99) mg/dL Plasma Lactic Acid Alejandro 1.4 (0.7-2.0) mmol/L Calcium (8.4-10.2) mg/dL Total Bilirubin (0.2-1.3) mg/dL AST (14-36) U/L ALT (4-34) U/L Alkaline Phosphatase (38-126) U/L Troponin I (0.000-0.034) ng/mL NT-Pro-B Natriuret Pep pg/mL Total Protein (6.3-8.2) g/dL Albumin (3.5-5.0) g/dL Coronavirus (PCR) Not Detected (Not Detectd) Influenza Type A RNA (Not Detectd) Influenza Type B (PCR) (Not Detectd) Disposition Clinical Impression: Hypoxia, Influenza A, Sarcoidosis of lung Disposition: ADMITTED IP TO THIS [facility] Condition: Stable Is patient prescribed a controlled substance at d/c from ED?: No Time of Disposition: 13:35 Decision to Admit Reason: Admit from EC Decision Date: 10/13/22 Decision Time: 13:35
[2022-10-13] MEDS ORDERED: ONDANSETRON 4 MG/2 ML VIAL IVP PRN (13:39)
[2022-10-13] MEDS ORDERED: NALOXONE 0.4 MG/ML 1 ML VIAL IV PRN (13:39)
[2022-10-13] MEDS ORDERED: ACETAMINOPHEN TAB 325 MG TAB PO PRN (13:39)
[2022-10-13] MEDS: SODIUM CHLORIDE 0.9% 1,000 ML IV SCH (15:19)
[2022-10-13] MEDS: OSELTAMIVIR 75 MG CAP PO SCH ×2 (15:19→20:31)
[2022-10-13] MEDS: IPRATROPIUM-ALBUTEROL 3 ML NEB INHALATION SCH ×4 (15:43→19:16)
--- NOTE | 2022-10-13 15:43 | P.CNPUL ---
History of Present Illness Consult date: 10/13/22 History of present illness: A 52-year-old female patient, morbidly obese with history of pulmonary and hepatic sarcoidosis admitted on a combination of Plaquenil and low-dose steroids, coming in emergency department today after being discharged from the hospital for decompensated heart failure and diastolic heart failure. The patient was released from the hospital on 10/10/2022 and 3 days following her discharge, the patient comes back with symptoms ofCough, congestion, tiredness, fatigue, body aches, nausea and the patient was also hypoxic. No emesis. No abdominal pain. No diarrhea. She tested positive for influenza A in the emergency department. She was admitted to the hospital accordinglyAs the patient was also getting progressively more short of breath. The Dilaudid because of 5.7 with a hemoglobin of 16 and a platelet count of 194. Normal cognition profile. Normal electrolytes. AST is 91, ALT 66, alk phos is 274, influenza A is positive and Covid 19 testing is negative. Chest x-ray showing increased interstitial markings bilaterally. There is cardiomegaly. There is also a there was lead pacemaker in place. The troponins are negative. Pro-BNP level is 568. Review of Systems CONSTITUTIONAL: Denies any recent significant weight loss or weight gain. EYES: Denies change in vision. EARS, NOSE, MOUTH, THROAT: Denies headaches, denies sore throat. CARDIOVASCULAR: Denies chest pain, palpitations or syncopal episodes. RESPIRATORY: Positive for shortness of breath, cough, congestion no hemoptysis. GASTROINTESTINAL: Denies change in appetite, denies abdominal pain GENITOURINARY: Denies hematuria, denies infections. MUSKULOSKELETAL: Denies pain, denies swelling. INTEGUMENTARY: Denies rash, denies eczema. NEUROLOGICAL: Denies recent memory loss, no recent seizure activity. PSYCHIATRIC: Denies anxiety, denies depression. HEMATOLOGIC/LYMPHATIC: Denies anemia, denies enlarged lymph nodes. 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, obstructive sleep apnea maintained on CPAP therapy, morbid obesity, hypertension History of Any Multi-Drug Resistant Organisms: None Reported Past Surgical History: Tonsillectomy Additional Past Surgical History / Comment(s): D&C, liver biopsy, LASER EYE SX Past Anesthesia/Blood Transfusion Reactions: No Reported Reaction Additional Past Anesthesia/Blood Transfusion Reaction / Comment(s): no past blood transfusion Type of Cardiac Device: Permanent Pacemaker Device Placement Date:: 04-16-17 Past Psychological History: Anxiety, Depression Smoking Status: Never smoker Past Alcohol Use History: None Reported Past Drug Use History: None Reported - Past Family History Brother(s) Family Medical History: Cancer, Myocardial Infarction ([place]) Additional Family Medical History / Comment(s): oral cancer, CADIAC STENTS Father Family Medical History: No Reported History Mother Family Medical History: Coronary Artery Disease (CAD) Additional Family Medical History / Comment(s): CARDAIC STENTS Medications and Allergies Home Medications Medication Instructions Recorded Confirmed Type DULoxetine HCL [Cymbalta] 60 mg PO BID 11/10/16 10/13/22 History Albuterol Sulfate [Proair Hfa] 2 puff INHALATION RT-QID PRN 11/06/17 10/13/22 History Albuterol Nebulized [Ventolin 2.5 mg INHALATION RT-BID 01/01/20 10/13/22 History Nebulized] Furosemide [Lasix] 40 mg PO DAILY 01/01/20 10/13/22 History Hydroxychloroquine Sulfate 200 mg PO DAILY 01/01/20 10/13/22 History [Plaquenil] Potassium Citrate [Potassium 10 meq PO DAILY 01/01/20 10/13/22 History Citrate ER] allopurinoL [Zyloprim] 100 mg PO DAILY 01/01/20 10/13/22 History metFORMIN HCL [Glucophage] 1,000 mg PO BID 01/01/20 10/13/22 History Albuterol Inhaler [Ventolin Hfa 1 puff INHALATION RT-DAILY 10/07/22 10/13/22 History Inhaler] Cholecalciferol [Vitamin D3 (125 125 mcg PO DAILY 10/07/22 10/13/22 History Mcg = 5000 Iu)] Empagliflozin [Jardiance] 25 mg PO DAILY 10/07/22 10/13/22 History Levothyroxine Sodium 200 mcg PO DAILY 10/07/22 10/13/22 History Pravastatin Sodium [Pravachol] 20 mg PO DAILY 10/07/22 10/13/22 History busPIRone HCl [Buspar] 10 mg PO BID 10/07/22 10/13/22 History Budesonide-Formot 160-4.5 Mcg 2 puff INHALATION RT-BID each 10/10/22 10/13/22 Rx [Symbicort 160-4.5 Mcg Inhaler] Losartan [Cozaar] 25 mg PO DAILY tab 10/10/22 10/13/22 Rx Cefdinir 300 mg PO Q12H 10/13/22 10/13/22 History predniSONE See Taper PO DAILY 10/13/22 10/13/22 History Allergies Allergy/AdvReac Type Severity Reaction Status Date / Time tramadol [From Ultra] Allergy Rash/Hives Verified 10/13/22 12:02 Physical Exam Vitals: Vital Signs Temp Pulse Resp BP Pulse Ox 10/13/22 14:06 90 10/13/22 13:57 94 10/13/22 11:21 36 H 10/13/22 10:50 99.3 F 102 H 32 H 144/82 94 L Intake and Output 10/12/22 10/13/22 10/13/22 22:59 06:59 14:59 Other: Weight 158.757 kg GENERAL EXAM: Alert, obese, pleasant 52-year-old female, on 2 L nasal cannula, comfortable in no apparent distress. HEAD: Normocephalic. EYES: Normal reaction of pupils, equal size. NOSE: Clear with pink turbinates. THROAT: No erythema or exudates. NECK: No masses, no JVD. CHEST: No chest wall deformity. LUNGS: Equal air entry with few bilateral crackles.diminished breath sounds along with wheezes during exhalation bilaterally CVS: S1 and S2 normal with no audible murmur, regular rhythm. ABDOMEN: No hepatosplenomegaly, normal bowel sounds, no guarding or rigidity. SPINE: No scoliosis or deformity SKIN: No rashes CENTRAL NERVOUS SYSTEM: No focal deficits, tone is normal in all 4 extremities. EXTREMITIES: There is trace peripheral edema. No clubbing, no cyanosis. Peripheral pulses are intact. Results - Laboratory Findings CBC and BMP: 10/13/22 11:11 10/13/22 11:11 PT/INR, D-dimer PT 10.1 sec (9.0-12.0) 10/13/22 11:11 INR 0.9 (<1.2) 10/13/22 11:11 Abnormal lab findings: Abnormal Labs 10/13/22 10/13/22 10/13/22 11:11 11:11 11:20 Hct 48.8 H Lymphocytes # 0.5 L Carbon Dioxide 32 H Glucose 126 H AST 91 H ALT 66 H Alkaline Phosphatase 274 H Influenza Type A RNA Detected H - Diagnostic Findings Chest x-ray: image reviewed Assessment and Plan Plan: acute influenza A infection, symptomatic Acute hypoxic respiratory failure currently on 2 L of oxygen by nasal cannula Diastolic congestive heart failure. Echo of the heart from 10/07/2022 showed a preserved LV function with an EF of around 50% History of pulmonary and hepatic sarcoidosis, maintained on Plaquenil and prednisone 5 mg every other day. History of sick sinus syndrome with previous pacemaker implantation. Hypertension. GERD without esophagitis. Hypothyroidism. History of gout. Obesity. Diabetes mellitus. History of depression. VISH and she has CPAP at home Plan: DuoNeb nebulized treatments 4 times a day Tamiflu 75 mg by mouth twice a day IV Solu-Medrol 40 mg every 8 hours Gentle fluid hydration with normal saline at rate of 75 mL an hour Resume all medications Titrate oxygen flow to maintain a saturation above 90% Mady the patient to utilize her CPAP from home We'll continue to follow
[2022-10-13] MEDS: methylPREDNISolone SOD SUCCI 40 MG/ML 1 ML VIAL IV SCH ×2 (16:50→23:15)
[2022-10-13] MEDS: DAPAGLIFLOZIN PROPANEDIOL 10 MG TABLET PO SCH (16:51)
[2022-10-13 16:55] LABS: Glucose,Whole Blood 147 mg/dL (70-110)
[2022-10-13] MEDS: SYMBICORT 160-4.5 MCG INHALER INHALATION SCH (19:02)
[2022-10-13] MEDS ORDERED: IPRATROPIUM-ALBUTEROL 3 ML NEB INHALATION PRN (19:09)
[2022-10-13] MEDS: busPIRone HCl 10 MG TAB PO SCH (20:15)
[2022-10-13] MEDS: DULoxetine HCL 60 MG CAPSULE.DR PO SCH (20:16)
[2022-10-14] MEDS: SODIUM CHLORIDE 0.9% 1,000 ML IV SCH ×2 (04:17→06:20)
[2022-10-14] MEDS: LEVOTHYROXINE 100 MCG TAB PO SCH (06:20)
[2022-10-14] MEDS: DULoxetine HCL 60 MG CAPSULE.DR PO SCH ×2 (08:35→20:39)
[2022-10-14] MEDS: busPIRone HCl 10 MG TAB PO SCH ×2 (08:35→20:39)
[2022-10-14] MEDS: methylPREDNISolone SOD SUCCI 40 MG/ML 1 ML VIAL IV SCH ×2 (08:35→17:00)
[2022-10-14] MEDS: HYDROXYCHLOROQUINE SULFATE 200 MG TAB PO SCH (08:35)
[2022-10-14] MEDS: FUROSEMIDE 40 MG TAB PO SCH (08:35)
[2022-10-14] MEDS: PRAVASTATIN SODIUM 20 MG TAB PO SCH (08:35)
[2022-10-14] MEDS: allopurinoL 100 MG TAB PO SCH (08:35)
[2022-10-14] MEDS: LOSARTAN 25 MG TAB PO SCH (08:35)
[2022-10-14] MEDS: DAPAGLIFLOZIN PROPANEDIOL 10 MG TABLET PO SCH (08:35)
[2022-10-14] MEDS: OSELTAMIVIR 75 MG CAP PO SCH ×2 (08:35→20:43)
[2022-10-14] MEDS: SYMBICORT 160-4.5 MCG INHALER INHALATION SCH ×2 (08:39→19:30)
[2022-10-14] MEDS: IPRATROPIUM-ALBUTEROL 3 ML NEB INHALATION SCH ×4 (08:39→19:30)
[2022-10-14 11:52] LABS: Basophils # (A) 0.01 X 10*3/uL (0.00-0.10); Basophils % (A) 0.2 %; Eosinophils # (A) 0 X 10*3/uL (0.04-0.35); Eosinophils % (A) 0 %; HCT 46.9 % (37.2-46.3); HGB 14.4 g/dL (12.0-15.0); Immature Grans, Automated 1.2 %; Lymphocytes # (A) 0.48 X 10*3/uL (0.90-5.00); Lymphocytes % (A) 11.8 %; MCH 29.1 pg (27.0-32.0); MCHC 30.7 g/dL (32.0-37.0); MCV 94.7 fL (80.0-97.0); Mean Platelet Volume 10.1 fL (9.5-12.2); Monocytes # (A) 0.15 X 10*3/uL (0.20-1.00); Monocytes % (A) 3.7 %; NRBC Per 100 WBC 0 /100 WBCS (0.0-0.0); Neutrophils # (A) 3.37 X 10*3/uL (1.80-7.70); Neutrophils % (A) 83.1 %; Platelet Count 180 X 10*3/uL (140-440); RBC 4.95 X 10*6/uL (4.10-5.20); RDW 14.3 % (11.5-14.5); WBC 4.06 X 10*3/uL (4.50-10.00)
[2022-10-14 12:15] LABS: Anion Gap 12.3 mmol/L (10.00-18.00); BUN/Creat Ratio 19.52 Ratio (12.00-20.00); Blood Urea Nitrogen 16.1 mg/dL (9.0-27.0); Calcium 8.6 mg/dL (8.7-10.3); Non-African American GFR(CKD) 81.1 (60.0-200.0); Potassium 4.5 mmol/L (3.5-5.5)
[2022-10-14] MEDS ORDERED: ALBUTEROL HFA INHALER INHALATION PRN (12:59)
--- NOTE | 2022-10-14 15:20 | P.HPIM ---
History of Present Illness H&P Date: 10/14/22 Quyen Medina, 52-year-old female who presented to [facility] emergency room with a chief complaint of worsening shortness of breath, patient has a known history of sarcoidosis she was recently admitted to [facility] and received a course of steroids and was discharged home she returns was worsening shortness of breath, low-grade fever, and cough. She was evaluated in the emergency room vital examination on presentation revealed a temperature of 99.3 pulse 102 respiration 32 blood pressure 144/82 pulse ox 94% on 3 L nasal cannula Laboratory data revealed a white blood count of 5.7 hemoglobin 16.0 platelet count 194 BUN 16 creatinine 0.77 CO2 32 AST 91 ALT 66 alkaline phosphatase 274 influenza A PCR was positive Testing in the emergency room revealed chest x-ray done in the emergency room revealed central vascular congestion and interstitial edema Patient was admitted to medical floor for further evaluation and treatment 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, obstructive sleep apnea maintained on CPAP therapy, morbid obesity, hypertension, recently put on home oxygen at 3L History of Any Multi-Drug Resistant Organisms: None Reported Past Surgical History: Tonsillectomy Additional Past Surgical History / Comment(s): D&C, liver biopsy, LASER EYE SX Past Anesthesia/Blood Transfusion Reactions: No Reported Reaction Additional Past Anesthesia/Blood Transfusion Reaction / Comment(s): no past blood transfusion Type of Cardiac Device: Permanent Pacemaker Device Placement Date:: 04-16-17 Past Psychological History: Anxiety, Depression Additional Psychological History / Comment(s): PT LIVES IN A SINGLE LEVEL HOME THAT HAS 4 FRONT STEPS. LIVES WITH A FRIEND. PETS: 1 DOG. NO HOMECARE SERVICES RECEIVED. HAS A CPAP AND NEBULIZER. Smoking Status: Never smoker Past Alcohol Use History: None Reported Past Drug Use History: None Reported - Past Family History Brother(s) Family Medical History: Cancer, Myocardial Infarction ([place]) Additional Family Medical History / Comment(s): oral cancer, CADIAC STENTS Father Family Medical History: No Reported History Mother Family Medical History: Coronary Artery Disease (CAD) Additional Family Medical History / Comment(s): CARDAIC STENTS Medications and Allergies Home Medications Medication Instructions Recorded Confirmed Type DULoxetine HCL [Cymbalta] 60 mg PO BID 11/10/16 10/13/22 History Albuterol Sulfate [Proair Hfa] 2 puff INHALATION RT-QID PRN 11/06/17 10/13/22 History Albuterol Nebulized [Ventolin 2.5 mg INHALATION RT-BID 01/01/20 10/13/22 History Nebulized] Furosemide [Lasix] 40 mg PO DAILY 01/01/20 10/13/22 History Hydroxychloroquine Sulfate 200 mg PO DAILY 01/01/20 10/13/22 History [Plaquenil] Potassium Citrate [Potassium 10 meq PO DAILY 01/01/20 10/13/22 History Citrate ER] allopurinoL [Zyloprim] 100 mg PO DAILY 01/01/20 10/13/22 History metFORMIN HCL [Glucophage] 1,000 mg PO BID 01/01/20 10/13/22 History Albuterol Inhaler [Ventolin Hfa 1 puff INHALATION RT-DAILY 10/07/22 10/13/22 History Inhaler] Cholecalciferol [Vitamin D3 (125 125 mcg PO DAILY 10/07/22 10/13/22 History Mcg = 5000 Iu)] Empagliflozin [Jardiance] 25 mg PO DAILY 10/07/22 10/13/22 History Levothyroxine Sodium 200 mcg PO DAILY 10/07/22 10/13/22 History Pravastatin Sodium [Pravachol] 20 mg PO DAILY 10/07/22 10/13/22 History busPIRone HCl [Buspar] 10 mg PO BID 10/07/22 10/13/22 History Budesonide-Formot 160-4.5 Mcg 2 puff INHALATION RT-BID each 10/10/22 10/13/22 Rx [Symbicort 160-4.5 Mcg Inhaler] Losartan [Cozaar] 25 mg PO DAILY tab 10/10/22 10/13/22 Rx Cefdinir 300 mg PO Q12H 10/13/22 10/13/22 History predniSONE See Taper PO DAILY 10/13/22 10/13/22 History Allergies Allergy/AdvReac Type Severity Reaction Status Date / Time tramadol [From [facility]] Allergy Rash/Hives Verified 10/13/22 12:02 Physical Exam Vitals: Vital Signs Temp Pulse Pulse Resp BP BP Pulse Ox 10/14/22 08:53 90 10/14/22 08:40 92 96 10/14/22 08:00 98.1 F 73 18 154/84 95 10/14/22 02:00 98.2 F 70 19 141/94 93 L 10/13/22 20:00 99.2 F 83 19 139/58 95 10/13/22 19:11 93 10/13/22 19:02 91 10/13/22 16:17 91 10/13/22 16:15 96 20 126/84 96 10/13/22 16:05 90 10/13/22 14:55 91 20 132/92 91 L 10/13/22 14:06 90 10/13/22 13:57 94 Intake and Output 10/13/22 10/14/22 10/14/22 22:59 06:59 14:59 Intake Total 1860 Balance 1860 Intake: Intake, IV Titration 900 Amount Sodium Chloride 0.9% 1, 900 000 ml @ 75 mls/hr IV . [id number] [facility] Rx#:[id number] Oral 960 Other: Voiding Method Toilet # Voids 1 4 # Bowel Movements 1 Weight 158.757 kg In general patient is alert and oriented x 3 in no distress HEENT head normocephalic and atraumatic Neck is supple no JVD no goiter no lymphadenopathy no carotid bruit Chest examination reveals a scattered crackles bilaterally with wheezing Cardiac exam reveals regular heart sounds S1 and S2 no gallops no murmurs Abdomen is soft nontender no organomegaly with normal bowel sounds Extremity exam reveals no edema no cyanosis or clubbing Neurological examination reveals no gross focal deficits Results CBC & Chem 7: 10/14/22 06:55 10/14/22 06:55 Labs: Abnormal Lab Results - Last 24 Hours (Table) 10/13/22 10/13/22 10/13/22 Range/Units 11:11 11:11 11:20 Hct 48.8 H (34.0-46.0) % Lymphocytes # 0.5 L (1.0-4.8) k/uL Carbon Dioxide 32 H (22-30) mmol/L Glucose 126 H (74-99) mg/dL POC Glucose (mg/dL) (70-110) mg/dL AST 91 H (14-36) U/L ALT 66 H (4-34) U/L Alkaline Phosphatase 274 H (38-126) U/L Influenza Type A RNA Detected H (Not Detectd) 10/13/22 Range/Units 16:51 Hct (34.0-46.0) % Lymphocytes # (1.0-4.8) k/uL Carbon Dioxide (22-30) mmol/L Glucose (74-99) mg/dL POC Glucose (mg/dL) 147 H (70-110) mg/dL AST (14-36) U/L ALT (4-34) U/L Alkaline Phosphatase (38-126) U/L Influenza Type A RNA (Not Detectd) Thrombosis Risk Factor Assmnt - Choose All That Apply Any of the Below Risk Factors Present?: Yes Each Factor Represents 1 point: Abnormal pulmonary function (COPD), Age 41-60 years, Serious lung disease incl. pneumonia (< 1month) Other Risk Factors: No Other congenital or acquired thrombophilia - If yes, enter type in comment: No Thrombosis Risk Factor Assessment Total Risk Factor Score: 3 Thrombosis Risk Factor Assessment Level: Moderate Risk Assessment and Plan Plan: Acute hypoxic respiratory failure requiring oxygen supplements Acute symptomatic influenza A infection Underlying history of sarcoidosis Underlying history of hypertension Underlying history of hypothyroidism Underlying history of obr-ctkhuxl-gypkbyrjw diabetes mellitus Underlying history of morbid obesity Underlying history of obstructive sleep apnea maintained on CPAP at home Underlying history of sick sinus syndrome with a history of pacemaker placement in the past Underlying history of gout At this time patient is admitted to medical floor Home medications reviewed and reordered She was started on IV Solu-Medrol and on oral Tamiflu Pulmonary consultation requested Will recheck labs in a.m. and follow closely
--- NOTE | 2022-10-14 18:01 | P.PN ---
Subjective Progress Note Date: 10/14/22 A 52-year-old female patient, morbidly obese with history of pulmonary and hepatic sarcoidosis admitted on a combination of Plaquenil and low-dose steroids, coming in emergency department today after being discharged from the hospital for decompensated heart failure and diastolic heart failure. The gualberto ent was released from the hospital on 10/10/2022 and 3 days following her discharge, the patient comes back with symptoms ofCough, congestion, tiredness, fatigue, body aches, nausea and the patient was also hypoxic. No emesis. No abdominal pain. No diarrhea. She tested positive for influenza A in the emergency department. She was admitted to the hospital accordinglyAs the patient was also getting progressively more short of breath. The Dilaudid because of 5.7 with a hemoglobin of 16 and a platelet count of 194. Normal cognition profile. Normal electrolytes. AST is 91, ALT 66, alk phos is 274, influenza A is positive and Covid 19 testing is negative. Chest x-ray showing increased interstitial markings bilaterally. There is cardiomegaly. There is also a there was lead pacemaker in place. The troponins are negative. Pro-BNP level is 568. On today's evaluation of 10/14/2022, the patient is feeling slightly better compared to yesterday. She is responding to the treatment which includes bronchodilators and steroids and the patient is also on Tamiflu. She is taking Lasix 40 mg by mouth daily. The patient has a number of his count of 4 with a hemoglobin of 14.4 and a platelet count of 180. Electrodes are within normal limits. Lactic acid level is at 1.4. Objective - Vital Signs Vital signs: Vital Signs Temp 97.9 F 10/14/22 14:00 Pulse 90 10/14/22 16:37 Resp 17 10/14/22 14:00 BP 161/84 10/14/22 14:00 Pulse Ox 93 L 10/14/22 14:00 FiO2 Intake & Output 10/13/22 10/14/22 10/14/22 18:59 06:59 18:59 Intake Total 1860 Balance 1860 Weight 158.757 kg Intake: Intake, IV Titration 900 Amount Sodium Chloride 0.9% 1, 900 000 ml @ 75 mls/hr IV . [id number] [facility] Rx#:[id number] Oral 960 Other: Voiding Method Toilet # Voids 1 4 # Bowel Movements 1 - Exam GENERAL EXAM: Alert, obese, pleasant 52-year-old female, on 2 L nasal cannula, comfortable in no apparent distress. HEAD: Normocephalic. EYES: Normal reaction of pupils, equal size. NOSE: Clear with pink turbinates. THROAT: No erythema or exudates. NECK: No masses, no JVD. CHEST: No chest wall deformity. LUNGS: Equal air entry with few bilateral crackles.diminished breath sounds along with wheezes during exhalation bilaterally CVS: S1 and S2 normal with no audible murmur, regular rhythm. ABDOMEN: No hepatosplenomegaly, normal bowel sounds, no guarding or rigidity. SPINE: No scoliosis or deformity SKIN: No rashes CENTRAL NERVOUS SYSTEM: No focal deficits, tone is normal in all 4 extremities. EXTREMITIES: There is trace peripheral edema. No clubbing, no cyanosis. Peripheral pulses are intact. - Labs CBC & Chem 7: 10/14/22 06:55 10/14/22 06:55 Labs: Abnormal Lab Results - Last 24 Hours (Table) 10/14/22 10/14/22 Range/Units 06:55 06:55 WBC 4.06 L (4.50-10.00) X 10*3/uL Hct 46.9 H (37.2-46.3) % MCHC 30.7 L (32.0-37.0) g/dL Immature Gran # 0.05 H (0.00-0.04) X 10*3/uL Lymphocytes # 0.48 L (0.90-5.00) X 10*3/uL Monocytes # 0.15 L (0.20-1.00) X 10*3/uL Eosinophils # 0 L (0.04-0.35) X 10*3/uL Glucose 181 H (70-110) mg/dL Calcium 8.6 L (8.7-10.3) mg/dL Assessment and Plan Plan: acute influenza A infection, symptomatic Acute hypoxic respiratory failure currently on 2 L of oxygen by nasal cannula Diastolic congestive heart failure. Echo of the heart from 10/07/2022 showed a preserved LV function with an EF of around 50% History of pulmonary and hepatic sarcoidosis, maintained on Plaquenil and prednisone 5 mg every other day. History of sick sinus syndrome with previous pacemaker implantation. Hypertension. GERD without esophagitis. Hypothyroidism. History of gout. Obesity. Diabetes mellitus. History of depression. VISH and she has CPAP at home Plan: clinically improving Continue same treatment DuoNeb nebulized treatments 4 times a day Tamiflu 75 mg by mouth twice a day IV Solu-Medrol 40 mg every 8 hours Gentle fluid hydration with normal saline at rate of 75 mL an hour Resume all medications Titrate oxygen flow to maintain a saturation above 90% allow the patient to utilize her CPAP from home We'll continue to follow
[2022-10-14] MEDS ORDERED: ALBUTEROL NEBULIZED 2.5 MG/3 ML INHALATION SCH (20:00)
[2022-10-14] MEDS: metFORMIN 500 MG TAB PO SCH (20:39)
[2022-10-14 21:17] LABS: Glucose,Whole Blood 184 mg/dL (70-110)
[2022-10-15] MEDS: methylPREDNISolone SOD SUCCI 40 MG/ML 1 ML VIAL IV SCH ×3 (00:46→18:23)
[2022-10-15] MEDS: SODIUM CHLORIDE 0.9% 1,000 ML IV SCH (06:12)
[2022-10-15] MEDS: LEVOTHYROXINE 100 MCG TAB PO SCH (06:12)
[2022-10-15 06:42] LABS: Glucose,Whole Blood 182 mg/dL (70-110)
[2022-10-15] MEDS ORDERED: NON FORMULARY DRUG (Albuterol Inhaler 90 MCG Puff) INHALATION SCH (08:00)
[2022-10-15] MEDS: SYMBICORT 160-4.5 MCG INHALER INHALATION SCH ×2 (08:03→20:58)
[2022-10-15] MEDS: IPRATROPIUM-ALBUTEROL 3 ML NEB INHALATION SCH ×4 (08:03→20:58)
[2022-10-15] MEDS: POTASSIUM CITRATE 10 MEQ TABLET.ER PO SCH (08:31)
[2022-10-15] MEDS: metFORMIN 500 MG TAB PO SCH ×2 (08:31→21:54)
[2022-10-15] MEDS: CHOLECALCIFEROL 125 MCG (5000 IU) TABLET PO SCH (08:31)
[2022-10-15] MEDS: PRAVASTATIN SODIUM 20 MG TAB PO SCH (08:31)
[2022-10-15] MEDS: DAPAGLIFLOZIN PROPANEDIOL 10 MG TABLET PO SCH (08:31)
[2022-10-15] MEDS: HYDROXYCHLOROQUINE SULFATE 200 MG TAB PO SCH (08:31)
[2022-10-15] MEDS: DULoxetine HCL 60 MG CAPSULE.DR PO SCH ×2 (08:31→21:54)
[2022-10-15] MEDS: busPIRone HCl 10 MG TAB PO SCH ×2 (08:31→21:54)
[2022-10-15] MEDS: FUROSEMIDE 40 MG TAB PO SCH (08:31)
[2022-10-15] MEDS: LOSARTAN 25 MG TAB PO SCH (08:31)
[2022-10-15] MEDS: OSELTAMIVIR 75 MG CAP PO SCH ×2 (08:31→21:53)
[2022-10-15] MEDS: allopurinoL 100 MG TAB PO SCH (08:31)
[2022-10-15 09:33] LABS: Basophils # (A) 0.01 X 10*3/uL (0.00-0.10); Basophils % (A) 0.1 %; Eosinophils # (A) 0 X 10*3/uL (0.04-0.35); Eosinophils % (A) 0 %; HCT 45.1 % (37.2-46.3); HGB 14.4 g/dL (12.0-15.0); Immature Grans, Automated 1.1 %; Lymphocytes # (A) 0.67 X 10*3/uL (0.90-5.00); Lymphocytes % (A) 8.3 %; MCH 29.2 pg (27.0-32.0); MCHC 31.9 g/dL (32.0-37.0); MCV 91.5 fL (80.0-97.0); Mean Platelet Volume 9.5 fL (9.5-12.2); Monocytes # (A) 0.53 X 10*3/uL (0.20-1.00); Monocytes % (A) 6.6 %; NRBC Per 100 WBC 0 /100 WBCS (0.0-0.0); Neutrophils # (A) 6.79 X 10*3/uL (1.80-7.70); Neutrophils % (A) 83.9 %; Platelet Count 227 X 10*3/uL (140-440); RBC 4.93 X 10*6/uL (4.10-5.20); RDW 14.4 % (11.5-14.5); WBC 8.09 X 10*3/uL (4.50-10.00)
--- NOTE | 2022-10-15 09:56 | P.PN ---
Subjective Progress Note Date: 10/15/22 Quyen Medina, 52-year-old female who presented to [facility] emergency room with a chief complaint of worsening shortness of breath, patient has a known history of sarcoidosis she was recently admitted to [facility] and received a course of steroids and was discharged home she returns was worsening shortness of breath, low-grade fever, and cough. She was evaluated in the emergency room vital examination on presentation revealed a temperature of 99.3 pulse 102 respiration 32 blood pressure 144/82 pulse ox 94% on 3 L nasal cannula Laboratory data revealed a white blood count of 5.7 hemoglobin 16.0 platelet count 194 BUN 16 creatinine 0.77 CO2 32 AST 91 ALT 66 alkaline phosphatase 274 influenza A PCR was positive Testing in the emergency room revealed chest x-ray done in the emergency room revealed central vascular congestion and interstitial edema Patient was admitted to medical floor for further evaluation and treatment On 10/15/2022 patient is alert and oriented 3. Current vital signs temp 97.3, heart rate 71, and respiratory rate 19, blood pressure 150/83 boxes of 95% on 3 L. Patient remains on Tamiflu and IV Solu-Medrol. Objective - Vital Signs Vital signs: Vital Signs Temp 97.3 F L 10/15/22 07:52 Pulse 70 10/15/22 08:14 Resp 19 10/15/22 07:52 BP 158/83 10/15/22 07:52 Pulse Ox 96 10/15/22 08:05 FiO2 Intake & Output 10/14/22 10/15/22 10/15/22 18:59 06:59 18:59 Intake Total 1720 Balance 1720 Intake: IV 10 Invasive Line 1 10 Intake, IV Titration 750 Amount Sodium Chloride 0.9% 1, 750 000 ml @ 75 mls/hr IV . [id number] NI Rx#:[id number] Oral 960 Other: Voiding Method Toilet Toilet # Voids 1 - Exam In general patient is alert and oriented x 3 in no distress HEENT head normocephalic and atraumatic Neck is supple no JVD no goiter no lymphadenopathy no carotid bruit Chest examination reveals a scattered crackles bilaterally with wheezing Cardiac exam reveals regular heart sounds S1 and S2 no gallops no murmurs Abdomen is soft nontender no organomegaly with normal bowel sounds Extremity exam reveals no edema no cyanosis or clubbing Neurological examination reveals no gross focal deficits - Labs CBC & Chem 7: 10/15/22 07:07 10/14/22 06:55 Labs: Abnormal Lab Results - Last 24 Hours (Table) 10/14/22 10/14/22 10/14/22 Range/Units 06:55 06:55 21:15 WBC 4.06 L (4.50-10.00) X 10*3/uL Hct 46.9 H (37.2-46.3) % MCHC 30.7 L (32.0-37.0) g/dL Immature Gran # 0.05 H (0.00-0.04) X 10*3/uL Lymphocytes # 0.48 L (0.90-5.00) X 10*3/uL Monocytes # 0.15 L (0.20-1.00) X 10*3/uL Eosinophils # 0 L (0.04-0.35) X 10*3/uL Glucose 181 H (70-110) mg/dL POC Glucose (mg/dL) 184 H (70-110) mg/dL Calcium 8.6 L (8.7-10.3) mg/dL 10/15/22 10/15/22 Range/Units 06:40 07:07 WBC (4.50-10.00) X 10*3/uL Hct (37.2-46.3) % MCHC 31.9 L (32.0-37.0) g/dL Immature Gran # 0.09 H (0.00-0.04) X 10*3/uL Lymphocytes # 0.67 L (0.90-5.00) X 10*3/uL Monocytes # (0.20-1.00) X 10*3/uL Eosinophils # 0 L (0.04-0.35) X 10*3/uL Glucose (70-110) mg/dL POC Glucose (mg/dL) 182 H (70-110) mg/dL Calcium (8.7-10.3) mg/dL Assessment and Plan Plan: Acute hypoxic respiratory failure requiring oxygen supplements Acute symptomatic influenza A infection Underlying history of sarcoidosis Underlying history of hypertension Underlying history of hypothyroidism Underlying history of smc-cjaquhe-yxxjeleua diabetes mellitus Underlying history of morbid obesity Underlying history of obstructive sleep apnea maintained on CPAP at home Underlying history of sick sinus syndrome with a history of pacemaker placement in the past Underlying history of gout At this time patient is admitted to medical floor Home medications reviewed and reordered She was started on IV Solu-Medrol and on oral Tamiflu Pulmonary consultation requested Will recheck labs in a.m. and follow closely
[2022-10-15 09:59] LABS: African American GFR (CKD) 88.3 (60.0-200.0); Albumin 3.5 g/dL (3.8-4.9); Albumin/Globulin Ratio 1.27 (1.60-3.17); Anion Gap 12.6 mmol/L (10.00-18.00); BUN/Creat Ratio 20.37 Ratio (12.00-20.00); Blood Urea Nitrogen 17.7 mg/dL (9.0-27.0); Carbon Dioxide 23.9 mmol/L (20.0-27.5); Globulin 2.7 g/dL (1.6-3.3); Non-African American GFR(CKD) 76.2 (60.0-200.0); Potassium 4.5 mmol/L (3.5-5.5); Total Bilirubin 0.3 mg/dL (0.30-1.20); Total Protein 6.2 g/dL (6.2-8.2)
[2022-10-15] MEDS: DOCUSATE 100 MG CAP PO PRN (10:49)
[2022-10-15 11:25] LABS: Glucose,Whole Blood 170 mg/dL (70-110)
[2022-10-15] MEDS: guaiFENesin-DM 100-10MG/5ML 10 ML CUP PO PRN ×2 (12:32→21:54)
--- NOTE | 2022-10-15 14:37 | P.PN ---
Subjective Progress Note Date: 10/15/22 A 52-year-old female patient, morbidly obese with history of pulmonary and hepatic sarcoidosis admitted on a combination of Plaquenil and low-dose steroids, coming in emergency department today after being discharged from the hospital for decompensated heart failure and diastolic heart failure. The gualberto ent was released from the hospital on 10/10/2022 and 3 days following her discharge, the patient comes back with symptoms ofCough, congestion, tiredness, fatigue, body aches, nausea and the patient was also hypoxic. No emesis. No abdominal pain. No diarrhea. She tested positive for influenza A in the emergency department. She was admitted to the hospital accordinglyAs the patient was also getting progressively more short of breath. The Dilaudid because of 5.7 with a hemoglobin of 16 and a platelet count of 194. Normal cognition profile. Normal electrolytes. AST is 91, ALT 66, alk phos is 274, influenza A is positive and Covid 19 testing is negative. Chest x-ray showing increased interstitial markings bilaterally. There is cardiomegaly. There is also a there was lead pacemaker in place. The troponins are negative. Pro-BNP level is 568. On today's evaluation of 10/14/2022, the patient is feeling slightly better compared to yesterday. She is responding to the treatment which includes bronchodilators and steroids and the patient is also on Tamiflu. She is taking Lasix 40 mg by mouth daily. The patient has a number of his count of 4 with a hemoglobin of 14.4 and a platelet count of 180. Electrodes are within normal limits. Lactic acid level is at 1.4. On 10/15/2022, the patient is feeling well. No new complaints. Less short of breath. Remains on diuretics. Remains on Lasix 40 mg by mouth daily. Remains on IV Solu-Medrol 40 mg every 8 hours. She is also on bronchodilators. No fever. No chills. White cycles of 8 with a hemoglobin of 14.4. BUN is at 17 with a creatinine of 0.9 and his sodium levels of 143. Objective - Vital Signs Vital signs: Vital Signs Temp 97.3 F L 10/15/22 07:52 Pulse 76 10/15/22 11:39 Resp 19 10/15/22 07:52 BP 158/83 10/15/22 07:52 Pulse Ox 96 10/15/22 08:05 FiO2 Intake & Output 10/14/22 10/15/22 10/15/22 18:59 06:59 18:59 Intake Total 1720 Balance 1720 Intake: IV 10 Invasive Line 1 10 Intake, IV Titration 750 Amount Sodium Chloride 0.9% 1, 750 000 ml @ 75 mls/hr IV . [id number] [facility] Rx#:[id number] Oral 960 Other: Voiding Method Toilet Toilet # Voids 1 - Exam GENERAL EXAM: Alert, obese, pleasant 52-year-old female, on 2 L nasal cannula, comfortable in no apparent distress. HEAD: Normocephalic. EYES: Normal reaction of pupils, equal size. NOSE: Clear with pink turbinates. THROAT: No erythema or exudates. NECK: No masses, no JVD. CHEST: No chest wall deformity. LUNGS: Equal air entry with few bilateral crackles.diminished breath sounds along with wheezes during exhalation bilaterally CVS: S1 and S2 normal with no audible murmur, regular rhythm. ABDOMEN: No hepatosplenomegaly, normal bowel sounds, no guarding or rigidity. SPINE: No scoliosis or deformity SKIN: No rashes CENTRAL NERVOUS SYSTEM: No focal deficits, tone is normal in all 4 extremities. EXTREMITIES: There is trace peripheral edema. No clubbing, no cyanosis. Peripheral pulses are intact. - Labs CBC & Chem 7: 10/15/22 07:07 10/15/22 07:07 Labs: Abnormal Lab Results - Last 24 Hours (Table) 10/14/22 10/15/22 10/15/22 Range/Units 21:15 06:40 07:07 MCHC 31.9 L (32.0-37.0) g/dL Immature Gran # 0.09 H (0.00-0.04) X 10*3/uL Lymphocytes # 0.67 L (0.90-5.00) X 10*3/uL Eosinophils # 0 L (0.04-0.35) X 10*3/uL BUN/Creatinine Ratio (12.00-20.00) Ratio Glucose (70-110) mg/dL POC Glucose (mg/dL) 184 H 182 H (70-110) mg/dL AST (13-35) U/L ALT (8-44) U/L Alkaline Phosphatase (41-126) U/L Albumin (3.8-4.9) g/dL Albumin/Globulin Ratio (1.60-3.17) g/dL 10/15/22 10/15/22 Range/Units 07:07 11:24 MCHC (32.0-37.0) g/dL Immature Gran # (0.00-0.04) X 10*3/uL Lymphocytes # (0.90-5.00) X 10*3/uL Eosinophils # (0.04-0.35) X 10*3/uL BUN/Creatinine Ratio 20.37 H (12.00-20.00) Ratio Glucose 226 H (70-110) mg/dL POC Glucose (mg/dL) 170 H (70-110) mg/dL AST 52 H (13-35) U/L ALT 73 H (8-44) U/L Alkaline Phosphatase 283 H (41-126) U/L Albumin 3.5 L (3.8-4.9) g/dL Albumin/Globulin Ratio 1.27 L (1.60-3.17) g/dL Assessment and Plan Plan: acute influenza A infection, symptomatic Acute hypoxic respiratory failure currently on 2 L of oxygen by nasal cannula Diastolic congestive heart failure. Echo of the heart from 10/07/2022 showed a preserved LV function with an EF of around 50% History of pulmonary and hepatic sarcoidosis, maintained on Plaquenil and prednisone 5 mg every other day. History of sick sinus syndrome with previous pacemaker implantation. Hypertension. GERD without esophagitis. Hypothyroidism. History of gout. Obesity. Diabetes mellitus. History of depression. VISH and she has CPAP at home Plan: Continue same treatment DuoNeb nebulized treatments 4 times a day Tamiflu 75 mg by mouth twice a day IV Solu-Medrol 40 mg every 8 hours IV fluids to KVO Resume all medications Titrate oxygen flow to maintain a saturation above 90% allow the patient to utilize her CPAP from home We'll continue to follow
[2022-10-15 16:58] LABS: Glucose,Whole Blood 227 mg/dL (70-110)
[2022-10-15 21:34] LABS: Glucose,Whole Blood 225 mg/dL (70-110)
[2022-10-16] MEDS: methylPREDNISolone SOD SUCCI 40 MG/ML 1 ML VIAL IV SCH ×4 (01:20→23:01)
[2022-10-16 05:54] LABS: Glucose,Whole Blood 225 mg/dL (70-110)
[2022-10-16] MEDS: DOCUSATE 100 MG CAP PO PRN (06:09)
[2022-10-16] MEDS: LEVOTHYROXINE 100 MCG TAB PO SCH (06:09)
[2022-10-16] MEDS: SODIUM CHLORIDE 0.9% 1,000 ML IV SCH (06:12)
[2022-10-16] MEDS: CHOLECALCIFEROL 125 MCG (5000 IU) TABLET PO SCH (08:54)
[2022-10-16] MEDS: FUROSEMIDE 40 MG TAB PO SCH (08:54)
[2022-10-16] MEDS: OSELTAMIVIR 75 MG CAP PO SCH ×2 (08:54→20:10)
[2022-10-16] MEDS: LOSARTAN 25 MG TAB PO SCH (08:55)
[2022-10-16] MEDS: PRAVASTATIN SODIUM 20 MG TAB PO SCH (08:55)
[2022-10-16] MEDS: metFORMIN 500 MG TAB PO SCH ×2 (08:55→20:10)
[2022-10-16] MEDS: DULoxetine HCL 60 MG CAPSULE.DR PO SCH ×2 (08:55→20:10)
[2022-10-16] MEDS: busPIRone HCl 10 MG TAB PO SCH ×2 (08:55→20:10)
[2022-10-16] MEDS: allopurinoL 100 MG TAB PO SCH (08:55)
[2022-10-16] MEDS: HYDROXYCHLOROQUINE SULFATE 200 MG TAB PO SCH (08:55)
[2022-10-16] MEDS: POTASSIUM CITRATE 10 MEQ TABLET.ER PO SCH (08:55)
[2022-10-16] MEDS: DAPAGLIFLOZIN PROPANEDIOL 10 MG TABLET PO SCH (08:55)
[2022-10-16 08:56] LABS: Basophils # (A) 0.02 X 10*3/uL (0.00-0.10); Basophils % (A) 0.2 %; Eosinophils # (A) 0 X 10*3/uL (0.04-0.35); Eosinophils % (A) 0 %; HCT 43.4 % (37.2-46.3); Immature Grans, Automated 2.3 %; Lymphocytes # (A) 0.57 X 10*3/uL (0.90-5.00); Lymphocytes % (A) 5.8 %; MCH 29.2 pg (27.0-32.0); MCHC 32.3 g/dL (32.0-37.0); MCV 90.4 fL (80.0-97.0); Mean Platelet Volume 9.4 fL (9.5-12.2); Monocytes # (A) 0.48 X 10*3/uL (0.20-1.00); Monocytes % (A) 4.9 %; NRBC Per 100 WBC 0 /100 WBCS (0.0-0.0); Neutrophils # (A) 8.49 X 10*3/uL (1.80-7.70); Neutrophils % (A) 86.8 %; Platelet Count 265 X 10*3/uL (140-440); RDW 14.3 % (11.5-14.5); WBC 9.79 X 10*3/uL (4.50-10.00)
[2022-10-16] MEDS: IPRATROPIUM-ALBUTEROL 3 ML NEB INHALATION SCH ×4 (08:59→20:12)
[2022-10-16] MEDS: SYMBICORT 160-4.5 MCG INHALER INHALATION SCH ×2 (09:00→20:12)
[2022-10-16 09:35] LABS: African American GFR (CKD) 97.6 (60.0-200.0); Albumin 3.5 g/dL (3.8-4.9); Albumin/Globulin Ratio 1.35 (1.60-3.17); Anion Gap 12.1 mmol/L (10.00-18.00); BUN/Creat Ratio 25.38 Ratio (12.00-20.00); Blood Urea Nitrogen 20.3 mg/dL (9.0-27.0); Calcium 9.2 mg/dL (8.7-10.3); Carbon Dioxide 24.9 mmol/L (20.0-27.5); Globulin 2.6 g/dL (1.6-3.3); Non-African American GFR(CKD) 84.2 (60.0-200.0); Potassium 4.3 mmol/L (3.5-5.5); Total Bilirubin 0.3 mg/dL (0.30-1.20); Total Protein 6.1 g/dL (6.2-8.2)
[2022-10-16 11:40] LABS: Glucose,Whole Blood 284 mg/dL (70-110)
--- NOTE | 2022-10-16 13:44 | P.PN ---
Subjective Progress Note Date: 10/16/22 A 52-year-old female patient, morbidly obese with history of pulmonary and hepatic sarcoidosis admitted on a combination of Plaquenil and low-dose steroids, coming in emergency department today after being discharged from the hospital for decompensated heart failure and diastolic heart failure. The patie nt was released from the hospital on 10/10/2022 and 3 days following her discharge, the patient comes back with symptoms ofCough, congestion, tiredness, fatigue, body aches, nausea and the patient was also hypoxic. No emesis. No abdominal pain. No diarrhea. She tested positive for influenza A in the emergency department. She was admitted to the hospital accordinglyAs the patient was also getting progressively more short of breath. The Dilaudid because of 5.7 with a hemoglobin of 16 and a platelet count of 194. Normal cognition profile. Normal electrolytes. AST is 91, ALT 66, alk phos is 274, influenza A is positive and Covid 19 testing is negative. Chest x-ray showing increased interstitial markings bilaterally. There is cardiomegaly. There is also a there was lead pacemaker in place. The troponins are negative. Pro-BNP level is 568. On today's evaluation of 10/14/2022, the patient is feeling slightly better compared to yesterday. She is responding to the treatment which includes bronchodilators and steroids and the patient is also on Tamiflu. She is taking Lasix 40 mg by mouth daily. The patient has a number of his count of 4 with a hemoglobin of 14.4 and a platelet count of 180. Electrodes are within normal limits. Lactic acid level is at 1.4. On 10/15/2022, the patient is feeling well. No new complaints. Less short of breath. Remains on diuretics. Remains on Lasix 40 mg by mouth daily. Remains on IV Solu-Medrol 40 mg every 8 hours. She is also on bronchodilators. No fever. No chills. White cycles of 8 with a hemoglobin of 14.4. BUN is at 17 with a creatinine of 0.9 and his sodium levels of 143. The patient is seen today 10/16/2022 in follow-up on the regular medical floor. She is currently sitting up at the bedside. Awake and alert in no acute distress. Breathing better today compared to yesterday. Maintaining O2 saturations in the 90s on 3 L/m per nasal cannula. She's been afebrile. Hemodynamically stable. White count 9.7. Hemoglobin 14.0. Platelets 265. Sodium 141. Potassium 4.3. Chloride 104. Bicarb 25. BUN 20. Creatinine 0.8. Glucose 241. AST 45. ALT 73. Alk phos 301. She remains on DuoNeb inhalations, Symbicort, IV Solu Medrol. Objective - Vital Signs Vital signs: Vital Signs Temp 98.4 F 10/16/22 08:00 Pulse 72 10/16/22 12:17 Resp 20 10/16/22 08:00 BP 138/95 10/16/22 08:00 Pulse Ox 93 L 10/16/22 08:00 FiO2 Intake & Output 10/15/22 10/16/22 10/16/22 18:59 06:59 18:59 Intake Total 32 Output Total 800 Balance -768 Intake: Oral 32 Output: Urine 800 Other: Voiding Method Toilet Toilet # Voids 4 - Exam GENERAL EXAM: Alert, active, obese, 52-year-old female, on 3 L nasal cannula, comfortable in no apparent distress. HEAD: Normocephalic. EYES: Normal reaction of pupils, equal size. NOSE: Clear with pink turbinates. THROAT: No erythema or exudates. NECK: No masses, no JVD. CHEST: No chest wall deformity. LUNGS: Equal air entry with bilateral expiratory wheeze, few scattered crackles, diminished. CVS: S1 and S2 normal with no audible murmur, regular rhythm. ABDOMEN: No hepatosplenomegaly, normal bowel sounds, no guarding or rigidity. SPINE: No scoliosis or deformity SKIN: No rashes CENTRAL NERVOUS SYSTEM: No focal deficits, tone is normal in all 4 extremities. EXTREMITIES: There is no peripheral edema. No clubbing, no cyanosis. Peripheral pulses are intact. - Labs CBC & Chem 7: 10/16/22 04:14 10/16/22 04:14 Labs: Abnormal Lab Results - Last 24 Hours (Table) 10/15/22 10/15/22 10/16/22 Range/Units 16:57 21:33 04:14 MPV 9.4 L (9.5-12.2) fL Immature Gran # 0.23 H (0.00-0.04) X 10*3/uL Neutrophils # 8.49 H (1.80-7.70) X 10*3/uL Lymphocytes # 0.57 L (0.90-5.00) X 10*3/uL Eosinophils # 0 L (0.04-0.35) X 10*3/uL BUN/Creatinine Ratio (12.00-20.00) Ratio Glucose (70-110) mg/dL POC Glucose (mg/dL) 227 H 225 H (70-110) mg/dL AST (13-35) U/L ALT (8-44) U/L Alkaline Phosphatase (41-126) U/L Total Protein (6.2-8.2) g/dL Albumin (3.8-4.9) g/dL Albumin/Globulin Ratio (1.60-3.17) g/dL 10/16/22 10/16/22 10/16/22 Range/Units 04:14 05:52 11:39 MPV (9.5-12.2) fL Immature Gran # (0.00-0.04) X 10*3/uL Neutrophils # (1.80-7.70) X 10*3/uL Lymphocytes # (0.90-5.00) X 10*3/uL Eosinophils # (0.04-0.35) X 10*3/uL BUN/Creatinine Ratio 25.38 H (12.00-20.00) Ratio Glucose 241 H (70-110) mg/dL POC Glucose (mg/dL) 225 H 284 H (70-110) mg/dL AST 45 H (13-35) U/L ALT 73 H (8-44) U/L Alkaline Phosphatase 301 H (41-126) U/L Total Protein 6.1 L (6.2-8.2) g/dL Albumin 3.5 L (3.8-4.9) g/dL Albumin/Globulin Ratio 1.35 L (1.60-3.17) g/dL Assessment and Plan Assessment: Acute influenza A infection, symptomatic Acute hypoxic respiratory failure currently on 2 L of oxygen by nasal cannula Diastolic congestive heart failure. Echo of the heart from 10/07/2022 showed a preserved LV function with an EF of around 50% History of pulmonary and hepatic sarcoidosis, maintained on Plaquenil and prednisone 5 mg every other day. History of sick sinus syndrome with previous pacemaker implantation. Hypertension. GERD without esophagitis. Hypothyroidism. History of gout. Obesity. Diabetes mellitus. History of depression. VISH and she has CPAP at home Plan: The patient was seen and evaluated Stable and on 3 L nasal cannula Medications and labs reviewed Remains on Tamiflu Remains on bronchodilators, IV solu Medrol Titrate the FiO2 as tolerated Increase her activity as tolerated We will continue to follow I have personally seen and examined the patient, performed the documentation and the assessment and plan as written. Number of minutes spent on the visit: 10.
[2022-10-16 16:43] LABS: Glucose,Whole Blood 252 mg/dL (70-110)
--- NOTE | 2022-10-16 18:06 | P.PN ---
Subjective Progress Note Date: 10/16/22 Quyen Medina, 52-year-old female who presented to [facility] emergency room with a chief complaint of worsening shortness of breath, patient has a known history of sarcoidosis she was recently admitted to [facility] and received a course of steroids and was discharged home she returns was worsening shortness of breath, low-grade fever, and cough. She was evaluated in the emergency room vital examination on presentation revealed a temperature of 99.3 pulse 102 respiration 32 blood pressure 144/82 pulse ox 94% on 3 L nasal cannula Laboratory data revealed a white blood count of 5.7 hemoglobin 16.0 platelet count 194 BUN 16 creatinine 0.77 CO2 32 AST 91 ALT 66 alkaline phosphatase 274 influenza A PCR was positive Testing in the emergency room revealed chest x-ray done in the emergency room revealed central vascular congestion and interstitial edema Patient was admitted to medical floor for further evaluation and treatment On 10/15/2022 patient is alert and oriented 3. Current vital signs temp 97.3, heart rate 71, and respiratory rate 19, blood pressure 150/83 boxes of 95% on 3 L. Patient remains on Tamiflu and IV Solu-Medrol. On 10/16/2022 patient was seen and examined on the medical floor, she is alert and oriented 3. she reports improvement in cough and shortness of breath, otherwise she denies any complaints. Patient remains on Tamiflu and IV Solu- Medrol. continue with current management possible discharge to home tomorrow Objective - Vital Signs Vital signs: Vital Signs Temp 98.4 F 10/16/22 08:00 Pulse 72 10/16/22 12:17 Resp 20 10/16/22 08:00 BP 138/95 10/16/22 08:00 Pulse Ox 93 L 10/16/22 08:00 FiO2 Intake & Output 10/15/22 10/16/22 10/16/22 18:59 06:59 18:59 Intake Total 32 Output Total 800 Balance -768 Intake: Oral 32 Output: Urine 800 Other: Voiding Method Toilet Toilet # Voids 4 - Exam In general patient is alert and oriented x 3 in no distress HEENT head normocephalic and atraumatic Neck is supple no JVD no goiter no lymphadenopathy no carotid bruit Chest examination reveals a scattered crackles bilaterally with wheezing Cardiac exam reveals regular heart sounds S1 and S2 no gallops no murmurs Abdomen is soft nontender no organomegaly with normal bowel sounds Extremity exam reveals no edema no cyanosis or clubbing Neurological examination reveals no gross focal deficits - Labs CBC & Chem 7: 10/16/22 04:14 10/16/22 04:14 Labs: Abnormal Lab Results - Last 24 Hours (Table) 10/15/22 10/15/22 10/16/22 Range/Units 16:57 21:33 04:14 MPV 9.4 L (9.5-12.2) fL Immature Gran # 0.23 H (0.00-0.04) X 10*3/uL Neutrophils # 8.49 H (1.80-7.70) X 10*3/uL Lymphocytes # 0.57 L (0.90-5.00) X 10*3/uL Eosinophils # 0 L (0.04-0.35) X 10*3/uL BUN/Creatinine Ratio (12.00-20.00) Ratio Glucose (70-110) mg/dL POC Glucose (mg/dL) 227 H 225 H (70-110) mg/dL AST (13-35) U/L ALT (8-44) U/L Alkaline Phosphatase (41-126) U/L Total Protein (6.2-8.2) g/dL Albumin (3.8-4.9) g/dL Albumin/Globulin Ratio (1.60-3.17) g/dL 10/16/22 10/16/22 10/16/22 Range/Units 04:14 05:52 11:39 MPV (9.5-12.2) fL Immature Gran # (0.00-0.04) X 10*3/uL Neutrophils # (1.80-7.70) X 10*3/uL Lymphocytes # (0.90-5.00) X 10*3/uL Eosinophils # (0.04-0.35) X 10*3/uL BUN/Creatinine Ratio 25.38 H (12.00-20.00) Ratio Glucose 241 H (70-110) mg/dL POC Glucose (mg/dL) 225 H 284 H (70-110) mg/dL AST 45 H (13-35) U/L ALT 73 H (8-44) U/L Alkaline Phosphatase 301 H (41-126) U/L Total Protein 6.1 L (6.2-8.2) g/dL Albumin 3.5 L (3.8-4.9) g/dL Albumin/Globulin Ratio 1.35 L (1.60-3.17) g/dL Assessment and Plan Plan: Acute hypoxic respiratory failure requiring oxygen supplements Acute symptomatic influenza A infection Underlying history of sarcoidosis Underlying history of hypertension Underlying history of hypothyroidism Underlying history of [id number] diabetes mellitus Underlying history of morbid obesity Underlying history of obstructive sleep apnea maintained on CPAP at home Underlying history of sick sinus syndrome with a history of pacemaker placement in the past Underlying history of gout At this time patient is admitted to medical floor Home medications reviewed and reordered She was started on IV Solu-Medrol and on oral Tamiflu Pulmonary consultation requested Will recheck labs in a.m. and follow closely
[2022-10-16 21:53] LABS: Glucose,Whole Blood 272 mg/dL (70-110)
[2022-10-17 03:02] VITALS: RESP 18
[2022-10-17] MEDS: SODIUM CHLORIDE 0.9% 1,000 ML IV SCH (06:13)
[2022-10-17] MEDS: LEVOTHYROXINE 100 MCG TAB PO SCH (06:20)
[2022-10-17 06:23] LABS: Glucose,Whole Blood 223 mg/dL (70-110)
[2022-10-17] MEDS: LOSARTAN 25 MG TAB PO SCH (08:00)
[2022-10-17] MEDS: metFORMIN 500 MG TAB PO SCH (08:00)
[2022-10-17] MEDS: CHOLECALCIFEROL 125 MCG (5000 IU) TABLET PO SCH (08:00)
[2022-10-17] MEDS: DULoxetine HCL 60 MG CAPSULE.DR PO SCH (08:00)
[2022-10-17] MEDS: FUROSEMIDE 40 MG TAB PO SCH (08:00)
[2022-10-17] MEDS: busPIRone HCl 10 MG TAB PO SCH (08:00)
[2022-10-17] MEDS: PRAVASTATIN SODIUM 20 MG TAB PO SCH (08:00)
[2022-10-17] MEDS: allopurinoL 100 MG TAB PO SCH (08:00)
[2022-10-17] MEDS: DAPAGLIFLOZIN PROPANEDIOL 10 MG TABLET PO SCH (08:01)
[2022-10-17] MEDS: OSELTAMIVIR 75 MG CAP PO SCH (08:01)
[2022-10-17] MEDS: HYDROXYCHLOROQUINE SULFATE 200 MG TAB PO SCH (08:01)
[2022-10-17] MEDS: methylPREDNISolone SOD SUCCI 40 MG/ML 1 ML VIAL IV SCH (08:01)
[2022-10-17] MEDS: POTASSIUM CITRATE 10 MEQ TABLET.ER PO SCH (08:01)
[2022-10-17] MEDS: SYMBICORT 160-4.5 MCG INHALER INHALATION SCH (08:41)
[2022-10-17] MEDS: IPRATROPIUM-ALBUTEROL 3 ML NEB INHALATION SCH ×3 (08:41→15:48)
[2022-10-17 09:10] LABS: Basophils # (A) 0.04 X 10*3/uL (0.00-0.10); Basophils % (A) 0.4 %; Eosinophils # (A) 0 X 10*3/uL (0.04-0.35); Eosinophils % (A) 0 %; HCT 43.8 % (37.2-46.3); HGB 14.2 g/dL (12.0-15.0); Immature Grans, Automated 4.3 %; Lymphocytes # (A) 0.56 X 10*3/uL (0.90-5.00); Lymphocytes % (A) 5.5 %; MCH 28.9 pg (27.0-32.0); MCHC 32.4 g/dL (32.0-37.0); MCV 89.2 fL (80.0-97.0); Mean Platelet Volume 9.3 fL (9.5-12.2); Monocytes # (A) 0.53 X 10*3/uL (0.20-1.00); Monocytes % (A) 5.2 %; NRBC Per 100 WBC 0 /100 WBCS (0.0-0.0); Neutrophils # (A) 8.55 X 10*3/uL (1.80-7.70); Neutrophils % (A) 84.6 %; Platelet Count 268 X 10*3/uL (140-440); RBC 4.91 X 10*6/uL (4.10-5.20); RDW 14.2 % (11.5-14.5); WBC 10.11 X 10*3/uL (4.50-10.00)
[2022-10-17 09:17] LABS: African American GFR (CKD) 97.6 (60.0-200.0); Albumin 3.6 g/dL (3.8-4.9); Albumin/Globulin Ratio 1.5 (1.60-3.17); Anion Gap 10.8 mmol/L (10.00-18.00); BUN/Creat Ratio 26.25 Ratio (12.00-20.00); Calcium 9.3 mg/dL (8.7-10.3); Carbon Dioxide 27.2 mmol/L (20.0-27.5); Globulin 2.4 g/dL (1.6-3.3); Non-African American GFR(CKD) 84.2 (60.0-200.0); Potassium 4.7 mmol/L (3.5-5.5); Total Bilirubin 0.4 mg/dL (0.30-1.20)
[2022-10-17 11:12] LABS: Glucose,Whole Blood 162 mg/dL (70-110)
[2022-10-17] MEDS: guaiFENesin-DM 100-10MG/5ML 10 ML CUP PO PRN (11:35)
--- NOTE | 2022-10-17 13:02 | P.PN ---
Subjective Progress Note Date: 10/17/22 A 52-year-old female patient, morbidly obese with history of pulmonary and hepatic sarcoidosis admitted on a combination of Plaquenil and low-dose steroids, coming in emergency department today after being discharged from the hospital for decompensated heart failure and diastolic heart failure. The patie johnathan was released from the hospital on 10/10/2022 and 3 days following her discharge, the patient comes back with symptoms ofCough, congestion, tiredness, fatigue, body aches, nausea and the patient was also hypoxic. No emesis. No abdominal pain. No diarrhea. She tested positive for influenza A in the emergency department. She was admitted to the hospital accordinglyAs the patient was also getting progressively more short of breath. The Dilaudid because of 5.7 with a hemoglobin of 16 and a platelet count of 194. Normal cognition profile. Normal electrolytes. AST is 91, ALT 66, alk phos is 274, influenza A is positive and Covid 19 testing is negative. Chest x-ray showing increased interstitial markings bilaterally. There is cardiomegaly. There is also a there was lead pacemaker in place. The troponins are negative. Pro-BNP level is 568. On today's evaluation of 10/14/2022, the patient is feeling slightly better compared to yesterday. She is responding to the treatment which includes bronchodilators and steroids and the patient is also on Tamiflu. She is taking Lasix 40 mg by mouth daily. The patient has a number of his count of 4 with a hemoglobin of 14.4 and a platelet count of 180. Electrodes are within normal limits. Lactic acid level is at 1.4. On 10/15/2022, the patient is feeling well. No new complaints. Less short of breath. Remains on diuretics. Remains on Lasix 40 mg by mouth daily. Remains on IV Solu-Medrol 40 mg every 8 hours. She is also on bronchodilators. No fever. No chills. White cycles of 8 with a hemoglobin of 14.4. BUN is at 17 with a creatinine of 0.9 and his sodium levels of 143. The patient is seen today 10/16/2022 in follow-up on the regular medical floor. She is currently sitting up at the bedside. Awake and alert in no acute distress. Breathing better today compared to yesterday. Maintaining O2 saturations in the 90s on 3 L/m per nasal cannula. She's been afebrile. Hemodynamically stable. White count 9.7. Hemoglobin 14.0. Platelets 265. Sodium 141. Potassium 4.3. Chloride 104. Bicarb 25. BUN 20. Creatinine 0.8. Glucose 241. AST 45. ALT 73. Alk phos 301. She remains on DuoNeb inhalations, Symbicort, IV Solu Medrol. The patient is seen today 10/17/2022 in follow-up on the regular medical floor. She is awake and alert in no acute distress. Sitting up at the bedside. Maintaining good O2 saturations in the 90s on 2 L/m per nasal cannula. She is continued on DuoNeb inhalations, Symbicort, IV Solu-Medrol. Remains on Tamiflu. White count 10.1. Hemoglobin 14.2. Platelets 268. Sodium 139. Potassium 4.7. BUN 21. Creatinine 0.8. Glucose 246. AST 32. ALT 66. Objective - Vital Signs Vital signs: Vital Signs Temp 97.4 F L 10/17/22 07:21 Pulse 92 10/17/22 11:45 Resp 18 10/17/22 08:00 BP 178/100 10/17/22 07:21 Pulse Ox 96 10/17/22 07:21 FiO2 Intake & Output 10/16/22 10/17/22 10/17/22 18:59 06:59 18:59 Intake Total 1080 Balance 1080 Intake: Oral 1080 Other: Voiding Method Toilet Toilet # Voids 2 - Exam GENERAL EXAM: Alert, pleasant, obese, 52-year-old female, on 3 L nasal cannula, comfortable in no apparent distress. HEAD: Normocephalic. EYES: Normal reaction of pupils, equal size. NOSE: Clear with pink turbinates. THROAT: No erythema or exudates. NECK: No masses, no JVD. CHEST: No chest wall deformity. LUNGS: Equal air entry with bilateral expiratory wheeze, few scattered crackles, diminished. CVS: S1 and S2 normal with no audible murmur, regular rhythm. ABDOMEN: No hepatosplenomegaly, normal bowel sounds, no guarding or rigidity. SPINE: No scoliosis or deformity SKIN: No rashes CENTRAL NERVOUS SYSTEM: No focal deficits, tone is normal in all 4 extremities. EXTREMITIES: There is no peripheral edema. No clubbing, no cyanosis. Peripheral pulses are intact. - Labs CBC & Chem 7: 10/17/22 05:25 10/17/22 05:25 Labs: Abnormal Lab Results - Last 24 Hours (Table) 10/16/22 10/16/22 10/17/22 Range/Units 16:40 21:51 05:25 WBC 10.11 H (4.50-10.00) X 10*3/uL MPV 9.3 L (9.5-12.2) fL Immature Gran # 0.43 H (0.00-0.04) X 10*3/uL Neutrophils # 8.55 H (1.80-7.70) X 10*3/uL Lymphocytes # 0.56 L (0.90-5.00) X 10*3/uL Eosinophils # 0 L (0.04-0.35) X 10*3/uL BUN/Creatinine Ratio (12.00-20.00) Ratio Glucose (70-110) mg/dL POC Glucose (mg/dL) 252 H 272 H (70-110) mg/dL ALT (8-44) U/L Alkaline Phosphatase (41-126) U/L Total Protein (6.2-8.2) g/dL Albumin (3.8-4.9) g/dL Albumin/Globulin Ratio (1.60-3.17) g/dL 10/17/22 10/17/22 10/17/22 Range/Units 05:25 06:21 11:09 WBC (4.50-10.00) X 10*3/uL MPV (9.5-12.2) fL Immature Gran # (0.00-0.04) X 10*3/uL Neutrophils # (1.80-7.70) X 10*3/uL Lymphocytes # (0.90-5.00) X 10*3/uL Eosinophils # (0.04-0.35) X 10*3/uL BUN/Creatinine Ratio 26.25 H (12.00-20.00) Ratio Glucose 246 H (70-110) mg/dL POC Glucose (mg/dL) 223 H 162 H (70-110) mg/dL ALT 66 H (8-44) U/L Alkaline Phosphatase 270 H (41-126) U/L Total Protein 6.0 L (6.2-8.2) g/dL Albumin 3.6 L (3.8-4.9) g/dL Albumin/Globulin Ratio 1.50 L (1.60-3.17) g/dL Assessment and Plan Assessment: Acute influenza A infection, symptomatic Acute hypoxic respiratory failure currently on 2 L of oxygen by nasal cannula Diastolic congestive heart failure. Echo of the heart from 10/07/2022 showed a preserved LV function with an EF of around 50% History of pulmonary and hepatic sarcoidosis, maintained on Plaquenil and prednisone 5 mg every other day. History of sick sinus syndrome with previous pacemaker implantation. Hypertension. GERD without esophagitis. Hypothyroidism. History of gout. Obesity. Diabetes mellitus. History of depression. VISH and she has CPAP at home Plan: The patient was seen and evaluated Stable and on 3 L nasal cannula Medications reviewed Cleared for discharge from the pulmonary standpoint Complete a prednisone taper starting at 40 mg daily for 4 days Complete her course of Tamiflu Continue her home pulmonary medications including home oxygen Keep her appointment with Dr. Pappas as scheduled I have personally seen and examined the patient, performed the documentation and the assessment and plan as written. Number of minutes spent on the visit: 10.
[2022-10-17 13:56] VITALS: PULSE 100; TEMP 98
[2022-10-17 15:36] VITALS: BP 140/83
[2022-10-18] MEDS ORDERED: predniSONE 20 MG TAB PO SCH (09:00)
== END 2022-10-17 16:05 | disposition home or self-care (01) | DRG 193 ==
LOC: EC 10:46 → 4SSUR 13:39
PROVIDERS: ADMIT Internal Medicine; ATTEND Internal Medicine
DX: J10.1 Influenza due to other identified influenza virus with other respiratory manifestations (principal); J96.01 Acute respiratory failure with hypoxia; Z68.44 Body mass index [BMI] 60.0-69.9, adult; I50.32 Chronic diastolic (congestive) heart failure; D86.0 Sarcoidosis of lung; Z20.822 Contact with and (suspected) exposure to COVID-19; K21.9 Gastro-esophageal reflux disease without esophagitis; E66.01 Morbid (severe) obesity due to excess calories; D86.89 Sarcoidosis of other sites; F41.9 Anxiety disorder, unspecified; F32.A Depression, unspecified; E03.9 Hypothyroidism, unspecified; I49.5 Sick sinus syndrome; M10.9 Gout, unspecified; G47.33 Obstructive sleep apnea (adult) (pediatric); E11.9 Type 2 diabetes mellitus without complications; I11.0 Hypertensive heart disease with heart failure; Z95.0 Presence of cardiac pacemaker; Z79.899 Other long term (current) drug therapy; Z79.890 Hormone replacement therapy; Z79.84 Long term (current) use of oral hypoglycemic drugs; Z79.52 Long term (current) use of systemic steroids; Z79.51 Long term (current) use of inhaled steroids; Z88.5 Allergy status to narcotic agent; Z99.81 Dependence on supplemental oxygen; Z87.01 Personal history of pneumonia (recurrent)
CPT/HCPCS: 36415; 71046; 80048; 80053; 83605; 83880; 84484; 85025; 85610; 85730; 87502; 87635; 94640; 94760; 96360; 99285

== ENCOUNTER 2023-05-14 10:44 | Day surgery (SDC) | payer MEDICARE, OTHER ==
[~2023-05-14 10:44] MED LIST changes: -LACTATED RINGERS 1,000 ML IV SCH; -LIDOCAINE 1% (10MG/ML) FOR IV START INTRADERMA PRN; +SODIUM CHLORIDE 0.9% 1,000 ML IV SCH; +ceFAZolin 1 GM in SODIUM CHLORIDE 0.9% IRRIG BTL 250 ML IRRIGATION PRN
[2023-05-14] MEDS ORDERED: SODIUM CHLORIDE 0.9% 500 ML 500 ML IV ONE (11:08)
[2023-05-14 11:14] LABS: Glucose,Whole Blood 112 mg/dL (70-110)
[2023-05-14 11:18] VITALS: RESP 16; TEMP 98.5
[2023-05-14] MEDS ORDERED: MIDAZOLAM 2 MG/2 ML VIAL IVP ONE (12:11)
[2023-05-14] MEDS ORDERED: fentaNYL (PF) 50 MCG/1 ML VIAL IVP ONE ×2 (12:12)
[2023-05-14] MEDS ORDERED: LIDOCAINE 1% INJ 10MG/ML (30 ML VIAL-PF) SQ ONE (12:14)
--- NOTE | 2023-05-14 12:56 | P.PCN ---
Description of Procedure: CARDIOLOGY PROCEDURE NOTE Front Desk Supervisor: Dr. Cleveland Barnard Procedure performed: Dual chamber permanent pacemaker generator change Site: Left subclavian Indications: Complete heart block, SSS Complications: None Blood Loss: Minimal Description of Procedure: After the risks, benefits, and alternatives of the above-mentioned procedure was explained in detail with the patient, informed consent was obtained. The patient was taken to the cardiac catheterization suite where the left subclavian area was sterily prepped and draped in the usual fashion. Patient was given IV Versed and fentanyl for sedation. The skin over the existing pulse generator was infiltrated with lidocaine. An incision was made in the skin and was deepened until the pectoral fascia was exposed. Hemostasis was obtained. The existing pulse generator was pulled out of the pocket. The leads were disconnected and were checked for thresholds. The existing leads were then inserted into the appropriate position into the new generator. They were then secured with the setscrew provided. The leads and generator were inserted into the pocket with the leads posterior. The subcutaneous tissue was approximated utilizing #2.0 and 3.0 vicryl in an interrupted stitch fashion. The dermal layer was approximated utilizing #4.0 vicryl. The area was cleansed with sterile saline and dried. A sterile 4x4 dressing was applied and the patient was transferred to the post catheterization holding area in stable and satisfactory condition. The patient tolerated the procedure well. Generator Data Grab Setter: Medtronic Brand: [id number] Merlin XT DR MRI Model #: [id number] Serial#: [id number] Right Atrial Bipolar Lead Data: Type: Active fixation lead Grab Setter: Handle Model#: 7741 Serial Number: [id number] Right Ventricular Bipolar Lead Data: Type: Active fixation lead Grab Setter: [employer]tronic Model #: [id number] Serial #: [id number] Stimulation Thresholds: Right atrial bipolar lead pacing and sensing thresholds Pulse Width: 1.0 ms Voltage: 2.0 Impedance: 627 ohms P-wave sensin.5 mV Right Ventricular bipolar lead pacing and sensing thresholds Pulse Width: 0.4ms Voltage: 1.25 volts Impedance: 400 ohms R-wave sensing: Pacemaker dependent Parameter Setting: Pacing mode is DDDR Lower rate 60 bpm Upper rate 130 bpm Impressions: 1. Successful generator change of a dual chamber permanent pacemaker in the left pectoral site. Plan: 1. Routine post procedure care will be instituted as well as outpatient follow- up surveillance.
[2023-05-14 15:30] VITALS: BP 138/72; PULSE 76
== END 2023-05-14 15:20 | disposition home or self-care (01) ==
LOC: CATHEP 10:44
PROVIDERS: ATTEND Internal Medicine
DX: I49.5 Sick sinus syndrome (principal); I44.2 Atrioventricular block, complete; I10 Essential (primary) hypertension; Z82.49 Family history of ischemic heart disease and other diseases of the circulatory system; Z45.010 Encounter for checking and testing of cardiac pacemaker pulse generator [battery]; Z79.899 Other long term (current) drug therapy; Z79.84 Long term (current) use of oral hypoglycemic drugs
CPT/HCPCS: 33228; C1785; J2250; J0690; J2001; J3010

== ENCOUNTER → 2023-06-14 | Outpatient (CLI) | payer MEDICARE, OTHER ==
--- NOTE | 2023-06-15 08:40 | MM ---
Reason for Exam: Screening (asymptomatic). Last mammogram was performed 3 year(s) and 0 month(s) ago. Patient History: Menarche at age 13. Patient has no children. Postmenopausal. Risk Values: Allison 5 year model risk: 1.2%. NCI Lifetime model risk: 8.5%. Prior Study Comparison: 08/03/2009 Bilateral Screening Mammogram, [facility]. 04/16/2019 Bilateral Screening Mammogram, [facility]. 06/22/2020 Bilateral Screening Mammogram, [facility]. Tissue Density: There are scattered fibroglandular densities. Findings: Analyzed By CAD. The pattern appears stable. Pacemaker overlies left chest. No significant interval change is evident. No suspicious groups of microcalcifications, spiculated or lobular masses, architectural distortion or other secondary signs of malignancy are mammographically apparent. Overall Assessment: Benign, BI-RAD 2 Management: Screening Mammogram of both breasts in 1 year. A negative mammogram report should not preclude additional follow up of suspicious palpable abnormalities. Patient should continue monthly self breast exam. A clinical breast exam by your physician is recommended on an annual basis and results should be correlated with mammographic findings. Electronically signed and approved by: Rommel Leon D.O. Radiologis
== END | disposition home or self-care (01) ==
LOC: RADMAMWWP 11:14
PROVIDERS: ATTEND Internal Medicine
DX: Z12.31 Encounter for screening mammogram for malignant neoplasm of breast (principal); Z78.0 Asymptomatic menopausal state
CPT/HCPCS: 77067

== ENCOUNTER → 2024-09-05 | Outpatient (CLI) | payer MEDICARE, OTHER ==
--- NOTE | 2024-09-08 09:21 | MM ---
Reason for Exam: Screening (asymptomatic). Last mammogram was performed 1 year(s) and 3 month(s) ago. Patient History: Menarche at age 13. Patient has no children. Postmenopausal. Risk Values: Allison 5 year model risk: 1.2%. NCI Lifetime model risk: 8.3%. Prior Study Comparison: 04/16/2019 Bilateral Screening Mammogram, [facility]. 06/22/2020 Bilateral Screening Mammogram, [facility]. 06/14/2023 Bilateral MG screening mammo w CAD, [facility]. Tissue Density: The breasts are almost entirely fatty. Findings: Analyzed By CAD. Right breast: There is no suspicious group of microcalcifications or new suspicious mass. Left breast: There is no suspicious group of microcalcifications or new suspicious mass. Overall Assessment: Negative, BI-RAD 1 Management: Screening Mammogram of both breasts in [address] [facility] will attempt to contact patient to return for supplemental views and ultrasound if indicated. Patient should continue monthly self-breast exams. A clinical breast exam by your physician is recommended on an annual basis. This exam should not preclude additional follow-up of suspicious palpable abnormalities. Note on Allison scores and lifetime risk: 1. A Allison score greater than 3% is considered moderate risk. If this is the case, consider specialist referral to assess eligibility for a risk reducing agent. 2. If overall lifetime risk for the development of breast cancer is 20% or higher, the patient may qualify for future screening with alternating mammogram and breast MRI. [facility], , 09/08/2024 9:19 AM. Electronically signed and approved by: Sunil Winslow DO
== END | disposition home or self-care (01) ==
LOC: RADMAMWWP 12:45
PROVIDERS: ATTEND Internal Medicine
DX: Z12.31 Encounter for screening mammogram for malignant neoplasm of breast (principal); Z78.0 Asymptomatic menopausal state
CPT/HCPCS: 77067